=== PATIENT | female | born 1945 | race Caucasian/White ===

== ENCOUNTER 2022-11-19 11:58 | Inpatient (IN) | payer MEDICARE, SELFPAY ==
--- NOTE | 2022-11-19 | ECG_ITS ---
Test Reason : hx ischemia Blood Pressure : / mmHG Vent. Rate : 075 BPM Atrial Rate : 075 BPM P-R Int : 136 ms QRS Dur : 070 ms QT Int : 376 ms P-R-T Axes : -12 000 046 degrees QTc Int : 419 ms Normal sinus rhythm with sinus arrhythmia T wave abnormality, consider anterior ischemia Abnormal ECG No previous ECGs available Referred By: Grabiel Roy Electronically Signed By:Marvin Ponce
--- OUTSIDE RECORDS SUMMARY | 2022-11-19 12:07 | XMS_ITS | Continuity of Care Document ---
Author Name Unknown Organization [facility] Address [address] [place] [address]- Care Team Providers Care Denial Management Representative Name Role Phone Matt ARINEY, Mikie Vallecillo Primary Care Physician [phone] Encounter [facility] [place] Date(s): 10/21/21 - 11/20/21 [facility] [address] [place], [place] [address] Allergies, Adverse Reactions, Alerts No Known Allergies Immunizations Given and Recorded Vaccine Date Status Refusal Reason zoster vaccine, inactivated 05/15/21 Recorded zoster vaccine, inactivated 03/14/21 Recorded pneumococcal 13-valent vaccine 1 02/15/21 Given SARS-CoV-2 (COVID-19) mRNA BNT-162b2 vac 01/11/21 Recorded SARS-CoV-2 (COVID-19) mRNA BNT-162b2 vac 07/11/20 Recorded SARS-CoV-2 (COVID-19) mRNA BNT-162b2 vac 06/19/20 Recorded influenza virus vaccine, inactivated 12/20/20 Elie rded influenza virus vaccine, inactivated 2 02/03/20 Gi jeffrey influenza virus vaccine, inactivated 3 06/30/08 Gi jeffrey tetanus/diphtheria/pertussis, acel(Tdap) 12/04/14 Given tetanus-diphtheria toxoids (Td) 06/11/05 Given 1Result Comment: [id number] 2Result Comment: [id number] 3Admin Note: PT DECLINED/REFUSED Medications clobetasol 0.05% topical cream 1 applicator, Topically, Every Thursday, Thursday and Thursday, # 45 Gm, 1 Refills, Maintenance, 02/15/21 8:23:00 EDT, Cream, [facility], 1 applicator Topically Every Thursday, Thursday and Thursday, 158.3, cm, 02/15/21 8:03:00 EDT, Height Start Date: 02/15/21 Status: Ordered doxylamine 25 mg oral tablet 0.5 tablet = 12.5 mg, By Mouth, Daily at bedtime, 0 Refills, Maintenance, 01/09/17 9:12:48 EDT Start Date: 01/09/17 Status: Ordered omeprazole 20 mg oral enteric coated capsule 1 capsule = 20 mg, By Mouth, 2 times a day, # 60 capsule, 3 Refills, Maintenance, 07/02/21 13:51:00EDT, EC Capsule, [id number], Partial fill upon patient request if the prescription is for aschedule II opioid drug., 158.3, cm, 06/20/21 10:16... Start Date: 07/02/21 Stop Date: 10/30/21 Status: Ordered ProAir HFA 90 mcg/inh inhalation aerosol with adapter 2, puffs, Inhalation, Every 4 hours, PRN, # 8.5 Gm, Refills 1, Tot. Refills 1, Maintenance, 02/15/21 8:23:00 EDT, Aerosol, Route to Pharmacy Electronically, [id number], [facility], 158.3, cm, 02/15/21 8:03:... Start Date: 02/15/21 Status: Ordered simvastatin 20 mg oral tablet 20 mg, 1, tablet, By Mouth, Daily at bedtime, RX#[id number] 07, # 90 tablet, Refills 3, Tot. Refills 3, Maintenance, 03/25/21 9:07:00 EST, Route to Pharmacy Electronically, [facility], do not fill untl pt calls, 158.3, cm, 02/15... Start Date: 03/25/21 Status: Ordered Problem List Condition Effective Dates Status Health Status Inform ant Asthma(Confirmed) 04/16/17 Active FH: Ischemic heart dis. <60(Confirmed) Active Hypercholesterolemia(Confirmed) 11/26/12 Active Lichen sclerosus(Confirmed) 12/27/11 Active Arthritis of shoulder region , right, degenerative Right shoulder arthroplasty(Confirmed) 10/24/18 Active Osteopenia ------> osteoporo sis -2.5 hip ( 03/2020 )(Confirmed) Active Rotator cuff repair(Confirmed) 01/23/10 Active Vitamin D deficiency(Confirmed) 07/08/08 Active Social History Social History Type Response Smoking Status Never smoker entered on: 12/02/13 Sex
--- OUTSIDE RECORDS SUMMARY | 2022-11-19 12:07 | XMS_ITS | Continuity of Care Document ---
Author Name Unknown Organization [facility] Address [address] [place] [address]- Care Team Providers Care Maintenance Supervisor Name Role Phone Mikie Gutierrez MD Primary Care Physician [place] [facility] [place] Date(s): 07/02/21 - 08/01/21 [facility] [address] [place], [place] [address] Attending Physician: Shelley Vora Admitting Physician: AdmShelley tavares Referring Physician: Admtr, Shelley Allergies, Adverse Reactions, Alerts No Known Allergies [...] tetanus-diphtheria toxoids (Td) 06/11/05 Given 1Result Comment: [id number] 2Result Comment: [id number] 3Admin Note: PT DECLINED/REFUSED Medications clobetasol 0.05% [...] 3 Refills, Maintenance, 07/02/21 13:51:00EDT, EC Capsule, [facility]/pharmacy #[id number], Partial fill upon patient request if the prescription is for aschedule II opioid drug., 158.3, cm, 06/20/21 10:16... Start Date: 07/02/21 Stop Date: 10/30/21 Status: Ordered ProAir HFA 90 mcg/inh inhalation aerosol with adapter 2, puffs, Inhalation, Every 4 hours, PRN, # 8.5 Gm, Refills 1, Tot. Refills 1, Maintenance, 02/15/21 8:23:00 EDT, Aerosol, Route to Pharmacy Electronically, [id number], [facility], 158.3, cm, 02/15/21 8:03:... Start Date: 02/15/21 Status: Ordered simvastatin 20 mg oral tablet 20 mg, 1, tablet, By Mouth, Daily at bedtime, RX#[id number] 07, # 90 tablet, Refills 3, Tot. Refills 3, Maintenance, 03/25/21 9:07:00 EST, Route to Pharmacy Electronically, [facility], do not fill untl pt [...] 01/23/10 Active Vitamin D deficiency(Confirmed) 07/08/08 Active Procedures Procedure Date Related Diagnosis Body Site Status Colonoscopy normal 1 05/09/08 Comp leted 72224 Social History Social History Type Response Smoking Status Never smoker entered on: 12/02/13 Sex
--- OUTSIDE RECORDS SUMMARY | 2022-11-19 12:07 | XMS_ITS | Continuity of Care Document ---
Author Name Unknown Organization [facility] Address [address] [place] [address]- Care Team Providers Care Dough Maker Name Role Phone Trish RAINEY, [facility] Primary Care Physician [place] [facility] [place](s): 04/15/22 - 05/15/22 [facility] [address] [place] [address]- Attending Physician: Shelley Vora Admitting Physician: AdmShelley tavares Referring Physician: AdmtrShelley Allergies, Adverse Reactions, Alerts No Known Allergies [...] tetanus-diphtheria toxoids (Td) 06/11/05 Given 1Result Comment: [id number] 2Result Comment: [id number] 3Admin Note: PT DECLINED/REFUSED Medications Ventolin HFA 108 mcg/inh inhalation aerosol with adapter 1 puffs, Inhalation, Every 4 hours, PRN for wheezing, # 18 Gm, 5 Refills, Maintenance, 03/21/22 11:46:00 EST, [facility]erosol, [id number], Partial fill upon patient request if the prescription is fora schedule II opioid drug., 158.3, cm, 03/20/22 16:... Start Date: 03/21/22 Stop Date: 09/17/22 Status: Ordered Problem List Condition Confirmation Course Effective Dates Status Health Status Informant FH: Ischemic heart dis. <60 Confirmed Active Hypercholesterolemia Confirmed 11/26/12 Active Lichen sclerosus Confirmed 12/27/11 Active Mild intermittent asthma Confirmed Active Arthritis of shoulder region, right, degenerative Right shoulder arthroplasty Confirmed 10/24/18 Active Osteopenia ------> osteoporosis -2.5 hip ( 03/2020 ) Confirmed Active Rotator cuff repair Confirmed 01/23/10 Active Vitamin D deficiency Confirmed 07/08/08 Active Social History Social History Type Response Smoking Status Never smoker entered on: 12/02/13 Sex Patient Care team information Care Team Personnel Name: Inge Wall RN Position: [facility] PCO RN Member Role: Primary Care Nurse Name: Marvin Chambers MD Position: [facility] Primary Care Physician Member Role: PCP Address: Address: [address] [place] [address] [address] [place] [address]- Care Team Related Persons Name: ERROL MCKINLEY Address: home [address] [place] [address] Name: SHWETA KRUGER Address: home [address] [place] [address] Name: MELI MONAE Address: home [address] [place] [address] Name: RENE MONAE Name: RENE MONAE
--- OUTSIDE RECORDS SUMMARY | 2022-11-19 12:07 | XMS_ITS | Continuity of Care Document ---
Author Name Unknown Organization [facility] Address [address] [place] [address]- Care Team Providers Care Forklift Mechanic Name Role Phone Mikie Gutierrez MD Primary Care Physician En[place] [facility] [place] Date(s): 02/15/21 - 02/22/21 [facility] [address] [place], [place] [address] Attending Physician: Mikie Gutierrez MD Allergies, Adverse Reactions, Alerts Substance Reaction Severity Status NKA Active Immunizations Given and Recorded Vaccine Date Status Refusal Reason pneumococcal 13-valent vaccine 1 02/15/21 Given SARS-CoV-2 (COVID-19) mRNA BNT-162b2 vac 01/11/21 Recorded SARS-CoV-2 (COVID-19) mRNA BNT-162b2 vac 07/11/20 Recorded SARS-CoV-2 (COVID-19) mRNA BNT-162b2 vac 06/19/20 Recorded influenza virus vaccine, inactivated 12/20/20 Elie rded influenza virus vaccine, inactivated 2 02/03/20 Gi jeffrey influenza virus vaccine, inactivated 3 06/30/08 Gi jeffrey tetanus/diphtheria/pertussis, acel(Tdap) 12/04/14 Given tetanus-diphtheria toxoids (Td) 06/11/05 Given 1Result Comment: [id number] 2Result Comment: [id number] 3Admin Note: PT DECLINED/REFUSED Medications clobetasol 0.05% [...] 9:12:48 EDT Start Date: 01/09/17 Status: Ordered ProAir HFA 90 mcg/inh inhalation aerosol with adapter 2, puffs, Inhalation, Every 4 hours, PRN, # 8.5 Gm, Refills 1, Tot. Refills 1, Maintenance, 02/15/21 8:23:00 EDT, Aerosol, Route to Pharmacy Electronically, [id number], [facility], 158.3, cm, 02/15/21 8:03:... Start Date: 02/15/21 Status: Ordered simvastatin 20 mg oral tablet 20 mg, 1, tablet, By Mouth, Daily at bedtime, RX#[id number] 07, # 90 tablet, Refills 3, Tot. Refills 3, Maintenance, 02/15/21 8:23:00 EDT, Route to Pharmacy Electronically, [facility], do not fill untl pt calls, 158.3, cm, 02/15... Start Date: 02/15/21 Status: Ordered Problem List Condition Effective Dates Status Health Status Inform ant Asthma(Confirmed) 04/16/17 Active FH: Ischemic heart dis. <60(Confirmed) Active Hypercholesterolemia(Confirmed) 11/26/12 Active Lichen sclerosus(Confirmed) 12/27/11 Active Arthritis of shoulder region , right, degenerative Right shoulder arthroplasty(Confirmed) 10/24/18 Active Osteopenia ------> osteoporo sis -2.5 hip ( 03/2020 )(Confirmed) Active Rotator cuff repair(Confirmed) 01/23/10 Active Vitamin D deficiency(Confirmed) 07/08/08 Active Vital Signs Most recent to oldest [Reference Range]: 1 Height 158.3 cm (02/15/21 8:03 AM) Weight 59.6 kg (02/15/21 8:03 AM) Oxygen Saturation [94-100 %] 98 % (02/15/21 8:03 AM) Pulse Rate [55-90 bpm] 60 bpm (02/15/21 8:03 AM) Body Mass Index [18.5-24.99] 23.78 (02/15/21 8:03 AM) Blood Pressure [90-138/55-84 mm Hg] 136/ 80mm Hg (02/15/21 8:03 AM) Temperature [96.8-100.4 DegF] 98.7 DegF (02/15/21 8:03 AM) Blood pressure sites Arm, left (02/15/21 8:03 AM) Social History Social History Type Response Smoking Status Never smoker entered on: 12/02/13 Sex
--- OUTSIDE RECORDS SUMMARY | 2022-11-19 12:07 | XMS_ITS | Continuity of Care Document ---
Author Name Unknown Organization [facility] Address [address] [place] [address]- Care Team Providers Care Auto Inspection Specialist Name Role Phone Matt RAINEY, Mikie Vallecillo Primary Care Physician [place] [facility] [place] 03/21/20 - 04/20/20 [facility] [address] [place], [place] [address] Allergies, Adverse Reactions, Alerts Substance Reaction Severity Status NKA Active Immunizations Given and Recorded Vaccine Date Status Refusal Reason influenza virus vaccine, inactivated 1 02/03/20 Gi jeffrey influenza virus vaccine, inactivated 2 06/30/08 Gi jeffrey tetanus/diphtheria/pertussis, acel(Tdap) 12/04/14 Given tetanus-diphtheria toxoids (Td) 06/11/05 Given 1Result Comment: [id number] 2Admin Note: PT DECLINED/REFUSED Medications clobetasol 0.05% topical cream 1 applicator, Topically, Every Thursday, Thursday and Thursday, # 45 Gm, 1 Refills, Maintenance, 02/03/20 10:57:00 EDT, Cream, [id number], 1 applicator Topically Every Thursday, Thursday and Thursday, 158.3, cm, 02/03/20 10:25:00 EDT, Height, 53, kg... Start Date: 02/03/20 Status: Ordered doxylamine 25 mg oral tablet 0.5 tablet = 12.5 mg, By Mouth, Daily at bedtime, 0 Refills, Maintenance, 01/09/17 9:12:48 EDT Start Date: 01/09/17 Status: Ordered ProAir HFA 90 mcg/inh inhalation aerosol with adapter 2, puffs, Inhalation, Every 4 hours, PRN, # 8.5 Gm, Refills 1, Tot. Refills 1, Maintenance, 12/06/19 17:14:00 EDT, Aerosol, Route to Pharmacy Electronically, [id number], [facility]/pharmacy #1972, 158.3, cm, 01/27/19 9:01:00 EDT, He... Start Date: 12/06/19 Status: Ordered simvastatin 20 mg oral tablet 20 mg, 1, tablet, By Mouth, Daily at bedtime, RX#[id number] 07, # 90 tablet, Refills 3, Tot. Refills 3, Maintenance, 02/03/20 10:58:00 EDT, Route to Pharmacy Electronically, [facility], do not fill untl pt calls, 158.3, cm, 01/12... Start Date: 02/03/20 Status: Ordered Problem List Condition Effective Dates [...]
--- OUTSIDE RECORDS SUMMARY | 2022-11-19 12:07 | XMS_ITS | Continuity of Care Document ---
Author Name Unknown Organization [facility] Address [address] [place] [address]- Care Team Providers Care Database Programmer Analyst Name Role Phone Mikie Gutierrez MD Primary Care Physician [place] [facility] [place] 04/09/20 [facility] [address] [place], [place] [address] Attending Physician: Mikie Gutierrez MD Allergies, Adverse Reactions, Alerts Substance Reaction Severity Status NKA Active Immunizations Given and Recorded Vaccine Date Status Refusal Reason influenza virus vaccine, inactivated 1 02/03/20 Gi jeffrey influenza virus vaccine, inactivated 2 06/30/08 Gi jeffrey tetanus/diphtheria/pertussis, acel(Tdap) 12/04/14 Given tetanus-diphtheria toxoids (Td) 06/11/05 Given 1Result Comment: [id number] 2Admin Note: PT DECLINED/REFUSED Medications clobetasol 0.05% [...] 17:14:00 EDT, Aerosol, Route to Pharmacy Electronically, [id number], [id number], 158.3, cm, 01/27/19 9:01:00 EDT, He... Start Date: 12/06/19 Status: Ordered simvastatin 20 mg oral tablet 20 mg, 1, tablet, By Mouth, Daily at bedtime, RX#[id number] 07, # 90 tablet, Refills 3, Tot. [...]
--- OUTSIDE RECORDS SUMMARY | 2022-11-19 12:07 | XMS_ITS | Continuity of Care Document ---
Author Name Unknown Organization [facility] Address [address] [place] [address]- Care Team Providers Care Supervisor Lace Tearing Name Role Phone Trish RAINEY, Marvin Primary Care Physician [place] [facility] [place](s): 03/21/22 - 05/15/22 [facility] [address] [place] [address]- Attending Physician: Marvin Chambers MD Allergies, Adverse Reactions, Alerts No Known Allergies [...] tetanus-diphtheria toxoids (Td) 06/11/05 Given 1Result Comment: [id number] 2Result Comment: [id number] 3Admin Note: PT DECLINED/REFUSED Medications Ventolin HFA [...] Team Personnel Name: Inge Wall RN Position: [facility] PCO RN Member Role: Primary Care Nurse Name: Marvin Chambers MD Position: [facility] Primary Care Physician Member Role: PCP Address: Address: [address] [place] [address] [address] [place] [address]- Care Team Related Persons Name: ERROL MCKINLEY Address: home [address] [place] [address] Name: SHWETA KRUGER Address: home [address] [place] [address] Name: MELI MONAE Address: home [address] [place] [address] Name: RENE MONAE Name: RENE MONAE
--- OUTSIDE RECORDS SUMMARY | 2022-11-19 12:07 | XMS_ITS | Continuity of Care Document ---
Author Name Unknown Organization [facility] Address [address] [place] [address]- Care Team Providers Care Stripe Marker Name Role Phone Trish RAINEY, [facility] Primary Care Physician [place] [facility] [place]): [place] - 03/28/22 [facility] [address] [place] [address]- Encounter Diagnosis Mild intermittent asthma(Discharge Diagnosis) - 03/21/22 Attending Physician: Marvin Chambers MD Allergies, Adverse [...] tetanus-diphtheria toxoids (Td) 06/11/05 Given 1Result Comment: [id number] 2Result Comment: [id number] 3Admin Note: PT DECLINED/REFUSED Medications Ventolin HFA [...] Active Vitamin D deficiency Confirmed 07/08/08 Active Diagnosis Diagnosis Type Effective Dates Health Status Clinical Service Informant Mild intermittent asthma Discharge Diagnosis 03/21/22 Vital Signs Most recent to oldest [Reference Range]: 1 Height 158.3 cm (03/20/22 4:16 PM) Weight 63 kg (03/20/22 4:16 PM) Body Mass Index [18.5-24.99 kg/m2] 25.14 kg/m2 *H* (03/20/22 4:16 PM) Weight Obtained Via Patient/family state d (03/20/22 4:16 PM) Social History Social History Type Response Smoking Status Never smoker entered on: 12/02/13 Sex Patient Care team information Care Team Personnel Name: Inge Wall RN Position: [facility] PCO RN Member Role: Primary Care Nurse Name: Marvin Chambers MD Position: [facility] Primary Care Physician Member Role: PCP Address: Address: [address] [place] [address] [address] [place] [address]- Care Team Related Persons Name: ERROL MCKINLEY Address: home [address] [place] [address] Name: SHWETA KRUGER Address: home [address] [place] [address] Name: MELI MONAE Address: home [address] [place] [address] Name: RENE MONAE Name: RENE MONAE
--- OUTSIDE RECORDS SUMMARY | 2022-11-19 12:07 | XMS_ITS | Continuity of Care Document ---
Author Name Unknown Organization [facility] Address [address] [place] [address]- Care Team Providers Care Glaze Supervisor Name Role Phone Mikie Gutierrez MD Primary Care Physician [phone] En[place] [facility] [place] Date(s): 02/03/20 - 02/10/20 [facility] [address] [place] [address]- [facility] Attending Physician: Mikie Gutierrez MD Allergies, Adverse Reactions, Alerts Substance Reaction Severity Status NKA Active Immunizations Given and Recorded Vaccine Date Status Refusal Reason influenza virus vaccine, inactivated 1 02/03/20 Gi jeffrey influenza virus vaccine, inactivated 2 06/30/08 Gi jeffrey tetanus/diphtheria/pertussis, acel(Tdap) 12/04/14 Given tetanus-diphtheria toxoids (Td) 06/11/05 Given 1Result Comment: [id number] 2Admin Note: PT DECLINED/REFUSED Medications clobetasol 0.05% [...] 17:14:00 EDT, Aerosol, Route to Pharmacy Electronically, [id number], [facility]/pharmacy #1972, 158.3, cm, 01/27/19 9:01:00 EDT, He... Start Date: 12/06/19 Status: Ordered simvastatin 20 mg oral tablet 20 mg, 1, tablet, By Mouth, Daily at bedtime, RX#[id number] 07, # 90 tablet, Refills 3, Tot. [...] right, degenerative Right shoulder arthroplasty(Confirmed) 10/24/18 Active Osteopenia(Confirmed) Active Rotator cuff repair(Confirmed) 01/23/10 Active Vitamin D deficiency(Confirmed) 07/08/08 Active Vital Signs Most recent to oldest [Reference Range]: 1 Height 158.3 cm (02/03/20 10:25 AM) Weight 59.6 kg (02/03/20 10:25 AM) Oxygen Saturation [94-100 %] 97 % (02/03/20 10:25 AM) Pulse Rate [55-90 bpm] 77 bpm (02/03/20 10:25 AM) Body Mass Index [18.5-24.99] 23.78 (02/03/20 10:25 AM) Blood Pressure [90-138/55-84 mm Hg] 128/ 60mm Hg (02/03/20 10:25 AM) Temperature [96.8-100.4 DegF] 96.6 DegF *L* (02/03/20 10:25 AM) Blood pressure sites Arm, left (02/03/20 10:25 AM) Temperature Route Core (02/03/20 10:25 AM) Social History Social History Type Response Smoking Status Never smoker entered on: 12/02/13 Sex
--- OUTSIDE RECORDS SUMMARY | 2022-11-19 12:07 | XMS_ITS | Continuity of Care Document ---
Author Name Unknown Organization [facility] Address [address] [place] [address]- Care Team Providers Care Technical Implementation Lead Name Role Phone Matt RAINEY, Mikie Vallecillo Primary Care Physician Encounter [facility] [place] Date(s): 06/27/21 - 07/27/21 [facility] [address] [place], [place] [address] Allergies, Adverse Reactions, Alerts No Known Allergies [...] tetanus-diphtheria toxoids (Td) 06/11/05 Given 1Result Comment: [id number] 2Result Comment: [id number] 3Admin Note: PT DECLINED/REFUSED Medications clobetasol 0.05% [...] 8:23:00 EDT, Aerosol, Route to Pharmacy Electronically, [id number], [facility], 158.3, cm, 02/15/21 8:03:... Start Date: 02/15/21 Status: Ordered simvastatin 20 mg oral tablet 20 mg, 1, tablet, By Mouth, Daily at bedtime, RX#[id number] 07, # 90 tablet, Refills 3, Tot. Refills 3, Maintenance, 03/25/21 9:07:00 EST, Route to Pharmacy Electronically, [facility], do not fill untl pt [...]
--- OUTSIDE RECORDS SUMMARY | 2022-11-19 12:07 | XMS_ITS | Continuity of Care Document ---
Author Name Unknown Organization [facility] Address [address] [place] [address]- Care Team Providers Care General Merchandise Salesperson Name Role Phone Mikie Gutierrez MD Primary Care Physician Encounter [facility] [place] Date(s): 04/02/20 - 05/02/20 [facility] [address] [place], [place] [address] Attending Physician: Shelley Vora Admitting Physician: AdmtrShelley Referring Physician: Admtr, Shelley Allergies, Adverse Reactions, Alerts Substance Reaction Severity Status NKA Active Immunizations Given and Recorded Vaccine Date Status Refusal Reason influenza virus vaccine, inactivated 1 02/03/20 Gi jeffrey influenza virus vaccine, inactivated 2 06/30/08 Gi jeffrey tetanus/diphtheria/pertussis, acel(Tdap) 12/04/14 Given tetanus-diphtheria toxoids (Td) 06/11/05 Given 1Result Comment: [id number] 2Admin Note: PT DECLINED/REFUSED Medications clobetasol 0.05% [...] 17:14:00 EDT, Aerosol, Route to Pharmacy Electronically, [id number], [facility]/pharmacy #1972, 158.3, cm, 01/27/19 9:01:00 EDT, He... Start Date: 12/06/19 Status: Ordered simvastatin 20 mg oral tablet 20 mg, 1, tablet, By Mouth, Daily at bedtime, RX#[id number] 07, # 90 tablet, Refills 3, Tot. [...] Status Colonoscopy normal 1 05/09/08 Comp leted 35436 Social History Social History Type Response Smoking Status Never smoker entered on: 12/02/13 Sex
--- OUTSIDE RECORDS SUMMARY | 2022-11-19 12:07 | XMS_ITS | Continuity of Care Document ---
Author Name Unknown Organization [facility] Address [address] [place] [address]- Care Team Providers Care Corporate Specialist Name Role Phone Matt RAINEY, Mikie Vallecillo Primary Care Physician Encounter [facility] [place] Date(s): 03/25/21 - 04/24/21 [facility] [address] [place], [place] [address] Allergies, Adverse Reactions, Alerts Substance Reaction [...] tetanus-diphtheria toxoids (Td) 06/11/05 Given 1Result Comment: [id number] 2Result Comment: [id number] 3Admin Note: PT DECLINED/REFUSED Medications clobetasol 0.05% [...] 8:23:00 EDT, Aerosol, Route to Pharmacy Electronically, [id number], [facility], 158.3, cm, 02/15/21 8:03:... Start Date: 02/15/21 Status: Ordered simvastatin 20 mg oral tablet 20 mg, 1, tablet, By Mouth, Daily at bedtime, RX#[id number] 07, # 90 tablet, Refills 3, Tot. Refills 3, Maintenance, 03/25/21 9:07:00 EST, Route to Pharmacy Electronically, [facility] [...]
--- OUTSIDE RECORDS SUMMARY | 2022-11-19 12:07 | XMS_ITS | Continuity of Care Document ---
Author Name Unknown Organization [facility] Address [address] [place] [address]- Care Team Providers Care Occupational Therapist Name Role Phone Mikie Gutierrez MD Primary Care Physician [place] [facility] [place]14[place] 03/14/21 [facility] [address] [place], [place] [address] Attending Physician: Mikie Gutierrez MD Allergies, Adverse [...] tetanus-diphtheria toxoids (Td) 06/11/05 Given 1Result Comment: [id number] 2Result Comment: [id number] 3Admin Note: PT DECLINED/REFUSED Medications clobetasol 0.05% [...] 8:23:00 EDT, Aerosol, Route to Pharmacy Electronically, [id number], [facility], 158.3, cm, 02/15/21 8:03:... Start Date: 02/15/21 Status: Ordered simvastatin 20 mg oral tablet 20 mg, 1, tablet, By Mouth, Daily at bedtime, RX#[id number] 07, # 90 tablet, Refills 3, Tot. Refills 3, Maintenance, 02/15/21 8:23:00 EDT, Route to Pharmacy Electronically, [facility], do not fill untl pt [...]
--- OUTSIDE RECORDS SUMMARY | 2022-11-19 12:07 | XMS_ITS | Continuity of Care Document ---
Author Name Unknown Organization [facility] Address [address] [place] [address]- Care Team Providers Care Cashier Associate Name Role Phone Mikie Gutierrez MD Primary Care Physician [phone] [place] [facility] [place](s[place] 07/02/21 - 07/09/21 [facility] [address] [place], [place] [address] Attending Physician: Mikie Gutierrez MD Allergies, Adverse Reactions, Alerts No Known [...] tetanus-diphtheria toxoids (Td) 06/11/05 Given 1Result Comment: [id number] 2Result Comment: [id number] 3Admin Note: PT DECLINED/REFUSED Medications clobetasol 0.05% [...] 3 Refills, Maintenance, 07/02/21 13:51:00EDT, [facility] C[facility], [facility]/pharmacy #[id number], Partial fill upon patient request if the prescription is for aschedule II opioid drug., 158.3, cm, 06/20/21 10:16... Start Date: 07/02/21 Stop Date: 10/30/21 Status: Ordered ProAir HFA 90 mcg/inh inhalation aerosol with adapter 2, puffs, Inhalation, Every 4 hours, PRN, # 8.5 Gm, Refills 1, Tot. Refills 1, Maintenance, 02/15/21 8:23:00 EDT, Aerosol, Route to Pharmacy Electronically, [id number], [facility], 158.3, cm, 02/15/21 8:03:... Start Date: 02/15/21 Status: Ordered simvastatin 20 mg oral tablet 20 mg, 1, tablet, By Mouth, Daily at bedtime, RX#[id number] 07, # 90 tablet, Refills 3, Tot. Refills 3, Maintenance, 03/25/21 9:07:00 EST, Route to Pharmacy Electronically, [facility], do not fill untl pt [...]
--- OUTSIDE RECORDS SUMMARY | 2022-11-19 12:07 | XMS_ITS | Continuity of Care Document ---
Author Name Unknown Organization [facility] Address [address] [place] [address]- Care Team Providers Care Java J2Ee Software Engineer Name Role Phone Trish RAINEY, [facility] Primary Care Physician En[place] [facility] [place] Date(s): 02/20/22 - 03/22/22 [facility] [address] [place], [place] [address] Attending Physician: Shelley Vora Admitting Physician: Admtr, Ar8 Referring Physician: Admtr, Ar8 Allergies, Adverse Reactions, Alerts No Known Allergies [...] tetanus-diphtheria toxoids (Td) 06/11/05 Given 1Result Comment: [id number] 2Result Comment: [id number] 3Admin Note: PT DECLINED/REFUSED Medications Ventolin HFA [...] Active Vitamin D deficiency Confirmed 07/08/08 Active Procedures Procedure Date Related Diagnosis Body Site Status Colonoscopy normal 1 05/09/08 Comp leted 93491 Social History Social History Type Response Smoking Status Never smoker entered on: 12/02/13 Sex Note * Event Display: Laboratory Result Scanned Authored Date: * Event Display: Non Radiology Results Authored Date: * Ayesha Burdick: PERFORM Event Display: Laboratory Results Scanned Authored Date: [id number] * Dariela Campoverde: PERFORM Event Display: Laboratory Results Scanned Authored Date: CT Skeletal system Multisection for bone density * Event Display: Bone Density Authored Date: Patient Care team information Care Team Personnel Name: Inge Wall RN Position: [facility] PCO RN Member Role: Primary Care Nurse Name: Marvin Chambers MD Position: [facility] Primary Care Physician Member Role: PCP Address: Address: [address] [place] [address] Care Team Related Persons Name: ERROL MCKINLEY Address: home [address] [place] [address] Name: SHWETA KRUGER Address: home [address] [place] [address] Name: MELI MONAE Address: home [address] [place] [address] Name: RENE MONAE Name: RENE MONAE
--- OUTSIDE RECORDS SUMMARY | 2022-11-19 12:07 | XMS_ITS | Continuity of Care Document ---
Author Name Unknown Organization [facility] Address [address] [place] [address]- Care Team Providers Care Switch Maker Name Role Phone Matt RAINEY, Mikie Vallecillo Primary Care Physician Encounter [facility] [place] Date(s): 11/28/21 - 12/28/21 [facility] [address] [place], [place] [address] Allergies, Adverse Reactions, Alerts No Known [...] tetanus-diphtheria toxoids (Td) 06/11/05 Given 1Result Comment: [id number] 2Result Comment: [id number] 3Admin Note: PT DECLINED/REFUSED Medications clobetasol 0.05% [...] 8:23:00 EDT, Aerosol, Route to Pharmacy Electronically, [id number], [facility], 158.3, cm, 02/15/21 8:03:... Start Date: 02/15/21 Status: Ordered simvastatin 20 mg oral tablet 20 mg, 1, tablet, By Mouth, Daily at bedtime, RX#[id number] 07, # 90 tablet, Refills 3, Tot. Refills 3, Maintenance, 03/25/21 9:07:00 EST, Route to Pharmacy Electronically, [facility], do not fill untl pt [...] Status Never smoker entered on: 12/02/13 Sex Care Team Personnel Name: Mikie Gutierrez MD Address: [address] [place] [address] Adult [facility] Pediatric Medicine [address]
--- OUTSIDE RECORDS SUMMARY | 2022-11-19 12:07 | XMS_ITS | Continuity of Care Document ---
Author Name Unknown Organization [facility] Address [address] [place] [address]- Care Team Providers Care Administrative Support Associate Name Role Phone Matt RAINEY, Mikie Vallecillo Primary Care Physician [place] [facility] [place] 06/14/21 - 07/14/21 [facility] [address] [place], [place] [address] Allergies, Adverse Reactions, Alerts No Known Allergies [...] tetanus-diphtheria toxoids (Td) 06/11/05 Given 1Result Comment: [id number] 2Result Comment: [id number] 3Admin Note: PT DECLINED/REFUSED Medications clobetasol 0.05% [...] 8:23:00 EDT, Aerosol, Route to Pharmacy Electronically, [id number], [facility], 158.3, cm, 02/15/21 8:03:... Start Date: 02/15/21 Status: Ordered simvastatin 20 mg oral tablet 20 mg, 1, tablet, By Mouth, Daily at bedtime, RX#[id number] 07, # 90 tablet, Refills 3, Tot. Refills 3, Maintenance, 03/25/21 9:07:00 EST, Route to Pharmacy Electronically, [facility], do not fill untl pt [...]
--- OUTSIDE RECORDS SUMMARY | 2022-11-19 12:07 | XMS_ITS | Continuity of Care Document ---
Author Name Unknown Organization [facility] Address [address] [place] [address]- Care Team Providers Care Nail Machine Operator Name Role Phone Trish RAINEY, [facility] Primary Care Physician En[place] [facility] [place] Date(s): 11/22/21 - 03/22/22 [facility] [address] [place], [place] [address] Attending Physician: Mikie Gutierrez MD Allergies, Adverse [...] tetanus-diphtheria toxoids (Td) 06/11/05 Given 1Result Comment: [id number] 2Result Comment: [id number] 3Admin Note: PT DECLINED/REFUSED Medications Ventolin HFA [...] Team Personnel Name: Inge Wall RN Position: [facility] PCO RN Member Role: Primary Care Nurse Name: Marvin Chambers MD Position: [facility] Primary Care Physician Member Role: PCP Address: Address: [address] [place] [address] [place] [address]- Care Team Related Persons Name: ERROL MCKINLEY Address: home [address] [place] [address] Name: SHWETA KRUGER Address: home [address] [place] [address] Name: MELI MONAE Address: home [address] [place] [address] Name: RENE MONAE Name: RENE MONAE
--- OUTSIDE RECORDS SUMMARY | 2022-11-19 12:07 | XMS_ITS | Continuity of Care Document ---
Author Name Unknown Organization [facility] Address [address] [place] [address]- Care Team Providers Care Vegetable Buncher Name Role Phone Matt RAINEY, Mikie Vallecillo Primary Care Physician En[facility] [place] Date(s): 02/15/21 - 03/17/21 [facility] [address] [place], [place] [address] Allergies, Adverse Reactions, Alerts Substance Reaction Severity [...] tetanus-diphtheria toxoids (Td) 06/11/05 Given 1Result Comment: [id number] 2Result Comment: [id number] 3Admin Note: PT DECLINED/REFUSED Medications clobetasol 0.05% [...] 8:23:00 EDT, Aerosol, Route to Pharmacy Electronically, [id number], [facility], 158.3, cm, 02/15/21 8:03:... Start Date: 02/15/21 Status: Ordered simvastatin 20 mg oral tablet 20 mg, 1, tablet, By Mouth, Daily at bedtime, RX#[id number] 07, # 90 tablet, Refills 3, Tot. Refills 3, Maintenance, 02/15/21 8:23:00 EDT, Route to Pharmacy Electronically, [facility] [...]
--- OUTSIDE RECORDS SUMMARY | 2022-11-19 12:07 | XMS_ITS | Continuity of Care Document ---
Author Name Unknown Organization [facility] Address [address] [place] [address]- Care Team Providers Care Furnace Roaster Name Role Phone Matt RAINEY, Mikie Vallecillo Primary Care Physician En[place] [facility] [place] Date(s): 12/06/19 - 01/05/20 [facility] [address] [place] [address]- [facility] Allergies, Adverse Reactions, Alerts Substance Reaction Severity Status NKA Active Immunizations Given and Recorded Vaccine Date Status Refusal Reason tetanus/diphtheria/pertussis, acel(Tdap) 12/04/14 Given influenza virus vaccine, inactivated 1 06/30/08 Gi jeffrey tetanus-diphtheria toxoids (Td) 06/11/05 Given 1Admin Note: PT DECLINED/REFUSED Medications clobetasol 0.05% topical cream 1 applicator, Topically, Every Thursday, Thursday and Thursday, # 45 Gm, 1 Refills, Maintenance, 01/19/18 9:39:20 EDT, Cream, 1 applicator Topically Every Thursday, Thursday and Thursday Start Date: 01/19/18 Status: Ordered doxylamine 25 mg oral tablet 0.5 tablet = 12.5 mg, By Mouth, Daily at bedtime, 0 Refills, Maintenance, 01/09/17 9:12:48 EDT Start Date: 01/09/17 Status: Ordered ProAir HFA 90 mcg/inh inhalation aerosol with adapter 2, puffs, Inhalation, Every 4 hours, PRN, # 8.5 Gm, Refills 1, Tot. Refills 1, Maintenance, 12/06/19 17:14:00 EDT, Aerosol, Route to Pharmacy Electronically, [id number], [facility]/pharmacy #[id number], 158.3, cm, 01/27/19 9:01:00 EDT, He... Start Date: 12/06/19 Status: Ordered simvastatin 20 mg oral tablet 20 mg, 1, tablet, By Mouth, Daily at bedtime, RX#[id number] 07, # 90 tablet, Refills 3, Tot. Refills 3, Maintenance, 01/27/19 9:50:51 EDT, Route to Pharmacy Electronically, [id number], [facility], do not... Start Date: 01/27/19 Status: Ordered Problem List Condition Effective Dates [...]
--- OUTSIDE RECORDS SUMMARY | 2022-11-19 12:07 | XMS_ITS | Continuity of Care Document ---
Author Name Unknown Organization [facility] Address [address] [place] [address]- Care Team Providers Care Drier Tender Name Role Phone Matt RAINEY, Mikie Vallecillo Primary Care Physician Encounter [facility] [place] Date(s): 11/05/21 - 12/05/21 [facility] [address] [place], [place] [address] Allergies, Adverse Reactions, Alerts No Known [...] tetanus-diphtheria toxoids (Td) 06/11/05 Given 1Result Comment: [id number] 2Result Comment: [id number] 3Admin Note: PT DECLINED/REFUSED Medications clobetasol 0.05% [...] 8:23:00 EDT, Aerosol, Route to Pharmacy Electronically, [id number], [facility], 158.3, cm, 02/15/21 8:03:... Start Date: 02/15/21 Status: Ordered simvastatin 20 mg oral tablet 20 mg, 1, tablet, By Mouth, Daily at bedtime, RX#[id number] 07, # 90 tablet, Refills 3, Tot. Refills 3, Maintenance, 03/25/21 9:07:00 EST, Route to Pharmacy Electronically, [facility], do not fill untl pt [...] Team Personnel Name: Mikie Gutierrez MD Address: [address] [place] [address] Adult [facility] Pediatric Medicine [address]
--- OUTSIDE RECORDS SUMMARY | 2022-11-19 12:07 | XMS_ITS | Continuity of Care Document ---
Author Name Unknown Organization [facility] Address [address] [place] [address]- Care Team Providers Care Petroleum Engineer Name Role Phone Matt RAINEY, Mikie Vallecillo Primary Care Physician En[place] [facility] [place] Date(s): 07/03/21 - 08/02/21 [facility] [address] [place], [place] [address] Allergies, Adverse Reactions, Alerts No Known [...] tetanus-diphtheria toxoids (Td) 06/11/05 Given 1Result Comment: [id number] 2Result Comment: [id number] 3Admin Note: PT DECLINED/REFUSED Medications clobetasol 0.05% [...] 8:23:00 EDT, Aerosol, Route to Pharmacy Electronically, [id number], [facility], 158.3, cm, 02/15/21 8:03:... Start Date: 02/15/21 Status: Ordered simvastatin 20 mg oral tablet 20 mg, 1, tablet, By Mouth, Daily at bedtime, RX#[id number] 07, # 90 tablet, Refills 3, Tot. Refills 3, Maintenance, 03/25/21 9:07:00 EST, Route to Pharmacy Electronically, [facility], do not fill untl pt [...]
--- OUTSIDE RECORDS SUMMARY | 2022-11-19 12:07 | XMS_ITS | Continuity of Care Document ---
Author Name Unknown Organization [facility] Address [address] [place] [address]- Care Team Providers Care Computer Technical Specialist Name Role Phone Matt RAINEY, Mikie Vallecillo Primary Care Physician [phone] Encounter [facility] [place] Date(s): 11/27/21 - 12/27/21 [facility] [address] [place], [place] [address] Allergies, Adverse Reactions, Alerts No Known [...] tetanus-diphtheria toxoids (Td) 06/11/05 Given 1Result Comment: [id number] 2Result Comment: [id number] 3Admin Note: PT DECLINED/REFUSED Medications clobetasol 0.05% [...] 8:23:00 EDT, Aerosol, Route to Pharmacy Electronically, [id number], [facility], 158.3, cm, 02/15/21 8:03:... Start Date: 02/15/21 Status: Ordered simvastatin 20 mg oral tablet 20 mg, 1, tablet, By Mouth, Daily at bedtime, RX#[id number] 07, # 90 tablet, Refills 3, Tot. Refills 3, Maintenance, 03/25/21 9:07:00 EST, Route to Pharmacy Electronically, [facility], do not fill untl pt [...] Team Personnel Name: Mikie Gutierrez MD Address: [address] [place] [address] Adult & Pediatric Medicine [address]
--- OUTSIDE RECORDS SUMMARY | 2022-11-19 12:07 | XMS_ITS | Continuity of Care Document ---
Author Name Unknown Organization [facility] Address [address] [place] [address]- Care Team Providers Care Seismometer Operator Name Role Phone Matt RAINEY, Mikie Vallecillo Primary Care Physician [place] [facility] [place]s): 02/22/21 - 03/24/21 [facility] [address] [place], [place] [address] Allergies, Adverse Reactions, Alerts Substance Reaction [...] tetanus-diphtheria toxoids (Td) 06/11/05 Given 1Result Comment: [id number] 2Result Comment: [id number] 3Admin Note: PT DECLINED/REFUSED Medications clobetasol 0.05% [...] 8:23:00 EDT, Aerosol, Route to Pharmacy Electronically, [id number], [facility], 158.3, cm, 02/15/21 8:03:... Start Date: 02/15/21 Status: Ordered simvastatin 20 mg oral tablet 20 mg, 1, tablet, By Mouth, Daily at bedtime, RX#[id number] 07, # 90 tablet, Refills 3, Tot. [...]
--- OUTSIDE RECORDS SUMMARY | 2022-11-19 12:07 | XMS_ITS | Continuity of Care Document ---
Author Name Unknown Organization [facility] Address [address] [place] [address]- Care Team Providers Care Harvesting Contractor Name Role Phone Matt RAINEY, Mikie Vallecillo Primary Care Physician [facility] [place] Date(s): 02/18/21 - 03/20/21 [facility] [address] [place], [place] [address] Allergies, Adverse Reactions, Alerts Substance [...] tetanus-diphtheria toxoids (Td) 06/11/05 Given 1Result Comment: [id number] 2Result Comment: [id number] 3Admin Note: PT DECLINED/REFUSED Medications clobetasol 0.05% [...] 8:23:00 EDT, Aerosol, Route to Pharmacy Electronically, [id number], [facility], 158.3, cm, 02/15/21 8:03:... Start Date: 02/15/21 Status: Ordered simvastatin 20 mg oral tablet 20 mg, 1, tablet, By Mouth, Daily at bedtime, RX#[id number] 07, # 90 tablet, Refills 3, Tot. [...]
--- OUTSIDE RECORDS SUMMARY | 2022-11-19 12:07 | XMS_ITS | Continuity of Care Document ---
Author Name Unknown Organization [facility] Address [address] [place] [address]- Care Team Providers Care Tribal Council Member Name Role Phone Matt RAINEY, Mikie Vallecillo Primary Care Physician [phone] En[place] [facility] [place] Date(s): 11/20/21 - 12/20/21 [facility] [address] [place], [place] [address] Allergies, Adverse Reactions, Alerts No [...] tetanus-diphtheria toxoids (Td) 06/11/05 Given 1Result Comment: [id number] 2Result Comment: [id number] 3Admin Note: PT DECLINED/REFUSED Medications clobetasol 0.05% [...] 8:23:00 EDT, Aerosol, Route to Pharmacy Electronically, [id number], [facility], 158.3, cm, 02/15/21 8:03:... Start Date: 02/15/21 Status: Ordered simvastatin 20 mg oral tablet 20 mg, 1, tablet, By Mouth, Daily at bedtime, RX#[id number] 07, # 90 tablet, Refills 3, Tot. Refills 3, Maintenance, 03/25/21 9:07:00 EST, Route to Pharmacy Electronically, [facility], do not fill untl pt [...] Team Personnel Name: Mikie Gutierrez MD Address: [address] [place] [address] Adult & Pediatric Medicine [address]
--- OUTSIDE RECORDS SUMMARY | 2022-11-19 12:07 | XMS_ITS | Continuity of Care Document ---
Author Name Unknown Organization [facility] Address [address] [place] [address]- Care Team Providers Care Casing Mixer Name Role Phone Mikie Gutierrez MD Primary Care Physician En[place] [facility] [place] Date(s): 06/20/21 - 06/27/21 [facility] [address] [place], [place] [address] Attending Physician: [...] tetanus-diphtheria toxoids (Td) 06/11/05 Given 1Result Comment: [id number] 2Result Comment: [id number] 3Admin Note: PT DECLINED/REFUSED Medications clobetasol 0.05% [...] 8:23:00 EDT, Aerosol, Route to Pharmacy Electronically, [id number], [facility], 158.3, cm, 02/15/21 8:03:... Start Date: 02/15/21 Status: Ordered simvastatin 20 mg oral tablet 20 mg, 1, tablet, By Mouth, Daily at bedtime, RX#[id number] 07, # 90 tablet, Refills 3, Tot. [...] oldest [Reference Range]: 1 Height 158.3 cm (06/20/21 10:16 AM) Weight 60.8 kg (06/20/21 10:16 AM) Oxygen Saturation [94-100 %] 95 % (06/20/21 10:16 AM) Pulse Rate [55-90 bpm] 72 bpm (06/20/21 10:16 AM) Body Mass Index [18.5-24.99] 24.26 (06/20/21 10:16 AM) Blood Pressure [90-138/55-84 mm Hg] 126/ 80mm Hg (06/20/21 10:16 AM) Mode of Delivery (Oxygen) Room air (06/20/21 10:16 AM) Blood pressure sites Arm, left (06/20/21 10:16 AM) Social History Social History Type Response Smoking Status Never smoker entered on: 12/02/13 Sex
--- OUTSIDE RECORDS SUMMARY | 2022-11-19 12:07 | XMS_ITS | Continuity of Care Document ---
Author Name Unknown Organization [facility] Address [address] [place] [address]- Care Team Providers Care Block Feeder Name Role Phone Matt RAINEY, Mikie Vallecillo Primary Care Physician [place] [facility] [place] Date(s): 12/26/21 - 01/25/22 [facility] [address] [place] [address]- Allergies, Adverse Reactions, Alerts No Known Allergies [...] tetanus-diphtheria toxoids (Td) 06/11/05 Given 1Result Comment: [id number] 2Result Comment: [id number] 3Admin Note: PT DECLINED/REFUSED Medications clobetasol 0.05% [...] 8:23:00 EDT, Aerosol, Route to Pharmacy Electronically, [id number], [facility], 158.3, cm, 02/15/21 8:03:... Start Date: 02/15/21 Status: Ordered simvastatin 20 mg oral tablet 20 mg, 1, tablet, By Mouth, Daily at bedtime, RX#[id number] 07, # 90 tablet, Refills 3, Tot. Refills 3, Maintenance, 03/25/21 9:07:00 EST, Route to Pharmacy Electronically, [facility], do not fill untl pt calls, 158.3, cm, 02/15... Start Date: 03/25/21 Status: Ordered Problem List Condition Confirmation Course Effective Dates Status Health Status Informant Asthma Confirmed 04/16/17 Active FH: Ischemic heart dis. 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
--- OUTSIDE RECORDS SUMMARY | 2022-11-19 12:07 | XMS_ITS | Continuity of Care Document ---
Author Name Unknown Organization [facility] ter Address [address] [place] [id number]- Care Team Providers Care Lodging House Keeper Name Role Phone Mikie Gutierrez MD Primary Care Physician Encounter [facility](s): 01/25/19 - 04/15/[address] [id number]- [facility] Attending Physician: Mikie Gutierrez MD Admitting Physician: Mikie Gutierrez MD Referring Physician: Mikie Gutierrez MD Allergies, Adverse Reactions, [...] 9:12:48 EDT Start Date: 01/09/17 Status: Ordered simvastatin 20 mg oral tablet 20 mg, 1, tablet, By Mouth, Daily at bedtime, RX#[id number] 07, # 90 tablet, Refills 3, Tot. Refills 3, Maintenance, 01/27/19 9:50:51 EDT, Route to Pharmacy Electronically, [id number], [facility], do not... Start [...]
[2022-11-19 12:43] VITALS: BMI 25.1
--- NOTE | 2022-11-19 12:57 | P.HPPS_ITS ---
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 The patient was brought to the emergency room since her brother called 911 stating that the patient had being outside of her home, wandering, spending the night on the porch of the facility, very confused unable to take care of herself. She was rushed to the emergency room of [facility] and admitted medically since she had a UTI and she was treated with IV antibiotics. Apparently, according to the crisis assessment, the patient had had visual hallucinations stating that she sees minor child another woman, she was confused at times but very pleasant and cooperative. The doctor of [facility] reported that the patient had been extremely confused, very demented, she scored [place] 6/30 over there, they medically cleared into a CT scan without any major abnormalities. Also she receive IV antibiotics ceftriaxone for UTI. She was started on Zyprexa 5 mg p.o. q.h.s. to target psychotic symptoms. On interview, the patient was very pleasant and confused, she stated that she recently have 5 heart attacks and she stated that she was brought to the hospital for her heart problems. She admitted confusion at times and she stated that she is feeling fine and wants to go back to her home. At the moment of the interview, the patient was able to contract for safety but she was extremely confused asking were her bedroom was. She denies visual or auditory hallucinations at this moment. Past Psychiatric History: Denies Medical Evaluation Reviewed: Hospitalist David Pending [facility] Family History: Denies Social History: The patient has never been , she does not have children, her brother is her healthcare proxy. She is a retired worker of the [employer] and she lives in a facility. She has some ancillary services. Substance History: Denies Trauma History: Denies Diagnostics Vital Signs (24Hr): BMI result Body Mass Index 25.1 Meds/Allergies Allergies Allergies Allergy/AdvReac Type Severity Reaction Status Date / Time No Known Allergies Allergy Verified 11/19/22 12:09 Mental Status Exam Mental Status Exam Patient Appearance: Appropriate Patient Orientation: Person and Situation Level of Consciousness: Awake and Appropriate Patient Behavior: Cooperative and Passive Mood Description: Withdrawn Affect Description: Constricted Patient Cognition Impaired: Yes Ability to Follow Directions: Good Speech Pattern: Clear Hallucinations: Visual Delusions: Not Present Thought Process: Distracted, Evasive and Slowed Thinking Thought Content: positive for [place], positive for [place] and positive for Poverty of Content Judgement: Fair Assessment & Plan Assessment & Plan (1) Delirium: Status: Acute Code(s): R41.0 - Disorientation, unspecified (2) Dementia: Status: Acute Code(s): F03.90 - Unspecified dementia, unspecified severity, without behavioral disturbance, psychotic disturbance, mood disturbance, and anxiety Plan The patient is an elderly female with a past history of cognitive deterioration, referred to the emergency room of [facility] due to wandering behavior, confusion and psychotic symptoms. Over there she was diagnosed with a UTI and treated with IV antibiotics without any side effects. She remains extremely confused unable to take care of herself. She was seen in the community wandering and spending the night sitting a porch. Plan 1. Gather collateral information. 2. Continue 5 minutes checks due to advanced dementia. 3. Continue Zyprexa 5 mg p.o. q.h.s. as per [facility]. 4. Continue with p.r.n. trazodone for anxiety and Zyprexa 2.5 p.r.n. psychosis. 5. Regular blood work. 6. Assessment by medical team. 7. Reassessment with results. Patient educated on: diagnosis and therapeutic strategies Informed Consent: further education needed Reason for continued inpatient stay Substantial Risk for: inability to function, rapid decompensation and med/psych decompensation Statement Statement: I have reviewed the history and physical and performed a pertinent examination on my patient. No changes have occurred unless specified. If the History and Physical was not performed prior to admission, the Hospitalist's service will be consulted for completing the admission physical. Time Spent With Patient Time: Total time managing care of this patient today __45__ minutes.
[2022-11-19 13:03] VITALS: BP 126/73; PULSE 76; RESP 16; TEMP 36.3; O2SAT 97
--- NOTE | 2022-11-19 13:16 | P.CONHOSP_ITS ---
History of Present Illness Data of Consult Service Date: 11/19/22 Primary Care Provider: None Physician HPI Reason for consult: Admission H&P Pt is a 77-year-old female with apparently no significant PMH?who is admitted to [facility] [place] for confusion and agitation after being found wandering around her neighborhood. Medical consult for admission H&P. ?Patient is currently confused and reliable HPI thus difficult to obtain. Patient reports having 5 the heart attacks during the past week. However pt state she is currently doing well and feeling good. Denies chest pain/pressure, palpitations. Review of Systems Review of Systems: Unable to obtain d/t pt's mentation PMFSH Social History Advance Directives: No Advance Directives Information Provided: No Meds Allergies Allergy/AdvReac Type Severity Reaction Status Date / Time No Known Allergies Allergy Verified 11/19/22 12:09 Active Medications: Current Medications Acetaminophen (Acetaminophen 325 Mg Tablet) 650 mg PO Q6H PRN PRN Reason: Headache/Pain Mild Scale (1-3) Al Hydroxide/Mg Hydroxide (Magnesium Hydrox/Alum Hydrox 30 Ml Oral.Susp) 30 ml PO Q6H PRN PRN Reason: Heartburn/Nausea Hydroxyzine HCl (Hydroxyzine Hcl 25 Mg Tablet) 25 mg PO Q6H PRN PRN Reason: Anxiety Magnesium Hydroxide (Milk Of Magnesia 30 Ml Oral.Susp) 30 ml PO DAILY PRN PRN Reason: Constipation Trazodone HCl (Trazodone Hcl 50 Mg Tablet) 50 mg PO BEDTIME MRX1 PRN PRN Reason: Insomnia Physical Exam Vital Signs and Narrative: Vital Signs: Last Vital Signs Temp 97.3 F 11/19/22 13:03 Pulse 76 11/19/22 13:03 Resp 16 11/19/22 13:03 BP 126/73 11/19/22 13:03 Pulse Ox 97 11/19/22 13:03 O2 Del Method Room Air 11/19/22 13:03 BMI result Body Mass Index 25.1 Constitutional: Alert, pleasantly confused, in no acute distress. Mental Status: Oriented to person and time but not to place or situation. Eyes: Pupils are equal, round, and reactive to light. Ear, Nose, and Throat: Oropharynx clear, mucous membranes moist. Ears and nose without deformities. Trachea midline. Respiratory: Clear to auscultation bilaterally. No wheezing, rales, or rhonchi. Cardiovascular: S1, S2 regular. No murmurs, rubs, or gallops. Gastrointestinal: Abdomen soft, non-tender, non-distended. Normal bowel sounds. Neurologic: Cranial nerves II-XII are grossly intact bilaterally. No focal neurological deficits. Moves all extremities spontaneously. Skin: No rashes or lesions noted. Musculoskeletal: No cyanosis or clubbing. Extremities: No edema. Psychiatric: Pleasantly confused. Assessment and Plan (1) Routine history and physical examination of adult: Status: Acute Plan Pt is a 77-year-old female with apparently no significant PMH?who is admitted to [facility] [place] for confusion and agitation after being found wandering around her neighborhood. Medical consult for admission H&P. ?Patient is currently confused and reliable HPI thus difficult to obtain. Pt state she is currently doing well and feeling good. Mood disorder Plan as per psychiatry Hx of [place] Pt claims she has had 5 heart attacks during the past week Workup negative at [facility] Pt currently asymptomatic, denies chest pain/pressure, palpitations Will check EKG Thank you for allowing us to participate in the care of this patient. Will follow pending EKG. Please let us know if there are any acute complaints or questions. Time Spent With Patient Time: Total time managing care of this patient today ____ minutes.
--- NOTE | 2022-11-19 15:23 | PC.ADMIT ---
Patient arrived on unit at 1210 pm via stretcher from [facility] where she had been admitted on November 04 secondary to experiencing visual hallucinations and wandering outside the home during the night with a diagnosis of unspecified anxiety disorder and unspecified dementia on CV. Patient presents as stated age with good hygiene, dressed in hospital attire, skin intact warm and dry. Patient speaks clearly and makes good eye contact. She is observed to be profoundly confused stating, I'm here because I had 5 heart attacks last week. Patient has PMH of R shoulder arthrirtis, Ischemic Heart Disease, Mild Intermittent Asthma. Patient ambulates independently without assitive device. Intermittently incontinent. Patient oriented to unit. Legal releases signed. HCP/POA in chart. Unable to participate in admission process d/t mental status.
[2022-11-19 18:00] VITALS: BP 130/71; PULSE 78; RESP 18; TEMP 36.2; O2SAT 95
[2022-11-19] MEDS: OLANZapine 5 MG TABLET PO (20:55)
[2022-11-20 07:00] VITALS: BMI 25.3
[2022-11-20 08:50] VITALS: BP 107/58; PULSE 77; RESP 18; TEMP 36.1; O2SAT 97
[2022-11-20 08:57] LABS: Alanine Aminotransferase 28 U/L (0-31); Albumin Level 3.8 g/dL (3.5-5.0); Alkaline Phosphatase 59 U/L (39-117); Anion Gap 13 (12-20); Aspartate Amino Transferase 25 U/L (5-31); Bilirubin Total 0.3 mg/dL (0.0-1.0); Blood Urea Nitrogen 33 mg/dL (9-16); Calcium 9.7 mg/dL (8.4-10.2); Carbon Dioxide 28 mmol/L (22-29); Chloride 107 mmol/L (96-108); Cholesterol 228 mg/dL; Creatinine Clr Calc Pharmacy 31.3; Estimated Glomerular Filt Rate 38; Glucose Fasting 91 mg/dL (60-99); HDL Cholesterol 41 mg/dL; LDL Cholesterol Calculated 158 mg/dl; Potassium 3.8 mmol/L (3.3-5.1); Sodium 144 mmol/L (135-145); Total Protein 7.1 g/dL (6.5-8.0); Triglycerides 147 mg/dL
--- NOTE | 2022-11-20 13:00 | HO.PSYCHPN ---
Subjective Subjective Date of Service: 11/20/22 Reason For Visit: F41.9 anxiety disorder, F03.90 dementia Subjective Notes: Conditional Voluntary Interim History: The nursing staff reported the patient had been alert and oriented to self she had been common cooperative but very confused. The social media assistant reported that she has a healthcare proxy the with probably will have to invoke since the patient had been very confused. On interview the patient reported that she had 5 heart attacks last week and she is here for medical per problems. Still very confused but easily redirectable. Today we decided to started a low dose of Aricept to target her dementia. Also the occupational therapist eventually will assess her her cognition.. Mental Status Exam Mental Status Exam Patient Appearance: Well Grooomed and Appropriate Patient Orientation: Person and Situation Level of Consciousness: Awake and Appropriate Patient Behavior: Guarded and Passive Mood Description: Withdrawn Affect Description: Constricted Patient Cognition Impaired: Yes Ability to Follow Directions: Good Speech Pattern: Clear Hallucinations: None Delusions: Paranoid Ideation Thought Process: Illogical, Distracted and Slowed Thinking Thought Content: positive for [place], positive for Poverty of Content and positive for Thought Blocking Judgement: Fair Diagnostics Vital Signs (24Hr): Vital Signs - 24 hr 11/19/22 13:03 11/19/22 18:00 11/20/22 08:50 Temperature 97.3 F 97.1 F 97 F Pulse Rate 76 78 77 Respiratory Rate 16 18 18 Blood Pressure 126/73 130/71 107/58 L Pulse Oximetry 97 95 97 Oxygen Delivery Method Room Air Room Air Room Air BMI result Body Mass Index 25.3 Labs 11/20/22 08:22 Labs: Laboratory Results - last 48 hr 11/20/22 08:22 Sodium 144 Potassium 3.8 Chloride 107 Carbon Dioxide 28 Anion Gap 13 BUN 33 H Creatinine 1.35 Estim Creat Clear Calc 31.3 Estimated GFR 38 Fasting Glucose 91 Calcium 9.7 Total Bilirubin 0.3 AST 25 ALT 28 Alkaline Phosphatase 59 Total Protein 7.1 Albumin 3.8 Triglycerides 147 Cholesterol 228 LDL Cholesterol, Calc 158 HDL Cholesterol 41 Medications Medications Current Medications Acetaminophen (Acetaminophen 325 Mg Tablet) 650 mg PO Q6H PRN PRN Reason: Headache/Pain Mild Scale (1-3) Al Hydroxide/Mg Hydroxide (Magnesium Hydrox/Alum Hydrox 30 Ml Oral.Susp) 30 ml PO Q6H PRN PRN Reason: Heartburn/Nausea Donepezil HCl (Donepezil Hcl 5 Mg Tablet) 5 mg PO BEDTIME KOBI Magnesium Hydroxide (Milk Of Magnesia 30 Ml Oral.Susp) 30 ml PO DAILY PRN PRN Reason: Constipation Olanzapine (Olanzapine 5 Mg Tablet) 5 mg PO BEDTIME KOBI Last Admin: 11/19/22 20:55 Dose: 5 mg Olanzapine (Olanzapine 2.5 Mg Tablet) 2.5 mg PO Q4H PRN PRN Reason: Psychosis Trazodone HCl (Trazodone Hcl 50 Mg Tablet) 50 mg PO BEDTIME MRX1 PRN PRN Reason: Insomnia Trazodone HCl (Trazodone Hcl 25 Mg Halftab) 25 mg PO TID PRN PRN Reason: anxiety Allergies Allergies Allergy/AdvReac Type Severity Reaction Status Date / Time No Known Allergies Allergy Verified 11/19/22 12:09 Assessment & Plan Assessment & Plan (1) Delirium: Status: Acute Code(s): R41.0 - Disorientation, unspecified (2) Dementia: Status: Acute Code(s): F03.90 - Unspecified dementia, unspecified severity, without behavioral disturbance, psychotic disturbance, mood disturbance, and anxiety Plan Pt is a 77-year-old female with apparently no significant PMH?who is admitted to [facility] for confusion and agitation after being found wandering around her neighborhood. Medical consult for admission H&P. ?Patient is currently confused and reliable HPI thus difficult to obtain. Pt state she is currently doing well and feeling good. Mood disorder Plan as per psychiatry Hx of [place] Pt claims she has had 5 heart attacks during the past week Workup negative at [facility] Pt currently asymptomatic, denies chest pain/pressure, palpitations Will check EKG Plan 1. Gather collateral information. 2. Start Aricept 5 mg p.o. q.h.s. on most 10. 3. Continue Zyprexa as per [facility]. 4. Reassessment with results. Reason for continued inpatient stay Substantial Risk for: inability to function, rapid decompensation and med/psych decompensation Time Spent With Patient Time: Total time managing care of this patient today _20___ minutes.
[2022-11-20 20:00] VITALS: BP 141/72; PULSE 95; RESP 18; TEMP 36.2; O2SAT 99
[2022-11-20] MEDS: Donepezil HCl 5 MG TABLET PO (20:57)
[2022-11-20] MEDS: OLANZapine 5 MG TABLET PO (20:57)
[2022-11-21 06:00] VITALS: BP 147/74; PULSE 94; RESP 16; TEMP 36.1; O2SAT 98
--- NOTE | 2022-11-21 12:57 | HO.PSYCHPN ---
Subjective Subjective Date of Service: 11/21/22 Reason For Visit: F41.9 anxiety disorder, F03.90 dementia Subjective Notes: Conditional Voluntary Interim History: The nursing staff reported the patient had been medication and meal compliant, social, common cooperative. She slept well last night. She has poor insight into her condition she thinks that she is in the hospital because she has cataract surgery. The social science analyst reported that we are going to have a family meeting on Thursday at 13:00. Apparently his brother is his healthcare proxy. On interview the patient denies new symptoms we are going to increase her Aricept up to 10 mg p.o. q.h.s. Mental Status Exam Mental Status Exam Patient Appearance: Appropriate Patient Orientation: Person and Situation Level of Consciousness: Awake and Appropriate Patient Behavior: Guarded and Passive Mood Description: Withdrawn Affect Description: Constricted Patient Cognition Impaired: Yes Ability to Follow Directions: Good Speech Pattern: Clear Hallucinations: None Delusions: Not Present Thought Process: Distracted and Linear Thought Content: positive for [place] and positive for Circumstantial Judgement: Fair Diagnostics Vital Signs (24Hr): Vital Signs - 24 hr 11/20/22 20:00 11/21/22 06:00 Temperature 97.2 F 96.9 F Pulse Rate 95 94 Respiratory Rate 18 16 Blood Pressure 141/72 H 147/74 H Pulse Oximetry 99 98 Oxygen Delivery Method Room Air Room Air BMI result Body Mass Index 25.3 Labs 11/20/22 08:22 Labs: Laboratory Results - last 48 hr 11/20/22 08:22 Sodium 144 Potassium 3.8 Chloride 107 Carbon Dioxide 28 Anion Gap 13 BUN 33 H Creatinine 1.35 Estim Creat Clear Calc 31.3 Estimated GFR 38 Fasting Glucose 91 Calcium 9.7 Total Bilirubin 0.3 AST 25 ALT 28 Alkaline Phosphatase 59 Total Protein 7.1 Albumin 3.8 Triglycerides 147 Cholesterol 228 LDL Cholesterol, Calc 158 HDL Cholesterol 41 Medications Medications Current Medications Acetaminophen (Acetaminophen 325 Mg Tablet) 650 mg PO Q6H PRN PRN Reason: Headache/Pain Mild Scale (1-3) Al Hydroxide/Mg Hydroxide (Magnesium Hydrox/Alum Hydrox 30 Ml Oral.Susp) 30 ml PO Q6H PRN PRN Reason: Heartburn/Nausea Donepezil HCl (Donepezil Hcl 10 Mg Tablet) 10 mg PO BEDTIME KOBI Magnesium Hydroxide (Milk Of Magnesia 30 Ml Oral.Susp) 30 ml PO DAILY PRN PRN Reason: Constipation Olanzapine (Olanzapine 5 Mg Tablet) 5 mg PO BEDTIME KOBI Last Admin: 11/20/22 20:57 Dose: 5 mg Olanzapine (Olanzapine 2.5 Mg Tablet) 2.5 mg PO Q4H PRN PRN Reason: Psychosis Trazodone HCl (Trazodone Hcl 50 Mg Tablet) 50 mg PO BEDTIME MRX1 PRN PRN Reason: Insomnia Trazodone HCl (Trazodone Hcl 25 Mg Halftab) 25 mg PO TID PRN PRN Reason: anxiety Allergies Allergies Allergy/AdvReac Type Severity Reaction Status Date / Time No Known Allergies Allergy Verified 11/19/22 12:09 Assessment & Plan Assessment & Plan (1) Delirium: Status: Acute Code(s): R41.0 - Disorientation, unspecified (2) Dementia: Status: Acute Code(s): F03.90 - Unspecified dementia, unspecified severity, without behavioral disturbance, psychotic disturbance, mood disturbance, and anxiety Plan Pt is a 77-year-old female with apparently no significant PMH?who is admitted to [facility] for confusion and agitation after being found wandering around her neighborhood. Medical consult for admission H&P. ?Patient is currently confused and reliable HPI thus difficult to obtain. Pt state she is currently doing well and feeling good. Mood disorder Plan as per psychiatry Hx of [place] Pt claims she has had 5 heart attacks during the past week Workup negative at [facility] Pt currently asymptomatic, denies chest pain/pressure, palpitations Will check EKG Plan 1. Gather collateral information. 2. Start Aricept 5 mg p.o. q.h.s. on most . 3. Continue Zyprexa as per [facility]. 4. Reassessment with results. 5. Family meeting on Thursday Reason for continued inpatient stay Substantial Risk for: inability to function, rapid decompensation and med/psych decompensation Time Spent With Patient Time: Total time managing care of this patient today _20___ minutes.
[2022-11-21 19:55] VITALS: BP 116/55; PULSE 115; RESP 20; TEMP 36; O2SAT 97
[2022-11-21] MEDS: OLANZapine 5 MG TABLET PO (20:55)
[2022-11-21] MEDS: Donepezil HCl 10 MG TABLET PO (20:55)
--- NOTE | 2022-11-22 08:03 | HO.PSYCHPN ---
Subjective Subjective Date of Service: 11/22/22 Reason For Visit: F41.9 anxiety disorder, F03.90 dementia Subjective Notes: Conditional Voluntary Interim History: The nursing staff reported the patient had been compliant with medications and meals. She is alert only to self she does not know why she is in the hospital. She slept well last night. On interview the patient is pleasantly confused, no behavioral disturbances at this moment. Mental Status Exam Mental Status Exam Patient Appearance: Appropriate Patient Orientation: Person and Situation Level of Consciousness: Awake and Appropriate Patient Behavior: Guarded and Passive Mood Description: Calm Affect Description: Constricted Patient Cognition Impaired: Yes Ability to Follow Directions: Good Speech Pattern: Clear Hallucinations: None Delusions: Not Present Thought Process: Linear Thought Content: positive for [place], positive for Poverty of Content, positive for [place] and positive for Thought Blocking Judgement: Poor Diagnostics Vital Signs (24Hr): Vital Signs - 24 hr 11/21/22 19:55 Temperature 96.8 F Pulse Rate 115 H Respiratory Rate 20 Blood Pressure 116/55 L Pulse Oximetry 97 Oxygen Delivery Method Room Air BMI result Body Mass Index 25.3 Labs 11/20/22 08:22 Labs: Laboratory Results - last 48 hr 11/20/22 08:22 Sodium 144 Potassium 3.8 Chloride 107 Carbon Dioxide 28 Anion Gap 13 BUN 33 H Creatinine 1.35 Estim Creat Clear Calc 31.3 Estimated GFR 38 Fasting Glucose 91 Calcium 9.7 Total Bilirubin 0.3 AST 25 ALT 28 Alkaline Phosphatase 59 Total Protein 7.1 Albumin 3.8 Triglycerides 147 Cholesterol 228 LDL Cholesterol, Calc 158 HDL Cholesterol 41 Medications Medications Current Medications Acetaminophen (Acetaminophen 325 Mg Tablet) 650 mg PO Q6H PRN PRN Reason: Headache/Pain Mild Scale (1-3) Al Hydroxide/Mg Hydroxide (Magnesium Hydrox/Alum Hydrox 30 Ml Oral.Susp) 30 ml PO Q6H PRN PRN Reason: Heartburn/Nausea Donepezil HCl (Donepezil Hcl 10 Mg Tablet) 10 mg PO BEDTIME KOBI Last Admin: 11/21/22 20:55 Dose: 10 mg Magnesium Hydroxide (Milk Of Magnesia 30 Ml Oral.Susp) 30 ml PO DAILY PRN PRN Reason: Constipation Olanzapine (Olanzapine 5 Mg Tablet) 5 mg PO BEDTIME KOBI Last Admin: 11/21/22 20:55 Dose: 5 mg Olanzapine (Olanzapine 2.5 Mg Tablet) 2.5 mg PO Q4H PRN PRN Reason: Psychosis Trazodone HCl (Trazodone Hcl 50 Mg Tablet) 50 mg PO BEDTIME MRX1 PRN PRN Reason: Insomnia Trazodone HCl (Trazodone Hcl 25 Mg Halftab) 25 mg PO TID PRN PRN Reason: anxiety Allergies Allergies Allergy/AdvReac Type Severity Reaction Status Date / Time No Known Allergies Allergy Verified 11/19/22 12:09 Assessment & Plan Assessment & Plan (1) Delirium: Status: Acute Code(s): R41.0 - Disorientation, unspecified (2) Dementia: Status: Acute Code(s): F03.90 - Unspecified dementia, unspecified severity, without behavioral disturbance, psychotic disturbance, mood disturbance, and anxiety Plan Pt is a 77-year-old female with apparently no significant PMH?who is admitted to [facility] for confusion and agitation after being found wandering around her neighborhood. Medical consult for admission H&P. ?Patient is currently confused and reliable HPI thus difficult to obtain. Pt state she is currently doing well and feeling good. Mood disorder Plan as per psychiatry Hx of [place] Pt claims she has had 5 heart attacks during the past week Workup negative at [facility] Pt currently asymptomatic, denies chest pain/pressure, palpitations Will check EKG Plan 1. Gather collateral information. 2. Start Aricept 5 mg p.o. q.h.s. on November 20. Increased up to 10 mg p.o. q.h.s. on November 22 3. Continue Zyprexa as per [facility]. 4. Reassessment with results. 5. Family meeting on Thursday Reason for continued inpatient stay Substantial Risk for: inability to function, rapid decompensation and med/psych decompensation Time Spent With Patient Time: Total time managing care of this patient today __20__ minutes.
[2022-11-22 08:08] VITALS: BP 122/61; PULSE 83; RESP 18; TEMP 36.4; O2SAT 95
[2022-11-22] MEDS: Acetaminophen 325 MG TABLET 650 MG PO (08:25)
[2022-11-22 18:00] VITALS: BP 141/69; PULSE 83; RESP 18; TEMP 36.3; O2SAT 97
[2022-11-22] MEDS: Donepezil HCl 10 MG TABLET PO (20:21)
[2022-11-22] MEDS: OLANZapine 5 MG TABLET PO (20:21)
[2022-11-23 07:54] VITALS: BP 116/58; PULSE 91; RESP 16; TEMP 36.2; O2SAT 96
[2022-11-23] MEDS: Acetaminophen 325 MG TABLET 650 MG PO (08:11)
[2022-11-23] MEDS: Memantine HCl 5 MG TABLET PO ×2 (08:11→20:09)
--- NOTE | 2022-11-23 09:45 | P.PNPSI_ITS ---
Subjective Subjective Date of Service: 11/23/22 Reason For Visit: F41.9 anxiety disorder, F03.90 dementia Subjective Notes: Conditional Voluntary Interim History: The nursing staff reported the patient had been pleasant cooperative and social. She is can and she slept well last night. On interview the patient is very confused she does not know why she is in the hospital but she is willing to continue treatment. We discussed options and she agreed to start Namenda 5 mg p.o. b.i.d. to target dementia. Mental Status Exam Mental Status Exam Patient Appearance: Well Grooomed and Appropriate Patient Orientation: Person and Situation Level of Consciousness: Awake and Appropriate Patient Behavior: Guarded and Passive Mood Description: Withdrawn Affect Description: Constricted Patient Cognition Impaired: Yes Ability to Follow Directions: Good Speech Pattern: Clear Hallucinations: None Delusions: Not Present Thought Process: Distracted Thought Content: positive for [place] and positive for Poverty of Content Judgement: Fair Diagnostics Vital Signs (24Hr): Vital Signs - 24 hr 11/22/22 18:00 11/23/22 07:54 Temperature 97.3 F 97.2 F Pulse Rate 83 91 Respiratory Rate 18 16 Blood Pressure 141/69 H 116/58 L Pulse Oximetry 97 96 Oxygen Delivery Method Room Air Room Air BMI result Body Mass Index 25.3 Labs 11/20/22 08:22 Medications Medications Current Medications Acetaminophen (Acetaminophen 325 Mg Tablet) 650 mg PO Q6H PRN PRN Reason: Headache/Pain Mild Scale (1-3) Last Admin: 11/23/22 08:11 Dose: 650 mg Al Hydroxide/Mg Hydroxide (Magnesium Hydrox/Alum Hydrox 30 Ml Oral.Susp) 30 ml PO Q6H PRN PRN Reason: Heartburn/Nausea Donepezil HCl (Donepezil Hcl 10 Mg Tablet) 10 mg PO BEDTIME [facility] Last Admin: 11/22/22 20:21 Dose: 10 mg Magnesium Hydroxide (Milk Of Magnesia 30 Ml Oral.Susp) 30 ml PO DAILY PRN PRN Reason: Constipation Memantine (Memantine Hcl 5 Mg Tablet) 5 mg PO BID [facility] Last Admin: 11/23/22 08:11 Dose: 5 mg Olanzapine (Olanzapine 5 Mg Tablet) 5 mg PO BEDTIME [facility] Last Admin: 11/22/22 20:21 Dose: 5 mg Olanzapine (Olanzapine 2.5 Mg Tablet) 2.5 mg PO Q4H PRN PRN Reason: Psychosis Trazodone HCl (Trazodone Hcl 50 Mg Tablet) 50 mg PO BEDTIME MRX1 PRN PRN Reason: Insomnia Trazodone HCl (Trazodone Hcl 25 Mg Halftab) 25 mg PO TID PRN PRN Reason: anxiety Allergies Allergies Allergy/AdvReac Type Severity Reaction Status Date / Time No Known Allergies Allergy Verified 11/19/22 12:09 Assessment & Plan Assessment & Plan (1) Delirium: Status: Acute Code(s): R41.0 - Disorientation, unspecified (2) Dementia: Status: Acute Code(s): F03.90 - Unspecified dementia, unspecified severity, without behavioral disturbance, psychotic disturbance, mood disturbance, and anxiety Plan Pt is a 77-year-old female with apparently no significant PMH?who is admitted to [facility] for confusion and agitation after being found wandering around her neighborhood. Medical consult for admission H&P. ?Patient is currently confused and reliable HPI thus difficult to obtain. Pt state she is currently doing well and feeling good. Mood disorder Plan as per psychiatry Hx of [place] Pt claims she has had 5 heart attacks during the past week Workup negative at [facility] Pt currently asymptomatic, denies chest pain/pressure, palpitations Will check EKG Plan 1. Gather collateral information. 2. Start Aricept 5 mg p.o. q.h.s. on November 20. Increased up to 10 mg p.o. q.h.s. on November 22 3. Continue Zyprexa as per [facility]. 4. Reassessment with results. 5. Family meeting on Thursday Reason for continued inpatient stay Substantial Risk for: inability to function, rapid decompensation and med/psych decompensation Time Spent With Patient Time: Total time managing care of this patient today __20__ minutes.
[2022-11-23 19:00] VITALS: BP 125/56; PULSE 78; RESP 18; TEMP 36.2; O2SAT 97
[2022-11-23] MEDS: OLANZapine 5 MG TABLET PO (20:09)
[2022-11-23] MEDS: Donepezil HCl 10 MG TABLET PO (20:09)
[2022-11-24 08:20] VITALS: BP 134/81; PULSE 92; RESP 18; TEMP 35.8; O2SAT 97
[2022-11-24] MEDS: Memantine HCl 5 MG TABLET PO ×2 (09:03→20:07)
--- NOTE | 2022-11-24 12:57 | HO.PSYCHPN ---
Subjective Subjective Date of Service: 11/24/22 Reason For Visit: F41.9 anxiety disorder, F03.90 dementia Subjective Notes: Conditional Voluntary (by HCP) Interim History: The nursing staff reported the patient had been common cooperative, yesterday she wanted to call for her parents. Today we will have as family meeting with his brother at 13:00. The occupational therapist did cognitive testing last week and she has court on the [place] 02/09. On interview, the patient remains pleasantly confused easily redirectable. She stated that her mother just today. Mental Status Exam Mental Status Exam Patient Appearance: Well Grooomed and Appropriate Patient Orientation: Person and Situation Level of Consciousness: Awake and Appropriate Patient Behavior: Guarded and Passive Mood Description: Withdrawn Affect Description: Constricted Patient Cognition Impaired: Yes Ability to Follow Directions: Good Speech Pattern: Clear Hallucinations: None Delusions: Not Present Thought Process: Distracted and Slowed Thinking Thought Content: positive for Poverty of Content Judgement: Fair Diagnostics Vital Signs (24Hr): Vital Signs - 24 hr 11/23/22 19:00 11/24/22 08:20 Temperature 97.2 F 96.5 F L Pulse Rate 78 92 Respiratory Rate 18 18 Blood Pressure 125/56 L 134/81 Pulse Oximetry 97 97 Oxygen Delivery Method Room Air Room Air BMI result Body Mass Index 25.3 Labs 11/20/22 08:22 Medications Medications Current Medications Acetaminophen (Acetaminophen 325 Mg Tablet) 650 mg PO Q6H PRN PRN Reason: Headache/Pain Mild Scale (1-3) Last Admin: 11/23/22 08:11 Dose: 650 mg Al Hydroxide/Mg Hydroxide (Magnesium Hydrox/Alum Hydrox 30 Ml Oral.Susp) 30 ml PO Q6H PRN PRN Reason: Heartburn/Nausea Donepezil HCl (Donepezil Hcl 10 Mg Tablet) 10 mg PO BEDTIME [facility] Last Admin: 11/23/22 20:09 Dose: 10 mg Magnesium Hydroxide (Milk Of Magnesia 30 Ml Oral.Susp) 30 ml PO DAILY PRN PRN Reason: Constipation Memantine (Memantine Hcl 5 Mg Tablet) 5 mg PO BID [facility] Last Admin: 11/24/22 09:03 Dose: 5 mg Olanzapine (Olanzapine 5 Mg Tablet) 5 mg PO BEDTIME [facility] Last Admin: 11/23/22 20:09 Dose: 5 mg Olanzapine (Olanzapine 2.5 Mg Tablet) 2.5 mg PO Q4H PRN PRN Reason: Psychosis Trazodone HCl (Trazodone Hcl 50 Mg Tablet) 50 mg PO BEDTIME MRX1 PRN PRN Reason: Insomnia Trazodone HCl (Trazodone Hcl 25 Mg Halftab) 25 mg PO TID PRN PRN Reason: anxiety Allergies Allergies Allergy/AdvReac Type Severity Reaction Status Date / Time No Known Allergies Allergy Verified 11/19/22 12:09 Assessment & Plan Assessment & Plan (1) Delirium: Status: Acute Code(s): R41.0 - Disorientation, unspecified (2) Dementia: Status: Acute Code(s): F03.90 - Unspecified dementia, unspecified severity, without behavioral disturbance, psychotic disturbance, mood disturbance, and anxiety Plan Pt is a 77-year-old female with apparently no significant PMH?who is admitted to [facility] for confusion and agitation after being found wandering around her neighborhood. Medical consult for admission H&P. ?Patient is currently confused and reliable HPI thus difficult to obtain. Pt state she is currently doing well and feeling good. Mood disorder Plan as per psychiatry Hx of [place] Pt claims she has had 5 heart attacks during the past week Workup negative at [facility] Pt currently asymptomatic, denies chest pain/pressure, palpitations Will check EKG Plan 1. Gather collateral information. 2. Start Aricept 5 mg p.o. q.h.s. on November 20. Increased up to 10 mg p.o. q.h.s. on November 22 3. Continue Zyprexa as per [facility]. 4. Reassessment with results. 5. Family meeting on Thursday to discuss disposition. Reason for continued inpatient stay Substantial Risk for: inability to function, rapid decompensation and med/psych decompensation Time Spent With Patient Time: Total time managing care of this patient today __20__ minutes.
[2022-11-24 18:00] VITALS: BP 157/70; PULSE 91; RESP 18; TEMP 36.4; O2SAT 98
[2022-11-24] MEDS: OLANZapine 5 MG TABLET PO (20:07)
[2022-11-24] MEDS: traZODone HCL 25 MG HALFTAB PO (20:07)
[2022-11-24] MEDS: Donepezil HCl 10 MG TABLET PO (20:08)
[2022-11-25] MEDS: Memantine HCl 5 MG TABLET PO (08:39)
[2022-11-25 08:45] VITALS: BP 138/70; PULSE 87; RESP 18; TEMP 35.8; O2SAT 97
--- NOTE | 2022-11-25 12:24 | HO.PSYCHPN ---
Subjective Subjective Date of Service: 11/25/22 Reason For Visit: F41.9 anxiety disorder, F03.90 dementia Subjective Notes: Conditional Voluntary Interim History: The nursing staff reported the patient had good appetite she had been incontinent. She slept all night line. The family meeting yesterday showed that the patient had some with other legal documents and we woke her healthcare proxy so we can gather more information. On interview the patient is pleasantly confused she stated that her parents diet and she was asking for his mother. We increased her Namenda up to 10 mg p.o. b.i.d.. Mental Status Exam Mental Status Exam Patient Appearance: Well Grooomed and Appropriate Patient Orientation: Person and Situation Level of Consciousness: Awake and Appropriate Patient Behavior: Guarded and Passive Mood Description: Withdrawn Affect Description: Constricted Patient Cognition Impaired: Yes Ability to Follow Directions: Good Speech Pattern: Clear Hallucinations: None Delusions: Not Present Thought Process: Linear Thought Content: positive for [place]um[place] Judgement: Fair Diagnostics Vital Signs (24Hr): Vital Signs - 24 hr 11/24/22 18:00 11/25/22 08:45 Temperature 97.6 F 96.5 F L Pulse Rate 91 87 Respiratory Rate 18 18 Blood Pressure 157/70 H 138/70 Pulse Oximetry 98 97 Oxygen Delivery Method Room Air Room Air BMI result Body Mass Index 25.3 Labs 11/20/22 08:22 Medications Medications Current Medications Acetaminophen (Acetaminophen 325 Mg Tablet) 650 mg PO Q6H PRN PRN Reason: Headache/Pain Mild Scale (1-3) Last Admin: 11/23/22 08:11 Dose: 650 mg Al Hydroxide/Mg Hydroxide (Magnesium Hydrox/Alum Hydrox 30 Ml Oral.Susp) 30 ml PO Q6H PRN PRN Reason: Heartburn/Nausea Donepezil HCl (Donepezil Hcl 10 Mg Tablet) 10 mg PO BEDTIME [facility] Last Admin: 11/24/22 20:08 Dose: 10 mg Magnesium Hydroxide (Milk Of Magnesia 30 Ml Oral.Susp) 30 ml PO DAILY PRN PRN Reason: Constipation Memantine (Memantine Hcl 10 Mg Tablet) 10 mg PO BID [facility] Olanzapine (Olanzapine 5 Mg Tablet) 5 mg PO BEDTIME [facility] Last Admin: 11/24/22 20:07 Dose: 5 mg Olanzapine (Olanzapine 2.5 Mg Tablet) 2.5 mg PO Q4H PRN PRN Reason: Psychosis Trazodone HCl (Trazodone Hcl 50 Mg Tablet) 50 mg PO BEDTIME MRX1 PRN PRN Reason: Insomnia Trazodone HCl (Trazodone Hcl 25 Mg Halftab) 25 mg PO TID PRN PRN Reason: anxiety Last Admin: 11/24/22 20:07 Dose: 25 mg Allergies Allergies Allergy/AdvReac Type Severity Reaction Status Date / Time No Known Allergies Allergy Verified 11/19/22 12:09 Assessment & Plan Assessment & Plan (1) Delirium: Status: Acute Code(s): R41.0 - Disorientation, unspecified (2) Dementia: Status: Acute Code(s): F03.90 - Unspecified dementia, unspecified severity, without behavioral disturbance, psychotic disturbance, mood disturbance, and anxiety Plan Pt is a 77-year-old female with apparently no significant PMH?who is admitted to [facility] for confusion and agitation after being found wandering around her neighborhood. Medical consult for admission H&P. ?Patient is currently confused and reliable HPI thus difficult to obtain. Pt state she is currently doing well and feeling good. Mood disorder Plan as per psychiatry Hx of [place] Pt claims she has had 5 heart attacks during the past week Workup negative at [facility] Pt currently asymptomatic, denies chest pain/pressure, palpitations Will check EKG Plan 1. Gather collateral information. 2. Start Aricept 5 mg p.o. q.h.s. on November 20. Increased up to 10 mg p.o. q.h.s. on November 22 3. Continue Zyprexa as per [facility]. 4. Reassessment with results. 5. Family meeting on Thursday to discuss disposition. Reason for continued inpatient stay Substantial Risk for: inability to function, rapid decompensation and med/psych decompensation Time Spent With Patient Time: Total time managing care of this patient today __20__ minutes.
[2022-11-25 18:00] VITALS: BP 139/65; PULSE 82; RESP 17; TEMP 36.3; O2SAT 97
[2022-11-25] MEDS: Memantine HCl 10 MG TABLET PO (20:40)
[2022-11-25] MEDS: OLANZapine 5 MG TABLET PO (20:40)
[2022-11-25] MEDS: traZODone HCL 25 MG HALFTAB PO (20:40)
[2022-11-25] MEDS: Donepezil HCl 10 MG TABLET PO (20:40)
[2022-11-26] MEDS: Memantine HCl 10 MG TABLET PO ×2 (08:19→20:09)
[2022-11-26 08:20] VITALS: BP 122/58; PULSE 90; RESP 18; TEMP 35.9; O2SAT 96
--- NOTE | 2022-11-26 12:23 | HO.PSYCHPN ---
Subjective Subjective Date of Service: 11/26/22 Reason For Visit: F41.9 anxiety disorder, F03.90 dementia Subjective Notes: Conditional Voluntary Interim History: The nursing staff reported the patient shows flat affect, she took a shower yesterday. The staff has noticed that she had it exit seeking behavior stated that she needs to go to her mother's but she was very easily redirected. On interview the patient is very confused but pleasant, no new symptoms. Mental Status Exam Mental Status Exam Patient Appearance: Well Grooomed and Appropriate Patient Orientation: Person Level of Consciousness: Awake and Appropriate Patient Behavior: Guarded and Passive Mood Description: Withdrawn Affect Description: Blunted Patient Cognition Impaired: Yes Ability to Follow Directions: Good Speech Pattern: Clear and Impoverished Hallucinations: None Delusions: Paranoid Ideation Thought Process: Illogical, Distracted and Slowed Thinking Thought Content: positive for [place] and positive for Poverty of Content Judgement: Fair Diagnostics Vital Signs (24Hr): Vital Signs - 24 hr 11/25/22 18:00 11/26/22 08:20 Temperature 97.3 F 96.6 F L Pulse Rate 82 90 Respiratory Rate 17 18 Blood Pressure 139/65 122/58 L Pulse Oximetry 97 96 Oxygen Delivery Method Room Air Room Air BMI result Body Mass Index 25.3 Labs 11/20/22 08:22 Medications Medications Current Medications Acetaminophen (Acetaminophen 325 Mg Tablet) 650 mg PO Q6H PRN PRN Reason: Headache/Pain Mild Scale (1-3) Last Admin: 11/23/22 08:11 Dose: 650 mg Al Hydroxide/Mg Hydroxide (Magnesium Hydrox/Alum Hydrox 30 Ml Oral.Susp) 30 ml PO Q6H PRN PRN Reason: Heartburn/Nausea Donepezil HCl (Donepezil Hcl 10 Mg Tablet) 10 mg PO BEDTIME [facility] Last Admin: 11/25/22 20:40 Dose: 10 mg Magnesium Hydroxide (Milk Of Magnesia 30 Ml Oral.Susp) 30 ml PO DAILY PRN PRN Reason: Constipation Memantine (Memantine Hcl 10 Mg Tablet) 10 mg PO BID [facility] Last Admin: 11/26/22 08:19 Dose: 10 mg Olanzapine (Olanzapine 5 Mg Tablet) 5 mg PO BEDTIME [facility] Last Admin: 11/25/22 20:40 Dose: 5 mg Olanzapine (Olanzapine 2.5 Mg Tablet) 2.5 mg PO Q4H PRN PRN Reason: Psychosis Trazodone HCl (Trazodone Hcl 50 Mg Tablet) 50 mg PO BEDTIME MRX1 PRN PRN Reason: Insomnia Trazodone HCl (Trazodone Hcl 25 Mg Halftab) 25 mg PO TID PRN PRN Reason: anxiety Last Admin: 11/25/22 20:40 Dose: 25 mg Allergies Allergies Allergy/AdvReac Type Severity Reaction Status Date / Time No Known Allergies Allergy Verified 11/19/22 12:09 Assessment & Plan Assessment & Plan (1) Delirium: Status: Acute Code(s): R41.0 - Disorientation, unspecified (2) Dementia: Status: Acute Code(s): F03.90 - Unspecified dementia, unspecified severity, without behavioral disturbance, psychotic disturbance, mood disturbance, and anxiety Plan Pt is a 77-year-old female with apparently no significant PMH?who is admitted to [facility] for confusion and agitation after being found wandering around her neighborhood. Medical consult for admission H&P. ?Patient is currently confused and reliable HPI thus difficult to obtain. Pt state she is currently doing well and feeling good. Mood disorder Plan as per psychiatry Hx of [place] Pt claims she has had 5 heart attacks during the past week Workup negative at [facility] Pt currently asymptomatic, denies chest pain/pressure, palpitations Will check EKG Plan 1. Gather collateral information. 2. Start Aricept 5 mg p.o. q.h.s. on November 20. Increased up to 10 mg p.o. q.h.s. on November 22 3. Continue Zyprexa as per [facility]. 4. Reassessment with results. 5. Family meeting on Thursday to discuss disposition. The family is not aware about the assets of the patient, we woke the healthcare proxy and cauterizations were sign. 6. Namenda increased up to 10 mg p.o. b.i.d. Reason for continued inpatient stay Substantial Risk for: inability to function, rapid decompensation and med/psych decompensation Time Spent With Patient Time: Total time managing care of this patient today _20___ minutes.
[2022-11-26 18:00] VITALS: BP 130/70; PULSE 99; O2SAT 98
[2022-11-26] MEDS: OLANZapine 5 MG TABLET PO (20:08)
[2022-11-26] MEDS: Donepezil HCl 10 MG TABLET PO (20:09)
[2022-11-26] MEDS: traZODone HCL 25 MG HALFTAB PO (20:09)
[2022-11-27 07:00] VITALS: BMI 25.9
[2022-11-27 08:30] VITALS: BP 113/54; PULSE 97; RESP 22; TEMP 36; O2SAT 95
[2022-11-27] MEDS: Memantine HCl 10 MG TABLET PO ×2 (08:30→20:58)
--- NOTE | 2022-11-27 12:38 | HO.PSYCHPN ---
Subjective Subjective Date of Service: 11/27/22 Reason For Visit: F41.9 anxiety disorder, F03.90 dementia Subjective Notes: Conditional Voluntary Interim History: Pt slept through the night. Her VS are stable- 113/54, HR 97. Pt denies any physical concerns. She is thinks her mother used to live here in 1993. Pt not fully oriented to situation. No aggression or behavioral concerns. She denies SI/HI. No evidence of psychosis or delusions. Medication Compliance: Yes Side effects from medications: No Review of Systems Review of Systems Unable to obtain d/t pt's mentation Yes all other systems are reviewed and are negative Mental Status Exam Mental Status Exam Patient Appearance: Well Grooomed and Appropriate Patient Orientation: Person Level of Consciousness: Awake and Appropriate Patient Behavior: Guarded and Passive Mood Description: Withdrawn Affect Description: Blunted Patient Cognition Impaired: Yes Ability to Follow Directions: Good Speech Pattern: Clear and Impoverished Diagnostics Vital Signs (24Hr): Vital Signs - 24 hr 11/26/22 18:00 11/27/22 08:30 Temperature 96.8 F Pulse Rate 99 97 Respiratory Rate 22 H Blood Pressure 130/70 113/54 L Pulse Oximetry 98 95 Oxygen Delivery Method Room Air Room Air BMI result Body Mass Index 25.3 Labs 11/20/22 08:22 Medications Medications Current Medications Acetaminophen (Acetaminophen 325 Mg Tablet) 650 mg PO Q6H PRN PRN Reason: Headache/Pain Mild Scale (1-3) Last Admin: 11/23/22 08:11 Dose: 650 mg Al Hydroxide/Mg Hydroxide (Magnesium Hydrox/Alum Hydrox 30 Ml Oral.Susp) 30 ml PO Q6H PRN PRN Reason: Heartburn/Nausea Donepezil HCl (Donepezil Hcl 10 Mg Tablet) 10 mg PO BEDTIME [facility] Last Admin: 11/26/22 20:09 Dose: 10 mg Magnesium Hydroxide (Milk Of Magnesia 30 Ml Oral.Susp) 30 ml PO DAILY PRN PRN Reason: Constipation Memantine (Memantine Hcl 10 Mg Tablet) 10 mg PO BID [facility] Last Admin: 11/27/22 08:30 Dose: 10 mg Olanzapine (Olanzapine 5 Mg Tablet) 5 mg PO BEDTIME [facility] Last Admin: 11/26/22 20:08 Dose: 5 mg Olanzapine (Olanzapine 2.5 Mg Tablet) 2.5 mg PO Q4H PRN PRN Reason: Psychosis Trazodone HCl (Trazodone Hcl 50 Mg Tablet) 50 mg PO BEDTIME MRX1 PRN PRN Reason: Insomnia Trazodone HCl (Trazodone Hcl 25 Mg Halftab) 25 mg PO TID PRN PRN Reason: anxiety Last Admin: 11/26/22 20:09 Dose: 25 mg Allergies Allergies Allergy/AdvReac Type Severity Reaction Status Date / Time No Known Allergies Allergy Verified 11/19/22 12:09 Assessment & Plan Assessment & Plan (1) Dementia: Status: Acute Code(s): F03.90 - Unspecified dementia, unspecified severity, without behavioral disturbance, psychotic disturbance, mood disturbance, and anxiety Plan Pt is a 77-year-old female with apparently no significant PMH?who is admitted to [facility] for confusion and agitation after being found wandering around her neighborhood. Medical consult for admission H&P. ?Patient is currently confused and reliable HPI thus difficult to obtain. Pt state she is currently doing well and feeling good. Mood disorder Plan as per psychiatry Hx of [place] Pt claims she has had 5 heart attacks during the past week Workup negative at [facility] Pt currently asymptomatic, denies chest pain/pressure, palpitations Will check EKG Plan 1. Gather collateral information. 2. Start Aricept 5 mg p.o. q.h.s. on November 20. Increased up to 10 mg p.o. q.h.s. on November 22 3. Continue Zyprexa as per [facility]. 4. Reassessment with results. 5. Family meeting on Thursday to discuss disposition. The family is not aware about the assets of the patient, we woke the healthcare proxy and cauterizations were sign. 6. Namenda increased up to 10 mg p.o. b.i.d. 11/27 no evidence of delirium but pt does have underlying major neurocognitive disorder. No combative behaviors, sleeping and eating wll. Takes meds. awaiting placement. continue plan. Reason for continued inpatient stay Substantial Risk for: inability to function Time Spent With Patient Time: Total time managing care of this patient today ____ minutes.
[2022-11-27 18:00] VITALS: BP 138/65; PULSE 89; RESP 15; TEMP 35.8; O2SAT 97
[2022-11-27] MEDS: Donepezil HCl 10 MG TABLET PO (20:58)
[2022-11-27] MEDS: traZODone HCL 25 MG HALFTAB PO (20:58)
[2022-11-27] MEDS: OLANZapine 5 MG TABLET PO (20:58)
--- NOTE | 2022-11-28 08:00 | HO.PSYCHPN ---
Subjective Subjective Date of Service: 11/28/22 Reason For Visit: F41.9 anxiety disorder, F03.90 dementia Subjective Notes: Conditional Voluntary Interim History: The nursing staff reported the patient is alert oriented to self, profoundly and aware where she is. She had been fully compliant with treatment. On interview the patient is pleasantly confused stating that she is waiting for her parents. Mental Status Exam Mental Status Exam Patient Appearance: Well Grooomed Patient Orientation: Person and Situation Level of Consciousness: Awake and Appropriate Patient Behavior: Passive Mood Description: Calm Affect Description: Constricted Patient Cognition Impaired: Yes Ability to Follow Directions: Good Speech Pattern: Clear Hallucinations: None Delusions: Not Present Thought Process: Distracted, Evasive and Slowed Thinking Thought Content: positive for [place] and positive for Poverty of Content Judgement: Poor Diagnostics Vital Signs (24Hr): Vital Signs - 24 hr 11/27/22 08:30 11/27/22 18:00 Temperature 96.8 F 96.4 F L Pulse Rate 97 89 Respiratory Rate 22 H 15 Blood Pressure 113/54 L 138/65 Pulse Oximetry 95 97 Oxygen Delivery Method Room Air Room Air BMI result Body Mass Index 25.9 Labs 11/20/22 08:22 Medications Medications Current Medications Acetaminophen (Acetaminophen 325 Mg Tablet) 650 mg PO Q6H PRN PRN Reason: Headache/Pain Mild Scale (1-3) Last Admin: 11/23/22 08:11 Dose: 650 mg Al Hydroxide/Mg Hydroxide (Magnesium Hydrox/Alum Hydrox 30 Ml Oral.Susp) 30 ml PO Q6H PRN PRN Reason: Heartburn/Nausea Donepezil HCl (Donepezil Hcl 10 Mg Tablet) 10 mg PO BEDTIME [facility] Last Admin: 11/27/22 20:58 Dose: 10 mg Magnesium Hydroxide (Milk Of Magnesia 30 Ml Oral.Susp) 30 ml PO DAILY PRN PRN Reason: Constipation Memantine (Memantine Hcl 10 Mg Tablet) 10 mg PO BID [facility] Last Admin: 11/27/22 20:58 Dose: 10 mg Olanzapine (Olanzapine 5 Mg Tablet) 5 mg PO BEDTIME [facility] Last Admin: 11/27/22 20:58 Dose: 5 mg Olanzapine (Olanzapine 2.5 Mg Tablet) 2.5 mg PO Q4H PRN PRN Reason: Psychosis Trazodone HCl (Trazodone Hcl 50 Mg Tablet) 50 mg PO BEDTIME MRX1 PRN PRN Reason: Insomnia Trazodone HCl (Trazodone Hcl 25 Mg Halftab) 25 mg PO TID PRN PRN Reason: anxiety Last Admin: 11/27/22 20:58 Dose: 25 mg Allergies Allergies Allergy/AdvReac Type Severity Reaction Status Date / Time No Known Allergies Allergy Verified 11/19/22 12:09 Assessment & Plan Assessment & Plan (1) Dementia: Status: Acute Code(s): F03.90 - Unspecified dementia, unspecified severity, without behavioral disturbance, psychotic disturbance, mood disturbance, and anxiety Plan Pt is a 77-year-old female with apparently no significant PMH?who is admitted to [facility] for confusion and agitation after being found wandering around her neighborhood. Medical consult for admission H&P. ?Patient is currently confused and reliable HPI thus difficult to obtain. Pt state she is currently doing well and feeling good. Mood disorder Plan as per psychiatry Hx of [place] Pt claims she has had 5 heart attacks during the past week Workup negative at [facility] Pt currently asymptomatic, denies chest pain/pressure, palpitations Will check EKG Plan 1. Gather collateral information. 2. Start Aricept 5 mg p.o. q.h.s. on November 20. Increased up to 10 mg p.o. q.h.s. on November 22 3. Continue Zyprexa as per [facility]. 4. Reassessment with results. 5. Family meeting on Thursday to discuss disposition. The family is not aware about the assets of the patient, we woke the healthcare proxy and cauterizations were sign. 6. Namenda increased up to 10 mg p.o. b.i.d. 7. Power of can reconditioner and guardianship will probably need to be assessed. Reason for continued inpatient stay Substantial Risk for: inability to function, rapid decompensation and med/psych decompensation Time Spent With Patient Time: Total time managing care of this patient today __20__ minutes.
[2022-11-28 08:10] VITALS: BP 111/58; PULSE 96; RESP 20; TEMP 36.5; O2SAT 97
[2022-11-28] MEDS: Memantine HCl 10 MG TABLET PO ×2 (08:14→20:12)
[2022-11-28 18:00] VITALS: BP 183/80; PULSE 118; TEMP 36.4; O2SAT 97
[2022-11-28] MEDS: Donepezil HCl 10 MG TABLET PO (20:12)
[2022-11-28] MEDS: OLANZapine 5 MG TABLET PO (20:12)
[2022-11-29 06:00] VITALS: BP 118/67; PULSE 97; RESP 16; TEMP 36.9; O2SAT 96
[2022-11-29] MEDS: Memantine HCl 10 MG TABLET PO ×2 (08:39→19:54)
--- NOTE | 2022-11-29 15:42 | P.PNPSI_ITS ---
Subjective Subjective Date of Service: 11/29/22 Reason For Visit: F41.9 anxiety disorder, F03.90 dementia Interim History: pt feeling great, no requests or complaints. per staff, BP 183/80 yesterday, 153/80 today. slept through the night. calm, pleasant, cooperative. confused. Mental Status Exam Mental Status Exam Patient Appearance: Well Grooomed Patient Orientation: Person and Situation Level of Consciousness: Awake and Appropriate Patient Behavior: Passive Mood Description: Calm Affect Description: Constricted Patient Cognition Impaired: Yes Ability to Follow Directions: Good Speech Pattern: Clear Hallucinations: None Delusions: Not Present Thought Process: Distracted, Evasive and Slowed Thinking Thought Content: positive for [place] and positive for Poverty of Content Judgement: Poor Diagnostics Vital Signs (24Hr): Vital Signs - 24 hr 11/28/22 18:00 11/29/22 06:00 Temperature 97.6 F 98.5 F Pulse Rate 118 H 97 Respiratory Rate 16 Blood Pressure 183/80 H 118/67 Pulse Oximetry 97 96 Oxygen Delivery Method Room Air Room Air BMI result Body Mass Index 25.9 Labs 11/20/22 08:22 Medications Medications Current Medications Acetaminophen (Acetaminophen 325 Mg Tablet) 650 mg PO Q6H PRN PRN Reason: Headache/Pain Mild Scale (1-3) Last Admin: 11/23/22 08:11 Dose: 650 mg Al Hydroxide/Mg Hydroxide (Magnesium Hydrox/Alum Hydrox 30 Ml Oral.Susp) 30 ml PO Q6H PRN PRN Reason: Heartburn/Nausea Donepezil HCl (Donepezil Hcl 10 Mg Tablet) 10 mg PO BEDTIME [facility] Last Admin: 11/28/22 20:12 Dose: 10 mg Magnesium Hydroxide (Milk Of Magnesia 30 Ml Oral.Susp) 30 ml PO DAILY PRN PRN Reason: Constipation Memantine (Memantine Hcl 10 Mg Tablet) 10 mg PO BID [facility] Last Admin: 11/29/22 08:39 Dose: 10 mg Olanzapine (Olanzapine 5 Mg Tablet) 5 mg PO BEDTIME [facility] Last Admin: 11/28/22 20:12 Dose: 5 mg Olanzapine (Olanzapine 2.5 Mg Tablet) 2.5 mg PO Q4H PRN PRN Reason: Psychosis Trazodone HCl (Trazodone Hcl 50 Mg Tablet) 50 mg PO BEDTIME MRX1 PRN PRN Reason: Insomnia Trazodone HCl (Trazodone Hcl 25 Mg Halftab) 25 mg PO TID PRN PRN Reason: anxiety Last Admin: 11/27/22 20:58 Dose: 25 mg Allergies Allergies Allergy/AdvReac Type Severity Reaction Status Date / Time No Known Allergies Allergy Verified 11/19/22 12:09 Assessment & Plan Assessment & Plan (1) Dementia: Status: Acute Code(s): F03.90 - Unspecified dementia, unspecified severity, without behavioral disturbance, psychotic disturbance, mood disturbance, and anxiety Plan Pt is a 77-year-old female with apparently no significant PMH?who is admitted to [facility] for confusion and agitation after being found wandering around her neighborhood. Medical consult for admission H&P. ?Patient is currently confused and reliable HPI thus difficult to obtain. Pt state she is currently doing well and feeling good. Mood disorder Plan as per psychiatry Hx of [place] Pt claims she has had 5 heart attacks during the past week Workup negative at [facility] Pt currently asymptomatic, denies chest pain/pressure, palpitations Will check EKG Plan 1. Gather collateral information. 2. Start Aricept 5 mg p.o. q.h.s. on November 20. Increased up to 10 mg p.o. q.h.s. on November 22 3. Continue Zyprexa as per [facility]. 4. Reassessment with results. 5. Family meeting on Thursday to discuss disposition. The family is not aware about the assets of the patient, we woke the healthcare proxy and cauterizations were sign. 6. Namenda increased up to 10 mg p.o. b.i.d. 7. Power of high school director and guardianship will probably need to be assessed. 11/29: calm, pleasant, demented. continue current mgmt. Reason for continued inpatient stay Substantial Risk for: inability to function and rapid decompensation Time Spent With Patient Time: Total time managing care of this patient today ____ minutes.
[2022-11-29] MEDS: Donepezil HCl 10 MG TABLET PO (19:54)
[2022-11-29] MEDS: OLANZapine 5 MG TABLET PO (19:54)
[2022-11-29 20:00] VITALS: BP 120/64; PULSE 115; RESP 16; TEMP 36.6; O2SAT 94
[2022-11-30] MEDS: Memantine HCl 10 MG TABLET PO ×2 (09:01→20:37)
--- NOTE | 2022-11-30 10:44 | P.PNPSI_ITS ---
Subjective Subjective Date of Service: 11/30/22 Reason For Visit: F41.9 anxiety disorder, F03.90 dementia Interim History: pleasant, cooperative. no questions or complaints. per staff, no HTN overnight. slept well. Mental Status Exam Mental Status Exam Patient Appearance: Well Grooomed Patient Orientation: Person and Situation Level of Consciousness: Awake and Appropriate Patient Behavior: Passive Mood Description: Calm Affect Description: Constricted Patient Cognition Impaired: Yes Ability to Follow Directions: Good Speech Pattern: Clear Hallucinations: None Delusions: Not Present Thought Process: Distracted, Evasive and Slowed Thinking Thought Content: positive for [place] and positive for Poverty of Content Judgement: Poor Diagnostics Vital Signs (24Hr): Vital Signs - 24 hr 11/29/22 20:00 Temperature 97.8 F Pulse Rate 115 H Respiratory Rate 16 Blood Pressure 120/64 Pulse Oximetry 94 Oxygen Delivery Method Room Air BMI result Body Mass Index 25.9 Labs 11/20/22 08:22 Medications Medications Current Medications Acetaminophen (Acetaminophen 325 Mg Tablet) 650 mg PO Q6H PRN PRN Reason: Headache/Pain Mild Scale (1-3) Last Admin: 11/23/22 08:11 Dose: 650 mg Al Hydroxide/Mg Hydroxide (Magnesium Hydrox/Alum Hydrox 30 Ml Oral.Susp) 30 ml PO Q6H PRN PRN Reason: Heartburn/Nausea Donepezil HCl (Donepezil Hcl 10 Mg Tablet) 10 mg PO BEDTIME [facility] Last Admin: 11/29/22 19:54 Dose: 10 mg Magnesium Hydroxide (Milk Of Magnesia 30 Ml Oral.Susp) 30 ml PO DAILY PRN PRN Reason: Constipation Memantine (Memantine Hcl 10 Mg Tablet) 10 mg PO BID [facility] Last Admin: 11/30/22 09:01 Dose: 10 mg Olanzapine (Olanzapine 5 Mg Tablet) 5 mg PO BEDTIME [facility] Last Admin: 11/29/22 19:54 Dose: 5 mg Olanzapine (Olanzapine 2.5 Mg Tablet) 2.5 mg PO Q4H PRN PRN Reason: Psychosis Trazodone HCl (Trazodone Hcl 50 Mg Tablet) 50 mg PO BEDTIME MRX1 PRN PRN Reason: Insomnia Trazodone HCl (Trazodone Hcl 25 Mg Halftab) 25 mg PO TID PRN PRN Reason: anxiety Last Admin: 11/27/22 20:58 Dose: 25 mg Allergies Allergies Allergy/AdvReac Type Severity Reaction Status Date / Time No Known Allergies Allergy Verified 11/19/22 12:09 Assessment & Plan Assessment & Plan (1) Dementia: Status: Acute Code(s): F03.90 - Unspecified dementia, unspecified severity, without behavioral disturbance, psychotic disturbance, mood disturbance, and anxiety Plan Pt is a 77-year-old female with apparently no significant PMH?who is admitted to [facility] for confusion and agitation after being found wandering around her neighborhood. Medical consult for admission H&P. ?Patient is currently confused and reliable HPI thus difficult to obtain. Pt state she is currently doing well and feeling good. Mood disorder Plan as per psychiatry Hx of [place] Pt claims she has had 5 heart attacks during the past week Workup negative at [facility] Pt currently asymptomatic, denies chest pain/pressure, palpitations Will check EKG Plan 1. Gather collateral information. 2. Start Aricept 5 mg p.o. q.h.s. on November 20. Increased up to 10 mg p.o. q.h.s. on November 22 3. Continue Zyprexa as per [facility]. 4. Reassessment with results. 5. Family meeting on Thursday to discuss disposition. The family is not aware about the assets of the patient, we woke the healthcare proxy and cauterizations were sign. 6. Namenda increased up to 10 mg p.o. b.i.d. 7. Power of assistant prosecuting attorney and guardianship will probably need to be assessed. 11/29: calm, pleasant, demented. continue current mgmt. 11/30: calm, pleasant, demented. continue current mgmt. Reason for continued inpatient stay Substantial Risk for: inability to function Time Spent With Patient Time: Total time managing care of this patient today ____ minutes.
[2022-11-30 18:00] VITALS: BP 144/74; PULSE 87; RESP 18; TEMP 36.3; O2SAT 97
[2022-11-30] MEDS: OLANZapine 5 MG TABLET PO (20:37)
[2022-11-30] MEDS: Donepezil HCl 10 MG TABLET PO (20:37)
[2022-12-01 08:15] VITALS: BP 108/57; PULSE 113; RESP 18; TEMP 36.5; O2SAT 94
[2022-12-01] MEDS: Memantine HCl 10 MG TABLET PO ×2 (09:14→20:35)
--- NOTE | 2022-12-01 11:06 | P.PNPSI_ITS ---
Subjective Subjective Date of Service: 12/01/22 Reason For Visit: F41.9 anxiety disorder, F03.90 dementia Subjective Notes: Conditional Voluntary Interim History: The nursing staff reported the patient is only alert to herself, she had been fully compliant with treatment and she had taking her meals accordingly. She slept well last night. The occupational therapist reported that her [place] test was 10/30. The child welfare social worker reported that she called the attorneys last Thursday and she could not receive an answer back yet regarding her legal situation regarding guardianship and conservatorship. On interview the patient is pleasantly confused, waiting for placement after been legally clearance. Mental Status Exam Mental Status Exam Patient Appearance: Well Grooomed and Appropriate Patient Orientation: Person Level of Consciousness: Awake and Appropriate Patient Behavior: Cooperative and Passive Mood Description: Constricted Affect Description: Calm Patient Cognition Impaired: Yes Ability to Follow Directions: Good Speech Pattern: Clear Hallucinations: None Delusions: Not Present Thought Process: Distracted and Slowed Thinking Thought Content: positive for [place], positive for Poverty of Content and positive for Thought Blocking Judgement: Fair Diagnostics Vital Signs (24Hr): Vital Signs - 24 hr 11/30/22 18:00 12/01/22 08:15 Temperature 97.4 F 97.7 F Pulse Rate 87 113 H Respiratory Rate 18 18 Blood Pressure 144/74 H 108/57 L Pulse Oximetry 97 94 Oxygen Delivery Method Room Air Room Air BMI result Body Mass Index 25.9 Labs 11/20/22 08:22 Medications Medications Current Medications Acetaminophen (Acetaminophen 325 Mg Tablet) 650 mg PO Q6H PRN PRN Reason: Headache/Pain Mild Scale (1-3) Last Admin: 11/23/22 08:11 Dose: 650 mg Al Hydroxide/Mg Hydroxide (Magnesium Hydrox/Alum Hydrox 30 Ml Oral.Susp) 30 ml PO Q6H PRN PRN Reason: Heartburn/Nausea Donepezil HCl (Donepezil Hcl 10 Mg Tablet) 10 mg PO BEDTIME [facility] Last Admin: 11/30/22 20:37 Dose: 10 mg Magnesium Hydroxide (Milk Of Magnesia 30 Ml Oral.Susp) 30 ml PO DAILY PRN PRN Reason: Constipation Memantine (Memantine Hcl 10 Mg Tablet) 10 mg PO BID [facility] Last Admin: 12/01/22 09:14 Dose: 10 mg Olanzapine (Olanzapine 5 Mg Tablet) 5 mg PO BEDTIME [facility] Last Admin: 11/30/22 20:37 Dose: 5 mg Olanzapine (Olanzapine 2.5 Mg Tablet) 2.5 mg PO Q4H PRN PRN Reason: Psychosis Trazodone HCl (Trazodone Hcl 50 Mg Tablet) 50 mg PO BEDTIME MRX1 PRN PRN Reason: Insomnia Trazodone HCl (Trazodone Hcl 25 Mg Halftab) 25 mg PO TID PRN PRN Reason: anxiety Last Admin: 11/27/22 20:58 Dose: 25 mg Allergies Allergies Allergy/AdvReac Type Severity Reaction Status Date / Time No Known Allergies Allergy Verified 11/19/22 12:09 Assessment & Plan Assessment & Plan (1) Dementia: Status: Acute Code(s): F03.90 - Unspecified dementia, unspecified severity, without behavioral disturbance, psychotic disturbance, mood disturbance, and anxiety Plan Pt is a 77-year-old female with apparently no significant PMH?who is admitted to [facility] for confusion and agitation after being found wandering around her neighborhood. Medical consult for admission H&P. ?Patient is currently confused and reliable HPI thus difficult to obtain. Pt state she is currently doing well and feeling good. Mood disorder Plan as per psychiatry Hx of [place] Pt claims she has had 5 heart attacks during the past week Workup negative at [facility] Pt currently asymptomatic, denies chest pain/pressure, palpitations Will check EKG Plan 1. Gather collateral information. 2. Start Aricept 5 mg p.o. q.h.s. on November 20. Increased up to 10 mg p.o. q. h.s. on November 22 3. Continue Zyprexa as per [facility]. 4. Reassessment with results. 5. Family meeting on Thursday to discuss disposition. The family is not aware about the assets of the patient, we woke the healthcare proxy and cauterizations were sign. 6. Namenda increased up to 10 mg p.o. b.i.d. 7. Power of litigation attorney and guardianship will probably need to be assessed. 8. Waiting for legal paperwork for placement. Reason for continued inpatient stay Substantial Risk for: inability to function, rapid decompensation and med/psych decompensation Time Spent With Patient Time: Total time managing care of this patient today __20__ minutes.
[2022-12-01 18:00] VITALS: BP 133/77; PULSE 99; RESP 18; TEMP 36.4; O2SAT 99
[2022-12-01] MEDS: OLANZapine 5 MG TABLET PO (20:35)
[2022-12-01] MEDS: Donepezil HCl 10 MG TABLET PO (20:35)
[2022-12-02 08:15] VITALS: BP 117/61; PULSE 108; RESP 18; TEMP 37.1; O2SAT 94
[2022-12-02] MEDS: Memantine HCl 10 MG TABLET PO ×2 (08:33→21:21)
--- NOTE | 2022-12-02 13:22 | P.PNPSI_ITS ---
Subjective Subjective Date of Service: 12/02/22 Reason For Visit: F41.9 anxiety disorder, F03.90 dementia Subjective Notes: Conditional Voluntary (By healthcare proxy) Interim History: The nursing staff reported the patient had been confused, pleasant cooperative s he slept well last night. The clinical social worker has contact the smoking pipes cleaner and apparently she has a financial power of commercial attorney, it is a elementary esl teacher but currently he is on vacation. On interview the patient is pleasantly confused, easily redirectable. Mental Status Exam Mental Status Exam Patient Appearance: Well Grooomed and Appropriate Patient Orientation: Person Level of Consciousness: Awake Patient Behavior: Guarded and Passive Mood Description: Calm Affect Description: Blunted Patient Cognition Impaired: Yes Ability to Follow Directions: Good Speech Pattern: Clear Hallucinations: None Delusions: Not Present Thought Process: Distracted and Evasive Thought Content: positive for [place] and positive for Poverty of Content Judgement: Poor Diagnostics Vital Signs (24Hr): Vital Signs - 24 hr 12/01/22 18:00 12/02/22 08:15 Temperature 97.6 F 98.8 F Pulse Rate 99 108 H Respiratory Rate 18 18 Blood Pressure 133/77 117/61 Pulse Oximetry 99 94 Oxygen Delivery Method Room Air Room Air BMI result Body Mass Index 25.9 Labs 11/20/22 08:22 Medications Medications Current Medications Acetaminophen (Acetaminophen 325 Mg Tablet) 650 mg PO Q6H PRN PRN Reason: Headache/Pain Mild Scale (1-3) Last Admin: 11/23/22 08:11 Dose: 650 mg Al Hydroxide/Mg Hydroxide (Magnesium Hydrox/Alum Hydrox 30 Ml Oral.Susp) 30 ml PO Q6H PRN PRN Reason: Heartburn/Nausea Donepezil HCl (Donepezil Hcl 10 Mg Tablet) 10 mg PO BEDTIME [facility] Last Admin: 12/01/22 20:35 Dose: 10 mg Magnesium Hydroxide (Milk Of Magnesia 30 Ml Oral.Susp) 30 ml PO DAILY PRN PRN Reason: Constipation Memantine (Memantine Hcl 10 Mg Tablet) 10 mg PO BID [facility] Last Admin: 12/02/22 08:33 Dose: 10 mg Olanzapine (Olanzapine 5 Mg Tablet) 5 mg PO BEDTIME [facility] Last Admin: 12/01/22 20:35 Dose: 5 mg Olanzapine (Olanzapine 2.5 Mg Tablet) 2.5 mg PO Q4H PRN PRN Reason: Psychosis Trazodone HCl (Trazodone Hcl 50 Mg Tablet) 50 mg PO BEDTIME MRX1 PRN PRN Reason: Insomnia Trazodone HCl (Trazodone Hcl 25 Mg Halftab) 25 mg PO TID PRN PRN Reason: anxiety Last Admin: 11/27/22 20:58 Dose: 25 mg Allergies Allergies Allergy/AdvReac Type Severity Reaction Status Date / Time No Known Allergies Allergy Verified 11/19/22 12:09 Assessment & Plan Assessment & Plan (1) Dementia: Status: Acute Code(s): F03.90 - Unspecified dementia, unspecified severity, without behavioral disturbance, psychotic disturbance, mood disturbance, and anxiety Plan Pt is a 77-year-old female with apparently no significant PMH?who is admitted to [facility] for confusion and agitation after being found wandering around her neighborhood. Medical consult for admission H&P. ?Patient is currently confused and reliable HPI thus difficult to obtain. Pt state she is currently doing well and feeling good. Mood disorder Plan as per psychiatry Hx of [place] Pt claims she has had 5 heart attacks during the past week Workup negative at [facility] Pt currently asymptomatic, denies chest pain/pressure, palpitations Will check EKG Plan 1. Gather collateral information. 2. Start Aricept 5 mg p.o. q.h.s. on November 20. Increased up to 10 mg p.o. q.h.s. on November 22 3. Continue Zyprexa as per [facility]. 4. Reassessment with results. 5. Family meeting on Thursday to discuss disposition. The family is not aware about the assets of the patient, we woke the healthcare proxy and cauterizations were sign. 6. Namenda increased up to 10 mg p.o. b.i.d. 7. Power of commercial attorney and guardianship will probably need to be assessed. 8. Waiting for legal paperwork for placement. Reason for continued inpatient stay Substantial Risk for: inability to function, rapid decompensation and med/psych decompensation Time Spent With Patient Time: Total time managing care of this patient today __20__ minutes.
[2022-12-02 18:00] VITALS: BP 119/75; PULSE 92; TEMP 36.1; O2SAT 97
[2022-12-02] MEDS: Donepezil HCl 10 MG TABLET PO (21:21)
[2022-12-02] MEDS: OLANZapine 5 MG TABLET PO (21:21)
[2022-12-03 08:50] VITALS: BP 102/59; PULSE 85; RESP 16; TEMP 36.7; O2SAT 98
[2022-12-03] MEDS: Memantine HCl 10 MG TABLET PO ×2 (08:51→21:17)
--- NOTE | 2022-12-03 13:59 | P.PNPSI_ITS ---
Subjective Subjective Date of Service: 12/03/22 Reason For Visit: F41.9 anxiety disorder, F03.90 dementia Subjective Notes: Conditional Voluntary Interim History: The nursing staff reported the patient had been cheerful, med and medication compliant. The social work manager will talk with the power of senior attorney this week. On interview the patient is pleasantly confused no changes in her mental status. Mental Status Exam Mental Status Exam Patient Appearance: Well Grooomed and Appropriate Patient Orientation: Person Level of Consciousness: Awake and Appropriate Patient Behavior: Guarded and Passive Mood Description: Calm Affect Description: Constricted Patient Cognition Impaired: Yes Ability to Follow Directions: Good Speech Pattern: Clear Hallucinations: None Delusions: Not Present Thought Process: Illogical and Distracted Thought Content: positive for [place] and positive for Circumstantial Judgement: Poor Diagnostics Vital Signs (24Hr): Vital Signs - 24 hr 12/02/22 18:00 12/03/22 08:50 Temperature 96.9 F 98.1 F Pulse Rate 92 85 Respiratory Rate 16 Blood Pressure 119/75 102/59 L Pulse Oximetry 97 98 Oxygen Delivery Method Room Air Room Air BMI result Body Mass Index 25.9 Labs 11/20/22 08:22 Medications Medications Current Medications Acetaminophen (Acetaminophen 325 Mg Tablet) 650 mg PO Q6H PRN PRN Reason: Headache/Pain Mild Scale (1-3) Last Admin: 11/23/22 08:11 Dose: 650 mg Al Hydroxide/Mg Hydroxide (Magnesium Hydrox/Alum Hydrox 30 Ml Oral.Susp) 30 ml PO Q6H PRN PRN Reason: Heartburn/Nausea Donepezil HCl (Donepezil Hcl 10 Mg Tablet) 10 mg PO BEDTIME [facility] Last Admin: 12/02/22 21:21 Dose: 10 mg Magnesium Hydroxide (Milk Of Magnesia 30 Ml Oral.Susp) 30 ml PO DAILY PRN PRN Reason: Constipation Memantine (Memantine Hcl 10 Mg Tablet) 10 mg PO BID [facility] Last Admin: 12/03/22 08:51 Dose: 10 mg Olanzapine (Olanzapine 5 Mg Tablet) 5 mg PO BEDTIME [facility] Last Admin: 12/02/22 21:21 Dose: 5 mg Olanzapine (Olanzapine 2.5 Mg Tablet) 2.5 mg PO Q4H PRN PRN Reason: Psychosis Trazodone HCl (Trazodone Hcl 50 Mg Tablet) 50 mg PO BEDTIME MRX1 PRN PRN Reason: Insomnia Trazodone HCl (Trazodone Hcl 25 Mg Halftab) 25 mg PO TID PRN PRN Reason: anxiety Last Admin: 11/27/22 20:58 Dose: 25 mg Allergies Allergies Allergy/AdvReac Type Severity Reaction Status Date / Time No Known Allergies Allergy Verified 11/19/22 12:09 Assessment & Plan Assessment & Plan (1) Dementia: Status: Acute Code(s): F03.90 - Unspecified dementia, unspecified severity, without behavioral disturbance, psychotic disturbance, mood disturbance, and anxiety Plan Pt is a 77-year-old female with apparently no significant PMH?who is admitted to [facility] for confusion and agitation after being found wandering around her neighborhood. Medical consult for admission H&P. ?Patient is currently confused and reliable HPI thus difficult to obtain. Pt state she is currently doing well and feeling good. Mood disorder Plan as per psychiatry Hx of [place] Pt claims she has had 5 heart attacks during the past week Workup negative at [facility] Pt currently asymptomatic, denies chest pain/pressure, palpitations Will check EKG Plan 1. Gather collateral information. 2. Start Aricept 5 mg p.o. q.h.s. on November 20. Increased up to 10 mg p.o. q.h.s. on November 22 3. Continue Zyprexa as per [facility]. 4. Reassessment with results. 5. Family meeting on Thursday to discuss disposition. The family is not aware about the assets of the patient, we woke the healthcare proxy and cauterizations were sign. 6. Namenda increased up to 10 mg p.o. b.i.d. 7. Power of senior attorney and guardianship will probably need to be assessed. 8. Waiting for legal paperwork for placement. Reason for continued inpatient stay Substantial Risk for: inability to function, rapid decompensation and med/psych decompensation Time Spent With Patient Time: Total time managing care of this patient today __20__ minutes.
[2022-12-03 18:00] VITALS: BP 120/60; PULSE 90; RESP 16; TEMP 36.1; O2SAT 94
[2022-12-03] MEDS: Donepezil HCl 10 MG TABLET PO (21:17)
[2022-12-03] MEDS: OLANZapine 5 MG TABLET PO (21:17)
[2022-12-04 06:00] VITALS: BP 114/70; PULSE 88; RESP 16; TEMP 36.6; O2SAT 96
[2022-12-04 07:00] VITALS: BMI 26.2
[2022-12-04] MEDS: Memantine HCl 10 MG TABLET PO ×2 (10:40→21:22)
--- NOTE | 2022-12-04 11:28 | P.PNPSI_ITS ---
Subjective Subjective Date of Service: 12/04/22 Reason For Visit: F41.9 anxiety disorder, F03.90 dementia Subjective Notes: Conditional Voluntary Interim History: The nursing staff reported the patient had been calmed pleasant, visible in the unit with a brighter affect in the afternoon. She denies new symptoms or pain. On interview the patient is pleasantly confused, easily redirectable. Mental Status Exam Mental Status Exam Patient Appearance: Appropriate Patient Orientation: Person and Situation Level of Consciousness: Awake and Appropriate Patient Behavior: Passive Mood Description: Calm Affect Description: Blunted Patient Cognition Impaired: Yes Ability to Follow Directions: Good Speech Pattern: Clear Hallucinations: None Delusions: Not Present Thought Process: Distracted and Slowed Thinking Thought Content: positive for [place], positive for Poverty of Content and pos itive for Thought Blocking Judgement: Fair Diagnostics Vital Signs (24Hr): Vital Signs - 24 hr 12/03/22 18:00 12/04/22 06:00 Temperature 97 F 97.8 F Pulse Rate 90 88 Respiratory Rate 16 16 Blood Pressure 120/60 114/70 Pulse Oximetry 94 96 Oxygen Delivery Method Room Air Room Air BMI result Body Mass Index 25.9 Labs 11/20/22 08:22 Medications Medications Current Medications Acetaminophen (Acetaminophen 325 Mg Tablet) 650 mg PO Q6H PRN PRN Reason: Headache/Pain Mild Scale (1-3) Last Admin: 11/23/22 08:11 Dose: 650 mg Al Hydroxide/Mg Hydroxide (Magnesium Hydrox/Alum Hydrox 30 Ml Oral.Susp) 30 ml PO Q6H PRN PRN Reason: Heartburn/Nausea Donepezil HCl (Donepezil Hcl 10 Mg Tablet) 10 mg PO BEDTIME [facility] Last Admin: 12/03/22 21:17 Dose: 10 mg Magnesium Hydroxide (Milk Of Magnesia 30 Ml Oral.Susp) 30 ml PO DAILY PRN PRN Reason: Constipation Memantine (Memantine Hcl 10 Mg Tablet) 10 mg PO BID [facility] Last Admin: 12/04/22 10:40 Dose: 10 mg Olanzapine (Olanzapine 5 Mg Tablet) 5 mg PO BEDTIME [facility] Last Admin: 12/03/22 21:17 Dose: 5 mg Olanzapine (Olanzapine 2.5 Mg Tablet) 2.5 mg PO Q4H PRN PRN Reason: Psychosis Trazodone HCl (Trazodone Hcl 50 Mg Tablet) 50 mg PO BEDTIME MRX1 PRN PRN Reason: Insomnia Trazodone HCl (Trazodone Hcl 25 Mg Halftab) 25 mg PO TID PRN PRN Reason: anxiety Last Admin: 11/27/22 20:58 Dose: 25 mg Allergies Allergies Allergy/AdvReac Type Severity Reaction Status Date / Time No Known Allergies Allergy Verified 11/19/22 12:09 Assessment & Plan Assessment & Plan (1) Dementia: Status: Acute Code(s): F03.90 - Unspecified dementia, unspecified severity, without behavioral disturbance, psychotic disturbance, mood disturbance, and anxiety Plan Pt is a 77-year-old female with apparently no significant PMH?who is admitted to [facility] for confusion and agitation after being found wandering around her neighborhood. Medical consult for admission H&P. ?Patient is currently confused and reliable HPI thus difficult to obtain. Pt state she is currently doing well and feeling good. Mood disorder Plan as per psychiatry Hx of [place] Pt claims she has had 5 heart attacks during the past week Workup negative at [facility] Pt currently asymptomatic, denies chest pain/pressure, palpitations Will check EKG Plan 1. Gather collateral information. 2. Start Aricept 5 mg p.o. q.h.s. on November 20. Increased up to 10 mg p.o. q.h.s. on November 22 3. Continue Zyprexa as per [facility]. 4. Reassessment with results. 5. Family meeting on Thursday to discuss disposition. The family is not aware about the assets of the patient, we woke the healthcare proxy and cauterizations were sign. 6. Namenda increased up to 10 mg p.o. b.i.d. 7. Power of frankfurter inspector and guardianship will probably need to be assessed. 8. Waiting for legal paperwork for placement. Reason for continued inpatient stay Substantial Risk for: inability to function, rapid decompensation and med/psych decompensation Time Spent With Patient Time: Total time managing care of this patient today __20__ minutes.
[2022-12-04 20:00] VITALS: BP 120/58; PULSE 82; RESP 20; TEMP 36.2; O2SAT 98
[2022-12-04] MEDS: Donepezil HCl 10 MG TABLET PO (21:22)
[2022-12-04] MEDS: OLANZapine 5 MG TABLET PO (21:22)
[2022-12-05 08:31] VITALS: BP 117/77; PULSE 120; RESP 18; TEMP 36.3; O2SAT 96
[2022-12-05] MEDS: Memantine HCl 10 MG TABLET PO ×2 (08:42→20:26)
--- NOTE | 2022-12-05 12:13 | P.PNPSI_ITS ---
Subjective Subjective Date of Service: 12/05/22 Reason For Visit: F41.9 anxiety disorder, F03.90 dementia Subjective Notes: Conditional Voluntary Interim History: The nursing staff reported the patient slept 8 hours, she has been pleasant, confused easily redirectable. The social services designee reported that the patient has a healthcare proxy and a poor criminal attorney but that attorneys on occasion and we will try to find him next Thursday. On interview the patient is pleasantly confused no new symptoms. Mental Status Exam Mental Status Exam Patient Appearance: Well Grooomed and Appropriate Patient Orientation: Person and Situation Level of Consciousness: Awake and Appropriate Patient Behavior: Guarded and Passive Mood Description: Withdrawn Affect Description: Constricted Patient Cognition Impaired: Yes Ability to Follow Directions: Good Speech Pattern: Clear Hallucinations: None Delusions: Not Present Thought Process: Distracted and Evasive Thought Content: positive for [place] and positive for Poverty of Content Judgement: Fair Diagnostics Vital Signs (24Hr): Vital Signs - 24 hr 12/04/22 20:00 12/05/22 08:31 Temperature 97.2 F 97.4 F Pulse Rate 82 120 H Respiratory Rate 20 18 Blood Pressure 120/58 L 117/77 Pulse Oximetry 98 96 Oxygen Delivery Method Room Air Room Air BMI result Body Mass Index 26.2 Labs 11/20/22 08:22 Medications Medications Current Medications Acetaminophen (Acetaminophen 325 Mg Tablet) 650 mg PO Q6H PRN PRN Reason: Headache/Pain Mild Scale (1-3) Last Admin: 11/23/22 08:11 Dose: 650 mg Al Hydroxide/Mg Hydroxide (Magnesium Hydrox/Alum Hydrox 30 Ml Oral.Susp) 30 ml PO Q6H PRN PRN Reason: Heartburn/Nausea Donepezil HCl (Donepezil Hcl 10 Mg Tablet) 10 mg PO BEDTIME [facility] Last Admin: 12/04/22 21:22 Dose: 10 mg Magnesium Hydroxide (Milk Of Magnesia 30 Ml Oral.Susp) 30 ml PO DAILY PRN PRN Reason: Constipation Memantine (Memantine Hcl 10 Mg Tablet) 10 mg PO BID [facility] Last Admin: 12/05/22 08:42 Dose: 10 mg Olanzapine (Olanzapine 5 Mg Tablet) 5 mg PO BEDTIME [facility] Last Admin: 12/04/22 21:22 Dose: 5 mg Olanzapine (Olanzapine 2.5 Mg Tablet) 2.5 mg PO Q4H PRN PRN Reason: Psychosis Trazodone HCl (Trazodone Hcl 50 Mg Tablet) 50 mg PO BEDTIME MRX1 PRN PRN Reason: Insomnia Trazodone HCl (Trazodone Hcl 25 Mg Halftab) 25 mg PO TID PRN PRN Reason: anxiety Last Admin: 11/27/22 20:58 Dose: 25 mg Allergies Allergies Allergy/AdvReac Type Severity Reaction Status Date / Time No Known Allergies Allergy Verified 11/19/22 12:09 Assessment & Plan Assessment & Plan (1) Dementia: Status: Acute Code(s): F03.90 - Unspecified dementia, unspecified severity, without behavioral disturbance, psychotic disturbance, mood disturbance, and anxiety Plan Pt is a 77-year-old female with apparently no significant PMH?who is admitted to [facility] for confusion and agitation after being found wandering around her neighborhood. Medical consult for admission H&P. ?Patient is currently confused and reliable HPI thus difficult to obtain. Pt state she is currently doing well and feeling good. Mood disorder Plan as per psychiatry Hx of [place] Pt claims she has had 5 heart attacks during the past week Workup negative at [facility] Pt currently asymptomatic, denies chest pain/pressure, palpitations Will check EKG Plan 1. Gather collateral information. 2. Start Aricept 5 mg p.o. q.h.s. on November 20. Increased up to 10 mg p.o. q.h.s. on November 22 3. Continue Zyprexa as per [facility]. 4. Reassessment with results. 5. Family meeting on Thursday to discuss disposition. The family is not aware about the assets of the patient, we woke the healthcare proxy and cauterizations were sign. 6. Namenda increased up to 10 mg p.o. b.i.d. 7. Power of criminal attorney and guardianship will probably need to be assessed. 8. Waiting for legal paperwork for placement. Reason for continued inpatient stay Substantial Risk for: inability to function, rapid decompensation and med/psych decompensation Time Spent With Patient Time: Total time managing care of this patient today __20__ minutes.
[2022-12-05 18:00] VITALS: BP 128/67; PULSE 95; RESP 18; TEMP 36.4; O2SAT 98
[2022-12-05] MEDS: OLANZapine 5 MG TABLET PO (20:26)
[2022-12-05] MEDS: Donepezil HCl 10 MG TABLET PO (20:26)
[2022-12-06 08:01] VITALS: BP 127/58; PULSE 94; RESP 20; TEMP 35.8; O2SAT 95
[2022-12-06] MEDS: Memantine HCl 10 MG TABLET PO ×2 (08:38→20:08)
--- NOTE | 2022-12-06 10:50 | HO.PSYCHPN ---
Subjective Subjective Date of Service: 12/06/22 Reason For Visit: F41.9 anxiety disorder, F03.90 dementia Interim History: Patient occasionally exit seeking but redirectable. Sleep is good. She is participating in group activities. She has been pleasant, confused easily redirectable. OShe was playing a game of [employer] and seemed engaged in it. On interview the patient is pleasantly confused no new symptoms. Review of Systems Review of Systems Unable to obtain d/t pt's mentation Yes all other systems are reviewed and are negative Mental Status Exam Mental Status Exam Patient Appearance: Well Grooomed and Appropriate Patient Orientation: Person and Situation Level of Consciousness: Awake and Appropriate Patient Behavior: Guarded and Passive Mood Description: Withdrawn Affect Description: Constricted Patient Cognition Impaired: Yes Ability to Follow Directions: Good Speech Pattern: Clear Diagnostics Vital Signs (24Hr): Vital Signs - 24 hr 12/05/22 18:00 12/06/22 08:01 Temperature 97.6 F 96.4 F L Pulse Rate 95 94 Respiratory Rate 18 20 Blood Pressure 128/67 127/58 L Pulse Oximetry 98 95 Oxygen Delivery Method Room Air Room Air BMI result Body Mass Index 26.2 Labs 11/20/22 08:22 Medications Medications Current Medications Acetaminophen (Acetaminophen 325 Mg Tablet) 650 mg PO Q6H PRN PRN Reason: Headache/Pain Mild Scale (1-3) Last Admin: 11/23/22 08:11 Dose: 650 mg Al Hydroxide/Mg Hydroxide (Magnesium Hydrox/Alum Hydrox 30 Ml Oral.Susp) 30 ml PO Q6H PRN PRN Reason: Heartburn/Nausea Donepezil HCl (Donepezil Hcl 10 Mg Tablet) 10 mg PO BEDTIME [facility] Last Admin: 12/05/22 20:26 Dose: 10 mg Magnesium Hydroxide (Milk Of Magnesia 30 Ml Oral.Susp) 30 ml PO DAILY PRN PRN Reason: Constipation Memantine (Memantine Hcl 10 Mg Tablet) 10 mg PO BID [facility] Last Admin: 12/06/22 08:38 Dose: 10 mg Olanzapine (Olanzapine 5 Mg Tablet) 5 mg PO BEDTIME [facility] Last Admin: 12/05/22 20:26 Dose: 5 mg Olanzapine (Olanzapine 2.5 Mg Tablet) 2.5 mg PO Q4H PRN PRN Reason: Psychosis Trazodone HCl (Trazodone Hcl 50 Mg Tablet) 50 mg PO BEDTIME MRX1 PRN PRN Reason: Insomnia Trazodone HCl (Trazodone Hcl 25 Mg Halftab) 25 mg PO TID PRN PRN Reason: anxiety Last Admin: 11/27/22 20:58 Dose: 25 mg Allergies Allergies Allergy/AdvReac Type Severity Reaction Status Date / Time No Known Allergies Allergy Verified 11/19/22 12:09 Assessment & Plan Assessment & Plan (1) Dementia: Status: Acute Code(s): F03.90 - Unspecified dementia, unspecified severity, without behavioral disturbance, psychotic disturbance, mood disturbance, and anxiety Plan Pt is a 77-year-old female with apparently no significant PMH?who is admitted to [facility] for confusion and agitation after being found wandering around her neighborhood. Medical consult for admission H&P. ?Patient is currently confused and reliable HPI thus difficult to obtain. Pt state she is currently doing well and feeling good. Mood disorder Plan as per psychiatry Hx of [place] Pt claims she has had 5 heart attacks during the past week Workup negative at [facility] Pt currently asymptomatic, denies chest pain/pressure, palpitations Will check EKG Plan 1. Gather collateral information. 2. Start Aricept 5 mg p.o. q.h.s. on November 20. Increased up to 10 mg p.o. q.h.s. on November 22 3. Continue Zyprexa as per [facility]. 4. Reassessment with results. 5. Family meeting on Thursday to discuss disposition. The family is not aware about the assets of the patient, we woke the healthcare proxy and cauterizations were sign. 6. Namenda increased up to 10 mg p.o. b.i.d. 7. Power of collections attorney and guardianship will probably need to be assessed. 8. Waiting for legal paperwork for placement. 12/06: Continue current plan of care. Reason for continued inpatient stay Substantial Risk for: inability to function and rapid decompensation Time Spent With Patient Time: Total time managing care of this patient today ____ minutes.
[2022-12-06 18:00] VITALS: BP 116/67; PULSE 93; RESP 18; TEMP 36.2; O2SAT 98
[2022-12-06] MEDS: Donepezil HCl 10 MG TABLET PO (20:08)
[2022-12-06] MEDS: OLANZapine 5 MG TABLET PO (20:08)
[2022-12-07 07:57] VITALS: BP 108/58; PULSE 92; RESP 16; TEMP 36.3; O2SAT 94
[2022-12-07] MEDS: Memantine HCl 10 MG TABLET PO ×2 (08:42→20:29)
--- NOTE | 2022-12-07 14:01 | P.PNPSI_ITS ---
Subjective Subjective Date of Service: 12/07/22 Reason For Visit: F41.9 anxiety disorder, F03.90 dementia Interim History: Patient pleasant and cooperative. Sleep is good. She is participating in group activities. She has been pleasant, confused easily redirectable. Adherent to medications. On interview the patient is pleasantly confused no new symptoms. Review of Systems Review of Systems Unable to obtain d/t pt's mentation Yes all other systems are reviewed and are negative Mental Status Exam Mental Status Exam Patient Appearance: Well Grooomed and Appropriate Patient Orientation: Person and Situation Level of Consciousness: Awake and Appropriate Patient Behavior: Guarded and Passive Mood Description: Withdrawn Affect Description: Constricted Patient Cognition Impaired: Yes Ability to Follow Directions: Good Speech Pattern: Clear Diagnostics Vital Signs (24Hr): Vital Signs - 24 hr 12/06/22 18:00 12/07/22 07:57 Temperature 97.2 F 97.3 F Pulse Rate 93 92 Respiratory Rate 18 16 Blood Pressure 116/67 108/58 L Pulse Oximetry 98 94 Oxygen Delivery Method Room Air Room Air BMI result Body Mass Index 26.2 Labs 11/20/22 08:22 Medications Medications Current Medications Acetaminophen (Acetaminophen 325 Mg Tablet) 650 mg PO Q6H PRN PRN Reason: Headache/Pain Mild Scale (1-3) Last Admin: 11/23/22 08:11 Dose: 650 mg Al Hydroxide/Mg Hydroxide (Magnesium Hydrox/Alum Hydrox 30 Ml Oral.Susp) 30 ml PO Q6H PRN PRN Reason: Heartburn/Nausea Donepezil HCl (Donepezil Hcl 10 Mg Tablet) 10 mg PO BEDTIME [facility] Last Admin: 12/06/22 20:08 Dose: 10 mg Magnesium Hydroxide (Milk Of Magnesia 30 Ml Oral.Susp) 30 ml PO DAILY PRN PRN Reason: Constipation Memantine (Memantine Hcl 10 Mg Tablet) 10 mg PO BID [facility] Last Admin: 12/07/22 08:42 Dose: 10 mg Olanzapine (Olanzapine 5 Mg Tablet) 5 mg PO BEDTIME [facility] Last Admin: 12/06/22 20:08 Dose: 5 mg Olanzapine (Olanzapine 2.5 Mg Tablet) 2.5 mg PO Q4H PRN PRN Reason: Psychosis Trazodone HCl (Trazodone Hcl 50 Mg Tablet) 50 mg PO BEDTIME MRX1 PRN PRN Reason: Insomnia Trazodone HCl (Trazodone Hcl 25 Mg Halftab) 25 mg PO TID PRN PRN Reason: anxiety Last Admin: 11/27/22 20:58 Dose: 25 mg Allergies Allergies Allergy/AdvReac Type Severity Reaction Status Date / Time No Known Allergies Allergy Verified 11/19/22 12:09 Assessment & Plan Assessment & Plan (1) Dementia: Status: Acute Code(s): F03.90 - Unspecified dementia, unspecified severity, without behavioral disturbance, psychotic disturbance, mood disturbance, and anxiety Plan Pt is a 77-year-old female with apparently no significant PMH?who is admitted to [facility] for confusion and agitation after being found wandering around her neighborhood. Medical consult for admission H&P. ?Patient is currently confused and reliable HPI thus difficult to obtain. Pt state she is currently doing well and feeling good. Mood disorder Plan as per psychiatry Hx of [place] Pt claims she has had 5 heart attacks during the past week Workup negative at [facility] Pt currently asymptomatic, denies chest pain/pressure, palpitations Will check EKG Plan 1. Gather collateral information. 2. Start Aricept 5 mg p.o. q.h.s. on November 20. Increased up to 10 mg p.o. q.h.s. on November 22 3. Continue Zyprexa as per [facility]. 4. Reassessment with results. 5. Family meeting on Thursday to discuss disposition. The family is not aware about the assets of the patient, we woke the healthcare proxy and cauterizations were sign. 6. Namenda increased up to 10 mg p.o. b.i.d. 7. Power of environmental attorney and guardianship will probably need to be assessed. 8. Waiting for legal paperwork for placement. 12/06: Continue current plan of care. 12/07: Continue current treatment. Reason for continued inpatient stay Substantial Risk for: inability to function and rapid decompensation Time Spent With Patient Time: Total time managing care of this patient today ____ minutes.
[2022-12-07 18:00] VITALS: BP 116/57; PULSE 111; RESP 20; TEMP 35.9; O2SAT 97
[2022-12-07] MEDS: OLANZapine 5 MG TABLET PO (20:28)
[2022-12-07] MEDS: Donepezil HCl 10 MG TABLET PO (20:29)
[2022-12-08 08:05] VITALS: BP 118/65; PULSE 100; RESP 20; TEMP 36.1; O2SAT 95
[2022-12-08] MEDS: Memantine HCl 10 MG TABLET PO ×2 (08:07→20:25)
--- NOTE | 2022-12-08 16:53 | P.PNPSI_ITS ---
Subjective Subjective Date of Service: 12/08/22 Reason For Visit: F41.9 anxiety disorder, F03.90 dementia Interim History: Met with patient; discussed with team; reviewed progress notes no change in presentation; no events; pt pleasant and polite on approach. No complaints and no requests other than some extra spending money for [place], thinking this holiday is near. Mental Status Exam Mental Status Exam Patient Appearance: Well Grooomed and Appropriate Patient Orientation: Person Level of Consciousness: Awake and Appropriate Patient Behavior: Cooperative, Passive, Distractible and Good Eye Contact Mood Description: Calm and Withdrawn Affect Description: Calm Patient Cognition Impaired: Yes Ability to Follow Directions: Good Speech Pattern: Clear Hallucinations: None Delusions: Not Present Thought Process: Goal Oriented Thought Content: positive for [place] and positive for Poverty of Content (no SI/HI) Judgement and Insight: impaired Diagnostics Vital Signs (24Hr): Vital Signs - 24 hr 12/07/22 18:00 12/08/22 08:05 Temperature 96.7 F L 97.0 F Pulse Rate 111 H 100 Respiratory Rate 20 20 Blood Pressure 116/57 L 118/65 Pulse Oximetry 97 95 Oxygen Delivery Method Room Air Room Air BMI result Body Mass Index 26.2 Labs 11/20/22 08:22 Medications Medications Current Medications Acetaminophen (Acetaminophen 325 Mg Tablet) 650 mg PO Q6H PRN PRN Reason: Headache/Pain Mild Scale (1-3) Last Admin: 11/23/22 08:11 Dose: 650 mg Al Hydroxide/Mg Hydroxide (Magnesium Hydrox/Alum Hydrox 30 Ml Oral.Susp) 30 ml PO Q6H PRN PRN Reason: Heartburn/Nausea Donepezil HCl (Donepezil Hcl 10 Mg Tablet) 10 mg PO BEDTIME [facility] Last Admin: 12/07/22 20:29 Dose: 10 mg Magnesium Hydroxide (Milk Of Magnesia 30 Ml Oral.Susp) 30 ml PO DAILY PRN PRN Reason: Constipation Memantine (Memantine Hcl 10 Mg Tablet) 10 mg PO BID [facility] Last Admin: 12/08/22 08:07 Dose: 10 mg Olanzapine (Olanzapine 5 Mg Tablet) 5 mg PO BEDTIME [facility] Last Admin: 12/07/22 20:28 Dose: 5 mg Olanzapine (Olanzapine 2.5 Mg Tablet) 2.5 mg PO Q4H PRN PRN Reason: Psychosis Trazodone HCl (Trazodone Hcl 50 Mg Tablet) 50 mg PO BEDTIME MRX1 PRN PRN Reason: Insomnia Trazodone HCl (Trazodone Hcl 25 Mg Halftab) 25 mg PO TID PRN PRN Reason: anxiety Last Admin: 11/27/22 20:58 Dose: 25 mg Allergies Allergies Allergy/AdvReac Type Severity Reaction Status Date / Time No Known Allergies Allergy Verified 11/19/22 12:09 Assessment & Plan Assessment & Plan (1) Dementia: Status: Acute Code(s): F03.90 - Unspecified dementia, unspecified severity, without behavioral disturbance, psychotic disturbance, mood disturbance, and anxiety Plan Pt is a 77-year-old female with apparently no significant PMH?who is admitted to [facility] for confusion and agitation after being found wandering around her neighborhood. Medical consult for admission H&P. ?Patient is currently confused and reliable HPI thus difficult to obtain. Pt state she is currently doing well and feeling good. Mood disorder Plan as per psychiatry Hx of [place] Pt claims she has had 5 heart attacks during the past week Workup negative at [facility] Pt currently asymptomatic, denies chest pain/pressure, palpitations Plan 1. Gather collateral information. 2. Start Aricept 5 mg p.o. q.h.s. on November 20. Increased up to 10 mg p.o. q.h.s. on November 22 3. Continue Zyprexa as per [facility]. 4. Reassessment with results. 5. Family meeting on Thursday to discuss disposition. The family is not aware about the assets of the patient, we woke the healthcare proxy and cauterizations were sign. 6. Namenda increased up to 10 mg p.o. b.i.d. 7. Power of distribution field technician and guardianship will probably need to be assessed. 8. Waiting for legal paperwork for placement. 12/06: Continue current plan of care. 12/07: Continue current treatment. 12/08 no change in presentation; continue tx plan Reason for continued inpatient stay Substantial Risk for: inability to function Time Spent With Patient Time: Total time managing care of this patient today ____ minutes.
[2022-12-08 18:00] VITALS: BP 97/53; PULSE 92; RESP 16; TEMP 37; O2SAT 95
[2022-12-08] MEDS: Donepezil HCl 10 MG TABLET PO (20:25)
[2022-12-08] MEDS: OLANZapine 5 MG TABLET PO (20:26)
[2022-12-09 08:20] VITALS: BP 105/54; PULSE 84; RESP 16; TEMP 35.7; O2SAT 92
[2022-12-09] MEDS: Memantine HCl 10 MG TABLET PO ×2 (08:20→20:10)
--- NOTE | 2022-12-09 10:46 | HO.PSYCHPN ---
Subjective Subjective Date of Service: 12/09/22 Reason For Visit: F41.9 anxiety disorder, F03.90 dementia Interim History: Briefly Met with patient; discussed with team Patient pleasant on approach. She says that things are perfect. He has no complaints and no requests. Earlier patient told staff she was getting ready to leave today and was confused about however accepted that she is not discharging. Otherwise no behavioral events. Patient remains adherent with treatment Mental Status Exam Mental Status Exam Patient Appearance: Well Grooomed and Appropriate Patient Orientation: Person Level of Consciousness: Awake and Appropriate Patient Behavior: Cooperative, Passive, Distractible and Good Eye Contact Mood Description: Calm and Withdrawn Affect Description: Calm Patient Cognition Impaired: Yes Ability to Follow Directions: Good Speech Pattern: Clear Hallucinations: None Delusions: Not Present Thought Process: Goal Oriented Thought Content: positive for [place] and positive for Poverty of Content (no SI/HI) Judgement and Insight: impaired Diagnostics Vital Signs (24Hr): Vital Signs - 24 hr 12/08/22 18:00 12/09/22 08:20 Temperature 98.6 F 96.3 F L Pulse Rate 92 84 Respiratory Rate 16 16 Blood Pressure 97/53 L 105/54 L Pulse Oximetry 95 92 Oxygen Delivery Method Room Air Room Air BMI result Body Mass Index 26.2 Labs 11/20/22 08:22 Medications Medications Current Medications Acetaminophen (Acetaminophen 325 Mg Tablet) 650 mg PO Q6H PRN PRN Reason: Headache/Pain Mild Scale (1-3) Last Admin: 11/23/22 08:11 Dose: 650 mg Al Hydroxide/Mg Hydroxide (Magnesium Hydrox/Alum Hydrox 30 Ml Oral.Susp) 30 ml PO Q6H PRN PRN Reason: Heartburn/Nausea Donepezil HCl (Donepezil Hcl 10 Mg Tablet) 10 mg PO BEDTIME [facility] Last Admin: 12/08/22 20:25 Dose: 10 mg Magnesium Hydroxide (Milk Of Magnesia 30 Ml Oral.Susp) 30 ml PO DAILY PRN PRN Reason: Constipation Memantine (Memantine Hcl 10 Mg Tablet) 10 mg PO BID [facility] Last Admin: 12/09/22 08:20 Dose: 10 mg Olanzapine (Olanzapine 5 Mg Tablet) 5 mg PO BEDTIME [facility] Last Admin: 12/08/22 20:26 Dose: 5 mg Olanzapine (Olanzapine 2.5 Mg Tablet) 2.5 mg PO Q4H PRN PRN Reason: Psychosis Trazodone HCl (Trazodone Hcl 50 Mg Tablet) 50 mg PO BEDTIME MRX1 PRN PRN Reason: Insomnia Trazodone HCl (Trazodone Hcl 25 Mg Halftab) 25 mg PO TID PRN PRN Reason: anxiety Last Admin: 11/27/22 20:58 Dose: 25 mg Allergies Allergies Allergy/AdvReac Type Severity Reaction Status Date / Time No Known Allergies Allergy Verified 11/19/22 12:09 Assessment & Plan Assessment & Plan (1) Dementia: Status: Acute Code(s): F03.90 - Unspecified dementia, unspecified severity, without behavioral disturbance, psychotic disturbance, mood disturbance, and anxiety Plan Pt is a 77-year-old female with apparently no significant PMH?who is admitted to [facility] for confusion and agitation after being found wandering around her neighborhood. Medical consult for admission H&P. ?Patient is currently confused and reliable HPI thus difficult to obtain. Pt state she is currently doing well and feeling good. Mood disorder Plan as per psychiatry Hx of [place] Pt claims she has had 5 heart attacks during the past week Workup negative at [facility] Pt currently asymptomatic, denies chest pain/pressure, palpitations Plan 1. Gather collateral information. 2. Start Aricept 5 mg p.o. q.h.s. on November 20. Increased up to 10 mg p.o. q.h.s. on November 22 3. Continue Zyprexa as per [facility]. 4. Reassessment with results. 5. Family meeting on Thursday to discuss disposition. The family is not aware about the assets of the patient, we woke the healthcare proxy and cauterizations were sign. 6. Namenda increased up to 10 mg p.o. b.i.d. 7. Power of company marker and guardianship will probably need to be assessed. 8. Waiting for legal paperwork for placement. 12/06: Continue current plan of care. 12/07: Continue current treatment. 12/08 no change in presentation; continue tx plan 12/09 continue current treatment plan Reason for continued inpatient stay Substantial Risk for: inability to function Time Spent With Patient Time: Total time managing care of this patient today ____ minutes.
[2022-12-09 18:00] VITALS: BP 129/68; PULSE 85; RESP 16; TEMP 36.8; O2SAT 96
[2022-12-09] MEDS: OLANZapine 5 MG TABLET PO (20:10)
[2022-12-09] MEDS: Donepezil HCl 10 MG TABLET PO (20:10)
[2022-12-10 08:00] VITALS: BP 121/59; PULSE 95; RESP 18; TEMP 37.1; O2SAT 94
[2022-12-10] MEDS: Memantine HCl 10 MG TABLET PO ×2 (08:44→20:09)
--- NOTE | 2022-12-10 17:09 | P.PNPSI_ITS ---
Subjective Subjective Date of Service: 12/10/22 Reason For Visit: F41.9 anxiety disorder, F03.90 dementia Interim History: Met with patient; discussed with team No change in presentation; patient pleasant and friendly on approach. She said that she is great. She then said that her brother is in the [place] and stationed at the building right next door to her. She talked about her family is not tall and her brother is only 5 ft tall. Mental Status Exam Mental Status Exam Patient Appearance: Well Grooomed and Appropriate Patient Orientation: Person Level of Consciousness: Awake and Appropriate Patient Behavior: Cooperative, Passive, Distractible and Good Eye Contact Mood Description: Calm and Withdrawn Affect Description: Calm Patient Cognition Impaired: Yes Ability to Follow Directions: Good Speech Pattern: Clear Hallucinations: None Delusions: Not Present Thought Process: Goal Oriented Thought Content: positive for [place], positive for Poverty of Content (no SI/HI) and positive for Tangential Judgement and Insight: impaired Diagnostics Vital Signs (24Hr): Vital Signs - 24 hr 12/09/22 18:00 12/10/22 08:00 Temperature 98.3 F 98.7 F Pulse Rate 85 95 Respiratory Rate 16 18 Blood Pressure 129/68 121/59 L Pulse Oximetry 96 94 Oxygen Delivery Method Room Air Room Air BMI result Body Mass Index 26.2 Labs 11/20/22 08:22 Medications Medications Current Medications Acetaminophen (Acetaminophen 325 Mg Tablet) 650 mg PO Q6H PRN PRN Reason: Headache/Pain Mild Scale (1-3) Last Admin: 11/23/22 08:11 Dose: 650 mg Al Hydroxide/Mg Hydroxide (Magnesium Hydrox/Alum Hydrox 30 Ml Oral.Susp) 30 ml PO Q6H PRN PRN Reason: Heartburn/Nausea Donepezil HCl (Donepezil Hcl 10 Mg Tablet) 10 mg PO BEDTIME [facility] Last Admin: 12/09/22 20:10 Dose: 10 mg Magnesium Hydroxide (Milk Of Magnesia 30 Ml Oral.Susp) 30 ml PO DAILY PRN PRN Reason: Constipation Memantine (Memantine Hcl 10 Mg Tablet) 10 mg PO BID [facility] Last Admin: 12/10/22 08:44 Dose: 10 mg Olanzapine (Olanzapine 5 Mg Tablet) 5 mg PO BEDTIME [facility] Last Admin: 12/09/22 20:10 Dose: 5 mg Olanzapine (Olanzapine 2.5 Mg Tablet) 2.5 mg PO Q4H PRN PRN Reason: Psychosis Trazodone HCl (Trazodone Hcl 50 Mg Tablet) 50 mg PO BEDTIME MRX1 PRN PRN Reason: Insomnia Trazodone HCl (Trazodone Hcl 25 Mg Halftab) 25 mg PO TID PRN PRN Reason: anxiety Last Admin: 11/27/22 20:58 Dose: 25 mg Allergies Allergies Allergy/AdvReac Type Severity Reaction Status Date / Time No Known Allergies Allergy Verified 11/19/22 12:09 Assessment & Plan Assessment & Plan (1) Dementia: Status: Acute Code(s): F03.90 - Unspecified dementia, unspecified severity, without behavioral disturbance, psychotic disturbance, mood disturbance, and anxiety Plan Pt is a 77-year-old female with apparently no significant PMH?who is admitted to [facility] for confusion and agitation after being found wandering around her neighborhood. Medical consult for admission H&P. ?Patient is currently confused and reliable HPI thus difficult to obtain. Pt state she is currently doing well and feeling good. Mood disorder Plan as per psychiatry Hx of [place] Pt claims she has had 5 heart attacks during the past week Workup negative at [facility] Pt currently asymptomatic, denies chest pain/pressure, palpitations Plan 1. Gather collateral information. 2. Start Aricept 5 mg p.o. q.h.s. on November 20. Increased up to 10 mg p.o. q.h.s. on November 22 3. Continue Zyprexa as per [facility]. 4. Reassessment with results. 5. Family meeting on Thursday to discuss disposition. The family is not aware about the assets of the patient, we woke the healthcare proxy and cauterizations were sign. 6. Namenda increased up to 10 mg p.o. b.i.d. 7. Power of bottling machine operator and guardianship will probably need to be assessed. 8. Waiting for legal paperwork for placement. 12/06: Continue current plan of care. 12/07: Continue current treatment. 12/08 no change in presentation; continue tx plan 12/09 continue current treatment plan 12/10 continue current treatment plan 12/11 continue current treatment plan Reason for continued inpatient stay Substantial Risk for: inability to function Time Spent With Patient Time: Total time managing care of this patient today ____ minutes.
[2022-12-10 19:54] VITALS: BP 145/70; PULSE 81; RESP 18; TEMP 36.6; O2SAT 95
[2022-12-10] MEDS: OLANZapine 5 MG TABLET PO (20:08)
[2022-12-10] MEDS: Donepezil HCl 10 MG TABLET PO (20:09)
[2022-12-11 08:22] VITALS: BP 106/62; PULSE 85; RESP 18; TEMP 36.2; O2SAT 96
[2022-12-11] MEDS: Memantine HCl 10 MG TABLET PO ×2 (08:25→20:42)
--- NOTE | 2022-12-11 08:49 | HO.PSYCHPN ---
Subjective Subjective Date of Service: 12/11/22 Reason For Visit: F41.9 anxiety disorder, F03.90 dementia Interim History: Met with patient; discussed with team Patient sitting calmly in day room; pleasant and cooperative on approach. She says she has good; no complaints and no requests. Staff report no incidents, sleeping well, adherent Mental Status Exam Mental Status Exam Patient Appearance: Well Grooomed and Appropriate Patient Orientation: Person Level of Consciousness: Awake and Appropriate Patient Behavior: Cooperative, Passive, Distractible and Good Eye Contact Mood Description: Calm and Withdrawn Affect Description: Calm Patient Cognition Impaired: Yes Ability to Follow Directions: Good Speech Pattern: Clear Hallucinations: None Delusions: Not Present Thought Process: Goal Oriented Thought Content: positive for [place], positive for Poverty of Content (no SI/HI) and positive for Tangential Judgement and Insight: impaired Diagnostics Vital Signs (24Hr): Vital Signs - 24 hr 12/10/22 19:54 12/11/22 08:22 Temperature 97.8 F 97.1 F Pulse Rate 81 85 Respiratory Rate 18 18 Blood Pressure 145/70 H 106/62 Pulse Oximetry 95 96 Oxygen Delivery Method Room Air Room Air BMI result Body Mass Index 26.2 Labs 11/20/22 08:22 Medications Medications Current Medications Acetaminophen (Acetaminophen 325 Mg Tablet) 650 mg PO Q6H PRN PRN Reason: Headache/Pain Mild Scale (1-3) Last Admin: 11/23/22 08:11 Dose: 650 mg Al Hydroxide/Mg Hydroxide (Magnesium Hydrox/Alum Hydrox 30 Ml Oral.Susp) 30 ml PO Q6H PRN PRN Reason: Heartburn/Nausea Donepezil HCl (Donepezil Hcl 10 Mg Tablet) 10 mg PO BEDTIME [facility] Last Admin: 12/10/22 20:09 Dose: 10 mg Magnesium Hydroxide (Milk Of Magnesia 30 Ml Oral.Susp) 30 ml PO DAILY PRN PRN Reason: Constipation Memantine (Memantine Hcl 10 Mg Tablet) 10 mg PO BID [facility] Last Admin: 12/11/22 08:25 Dose: 10 mg Olanzapine (Olanzapine 5 Mg Tablet) 5 mg PO BEDTIME [facility] Last Admin: 12/10/22 20:08 Dose: 5 mg Olanzapine (Olanzapine 2.5 Mg Tablet) 2.5 mg PO Q4H PRN PRN Reason: Psychosis Trazodone HCl (Trazodone Hcl 50 Mg Tablet) 50 mg PO BEDTIME MRX1 PRN PRN Reason: Insomnia Trazodone HCl (Trazodone Hcl 25 Mg Halftab) 25 mg PO TID PRN PRN Reason: anxiety Last Admin: 11/27/22 20:58 Dose: 25 mg Allergies Allergies Allergy/AdvReac Type Severity Reaction Status Date / Time No Known Allergies Allergy Verified 11/19/22 12:09 Assessment & Plan Assessment & Plan (1) Dementia: Status: Acute Code(s): F03.90 - Unspecified dementia, unspecified severity, without behavioral disturbance, psychotic disturbance, mood disturbance, and anxiety Plan Pt is a 77-year-old female with apparently no significant PMH?who is admitted to [facility] for confusion and agitation after being found wandering around her neighborhood. Medical consult for admission H&P. ?Patient is currently confused and reliable HPI thus difficult to obtain. Pt state she is currently doing well and feeling good. Mood disorder Plan as per psychiatry Hx of [place] Pt claims she has had 5 heart attacks during the past week Workup negative at [facility] Pt currently asymptomatic, denies chest pain/pressure, palpitations Plan 1. Gather collateral information. 2. Start Aricept 5 mg p.o. q.h.s. on November 20. Increased up to 10 mg p.o. q.h.s. on November 22 3. Continue Zyprexa as per [facility]. 4. Reassessment with results. 5. Family meeting on Thursday to discuss disposition. The family is not aware about the assets of the patient, we woke the healthcare proxy and cauterizations were sign. 6. Namenda increased up to 10 mg p.o. b.i.d. 7. Power of research attorney and guardianship will probably need to be assessed. 8. Waiting for legal paperwork for placement. 12/06: Continue current plan of care. 12/07: Continue current treatment. 12/08 no change in presentation; continue tx plan 12/09 continue current treatment plan 12/10 continue current treatment plan 12/11 continue current treatment plan Reason for continued inpatient stay Substantial Risk for: inability to function Time Spent With Patient Time: Total time managing care of this patient today ____ minutes.
[2022-12-11 09:58] VITALS: BMI 26.0
[2022-12-11 18:00] VITALS: BP 126/85; PULSE 98; RESP 18; TEMP 36; O2SAT 95
[2022-12-11] MEDS: OLANZapine 5 MG TABLET PO (20:42)
[2022-12-11] MEDS: Donepezil HCl 10 MG TABLET PO (20:42)
[2022-12-12] MEDS: Memantine HCl 10 MG TABLET PO ×2 (08:33→20:39)
[2022-12-12 08:44] VITALS: BP 135/62; PULSE 80; RESP 18; TEMP 36.1; O2SAT 95
--- NOTE | 2022-12-12 11:39 | P.PNPSI_ITS ---
Subjective Subjective Date of Service: 12/12/22 Reason For Visit: F41.9 anxiety disorder, F03.90 dementia Interim History: Briefly Met with patient; discussed with team Patient sitting quietly the table. She says she is good. 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 Staff reports today she is doing much better, pleasant and calm, adherent. , back to baseline Mental Status Exam Mental Status Exam Patient Appearance: Well Grooomed and Appropriate Patient Orientation: Person Level of Consciousness: Awake and Appropriate Patient Behavior: Cooperative, Passive, Distractible and Good Eye Contact Mood Description: Calm and Withdrawn Affect Description: Calm Patient Cognition Impaired: Yes Ability to Follow Directions: Good Speech Pattern: Clear Hallucinations: None Delusions: Not Present Thought Process: Goal Oriented Thought Content: positive for [place], positive for Poverty of Content (no SI/HI) and positive for Tangential Judgement and Insight: impaired Diagnostics Vital Signs (24Hr): Vital Signs - 24 hr 12/11/22 18:00 12/12/22 08:44 Temperature 96.8 F 97.0 F Pulse Rate 98 80 Respiratory Rate 18 18 Blood Pressure 126/85 135/62 Pulse Oximetry 95 95 Oxygen Delivery Method Room Air Room Air BMI result Body Mass Index 26.0 Labs 11/20/22 08:22 Medications Medications Current Medications Acetaminophen (Acetaminophen 325 Mg Tablet) 650 mg PO Q6H PRN PRN Reason: Headache/Pain Mild Scale (1-3) Last Admin: 11/23/22 08:11 Dose: 650 mg Al Hydroxide/Mg Hydroxide (Magnesium Hydrox/Alum Hydrox 30 Ml Oral.Susp) 30 ml PO Q6H PRN PRN Reason: Heartburn/Nausea Donepezil HCl (Donepezil Hcl 10 Mg Tablet) 10 mg PO BEDTIME [facility] Last Admin: 12/11/22 20:42 Dose: 10 mg Magnesium Hydroxide (Milk Of Magnesia 30 Ml Oral.Susp) 30 ml PO DAILY PRN PRN Reason: Constipation Memantine (Memantine Hcl 10 Mg Tablet) 10 mg PO BID [facility] Last Admin: 12/12/22 08:33 Dose: 10 mg Olanzapine (Olanzapine 5 Mg Tablet) 5 mg PO BEDTIME [facility] Last Admin: 12/11/22 20:42 Dose: 5 mg Olanzapine (Olanzapine 2.5 Mg Tablet) 2.5 mg PO Q4H PRN PRN Reason: Psychosis Trazodone HCl (Trazodone Hcl 50 Mg Tablet) 50 mg PO BEDTIME MRX1 PRN PRN Reason: Insomnia Trazodone HCl (Trazodone Hcl 25 Mg Halftab) 25 mg PO TID PRN PRN Reason: anxiety Last Admin: 11/27/22 20:58 Dose: 25 mg Allergies Allergies Allergy/AdvReac Type Severity Reaction Status Date / Time No Known Allergies Allergy Verified 11/19/22 12:09 Assessment & Plan Assessment & Plan (1) Dementia: Status: Acute Code(s): F03.90 - Unspecified dementia, unspecified severity, without behavioral disturbance, psychotic disturbance, mood disturbance, and anxiety Plan Pt is a 77-year-old female with apparently no significant PMH?who is admitted to [facility] for confusion and agitation after being found wandering around her neighborhood. Medical consult for admission H&P. ?Patient is currently confused and reliable HPI thus difficult to obtain. Pt state she is currently doing well and feeling good. Mood disorder Plan as per psychiatry Hx of [place] Pt claims she has had 5 heart attacks during the past week Workup negative at [facility] Pt currently asymptomatic, denies chest pain/pressure, palpitations Plan 1. Gather collateral information. 2. Start Aricept 5 mg p.o. q.h.s. on November 20. Increased up to 10 mg p.o. q.h.s. on November 22 3. Continue Zyprexa as per [facility]. 4. Reassessment with results. 5. Family meeting on Thursday to discuss disposition. The family is not aware about the assets of the patient, we woke the healthcare proxy and cauterizations were sign. 6. Namenda increased up to 10 mg p.o. b.i.d. 7. Power of manager digital and guardianship will probably need to be assessed. 8. Waiting for legal paperwork for placement. 12/06: Continue current plan of care. 12/07: Continue current treatment. 12/08 no change in presentation; continue tx plan 12/09 continue current treatment plan 12/10 continue current treatment plan Reason for continued inpatient stay Substantial Risk for: inability to function Time Spent With Patient Time: Total time managing care of this patient today ____ minutes.
[2022-12-12 18:00] VITALS: BP 125/57; PULSE 75; RESP 17; TEMP 36.1; O2SAT 93
[2022-12-12] MEDS: OLANZapine 5 MG TABLET PO (20:39)
[2022-12-12] MEDS: Donepezil HCl 10 MG TABLET PO (20:39)
[2022-12-13 08:24] VITALS: BP 116/61; PULSE 90; RESP 16; TEMP 36.7; O2SAT 93
[2022-12-13] MEDS: Memantine HCl 10 MG TABLET PO ×2 (08:24→20:47)
--- NOTE | 2022-12-13 16:43 | HO.PSYCHPN ---
Subjective Subjective Date of Service: 12/13/22 Reason For Visit: F41.9 anxiety disorder, F03.90 dementia Interim History: Met with patient; discussed with team Patient says she is fine on approach; staff reports she seems a little more withdrawn today but otherwise no behavioral issues. Mental Status Exam Mental Status Exam Patient Appearance: Well Grooomed and Appropriate Patient Orientation: Person Level of Consciousness: Awake and Appropriate Patient Behavior: Cooperative, Passive, Distractible and Good Eye Contact Mood Description: Calm and Withdrawn Affect Description: Calm Patient Cognition Impaired: Yes Ability to Follow Directions: Good Speech Pattern: Clear Hallucinations: None Delusions: Not Present Thought Process: Goal Oriented Thought Content: positive for [place], positive for Poverty of Content (no SI/HI) and positive for Tangential Judgement and Insight: impaired Diagnostics Vital Signs (24Hr): Vital Signs - 24 hr 12/12/22 18:00 12/13/22 08:24 Temperature 96.9 F 98.1 F Pulse Rate 75 90 Respiratory Rate 17 16 Blood Pressure 125/57 L 116/61 Pulse Oximetry 93 93 Oxygen Delivery Method Room Air Room Air BMI result Body Mass Index 26.0 Labs 11/20/22 08:22 Medications Medications Current Medications Acetaminophen (Acetaminophen 325 Mg Tablet) 650 mg PO Q6H PRN PRN Reason: Headache/Pain Mild Scale (1-3) Last Admin: 11/23/22 08:11 Dose: 650 mg Al Hydroxide/Mg Hydroxide (Magnesium Hydrox/Alum Hydrox 30 Ml Oral.Susp) 30 ml PO Q6H PRN PRN Reason: Heartburn/Nausea Donepezil HCl (Donepezil Hcl 10 Mg Tablet) 10 mg PO BEDTIME [facility] Last Admin: 12/12/22 20:39 Dose: 10 mg Magnesium Hydroxide (Milk Of Magnesia 30 Ml Oral.Susp) 30 ml PO DAILY PRN PRN Reason: Constipation Memantine (Memantine Hcl 10 Mg Tablet) 10 mg PO BID [facility] Last Admin: 12/13/22 08:24 Dose: 10 mg Olanzapine (Olanzapine 5 Mg Tablet) 5 mg PO BEDTIME [facility] Last Admin: 12/12/22 20:39 Dose: 5 mg Olanzapine (Olanzapine 2.5 Mg Tablet) 2.5 mg PO Q4H PRN PRN Reason: Psychosis Trazodone HCl (Trazodone Hcl 50 Mg Tablet) 50 mg PO BEDTIME MRX1 PRN PRN Reason: Insomnia Trazodone HCl (Trazodone Hcl 25 Mg Halftab) 25 mg PO TID PRN PRN Reason: anxiety Last Admin: 11/27/22 20:58 Dose: 25 mg Allergies Allergies Allergy/AdvReac Type Severity Reaction Status Date / Time No Known Allergies Allergy Verified 11/19/22 12:09 Assessment & Plan Assessment & Plan (1) Dementia: Status: Acute Code(s): F03.90 - Unspecified dementia, unspecified severity, without behavioral disturbance, psychotic disturbance, mood disturbance, and anxiety Plan Pt is a 77-year-old female with apparently no significant PMH?who is admitted to [facility] for confusion and agitation after being found wandering around her neighborhood. Medical consult for admission H&P. ?Patient is currently confused and reliable HPI thus difficult to obtain. Pt state she is currently doing well and feeling good. Mood disorder Plan as per psychiatry Hx of [place] Pt claims she has had 5 heart attacks during the past week Workup negative at [facility] Pt currently asymptomatic, denies chest pain/pressure, palpitations Plan 1. Gather collateral information. 2. Start Aricept 5 mg p.o. q.h.s. on November 20. Increased up to 10 mg p.o. q.h.s. on November 22 3. Continue Zyprexa as per [facility]. 4. Reassessment with results. 5. Family meeting on Thursday to discuss disposition. The family is not aware about the assets of the patient, we woke the healthcare proxy and cauterizations were sign. 6. Namenda increased up to 10 mg p.o. b.i.d. 7. Power of immigration attorney and guardianship will probably need to be assessed. 8. Waiting for legal paperwork for placement. 12/06: Continue current plan of care. 12/07: Continue current treatment. 12/08 no change in presentation; continue tx plan 12/09 continue current treatment plan 12/10 continue current treatment plan 12/13 continue current treatment plan Reason for continued inpatient stay Substantial Risk for: inability to function Time Spent With Patient Time: Total time managing care of this patient today ____ minutes.
[2022-12-13 18:00] VITALS: BP 136/64; PULSE 78; RESP 16; TEMP 36.4; O2SAT 92
[2022-12-13] MEDS: Donepezil HCl 10 MG TABLET PO (20:47)
[2022-12-13] MEDS: OLANZapine 5 MG TABLET PO (20:47)
[2022-12-14 08:38] VITALS: BP 118/60; PULSE 73; RESP 16; TEMP 36.5; O2SAT 93
[2022-12-14] MEDS: Memantine HCl 10 MG TABLET PO ×2 (08:40→20:29)
--- NOTE | 2022-12-14 10:52 | P.PNPSI_ITS ---
Subjective Subjective Date of Service: 12/14/22 Reason For Visit: F41.9 anxiety disorder, F03.90 dementia Interim History: Met with patient; discussed with team Patient pleasant on approach ; says she is good and has no complaints or requests. Staff reports that she his more engaged in back to baseline self. Mental Status Exam Mental Status Exam Patient Appearance: Well Grooomed and Appropriate Patient Orientation: Person Level of Consciousness: Awake and Appropriate Patient Behavior: Cooperative, Passive, Distractible and Good Eye Contact Mood Description: Calm and Withdrawn Affect Description: Calm Patient Cognition Impaired: Yes Ability to Follow Directions: Good Speech Pattern: Clear Hallucinations: None Delusions: Not Present Thought Process: Goal Oriented Thought Content: positive for [place], positive for Poverty of Content (no SI/HI) and positive for Tangential Judgement and Insight: impaired Diagnostics Vital Signs (24Hr): Vital Signs - 24 hr 12/13/22 18:00 12/14/22 08:38 Temperature 97.6 F 97.7 F Pulse Rate 78 73 Respiratory Rate 16 16 Blood Pressure 136/64 118/60 Pulse Oximetry 92 93 Oxygen Delivery Method Room Air Room Air BMI result Body Mass Index 26.0 Labs 11/20/22 08:22 Medications Medications Current Medications Acetaminophen (Acetaminophen 325 Mg Tablet) 650 mg PO Q6H PRN PRN Reason: Headache/Pain Mild Scale (1-3) Last Admin: 11/23/22 08:11 Dose: 650 mg Al Hydroxide/Mg Hydroxide (Magnesium Hydrox/Alum Hydrox 30 Ml Oral.Susp) 30 ml PO Q6H PRN PRN Reason: Heartburn/Nausea Donepezil HCl (Donepezil Hcl 10 Mg Tablet) 10 mg PO BEDTIME [facility] Last Admin: 12/13/22 20:47 Dose: 10 mg Magnesium Hydroxide (Milk Of Magnesia 30 Ml Oral.Susp) 30 ml PO DAILY PRN PRN Reason: Constipation Memantine (Memantine Hcl 10 Mg Tablet) 10 mg PO BID [facility] Last Admin: 12/14/22 08:40 Dose: 10 mg Olanzapine (Olanzapine 5 Mg Tablet) 5 mg PO BEDTIME [facility] Last Admin: 12/13/22 20:47 Dose: 5 mg Olanzapine (Olanzapine 2.5 Mg Tablet) 2.5 mg PO Q4H PRN PRN Reason: Psychosis Trazodone HCl (Trazodone Hcl 50 Mg Tablet) 50 mg PO BEDTIME MRX1 PRN PRN Reason: Insomnia Trazodone HCl (Trazodone Hcl 25 Mg Halftab) 25 mg PO TID PRN PRN Reason: anxiety Last Admin: 11/27/22 20:58 Dose: 25 mg Allergies Allergies Allergy/AdvReac Type Severity Reaction Status Date / Time No Known Allergies Allergy Verified 11/19/22 12:09 Assessment & Plan Assessment & Plan (1) Dementia: Status: Acute Code(s): F03.90 - Unspecified dementia, unspecified severity, without behavioral disturbance, psychotic disturbance, mood disturbance, and anxiety Plan Pt is a 77-year-old female with apparently no significant PMH?who is admitted to [facility] for confusion and agitation after being found wandering around her neighborhood. Medical consult for admission H&P. ?Patient is currently confused and reliable HPI thus difficult to obtain. Pt state she is currently doing well and feeling good. Mood disorder Plan as per psychiatry Hx of [place] Pt claims she has had 5 heart attacks during the past week Workup negative at [facility] Pt currently asymptomatic, denies chest pain/pressure, palpitations Plan 1. Gather collateral information. 2. Start Aricept 5 mg p.o. q.h.s. on November 20. Increased up to 10 mg p.o. q.h.s. on November 22 3. Continue Zyprexa as per [facility]. 4. Reassessment with results. 5. Family meeting on Thursday to discuss disposition. The family is not aware about the assets of the patient, we woke the healthcare proxy and cauterizations were sign. 6. Namenda increased up to 10 mg p.o. b.i.d. 7. Power of assistant paralegal and guardianship will probably need to be assessed. 8. Waiting for legal paperwork for placement. 12/06: Continue current plan of care. 12/07: Continue current treatment. 12/08 no change in presentation; continue tx plan 12/09 continue current treatment plan 12/10 continue current treatment plan 12/13 continue current treatment plan 12/14 continue current treatment plan Reason for continued inpatient stay Substantial Risk for: inability to function Time Spent With Patient Time: Total time managing care of this patient today ____ minutes.
[2022-12-14 18:00] VITALS: BP 118/55; PULSE 84; RESP 18; TEMP 35.9; O2SAT 98
[2022-12-14] MEDS: OLANZapine 5 MG TABLET PO (20:29)
[2022-12-14] MEDS: Donepezil HCl 10 MG TABLET PO (20:29)
[2022-12-15] MEDS: Memantine HCl 10 MG TABLET PO ×2 (08:14→20:01)
[2022-12-15 10:02] VITALS: BP 115/59; PULSE 129; RESP 15; TEMP 36.4; O2SAT 97
--- NOTE | 2022-12-15 10:08 | PC.NURSE ---
PT.'S PULSE 129 UPON VS CHECK. REPORTED TO DR. MOBLEY [email or web address] [email or web address].
--- NOTE | 2022-12-15 10:36 | HO.PSYCHPN ---
Subjective Subjective Date of Service: 12/15/22 Reason For Visit: F41.9 anxiety disorder, F03.90 dementia Interim History: Met with Patient; discussed with team pt says she is great . Staff reports pt is acting more withdrawn, resisting help with ADL's; pt also incontinent of stool, caked in her underwear. Attempting to get UA. Pt was also tachycardic though all other vitals wNL magazine writer discussed clean catch, urinate in cup; pt said she would however, nursing could not get pt to cooperate Mental Status Exam Mental Status Exam Patient Appearance: Well Grooomed and Appropriate Patient Orientation: Person Level of Consciousness: Awake and Appropriate Patient Behavior: Cooperative, Passive, Distractible and Good Eye Contact Mood Description: Calm and Withdrawn Affect Description: Calm Patient Cognition Impaired: Yes Ability to Follow Directions: Good Speech Pattern: Clear Hallucinations: None Delusions: Not Present Thought Process: Goal Oriented Thought Content: positive for [place], positive for Poverty of Content (no SI/HI) and positive for Tangential Judgement and Insight: impaired Diagnostics Vital Signs (24Hr): Vital Signs - 24 hr 12/14/22 18:00 12/15/22 10:02 Temperature 96.6 F L 97.5 F Pulse Rate 84 129 H Respiratory Rate 18 15 Blood Pressure 118/55 L 115/59 L Pulse Oximetry 98 97 Oxygen Delivery Method Room Air BMI result Body Mass Index 26.0 Labs 11/20/22 08:22 Medications Medications Current Medications Acetaminophen (Acetaminophen 325 Mg Tablet) 650 mg PO Q6H PRN PRN Reason: Headache/Pain Mild Scale (1-3) Last Admin: 11/23/22 08:11 Dose: 650 mg Al Hydroxide/Mg Hydroxide (Magnesium Hydrox/Alum Hydrox 30 Ml Oral.Susp) 30 ml PO Q6H PRN PRN Reason: Heartburn/Nausea Donepezil HCl (Donepezil Hcl 10 Mg Tablet) 10 mg PO BEDTIME [facility] Last Admin: 12/14/22 20:29 Dose: 10 mg Magnesium Hydroxide (Milk Of Magnesia 30 Ml Oral.Susp) 30 ml PO DAILY PRN PRN Reason: Constipation Memantine (Memantine Hcl 10 Mg Tablet) 10 mg PO BID [facility] Last Admin: 12/15/22 08:14 Dose: 10 mg Olanzapine (Olanzapine 5 Mg Tablet) 5 mg PO BEDTIME [facility] Last Admin: 09/03/23 20:29 Dose: 5 mg Olanzapine (Olanzapine 2.5 Mg Tablet) 2.5 mg PO Q4H PRN PRN Reason: Psychosis Trazodone HCl (Trazodone Hcl 50 Mg Tablet) 50 mg PO BEDTIME MRX1 PRN PRN Reason: Insomnia Trazodone HCl (Trazodone Hcl 25 Mg Halftab) 25 mg PO TID PRN PRN Reason: anxiety Last Admin: 11/27/22 20:58 Dose: 25 mg Allergies Allergies Allergy/AdvReac Type Severity Reaction Status Date / Time No Known Allergies Allergy Verified 11/19/22 12:09 Assessment & Plan Assessment & Plan (1) Dementia: Status: Acute Code(s): F03.90 - Unspecified dementia, unspecified severity, without behavioral disturbance, psychotic disturbance, mood disturbance, and anxiety Plan Pt is a 77-year-old female with apparently no significant PMH?who is admitted to [facility] for confusion and agitation after being found wandering around her neighborhood. Medical consult for admission H&P. ?Patient is currently confused and reliable HPI thus difficult to obtain. Pt state she is currently doing well and feeling good. Mood disorder Plan as per psychiatry Hx of [place] Pt claims she has had 5 heart attacks during the past week Workup negative at [facility] Pt currently asymptomatic, denies chest pain/pressure, palpitations Plan 1. Gather collateral information. 2. Start Aricept 5 mg p.o. q.h.s. on November 20. Increased up to 10 mg p.o. q.h.s. on November 22 3. Continue Zyprexa as per [facility]. 4. Reassessment with results. 5. Family meeting on Thursday to discuss disposition. The family is not aware about the assets of the patient, we woke the healthcare proxy and cauterizations were sign. 6. Namenda increased up to 10 mg p.o. b.i.d. 7. Power of banking attorney and guardianship will probably need to be assessed. 8. Waiting for legal paperwork for placement. 12/06: Continue current plan of care. 12/07: Continue current treatment. 12/08 no change in presentation; continue tx plan 12/09 continue current treatment plan 12/10 continue current treatment plan 12/13 continue current treatment plan 12/14 continue current treatment plan 12/15 pt a little more withdrawn today; some concern for UTI; pt was also tachycardic for bit today, however all other vitals WNL and no SIRS; difficult to get pt to comply with clean catch. It's also possible that pt is just having an off day and she'll return to baseline tomorrow. If she remains withdrawn, will consider straight Cath. -UA pending collection -will consider labs/cbc though vitals WNL Patient educated on: diagnosis and medical condition Informed Consent: understands, does not understand and further education needed Reason for continued inpatient stay Substantial Risk for: inability to function Time Spent With Patient Time: Total time managing care of this patient today ____ minutes.
[2022-12-15 18:00] VITALS: BP 130/63; PULSE 79; TEMP 37; O2SAT 95
[2022-12-15] MEDS: OLANZapine 5 MG TABLET PO (20:01)
[2022-12-15] MEDS: Donepezil HCl 10 MG TABLET PO (20:01)
[2022-12-16 08:07] VITALS: BP 109/64; PULSE 74; RESP 16; TEMP 36.4; O2SAT 96
[2022-12-16] MEDS: Memantine HCl 10 MG TABLET PO ×2 (08:10→20:07)
--- NOTE | 2022-12-16 15:34 | HO.PSYCHPN ---
Subjective Subjective Date of Service: 12/16/22 Reason For Visit: F41.9 anxiety disorder, F03.90 dementia Subjective Notes: Conditional Voluntary Interim History: The nursing staff reported the patient was irritable in the morning yesterday but he slept well last night. The staff noticed that she was incontinent. The social worker psychiatric reported that she is going to be referred to an assisted living facility. The power of estate attorney is trying to liquify her assets. On interview the patient is pleasantly confused, waiting for placement. Mental Status Exam Mental Status Exam Patient Appearance: Well Grooomed Patient Orientation: Person Level of Consciousness: Awake and Appropriate Patient Behavior: Guarded and Passive Mood Description: Withdrawn Affect Description: Constricted Patient Cognition Impaired: Yes Ability to Follow Directions: Good Speech Pattern: Clear Hallucinations: None Delusions: Not Present Thought Process: Distracted and Evasive Thought Content: positive for [place] and positive for Poverty of Content Judgement: Fair Diagnostics Vital Signs (24Hr): Vital Signs - 24 hr 12/15/22 18:00 12/16/22 08:07 Temperature 98.6 F 97.6 F Pulse Rate 79 74 Respiratory Rate 16 Blood Pressure 130/63 109/64 Pulse Oximetry 95 96 Oxygen Delivery Method Room Air Room Air BMI result Body Mass Index 26.0 Labs 11/20/22 08:22 Medications Medications Current Medications Acetaminophen (Acetaminophen 325 Mg Tablet) 650 mg PO Q6H PRN PRN Reason: Headache/Pain Mild Scale (1-3) Last Admin: 11/23/22 08:11 Dose: 650 mg Al Hydroxide/Mg Hydroxide (Magnesium Hydrox/Alum Hydrox 30 Ml Oral.Susp) 30 ml PO Q6H PRN PRN Reason: Heartburn/Nausea Donepezil HCl (Donepezil Hcl 10 Mg Tablet) 10 mg PO BEDTIME [facility] Last Admin: 12/15/22 20:01 Dose: 10 mg Magnesium Hydroxide (Milk Of Magnesia 30 Ml Oral.Susp) 30 ml PO DAILY PRN PRN Reason: Constipation Memantine (Memantine Hcl 10 Mg Tablet) 10 mg PO BID [facility] Last Admin: 12/16/22 08:10 Dose: 10 mg Olanzapine (Olanzapine 5 Mg Tablet) 5 mg PO BEDTIME [facility] Last Admin: 12/15/22 20:01 Dose: 5 mg Olanzapine (Olanzapine 2.5 Mg Tablet) 2.5 mg PO Q4H PRN PRN Reason: Psychosis Trazodone HCl (Trazodone Hcl 50 Mg Tablet) 50 mg PO BEDTIME MRX1 PRN PRN Reason: Insomnia Trazodone HCl (Trazodone Hcl 25 Mg Halftab) 25 mg PO TID PRN PRN Reason: anxiety Last Admin: 11/27/22 20:58 Dose: 25 mg Allergies Allergies Allergy/AdvReac Type Severity Reaction Status Date / Time No Known Allergies Allergy Verified 11/19/22 12:09 Assessment & Plan Assessment & Plan (1) Dementia: Status: Acute Code(s): F03.90 - Unspecified dementia, unspecified severity, without behavioral disturbance, psychotic disturbance, mood disturbance, and anxiety Plan Pt is a 77-year-old female with apparently no significant PMH?who is admitted to [facility] for confusion and agitation after being found wandering around her neighborhood. Medical consult for admission H&P. ?Patient is currently confused and reliable HPI thus difficult to obtain. Pt state she is currently doing well and feeling good. Mood disorder Plan as per psychiatry Hx of [place] Pt claims she has had 5 heart attacks during the past week Workup negative at [facility] Pt currently asymptomatic, denies chest pain/pressure, palpitations Plan 1. Gather collateral information. 2. Start Aricept 5 mg p.o. q.h.s. on November 20. Increased up to 10 mg p.o. q.h.s. on November 22 3. Continue Zyprexa as per [facility]. 4. Reassessment with results. 5. Family meeting on Thursday to discuss disposition. The family is not aware about the assets of the patient, we woke the healthcare proxy and cauterizations were sign. 6. Namenda increased up to 10 mg p.o. b.i.d. 7. Power of estate attorney and guardianship will probably need to be assessed. 8. Waiting for placement. The patient has a power of estate attorney who was trying to liquify her assets. Reason for continued inpatient stay Substantial Risk for: inability to function, rapid decompensation and med/psych decompensation Time Spent With Patient Time: Total time managing care of this patient today __20__ minutes.
[2022-12-16 18:00] VITALS: BP 112/61; PULSE 74; RESP 18; TEMP 36.3; O2SAT 98
[2022-12-16] MEDS: OLANZapine 5 MG TABLET PO (20:07)
[2022-12-16] MEDS: Donepezil HCl 10 MG TABLET PO (20:07)
[2022-12-17] MEDS: OLANZapine 2.5 MG TABLET PO (01:30)
[2022-12-17] MEDS: traZODone HCL 50 MG TABLET PO (01:31)
[2022-12-17 08:05] VITALS: BP 91/56; PULSE 107; RESP 16; TEMP 36.2; O2SAT 94
[2022-12-17] MEDS: Memantine HCl 10 MG TABLET PO ×2 (08:29→20:16)
[2022-12-17 09:35] VITALS: BP 147/63; PULSE 90
--- NOTE | 2022-12-17 10:22 | PC.NURSE ---
Morning bp 91/56, Genie asymptomatic. Recheck of bp 90 minutes later 147/63. Dr. Henry notified.
--- NOTE | 2022-12-17 11:20 | P.PNPSI_ITS ---
Subjective Subjective Date of Service: 12/17/22 Reason For Visit: F41.9 anxiety disorder, F03.90 dementia Subjective Notes: Conditional Voluntary Interim History: The nursing staff reported the patient has been pleasant on approach safe in the unit. She took trazodone Zyprexa at night and she slept well. The social science analyst reported that she met with her brother and family and the associate attorney who is the power of associate attorney upon are trying to liquify her assets. Th e patient was informed about the need to go to long-term care and she agree on that. On interview the patient is pleasantly confused, waiting for placement. Mental Status Exam Mental Status Exam Patient Appearance: Well Grooomed and Appropriate Patient Orientation: Person and Situation Level of Consciousness: Awake and Appropriate Patient Behavior: Guarded and Passive Mood Description: Withdrawn Affect Description: Constricted Patient Cognition Impaired: Yes Ability to Follow Directions: Good Speech Pattern: Clear Hallucinations: None Delusions: Not Present Thought Process: Distracted Thought Content: positive for [place] and positive for Circumstantial Judgement: Fair Diagnostics Vital Signs (24Hr): Vital Signs - 24 hr 12/16/22 18:00 12/17/22 08:05 12/17/22 09:35 Temperature 97.4 F 97.2 F Pulse Rate 74 107 H 90 Respiratory Rate 18 16 Blood Pressure 112/61 91/56 L 147/63 H Pulse Oximetry 98 94 Oxygen Delivery Method Room Air Room Air BMI result Body Mass Index 26.0 Labs 11/20/22 08:22 Medications Medications Current Medications Acetaminophen (Acetaminophen 325 Mg Tablet) 650 mg PO Q6H PRN PRN Reason: Headache/Pain Mild Scale (1-3) Last Admin: 11/23/22 08:11 Dose: 650 mg Al Hydroxide/Mg Hydroxide (Magnesium Hydrox/Alum Hydrox 30 Ml Oral.Susp) 30 ml PO Q6H PRN PRN Reason: Heartburn/Nausea Donepezil HCl (Donepezil Hcl 10 Mg Tablet) 10 mg PO BEDTIME [facility] Last Admin: 12/16/22 20:07 Dose: 10 mg Magnesium Hydroxide (Milk Of Magnesia 30 Ml Oral.Susp) 30 ml PO DAILY PRN PRN Reason: Constipation Memantine (Memantine Hcl 10 Mg Tablet) 10 mg PO BID [facility] Last Admin: 12/17/22 08:29 Dose: 10 mg Olanzapine (Olanzapine 5 Mg Tablet) 5 mg PO BEDTIME [facility] Last Admin: 12/16/22 20:07 Dose: 5 mg Olanzapine (Olanzapine 2.5 Mg Tablet) 2.5 mg PO Q4H PRN PRN Reason: Psychosis Last Admin: 12/17/22 01:30 Dose: 2.5 mg Trazodone HCl (Trazodone Hcl 50 Mg Tablet) 50 mg PO BEDTIME MRX1 PRN PRN Reason: Insomnia Last Admin: 12/17/22 01:31 Dose: 50 mg Trazodone HCl (Trazodone Hcl 25 Mg Halftab) 25 mg PO TID PRN PRN Reason: anxiety Last Admin: 11/27/22 20:58 Dose: 25 mg Allergies Allergies Allergy/AdvReac Type Severity Reaction Status Date / Time No Known Allergies Allergy Verified 11/19/22 12:09 Assessment & Plan Assessment & Plan (1) Dementia: Status: Acute Code(s): F03.90 - Unspecified dementia, unspecified severity, without behavioral disturbance, psychotic disturbance, mood disturbance, and anxiety Plan Pt is a 77-year-old female with apparently no significant PMH?who is admitted to [facility] for confusion and agitation after being found wandering around her neighborhood. Medical consult for admission H&P. ?Patient is currently confused and reliable HPI thus difficult to obtain. Pt state she is currently doing well and feeling good. Mood disorder Plan as per psychiatry Hx of [place] Pt claims she has had 5 heart attacks during the past week Workup negative at [facility] Pt currently asymptomatic, denies chest pain/pressure, palpitations Plan 1. Gather collateral information. 2. Start Aricept 5 mg p.o. q.h.s. on November 20. Increased up to 10 mg p.o. q.h.s. on November 22 3. Continue Zyprexa as per [facility]. 4. Reassessment with results. 5. Family meeting on Thursday to discuss disposition. The family is not aware about the assets of the patient, we woke the healthcare proxy and cauterizations were sign. 6. Namenda increased up to 10 mg p.o. b.i.d. 7. Power of associate attorney and guardianship will probably need to be assessed. 8. Waiting for placement. The patient has a power of associate attorney who was trying to liquify her assets. Reason for continued inpatient stay Substantial Risk for: inability to function, rapid decompensation and med/psych decompensation Time Spent With Patient Time: Total time managing care of this patient today _20___ minutes.
[2022-12-17 18:00] LABS: Appearance Urine Clear; Color Urine Yellow; Glucose Urine UA Negative (Negative); Leukocyte Esterase Urine Trace (Negative); Nitrite Urine Negative (Negative); PH 5.5 (5.0-9.0); UMIC TRIGGER UACC YES; Urine Blood Negative (Negative); Urine Ketones Negative (Negative); Urine Protein Negative (Neg-Trace)
[2022-12-17 18:08] LABS: Bacteria Urine None Seen (None Seen); Hyaline Casts Urine 0-2 /LPF (0-2); RBC Urine 0-2 /HPF (0-2); Squamous Epithelial Cell Urine 0-2 /HPF (0-2); WBC Urine 0-5 /HPF (0-5)
[2022-12-17 20:12] VITALS: BP 138/70; PULSE 70; RESP 16; TEMP 35.9; O2SAT 97
[2022-12-17] MEDS: Donepezil HCl 10 MG TABLET PO (20:16)
[2022-12-17] MEDS: OLANZapine 5 MG TABLET PO (20:16)
[2022-12-18 07:00] VITALS: BMI 25.1
[2022-12-18 07:50] VITALS: BP 105/60; PULSE 89; RESP 16; TEMP 36.3; O2SAT 95
[2022-12-18] MEDS: Memantine HCl 10 MG TABLET PO ×2 (08:07→20:07)
--- NOTE | 2022-12-18 14:11 | HO.PSYCHPN ---
Subjective Subjective Date of Service: 12/18/22 Reason For Visit: F41.9 anxiety disorder, F03.90 dementia Subjective Notes: Conditional Voluntary Interim History: The nursing staf reported that she had her straight cath U/A with normal limits. She has been pleasant, attend a few groups, fully compliant with medications and meals. On interview, she looks pleasantly confused. Diagnostics Vital Signs (24Hr): Vital Signs - 24 hr 12/17/22 20:12 12/18/22 07:50 Temperature 96.7 F L 97.4 F Pulse Rate 70 89 Respiratory Rate 16 16 Blood Pressure 138/70 105/60 Pulse Oximetry 97 95 Oxygen Delivery Method Room Air Room Air BMI result Body Mass Index 25.1 Labs 11/20/22 08:22 Labs: Laboratory Results - last 48 hr 12/17/22 17:35 Urine Color Yellow Urine Appearance Clear Urine pH 5.5 Ur Specific [place] 1.020 Urine Protein Negative Urine Glucose (UA) Negative Urine Ketones Negative Urine Blood Negative Urine Nitrite Negative Ur Leukocyte Esterase Trace H Urine RBC 0-2 Urine WBC 0-5 Ur Squamous Epith Cells 0-2 Urine Bacteria None Seen Hyaline Casts 0-2 Medications Medications Current Medications Acetaminophen (Acetaminophen 325 Mg Tablet) 650 mg PO Q6H PRN PRN Reason: Headache/Pain Mild Scale (1-3) Last Admin: 11/23/22 08:11 Dose: 650 mg Al Hydroxide/Mg Hydroxide (Magnesium Hydrox/Alum Hydrox 30 Ml Oral.Susp) 30 ml PO Q6H PRN PRN Reason: Heartburn/Nausea Donepezil HCl (Donepezil Hcl 10 Mg Tablet) 10 mg PO BEDTIME [facility] Last Admin: 12/17/22 20:16 Dose: 10 mg Magnesium Hydroxide (Milk Of Magnesia 30 Ml Oral.Susp) 30 ml PO DAILY PRN PRN Reason: Constipation Memantine (Memantine Hcl 10 Mg Tablet) 10 mg PO BID [facility] Last Admin: 12/18/22 08:07 Dose: 10 mg Olanzapine (Olanzapine 5 Mg Tablet) 5 mg PO BEDTIME [facility] Last Admin: 12/17/22 20:16 Dose: 5 mg Olanzapine (Olanzapine 2.5 Mg Tablet) 2.5 mg PO Q4H PRN PRN Reason: Psychosis Last Admin: 12/17/22 01:30 Dose: 2.5 mg Trazodone HCl (Trazodone Hcl 50 Mg Tablet) 50 mg PO BEDTIME MRX1 PRN PRN Reason: Insomnia Last Admin: 12/17/22 01:31 Dose: 50 mg Trazodone HCl (Trazodone Hcl 25 Mg Halftab) 25 mg PO TID PRN PRN Reason: anxiety Last Admin: 11/27/22 20:58 Dose: 25 mg Allergies Allergies Allergy/AdvReac Type Severity Reaction Status Date / Time No Known Allergies Allergy Verified 11/19/22 12:09 Assessment & Plan Assessment & Plan (1) Dementia: Status: Acute Code(s): F03.90 - Unspecified dementia, unspecified severity, without behavioral disturbance, psychotic disturbance, mood disturbance, and anxiety Plan Pt is a 77-year-old female with apparently no significant PMH?who is admitted to [facility] for confusion and agitation after being found wandering around her neighborhood. Medical consult for admission H&P. ?Patient is currently confused and reliable HPI thus difficult to obtain. Pt state she is currently doing well and feeling good. Mood disorder Plan as per psychiatry Hx of [place] Pt claims she has had 5 heart attacks during the past week Workup negative at [facility] Pt currently asymptomatic, denies chest pain/pressure, palpitations Plan 1. Gather collateral information. 2. Start Aricept 5 mg p.o. q.h.s. on November 20. Increased up to 10 mg p.o. q.h.s. on November 22 3. Continue Zyprexa as per [facility]. 4. Reassessment with results. 5. Family meeting on Thursday to discuss disposition. The family is not aware about the assets of the patient, we woke the healthcare proxy and cauterizations were sign. 6. Namenda increased up to 10 mg p.o. b.i.d. 7. Power of criminal attorney and guardianship will probably need to be assessed. 8. Waiting for placement. The patient has a power of criminal attorney who was trying to liquify her assets. Reason for continued inpatient stay Substantial Risk for: inability to function, rapid decompensation and med/psych decompensation Time Spent With Patient Time: Total time managing care of this patient today ____ minutes.
[2022-12-18 18:00] VITALS: BP 137/90; PULSE 109; RESP 18; TEMP 36.3; O2SAT 96
[2022-12-18] MEDS: OLANZapine 5 MG TABLET PO (20:07)
[2022-12-18] MEDS: Donepezil HCl 10 MG TABLET PO (20:07)
[2022-12-19 08:00] VITALS: BP 112/56; PULSE 94; RESP 16; TEMP 36.3; O2SAT 95
[2022-12-19] MEDS: Memantine HCl 10 MG TABLET PO ×2 (08:02→21:08)
--- NOTE | 2022-12-19 11:18 | HO.PSYCHPN ---
Subjective Subjective Date of Service: 12/19/22 Reason For Visit: F41.9 anxiety disorder, F03.90 dementia Subjective Notes: Conditional Voluntary Interim History: The nursing staff reported the patient had been confused, pleasant cooperative compliant with meals and treatment. She slept well last night. The social and political studies professor [facility] and [facility] are ready to take her in early next week. On interview the patient is pleasantly confused easily redirectable. Waiting for placement. Mental Status Exam Mental Status Exam Patient Appearance: Well Grooomed and Appropriate Patient Orientation: Person and Situation Level of Consciousness: Awake and Appropriate Patient Behavior: Cooperative and Passive Mood Description: Calm Affect Description: Constricted Patient Cognition Impaired: Yes Ability to Follow Directions: Good Speech Pattern: Clear Hallucinations: None Delusions: Not Present Thought Process: Illogical, Distracted and Slowed Thinking Thought Content: positive for [place] and positive for Poverty of Content Judgement: Fair Diagnostics Vital Signs (24Hr): Vital Signs - 24 hr 12/18/22 18:00 12/19/22 08:00 Temperature 97.3 F 97.4 F Pulse Rate 109 H 94 Respiratory Rate 18 16 Blood Pressure 137/90 H 112/56 L Pulse Oximetry 96 95 Oxygen Delivery Method Room Air Room Air BMI result Body Mass Index 25.1 Labs 11/20/22 08:22 Labs: Laboratory Results - last 48 hr 12/17/22 17:35 Urine Color Yellow Urine Appearance Clear Urine pH 5.5 Ur Specific [place] 1.020 Urine Protein Negative Urine Glucose (UA) Negative Urine Ketones Negative Urine Blood Negative Urine Nitrite Negative Ur Leukocyte Esterase Trace H Urine RBC 0-2 Urine WBC 0-5 Ur Squamous Epith Cells 0-2 Urine Bacteria None Seen Hyaline Casts 0-2 Medications Medications Current Medications Acetaminophen (Acetaminophen 325 Mg Tablet) 650 mg PO Q6H PRN PRN Reason: Headache/Pain Mild Scale (1-3) Last Admin: 11/23/22 08:11 Dose: 650 mg Al Hydroxide/Mg Hydroxide (Magnesium Hydrox/Alum Hydrox 30 Ml Oral.Susp) 30 ml PO Q6H PRN PRN Reason: Heartburn/Nausea Donepezil HCl (Donepezil Hcl 10 Mg Tablet) 10 mg PO BEDTIME KOBI Last Admin: 12/18/22 20:07 Dose: 10 mg Magnesium Hydroxide (Milk Of Magnesia 30 Ml Oral.Susp) 30 ml PO DAILY PRN PRN Reason: Constipation Memantine (Memantine Hcl 10 Mg Tablet) 10 mg PO BID KOBI Last Admin: 12/19/22 08:02 Dose: 10 mg Olanzapine (Olanzapine 5 Mg Tablet) 5 mg PO BEDTIME KOBI Last Admin: 12/18/22 20:07 Dose: 5 mg Olanzapine (Olanzapine 2.5 Mg Tablet) 2.5 mg PO Q4H PRN PRN Reason: Psychosis Last Admin: 12/17/22 01:30 Dose: 2.5 mg Trazodone HCl (Trazodone Hcl 50 Mg Tablet) 50 mg PO BEDTIME MRX1 PRN PRN Reason: Insomnia Last Admin: 12/17/22 01:31 Dose: 50 mg Trazodone HCl (Trazodone Hcl 25 Mg Halftab) 25 mg PO TID PRN PRN Reason: anxiety Last Admin: 11/27/22 20:58 Dose: 25 mg Allergies Allergies Allergy/AdvReac Type Severity Reaction Status Date / Time No Known Allergies Allergy Verified 11/19/22 12:09 Assessment & Plan Assessment & Plan (1) Dementia: Status: Acute Code(s): F03.90 - Unspecified dementia, unspecified severity, without behavioral disturbance, psychotic disturbance, mood disturbance, and anxiety Plan Pt is a 77-year-old female with apparently no significant PMH?who is admitted to [facility] for confusion and agitation after being found wandering around her neighborhood. Medical consult for admission H&P. ?Patient is currently confused and reliable HPI thus difficult to obtain. Pt state she is currently doing well and feeling good. Mood disorder Plan as per psychiatry Hx of [place] Pt claims she has had 5 heart attacks during the past week Workup negative at [facility] Pt currently asymptomatic, denies chest pain/pressure, palpitations Plan 1. Gather collateral information. 2. Start Aricept 5 mg p.o. q.h.s. on November 20. Increased up to 10 mg p.o. q.h.s. on November 22 3. Continue Zyprexa as per [facility]. 4. Reassessment with results. 5. Family meeting on Thursday to discuss disposition. The family is not aware about the assets of the patient, we woke the healthcare proxy and cauterizations were sign. 6. Namenda increased up to 10 mg p.o. b.i.d. 7. Power of ip attorney and guardianship will probably need to be assessed. 8. Waiting for placement. The patient has a power of ip attorney who was trying to liquify her assets. Reason for continued inpatient stay Substantial Risk for: inability to function, rapid decompensation and med/psych decompensation Time Spent With Patient Time: Total time managing care of this patient today _20___ minutes.
[2022-12-19 19:35] VITALS: BP 139/65; PULSE 81; RESP 16; TEMP 36.4; O2SAT 94
[2022-12-19] MEDS: Donepezil HCl 10 MG TABLET PO (21:08)
[2022-12-19] MEDS: OLANZapine 5 MG TABLET PO (21:08)
[2022-12-19] MEDS: traZODone HCL 50 MG TABLET PO (22:12)
[2022-12-19] MEDS: OLANZapine 2.5 MG TABLET PO (22:12)
[2022-12-20 08:14] VITALS: BP 120/58; PULSE 78; RESP 16; TEMP 36.3; O2SAT 94
[2022-12-20] MEDS: Memantine HCl 10 MG TABLET PO ×2 (09:02→20:34)
--- NOTE | 2022-12-20 15:18 | P.PNPSI_ITS ---
Subjective Subjective Date of Service: 12/20/22 Reason For Visit: F41.9 anxiety disorder, F03.90 dementia Subjective Notes: Conditional Voluntary Healthcare Proxy: Yes Interim History: met with patient. Discussed with Nursing. Has been paranoid and suspicious at times. Sleeping well. With technical document writer she was pleasant. Did believe she was at a camp that she attended as a child. Believed that was May 2022. Did well with reorientation to place and date. reported feeling safe. Review of Systems Review of Systems Yes Unobtainable due to mental status Mental Status Exam Mental Status Exam Narrative: Pleasant. Engaged. Fairly presented. Clear cognitive impairment consistent with establish dementia. No evidence of depression, SI or HI. Has had some paranoia as per staff. No evidence of hallucinations. Diagnostics Vital Signs (24Hr): Vital Signs - 24 hr 12/19/22 19:35 12/20/22 08:14 Temperature 97.5 F 97.3 F Pulse Rate 81 78 Respiratory Rate 16 16 Blood Pressure 139/65 120/58 L Pulse Oximetry 94 94 Oxygen Delivery Method Room Air Room Air BMI result Body Mass Index 25.1 Labs 11/20/22 08:22 Medications Medications Current Medications Acetaminophen (Acetaminophen 325 Mg Tablet) 650 mg PO Q6H PRN PRN Reason: Headache/Pain Mild Scale (1-3) Last Admin: 11/23/22 08:11 Dose: 650 mg Al Hydroxide/Mg Hydroxide (Magnesium Hydrox/Alum Hydrox 30 Ml Oral.Susp) 30 ml PO Q6H PRN PRN Reason: Heartburn/Nausea Donepezil HCl (Donepezil Hcl 10 Mg Tablet) 10 mg PO BEDTIME [facility] Last Admin: 12/19/22 21:08 Dose: 10 mg Magnesium Hydroxide (Milk Of Magnesia 30 Ml Oral.Susp) 30 ml PO DAILY PRN PRN Reason: Constipation Memantine (Memantine Hcl 10 Mg Tablet) 10 mg PO BID KOBI Last Admin: 12/20/22 09:02 Dose: 10 mg Olanzapine (Olanzapine 5 Mg Tablet) 5 mg PO BEDTIME KOBI Last Admin: 12/19/22 21:08 Dose: 5 mg Olanzapine (Olanzapine 2.5 Mg Tablet) 2.5 mg PO Q4H PRN PRN Reason: Psychosis Last Admin: 12/19/22 22:12 Dose: 2.5 mg Trazodone HCl (Trazodone Hcl 50 Mg Tablet) 50 mg PO BEDTIME MRX1 PRN PRN Reason: Insomnia Last Admin: 12/19/22 22:12 Dose: 50 mg Trazodone HCl (Trazodone Hcl 25 Mg Halftab) 25 mg PO TID PRN PRN Reason: anxiety Last Admin: 11/27/22 20:58 Dose: 25 mg Allergies Allergies Allergy/AdvReac Type Severity Reaction Status Date / Time No Known Allergies Allergy Verified 11/19/22 12:09 Assessment & Plan Assessment & Plan (1) Dementia: Status: Acute Code(s): F03.90 - Unspecified dementia, unspecified severity, without behavioral disturbance, psychotic disturbance, mood disturbance, and anxiety Plan Pt is a 77-year-old female with apparently no significant PMH?who is admitted to [facility] for confusion and agitation after being found wandering around her neighborhood. Medical consult for admission H&P. ?Patient is currently confused and reliable HPI thus difficult to obtain. Pt state she is currently doing well and feeling good. Mood disorder Plan as per psychiatry Hx of [place] Pt claims she has had 5 heart attacks during the past week Workup negative at [facility] Pt currently asymptomatic, denies chest pain/pressure, palpitations Plan 1. Gather collateral information. 2. Start Aricept 5 mg p.o. q.h.s. on November 20. Increased up to 10 mg p.o. q.h.s. on November 22 3. Continue Zyprexa as per [facility]. 4. Reassessment with results. 5. Family meeting on Thursday to discuss disposition. The family is not aware about the assets of the patient, we woke the healthcare proxy and cauterizations were sign. 6. Namenda increased up to 10 mg p.o. b.i.d. 7. Power of traffic law attorney and guardianship will probably need to be assessed. 8. Waiting for placement. The patient has a power of traffic law attorney who was trying to liquify her assets. 12/20/2022: No changes to current plan Reason for continued inpatient stay Substantial Risk for: inability to function Time Spent With Patient Time: Total time managing care of this patient today ____ minutes.
[2022-12-20 18:00] VITALS: BP 138/70; PULSE 83; RESP 18; TEMP 36.7; O2SAT 96
[2022-12-20] MEDS: Donepezil HCl 10 MG TABLET PO (20:33)
[2022-12-20] MEDS: OLANZapine 5 MG TABLET PO (20:34)
[2022-12-21 07:57] VITALS: BP 115/59; PULSE 77; RESP 18; TEMP 36.1; O2SAT 94
[2022-12-21] MEDS: Memantine HCl 10 MG TABLET PO ×2 (08:46→20:40)
--- NOTE | 2022-12-21 15:42 | HO.PSYCHPN ---
Subjective Subjective Date of Service: 12/21/22 Reason For Visit: F41.9 anxiety disorder, F03.90 dementia Interim History: Remains paranoid and suspicious at times. Sleeping well. pleasant with blog writer. Difficulty with orientation. Denied feeling scared or unsafe. Medication Compliance: Yes Side effects from medications: No Attending Groups: Yes Review of Systems Acute medical concerns: No Review of Systems Review of Systems Yes Unobtainable due to mental status Mental Status Exam Mental Status Exam Narrative: Pleasant. Engaged. Fairly presented. Clear cognitive impairment consistent with establish dementia. No evidence of depression, SI or HI. Has had some paranoia as per staff. No evidence of hallucinations. Diagnostics Vital Signs (24Hr): Vital Signs - 24 hr 12/20/22 18:00 12/21/22 07:57 Temperature 98.1 F 96.9 F Pulse Rate 83 77 Respiratory Rate 18 18 Blood Pressure 138/70 115/59 L Pulse Oximetry 96 94 Oxygen Delivery Method Room Air Room Air BMI result Body Mass Index 25.1 Labs 11/20/22 08:22 Medications Medications Current Medications Acetaminophen (Acetaminophen 325 Mg Tablet) 650 mg PO Q6H PRN PRN Reason: Headache/Pain Mild Scale (1-3) Last Admin: 11/23/22 08:11 Dose: 650 mg Al Hydroxide/Mg Hydroxide (Magnesium Hydrox/Alum Hydrox 30 Ml Oral.Susp) 30 ml PO Q6H PRN PRN Reason: Heartburn/Nausea Donepezil HCl (Donepezil Hcl 10 Mg Tablet) 10 mg PO BEDTIME KOBI Last Admin: 12/20/22 20:33 Dose: 10 mg Magnesium Hydroxide (Milk Of Magnesia 30 Ml Oral.Susp) 30 ml PO DAILY PRN PRN Reason: Constipation Memantine (Memantine Hcl 10 Mg Tablet) 10 mg PO BID [facility] Last Admin: 12/21/22 08:46 Dose: 10 mg Olanzapine (Olanzapine 5 Mg Tablet) 5 mg PO BEDTIME KOBI Last Admin: 12/20/22 20:34 Dose: 5 mg Olanzapine (Olanzapine 2.5 Mg Tablet) 2.5 mg PO Q4H PRN PRN Reason: Psychosis Last Admin: 12/19/22 22:12 Dose: 2.5 mg Trazodone HCl (Trazodone Hcl 50 Mg Tablet) 50 mg PO BEDTIME MRX1 PRN PRN Reason: Insomnia Last Admin: 12/19/22 22:12 Dose: 50 mg Trazodone HCl (Trazodone Hcl 25 Mg Halftab) 25 mg PO TID PRN PRN Reason: anxiety Last Admin: 11/27/22 20:58 Dose: 25 mg Allergies Allergies Allergy/AdvReac Type Severity Reaction Status Date / Time No Known Allergies Allergy Verified 11/19/22 12:09 Assessment & Plan Assessment & Plan (1) Dementia: Status: Acute Code(s): F03.90 - Unspecified dementia, unspecified severity, without behavioral disturbance, psychotic disturbance, mood disturbance, and anxiety Plan Pt is a 77-year-old female with apparently no significant PMH?who is admitted to [facility] for confusion and agitation after being found wandering around her neighborhood. Medical consult for admission H&P. ?Patient is currently confused and reliable HPI thus difficult to obtain. Pt state she is currently doing well and feeling good. Mood disorder Plan as per psychiatry Hx of [place] Pt claims she has had 5 heart attacks during the past week Workup negative at [facility] Pt currently asymptomatic, denies chest pain/pressure, palpitations Plan 1. Gather collateral information. 2. Start Aricept 5 mg p.o. q.h.s. on November 20. Increased up to 10 mg p.o. q.h.s. on November 22 3. Continue Zyprexa as per [facility]. 4. Reassessment with results. 5. Family meeting on Thursday to discuss disposition. The family is not aware about the assets of the patient, we woke the healthcare proxy and cauterizations were sign. 6. Namenda increased up to 10 mg p.o. b.i.d. 7. Power of deputy commonwealth's attorney and guardianship will probably need to be assessed. 8. Waiting for placement. The patient has a power of deputy commonwealth's attorney who was trying to liquify her assets. 12/21/2022: No changes to current plan Reason for continued inpatient stay Substantial Risk for: inability to function Time Spent With Patient Time: Total time managing care of this patient today ____ minutes.
[2022-12-21 18:00] VITALS: BP 149/76; PULSE 80; RESP 18; TEMP 36; O2SAT 97
[2022-12-21] MEDS: Donepezil HCl 10 MG TABLET PO (20:40)
[2022-12-21] MEDS: OLANZapine 5 MG TABLET PO (20:40)
[2022-12-22 08:10] VITALS: BP 118/60; PULSE 83; RESP 20; TEMP 36.6; O2SAT 93
[2022-12-22] MEDS: Memantine HCl 10 MG TABLET PO ×2 (08:11→20:04)
--- NOTE | 2022-12-22 15:16 | HO.PSYCHPN ---
Subjective Subjective Date of Service: 12/22/22 Reason For Visit: F41.9 anxiety disorder, F03.90 dementia Subjective Notes: Conditional Voluntary Interim History: The nursing staff reported the patient has been alert oriented to self, she had been refusing showering. The director social welfare reported that our ports will accept her next . On interview the patient is pleasantly confused no new symptoms. Mental Status Exam Mental Status Exam Patient Appearance: Appropriate Patient Orientation: Person and Situation Level of Consciousness: Awake and Appropriate Patient Behavior: Guarded and Passive Mood Description: Withdrawn Affect Description: Constricted Patient Cognition Impaired: Yes Ability to Follow Directions: Good Speech Pattern: Clear Hallucinations: None Delusions: Not Present Thought Process: Distracted and Slowed Thinking Thought Content: positive for [place] and positive for Circumstantial Judgement: Fair Diagnostics Vital Signs (24Hr): Vital Signs - 24 hr 12/21/22 18:00 12/22/22 08:10 Temperature 96.8 F 97.8 F Pulse Rate 80 83 Respiratory Rate 18 20 Blood Pressure 149/76 H 118/60 Pulse Oximetry 97 93 Oxygen Delivery Method Room Air Room Air BMI result Body Mass Index 25.1 Labs 11/20/22 08:22 Medications Medications Current Medications Acetaminophen (Acetaminophen 325 Mg Tablet) 650 mg PO Q6H PRN PRN Reason: Headache/Pain Mild Scale (1-3) Last Admin: 11/23/22 08:11 Dose: 650 mg Al Hydroxide/Mg Hydroxide (Magnesium Hydrox/Alum Hydrox 30 Ml Oral.Susp) 30 ml PO Q6H PRN PRN Reason: Heartburn/Nausea Donepezil HCl (Donepezil Hcl 10 Mg Tablet) 10 mg PO BEDTIME [facility] Last Admin: 12/21/22 20:40 Dose: 10 mg Magnesium Hydroxide (Milk Of Magnesia 30 Ml Oral.Susp) 30 ml PO DAILY PRN PRN Reason: Constipation Memantine (Memantine Hcl 10 Mg Tablet) 10 mg PO BID [facility] Last Admin: 12/22/22 08:11 Dose: 10 mg Olanzapine (Olanzapine 5 Mg Tablet) 5 mg PO BEDTIME [facility] Last Admin: 12/21/22 20:40 Dose: 5 mg Olanzapine (Olanzapine 2.5 Mg Tablet) 2.5 mg PO Q4H PRN PRN Reason: Psychosis Last Admin: 12/19/22 22:12 Dose: 2.5 mg Trazodone HCl (Trazodone Hcl 50 Mg Tablet) 50 mg PO BEDTIME MRX1 PRN PRN Reason: Insomnia Last Admin: 12/19/22 22:12 Dose: 50 mg Trazodone HCl (Trazodone Hcl 25 Mg Halftab) 25 mg PO TID PRN PRN Reason: anxiety Last Admin: 11/27/22 20:58 Dose: 25 mg Allergies Allergies Allergy/AdvReac Type Severity Reaction Status Date / Time No Known Allergies Allergy Verified 11/19/22 12:09 Assessment & Plan Assessment & Plan (1) Dementia: Status: Acute Code(s): F03.90 - Unspecified dementia, unspecified severity, without behavioral disturbance, psychotic disturbance, mood disturbance, and anxiety Plan Pt is a 77-year-old female with apparently no significant PMH?who is admitted to [facility] for confusion and agitation after being found wandering around her neighborhood. Medical consult for admission H&P. ?Patient is currently confused and reliable HPI thus difficult to obtain. Pt state she is currently doing well and feeling good. Mood disorder Plan as per psychiatry Hx of [place] Pt claims she has had 5 heart attacks during the past week Workup negative at [facility] Pt currently asymptomatic, denies chest pain/pressure, palpitations Plan 1. Gather collateral information. 2. Start Aricept 5 mg p.o. q.h.s. on November 20. Increased up to 10 mg p.o. q.h.s. on November 22 3. Continue Zyprexa as per [facility]. 4. Reassessment with results. 5. Family meeting on Thursday to discuss disposition. The family is not aware about the assets of the patient, we woke the healthcare proxy and cauterizations were sign. 6. Namenda increased up to 10 mg p.o. b.i.d. 7. Power of workers compensation attorney and guardianship will probably need to be assessed. 8. Waiting for placement. The patient has a power of workers compensation attorney who was trying to liquify her assets. She is going to be discharged to [facility] nursing home facility next . Reason for continued inpatient stay Substantial Risk for: inability to function, rapid decompensation and med/psych decompensation Time Spent With Patient Time: Total time managing care of this patient today __20__ minutes.
[2022-12-22 18:00] VITALS: BP 143/67; PULSE 84; RESP 16; TEMP 36.3; O2SAT 97
[2022-12-22] MEDS: OLANZapine 5 MG TABLET PO (20:04)
[2022-12-22] MEDS: Donepezil HCl 10 MG TABLET PO (20:04)
[2022-12-23 08:00] VITALS: BP 104/65; PULSE 82; RESP 16; TEMP 36.2; O2SAT 100
[2022-12-23] MEDS: Memantine HCl 10 MG TABLET PO ×2 (08:42→21:43)
--- NOTE | 2022-12-23 11:49 | HO.PSYCHPN ---
Subjective Subjective Date of Service: 12/23/22 Reason For Visit: F41.9 anxiety disorder, F03.90 dementia Subjective Notes: Conditional Voluntary Interim History: The nursing staff reported that she was seen in the common areas watching TV, compliant with her medications confused but easily redirectable. The social work case manager reported that she most likely will be discharged next to [facility]. On interview the patient denies new symptoms pleasant and cooperative, very confused but redirectable. Mental Status Exam Mental Status Exam Patient Appearance: Appropriate Patient Orientation: Person Level of Consciousness: Awake Patient Behavior: Passive Mood Description: Calm Affect Description: Constricted Patient Cognition Impaired: Yes Ability to Follow Directions: Good Speech Pattern: Clear Hallucinations: None Delusions: Not Present Thought Process: Linear Thought Content: positive for Circumstantial Judgement: Poor Diagnostics Vital Signs (24Hr): Vital Signs - 24 hr 12/22/22 18:00 12/23/22 08:00 Temperature 97.4 F 97.2 F Pulse Rate 84 82 Respiratory Rate 16 16 Blood Pressure 143/67 H 104/65 Pulse Oximetry 97 100 Oxygen Delivery Method Room Air Room Air BMI result Body Mass Index 25.1 Labs 11/20/22 08:22 Medications Medications Current Medications Acetaminophen (Acetaminophen 325 Mg Tablet) 650 mg PO Q6H PRN PRN Reason: Headache/Pain Mild Scale (1-3) Last Admin: 11/23/22 08:11 Dose: 650 mg Al Hydroxide/Mg Hydroxide (Magnesium Hydrox/Alum Hydrox 30 Ml Oral.Susp) 30 ml PO Q6H PRN PRN Reason: Heartburn/Nausea Donepezil HCl (Donepezil Hcl 10 Mg Tablet) 10 mg PO BEDTIME [facility] Last Admin: 12/22/22 20:04 Dose: 10 mg Magnesium Hydroxide (Milk Of Magnesia 30 Ml Oral.Susp) 30 ml PO DAILY PRN PRN Reason: Constipation Memantine (Memantine Hcl 10 Mg Tablet) 10 mg PO BID [facility] Last Admin: 12/23/22 08:42 Dose: 10 mg Olanzapine (Olanzapine 5 Mg Tablet) 5 mg PO BEDTIME [facility] Last Admin: 12/22/22 20:04 Dose: 5 mg Olanzapine (Olanzapine 2.5 Mg Tablet) 2.5 mg PO Q4H PRN PRN Reason: Psychosis Last Admin: 12/19/22 22:12 Dose: 2.5 mg Trazodone HCl (Trazodone Hcl 50 Mg Tablet) 50 mg PO BEDTIME MRX1 PRN PRN Reason: Insomnia Last Admin: 12/19/22 22:12 Dose: 50 mg Trazodone HCl (Trazodone Hcl 25 Mg Halftab) 25 mg PO TID PRN PRN Reason: anxiety Last Admin: 11/27/22 20:58 Dose: 25 mg Allergies Allergies Allergy/AdvReac Type Severity Reaction Status Date / Time No Known Allergies Allergy Verified 11/19/22 12:09 Assessment & Plan Assessment & Plan (1) Dementia: Status: Acute Code(s): F03.90 - Unspecified dementia, unspecified severity, without behavioral disturbance, psychotic disturbance, mood disturbance, and anxiety Plan Pt is a 77-year-old female with apparently no significant PMH?who is admitted to [facility] for confusion and agitation after being found wandering around her neighborhood. Medical consult for admission H&P. ?Patient is currently confused and reliable HPI thus difficult to obtain. Pt state she is currently doing well and feeling good. Mood disorder Plan as per psychiatry Hx of [place] Pt claims she has had 5 heart attacks during the past week Workup negative at [facility] Pt currently asymptomatic, denies chest pain/pressure, palpitations Plan 1. Gather collateral information. 2. Start Aricept 5 mg p.o. q.h.s. on November 20. Increased up to 10 mg p.o. q.h.s. on November 22 3. Continue Zyprexa as per [facility]. 4. Reassessment with results. 5. Family meeting on Thursday to discuss disposition. The family is not aware about the assets of the patient, we woke the healthcare proxy and cauterizations were sign. 6. Namenda increased up to 10 mg p.o. b.i.d. 7. Power of appointment specialist and guardianship will probably need to be assessed. 8. Waiting for placement. The patient has a power of appointment specialist who was trying to liquify her assets. She is going to be discharged to [facility] detention facility next . Reason for continued inpatient stay Substantial Risk for: inability to function, rapid decompensation and med/psych decompensation Time Spent With Patient Time: Total time managing care of this patient today __20__ minutes.
[2022-12-23 18:00] VITALS: BP 107/57; PULSE 92; RESP 17; TEMP 36.3; O2SAT 97
[2022-12-23] MEDS: OLANZapine 5 MG TABLET PO (21:42)
[2022-12-23] MEDS: Donepezil HCl 10 MG TABLET PO (21:43)
[2022-12-23] MEDS: traZODone HCL 50 MG TABLET PO (21:43)
[2022-12-24 08:50] VITALS: BP 90/54; PULSE 104; RESP 16; TEMP 36.1; O2SAT 94
[2022-12-24] MEDS: Memantine HCl 10 MG TABLET PO ×2 (09:16→20:17)
--- NOTE | 2022-12-24 14:52 | HO.PSYCHPN ---
Subjective Subjective Date of Service: 12/24/22 Reason For Visit: F41.9 anxiety disorder, F03.90 dementia Subjective Notes: Conditional Voluntary Interim History: The nursing staff reported that she had been irritable at times but easily redirectable, confused, fully compliant with treatment. The elementary school social worker reported that she will be accepted to the group home facility next week. On interview the patient denies new symptoms pleasantly confused, easily redirectable. Mental Status Exam Mental Status Exam Patient Appearance: Well Grooomed and Appropriate Patient Orientation: Person Level of Consciousness: Awake Patient Behavior: Guarded and Passive Mood Description: Withdrawn Affect Description: Constricted Patient Cognition Impaired: Yes Ability to Follow Directions: Good Speech Pattern: Clear Hallucinations: None Delusions: Not Present Thought Process: Distracted and Evasive Thought Content: positive for [place] and positive for Poverty of Content Judgement: Fair Diagnostics Vital Signs (24Hr): Vital Signs - 24 hr 12/23/22 18:00 12/24/22 08:50 Temperature 97.3 F 97.0 F Pulse Rate 92 104 H Respiratory Rate 17 16 Blood Pressure 107/57 L 90/54 L Pulse Oximetry 97 94 Oxygen Delivery Method Room Air Room Air BMI result Body Mass Index 25.1 Labs 11/20/22 08:22 Medications Medications Current Medications Acetaminophen (Acetaminophen 325 Mg Tablet) 650 mg PO Q6H PRN PRN Reason: Headache/Pain Mild Scale (1-3) Last Admin: 11/23/22 08:11 Dose: 650 mg Al Hydroxide/Mg Hydroxide (Magnesium Hydrox/Alum Hydrox 30 Ml Oral.Susp) 30 ml PO Q6H PRN PRN Reason: Heartburn/Nausea Donepezil HCl (Donepezil Hcl 10 Mg Tablet) [address] [facility] Last Admin: 12/23/22 21:43 Dose: 10 mg Magnesium Hydroxide (Milk Of Magnesia 30 Ml Oral.Susp) 30 ml PO DAILY PRN PRN Reason: Constipation Memantine (Memantine Hcl 10 Mg Tablet) [address] [facility] Last Admin: 12/24/22 09:16 Dose: 10 mg Olanzapine (Olanzapine 5 Mg Tablet) [address] [facility] Last Admin: 12/23/22 21:42 Dose: 5 mg Olanzapine (Olanzapine 2.5 Mg Tablet) 2.5 mg PO Q4H PRN PRN Reason: Psychosis Last Admin: 12/19/22 22:12 Dose: 2.5 mg Trazodone HCl (Trazodone Hcl 50 Mg Tablet) 50 mg PO BEDTIME MRX1 PRN PRN Reason: Insomnia Last Admin: 12/23/22 21:43 Dose: 50 mg Trazodone HCl (Trazodone Hcl 25 Mg Halftab) 25 mg PO TID PRN PRN Reason: anxiety Last Admin: 11/27/22 20:58 Dose: 25 mg Allergies Allergies Allergy/AdvReac Type Severity Reaction Status Date / Time No Known Allergies Allergy Verified 11/19/22 12:09 Assessment & Plan Assessment & Plan (1) Dementia: Status: Acute Code(s): F03.90 - Unspecified dementia, unspecified severity, without behavioral disturbance, psychotic disturbance, mood disturbance, and anxiety Plan Pt is a 77-year-old female with apparently no significant PMH?who is admitted to [facility] for confusion and agitation after being found wandering around her neighborhood. Medical consult for admission H&P. ?Patient is currently confused and reliable HPI thus difficult to obtain. Pt state she is currently doing well and feeling good. Mood disorder Plan as per psychiatry Hx of [place] Pt claims she has had 5 heart attacks during the past week Workup negative at [facility] Pt currently asymptomatic, denies chest pain/pressure, palpitations Plan 1. Gather collateral information. 2. Start Aricept 5 mg p.o. q.h.s. on November 20. Increased up to 10 mg p.o. q.h.s. on November 22 3. Continue Zyprexa as per [facility]. 4. Reassessment with results. 5. Family meeting on Thursday to discuss disposition. The family is not aware about the assets of the patient, we woke the healthcare proxy and cauterizations were sign. 6. Namenda increased up to 10 mg p.o. b.i.d. 7. Power of deputy commonwealth's attorney and guardianship will probably need to be assessed. 8. Waiting for placement. The patient has a power of deputy commonwealth's attorney who was trying to liquify her assets. She is going to be discharged to [facility] group home facility early next week. Reason for continued inpatient stay Substantial Risk for: inability to function, rapid decompensation and med/psych decompensation Time Spent With Patient Time: Total time managing care of this patient today __20__ minutes.
[2022-12-24 19:35] VITALS: BP 131/58; PULSE 78; RESP 18; TEMP 36; O2SAT 98
[2022-12-24] MEDS: OLANZapine 5 MG TABLET PO (20:17)
[2022-12-24] MEDS: Donepezil HCl 10 MG TABLET PO (20:17)
[2022-12-25 07:00] VITALS: BMI 24.9
[2022-12-25 07:52] VITALS: BP 118/56; PULSE 79; RESP 18; TEMP 36.3; O2SAT 95
[2022-12-25] MEDS: Memantine HCl 10 MG TABLET PO ×2 (08:33→20:35)
--- NOTE | 2022-12-25 11:36 | HO.PSYCHPN ---
Subjective Subjective Date of Service: 12/25/22 Reason For Visit: F41.9 anxiety disorder, F03.90 dementia Subjective Notes: Conditional Voluntary Interim History: The nursing staff reported the patient had been cooperative and pleasant, her blood pressure was slightly low yesterday but after p.o. fluids went back normal. She has been pleasant and confused but fully compliant with treatment. The social science manager reported that [facility] accepted that she will be discharged next Thursday. On interview the patient denies new symptoms pleasantly confused. Mental Status Exam Mental Status Exam Patient Appearance: Well Grooomed and Appropriate Patient Orientation: Person and Situation Level of Consciousness: Awake and Appropriate Patient Behavior: Guarded and Passive Mood Description: Withdrawn Affect Description: Constricted Patient Cognition Impaired: Yes Ability to Follow Directions: Good Speech Pattern: Clear Hallucinations: None Delusions: Not Present Thought Process: Distracted and Slowed Thinking Thought Content: positive for [place], positive for [place] and positive for Poverty of Content Judgement: Fair Diagnostics Vital Signs (24Hr): Vital Signs - 24 hr 12/24/22 19:35 12/25/22 07:52 Temperature 96.8 F 97.3 F Pulse Rate 78 79 Respiratory Rate 18 18 Blood Pressure 131/58 L 118/56 L Pulse Oximetry 98 95 Oxygen Delivery Method Room Air Room Air BMI result Body Mass Index 25.1 Labs 11/20/22 08:22 Medications Medications Current Medications Acetaminophen (Acetaminophen 325 Mg Tablet) 650 mg PO Q6H PRN PRN Reason: Headache/Pain Mild Scale (1-3) Last Admin: 11/23/22 08:11 Dose: 650 mg Al Hydroxide/Mg Hydroxide (Magnesium Hydrox/Alum Hydrox 30 Ml Oral.Susp) 30 ml PO Q6H PRN PRN Reason: Heartburn/Nausea Donepezil HCl (Donepezil Hcl 10 Mg Tablet) 10 mg PO [facility]EDTIME [facility] Last Admin: 12/24/22 20:17 Dose: 10 mg Magnesium Hydroxide (Milk Of Magnesia 30 Ml Oral.Susp) 30 ml PO DAILY PRN PRN Reason: Constipation Memantine (Memantine Hcl 10 Mg Tablet) 10 mg PO BID [facility] Last Admin: 12/25/22 08:33 Dose: 10 mg Olanzapine (Olanzapine 5 Mg Tablet) 5 mg PO BEDTIME [facility] Last Admin: 12/24/22 20:17 Dose: 5 mg Olanzapine (Olanzapine 2.5 Mg Tablet) 2.5 mg PO Q4H PRN PRN Reason: Psychosis Last Admin: 12/19/22 22:12 Dose: 2.5 mg Trazodone HCl (Trazodone Hcl 50 Mg Tablet) 50 mg PO BEDTIME MRX1 PRN PRN Reason: Insomnia Last Admin: 12/23/22 21:43 Dose: 50 mg Trazodone HCl (Trazodone Hcl 25 Mg Halftab) 25 mg PO TID PRN PRN Reason: anxiety Last Admin: 11/27/22 20:58 Dose: 25 mg Allergies Allergies Allergy/AdvReac Type Severity Reaction Status Date / Time No Known Allergies Allergy Verified 11/19/22 12:09 Assessment & Plan Assessment & Plan (1) Dementia: Status: Acute Code(s): F03.90 - Unspecified dementia, unspecified severity, without behavioral disturbance, psychotic disturbance, mood disturbance, and anxiety Plan Pt is a 77-year-old female with apparently no significant PMH?who is admitted to [facility] for confusion and agitation after being found wandering around her neighborhood. Medical consult for admission H&P. ?Patient is currently confused and reliable HPI thus difficult to obtain. Pt state she is currently doing well and feeling good. Mood disorder Plan as per psychiatry Hx of [place] Pt claims she has had 5 heart attacks during the past week Workup negative at [facility] Pt currently asymptomatic, denies chest pain/pressure, palpitations Plan 1. Gather collateral information. 2. Start Aricept 5 mg p.o. q.h.s. on November 20. Increased up to 10 mg p.o. q.h.s. on November 22 3. Continue Zyprexa as per [facility]. 4. Reassessment with results. 5. Family meeting on Thursday to discuss disposition. The family is not aware about the assets of the patient, we woke the healthcare proxy and cauterizations were sign. 6. Namenda increased up to 10 mg p.o. b.i.d. 7. Power of attorney general and guardianship will probably need to be assessed. 8. Waiting for placement. The patient has a power of attorney general who was trying to liquify her assets. She is going to be discharged to [facility] correction facility early next week. Reason for continued inpatient stay Substantial Risk for: inability to function, rapid decompensation and med/psych decompensation Time Spent With Patient Time: Total time managing care of this patient today _20___ minutes.
[2022-12-25 19:40] VITALS: BP 115/66; PULSE 82; RESP 18; TEMP 36.2; O2SAT 97
[2022-12-25] MEDS: Donepezil HCl 10 MG TABLET PO (20:35)
[2022-12-25] MEDS: OLANZapine 5 MG TABLET PO (20:35)
[2022-12-26 08:13] VITALS: BP 140/58; PULSE 82; RESP 18; TEMP 36; O2SAT 98
[2022-12-26] MEDS: Memantine HCl 10 MG TABLET PO ×2 (08:33→22:28)
--- NOTE | 2022-12-26 15:26 | HO.PSYCHPN ---
Subjective Subjective Date of Service: 12/26/22 Reason For Visit: F41.9 anxiety disorder, F03.90 dementia Subjective Notes: Conditional Voluntary Interim History: The nursing staff reported the patient had been pleasantly confused, easily redirectable. On interview the patient denies new symptoms pleasantly confused. The psychiatric social worker supervisor reported that she is going to be discharged next Thursday. Mental Status Exam Mental Status Exam Patient Appearance: Appropriate Patient Orientation: Person and Situation Level of Consciousness: Awake and Appropriate Patient Behavior: Guarded and Passive Mood Description: Calm Affect Description: Constricted Patient Cognition Impaired: Yes Ability to Follow Directions: Good Speech Pattern: Clear Hallucinations: None Delusions: Not Present Thought Process: Distracted and Slowed Thinking Thought Content: positive for [place] and positive for Poverty of Content Judgement: Fair Diagnostics Vital Signs (24Hr): Vital Signs - 24 hr 12/25/22 19:40 12/26/22 08:13 Temperature 97.1 F 96.8 F Pulse Rate 82 82 Respiratory Rate 18 18 Blood Pressure 115/66 140/58 H Pulse Oximetry 97 98 Oxygen Delivery Method Room Air Room Air BMI result Body Mass Index 24.9 Labs 11/20/22 08:22 Medications Medications Current Medications Acetaminophen (Acetaminophen 325 Mg Tablet) 650 mg PO Q6H PRN PRN Reason: Headache/Pain Mild Scale (1-3) Last Admin: 11/23/22 08:11 Dose: 650 mg Al Hydroxide/Mg Hydroxide (Magnesium Hydrox/Alum Hydrox 30 Ml Oral.Susp) 30 ml PO Q6H PRN PRN Reason: Heartburn/Nausea Donepezil HCl (Donepezil Hcl 10 Mg Tablet) 10 mg PO BEDTIME [facility] Last Admin: 12/25/22 20:35 Dose: 10 mg Magnesium Hydroxide (Milk Of Magnesia 30 Ml Oral.Susp) 30 ml PO DAILY PRN PRN Reason: Constipation Memantine (Memantine Hcl 10 Mg Tablet) 10 mg PO BID [facility] Last Admin: 12/26/22 08:33 Dose: 10 mg Olanzapine (Olanzapine 5 Mg Tablet) 5 mg PO BEDTIME [facility] Last Admin: 12/25/22 20:35 Dose: 5 mg Olanzapine (Olanzapine 2.5 Mg Tablet) 2.5 mg PO Q4H PRN PRN Reason: Psychosis Last Admin: 12/19/22 22:12 Dose: 2.5 mg Trazodone HCl (Trazodone Hcl 50 Mg Tablet) 50 mg PO BEDTIME MRX1 PRN PRN Reason: Insomnia Last Admin: 12/23/22 21:43 Dose: 50 mg Trazodone HCl (Trazodone Hcl 25 Mg Halftab) 25 mg PO TID PRN PRN Reason: anxiety Last Admin: 11/27/22 20:58 Dose: 25 mg Allergies Allergies Allergy/AdvReac Type Severity Reaction Status Date / Time No Known Allergies Allergy Verified 11/19/22 12:09 Assessment & Plan Assessment & Plan (1) Dementia: Status: Acute Code(s): F03.90 - Unspecified dementia, unspecified severity, without behavioral disturbance, psychotic disturbance, mood disturbance, and anxiety Plan Pt is a 77-year-old female with apparently no significant PMH?who is admitted to [facility] for confusion and agitation after being found wandering around her neighborhood. Medical consult for admission H&P. ?Patient is currently confused and reliable HPI thus difficult to obtain. Pt state she is currently doing well and feeling good. Mood disorder Plan as per psychiatry Hx of [place] Pt claims she has had 5 heart attacks during the past week Workup negative at [facility] Pt currently asymptomatic, denies chest pain/pressure, palpitations Plan 1. Gather collateral information. 2. Start Aricept 5 mg p.o. q.h.s. on November 20. Increased up to 10 mg p.o. q.h.s. on November 22 3. Continue Zyprexa as per [facility]. 4. Reassessment with results. 5. Family meeting on Thursday to discuss disposition. The family is not aware about the assets of the patient, we woke the healthcare proxy and cauterizations were sign. 6. Namenda increased up to 10 mg p.o. b.i.d. 7. Power of business attorney and guardianship will probably need to be assessed. 8. Waiting for placement. The patient has a power of business attorney who was trying to liquify her assets. She is going to be discharged to [facility] snf facility early next week. Reason for continued inpatient stay Substantial Risk for: inability to function, rapid decompensation and med/psych decompensation Time Spent With Patient Time: Total time managing care of this patient today __20__ minutes.
[2022-12-26 20:05] VITALS: BP 130/66; PULSE 81; RESP 16; TEMP 36.5; O2SAT 96
[2022-12-26] MEDS: traZODone HCL 50 MG TABLET PO (22:28)
[2022-12-26] MEDS: Donepezil HCl 10 MG TABLET PO (22:28)
[2022-12-26] MEDS: OLANZapine 5 MG TABLET PO (22:29)
[2022-12-27] MEDS: Memantine HCl 10 MG TABLET PO ×2 (10:52→20:22)
[2022-12-27 12:00] VITALS: BP 114/54; PULSE 89; RESP 17; TEMP 36.4; O2SAT 96
[2022-12-27 18:00] VITALS: BP 115/57; PULSE 77; RESP 18; TEMP 36.2; O2SAT 97
--- NOTE | 2022-12-27 20:01 | P.PNPSI_ITS ---
Subjective Subjective Date of Service: 12/27/22 Reason For Visit: F41.9 anxiety disorder, F03.90 dementia Subjective Notes: Conditional Voluntary Healthcare Proxy: Yes Interim History: Pt pleasant on approach. She asks this service writer advisor if I need help finding something as she is very familiar with this place, I've been here for many years. Pt denies any physical concerns. She is social with select peers. Some irritability when redirected when she goes to other pts rooms as she thinks that her room. Review of Systems Review of Systems Unable to obtain d/t pt's mentation Yes all other systems are reviewed and are negative and Unobtainable due to mental status Mental Status Exam Mental Status Exam Patient Appearance: Appropriate Patient Orientation: Person and Situation Level of Consciousness: Awake and Appropriate Patient Behavior: Guarded and Passive Mood Description: Calm Affect Description: Constricted Patient Cognition Impaired: Yes Ability to Follow Directions: Good Speech Pattern: Clear Diagnostics Vital Signs (24Hr): Vital Signs - 24 hr 12/26/22 20:05 12/27/22 12:00 Temperature 97.7 F 97.5 F Pulse Rate 81 89 Respiratory Rate 16 17 Blood Pressure 130/66 114/54 L Pulse Oximetry 96 96 Oxygen Delivery Method Room Air Room Air BMI result Body Mass Index 24.9 Labs 11/20/22 08:22 Medications Medications Current Medications Acetaminophen (Acetaminophen 325 Mg Tablet) 650 mg PO Q6H PRN PRN Reason: Headache/Pain Mild Scale (1-3) Last Admin: 11/23/22 08:11 Dose: 650 mg Al Hydroxide/Mg Hydroxide (Magnesium Hydrox/Alum Hydrox 30 Ml Oral.Susp) 30 ml PO Q6H PRN PRN Reason: Heartburn/Nausea Donepezil HCl (Donepezil Hcl 10 Mg Tablet) 10 mg PO BEDTIME [facility] Last Admin: 12/26/22 22:28 Dose: 10 mg Magnesium Hydroxide (Milk Of Magnesia 30 Ml Oral.Susp) 30 ml PO DAILY PRN PRN Reason: Constipation Memantine (Memantine Hcl 10 Mg Tablet) 10 mg PO BID [facility] Last Admin: 12/27/22 10:52 Dose: 10 mg Olanzapine (Olanzapine 5 Mg Tablet) 5 mg PO BEDTIME [facility] Last Admin: 12/26/22 22:29 Dose: 5 mg Olanzapine (Olanzapine 2.5 Mg Tablet) 2.5 mg PO Q4H PRN PRN Reason: Psychosis Last Admin: 12/19/22 22:12 Dose: 2.5 mg Trazodone HCl (Trazodone Hcl 50 Mg Tablet) 50 mg PO BEDTIME MRX1 PRN PRN Reason: Insomnia Last Admin: 12/26/22 22:28 Dose: 50 mg Trazodone HCl (Trazodone Hcl 25 Mg Halftab) 25 mg PO TID PRN PRN Reason: anxiety Last Admin: 11/27/22 20:58 Dose: 25 mg Allergies Allergies Allergy/AdvReac Type Severity Reaction Status Date / Time No Known Allergies Allergy Verified 11/19/22 12:09 Assessment & Plan Assessment & Plan (1) Dementia: Status: Acute Code(s): F03.90 - Unspecified dementia, unspecified severity, without behavioral disturbance, psychotic disturbance, mood disturbance, and anxiety Plan Pt is a 77-year-old female with apparently no significant PMH?who is admitted to [facility] for confusion and agitation after being found wandering around her neighborhood. Medical consult for admission H&P. ?Patient is currently confused and reliable HPI thus difficult to obtain. Pt state she is currently doing well and feeling good. Mood disorder Plan as per psychiatry Hx of [place] Pt claims she has had 5 heart attacks during the past week Workup negative at [facility] Pt currently asymptomatic, denies chest pain/pressure, palpitations Plan 12/27 continue tx. Reason for continued inpatient stay Substantial Risk for: inability to function Time Spent With Patient Time: Total time managing care of this patient today ____ minutes.
[2022-12-27] MEDS: Donepezil HCl 10 MG TABLET PO (20:22)
[2022-12-27] MEDS: traZODone HCL 50 MG TABLET PO (20:22)
[2022-12-27] MEDS: OLANZapine 5 MG TABLET PO (20:22)
--- NOTE | 2022-12-27 23:17 | PC.NURSE ---
Assumed care of patient 19:00 12/27. See assessments for full details. Handoff report given 23:00.
[2022-12-28 08:30] VITALS: BP 103/52; PULSE 83; RESP 20; TEMP 36.3; O2SAT 95
[2022-12-28] MEDS: Memantine HCl 10 MG TABLET PO ×2 (08:36→21:13)
[2022-12-28 18:00] VITALS: BP 120/56; PULSE 83; RESP 18; TEMP 36.2; O2SAT 95
--- NOTE | 2022-12-28 20:13 | HO.PSYCHPN ---
Subjective Subjective Date of Service: 12/28/22 Reason For Visit: F41.9 anxiety disorder, F03.90 dementia Subjective Notes: Conditional Voluntary Interim History: Pt pleasant on approach. Pt reports she is waiting for tea democrat. She asks this administrative underwriter if I am bring the tea. She is sitting with peers. She has been social and visible. She denies SI/HI. No behavioral concerns. VS stable. Review of Systems Review of Systems Unable to obtain d/t pt's mentation Yes all other systems are reviewed and are negative and Unobtainable due to mental status Mental Status Exam Mental Status Exam Patient Appearance: Appropriate Patient Orientation: Person and Situation Level of Consciousness: Awake and Appropriate Patient Behavior: Guarded and Passive Mood Description: Calm Affect Description: Constricted Patient Cognition Impaired: Yes Ability to Follow Directions: Good Speech Pattern: Clear Diagnostics Vital Signs (24Hr): Vital Signs - 24 hr 12/28/22 08:30 Temperature 97.3 F Pulse Rate 83 Respiratory Rate 20 Blood Pressure 103/52 L Pulse Oximetry 95 Oxygen Delivery Method Room Air BMI result Body Mass Index 24.9 Labs 11/20/22 08:22 Medications Medications Current Medications Acetaminophen (Acetaminophen 325 Mg Tablet) 650 mg PO Q6H PRN PRN Reason: Headache/Pain Mild Scale (1-3) Last Admin: 11/23/22 08:11 Dose: 650 mg Al Hydroxide/Mg Hydroxide (Magnesium Hydrox/Alum Hydrox 30 Ml Oral.Susp) 30 ml PO Q6H PRN PRN Reason: Heartburn/Nausea Donepezil HCl (Donepezil Hcl 10 Mg Tablet) 10 mg PO BEDTIME [facility] Last Admin: 12/27/22 20:22 Dose: 10 mg Magnesium Hydroxide (Milk Of Magnesia 30 Ml Oral.Susp) 30 ml PO DAILY PRN PRN Reason: Constipation Memantine (Memantine Hcl 10 Mg Tablet) 10 mg PO BID [facility] Last Admin: 12/28/22 08:36 Dose: 10 mg Olanzapine (Olanzapine 5 Mg Tablet) 5 mg PO BEDTIME [facility] Last Admin: 12/27/22 20:22 Dose: 5 mg Olanzapine (Olanzapine 2.5 Mg Tablet) 2.5 mg PO Q4H PRN PRN Reason: Psychosis Last Admin: 12/19/22 22:12 Dose: 2.5 mg Trazodone HCl (Trazodone Hcl 50 Mg Tablet) 50 mg PO BEDTIME MRX1 PRN PRN Reason: Insomnia Last Admin: 12/27/22 20:22 Dose: 50 mg Trazodone HCl (Trazodone Hcl 25 Mg Halftab) 25 mg PO TID PRN PRN Reason: anxiety Last Admin: 11/27/22 20:58 Dose: 25 mg Allergies Allergies Allergy/AdvReac Type Severity Reaction Status Date / Time No Known Allergies Allergy Verified 11/19/22 12:09 Assessment & Plan Assessment & Plan (1) Dementia: Status: Acute Code(s): F03.90 - Unspecified dementia, unspecified severity, without behavioral disturbance, psychotic disturbance, mood disturbance, and anxiety Plan Pt is a 77-year-old female with apparently no significant PMH?who is admitted to [facility] for confusion and agitation after being found wandering around her neighborhood. Medical consult for admission H&P. ?Patient is currently confused and reliable HPI thus difficult to obtain. Pt state she is currently doing well and feeling good. Mood disorder Plan as per psychiatry Hx of [place] Pt claims she has had 5 heart attacks during the past week Workup negative at [facility] Pt currently asymptomatic, denies chest pain/pressure, palpitations Plan 12/28 continue tx. Reason for continued inpatient stay Substantial Risk for: inability to function Time Spent With Patient Time: Total time managing care of this patient today ____ minutes.
[2022-12-28] MEDS: OLANZapine 5 MG TABLET PO (21:13)
[2022-12-28] MEDS: Donepezil HCl 10 MG TABLET PO (21:13)
[2022-12-29] MEDS: Memantine HCl 10 MG TABLET PO ×2 (08:52→20:19)
[2022-12-29 09:07] VITALS: BP 115/57; PULSE 86; RESP 14; TEMP 36.5; O2SAT 96
--- NOTE | 2022-12-29 13:08 | HO.PSYCHPN ---
Subjective Subjective Date of Service: 12/29/22 Reason For Visit: F41.9 anxiety disorder, F03.90 dementia Subjective Notes: Conditional Voluntary Interim History: The nursing staff reported the patient had been pleasantly confused, easily redirectable. The social media marketing manager reported that she [facility] to [facility] so she will be discharged tomorrow. On interview the patient denies new symptoms pleasantly confused, easily redirectable. Mental Status Exam Mental Status Exam Patient Appearance: Appropriate Patient Orientation: Person and Situation Level of Consciousness: Awake and Appropriate Patient Behavior: Guarded and Passive Mood Description: Withdrawn Affect Description: Constricted Patient Cognition Impaired: Yes Ability to Follow Directions: Good Speech Pattern: Clear Hallucinations: None Delusions: Not Present Thought Process: Distracted and Evasive Thought Content: positive for [place] and positive for Poverty of Content Judgement: Poor Diagnostics Vital Signs (24Hr): Vital Signs - 24 hr 12/28/22 18:00 12/29/22 09:07 Temperature 97.1 F 97.7 F Pulse Rate 83 86 Respiratory Rate 18 14 Blood Pressure 120/56 L 115/57 L Pulse Oximetry 95 96 Oxygen Delivery Method Room Air Room Air BMI result Body Mass Index 24.9 Labs 11/20/22 08:22 Medications Medications Current Medications Acetaminophen (Acetaminophen 325 Mg Tablet) 650 mg PO Q6H PRN PRN Reason: Headache/Pain Mild Scale (1-3) Last Admin: 11/23/22 08:11 Dose: 650 mg Al Hydroxide/Mg Hydroxide (Magnesium Hydrox/Alum Hydrox 30 Ml Oral.Susp) 30 ml PO Q6H PRN PRN Reason: Heartburn/Nausea Donepezil HCl (Donepezil Hcl 10 Mg Tablet) 10 mg PO BEDTIME [facility] Last Admin: 12/28/22 21:13 Dose: 10 mg Magnesium Hydroxide (Milk Of Magnesia 30 Ml Oral.Susp) 30 ml PO DAILY PRN PRN Reason: Constipation Memantine (Memantine Hcl 10 Mg Tablet) 10 mg PO BID [facility] Last Admin: 12/29/22 08:52 Dose: 10 mg Olanzapine (Olanzapine 5 Mg Tablet) 5 mg PO BEDTIME [facility] Last Admin: 12/28/22 21:13 Dose: 5 mg Olanzapine (Olanzapine 2.5 Mg Tablet) 2.5 mg PO Q4H PRN PRN Reason: Psychosis Last Admin: 12/19/22 22:12 Dose: 2.5 mg Trazodone HCl (Trazodone Hcl 50 Mg Tablet) 50 mg PO BEDTIME MRX1 PRN PRN Reason: Insomnia Last Admin: 12/27/22 20:22 Dose: 50 mg Trazodone HCl (Trazodone Hcl 25 Mg Halftab) 25 mg PO TID PRN PRN Reason: anxiety Last Admin: 11/27/22 20:58 Dose: 25 mg Allergies Allergies Allergy/AdvReac Type Severity Reaction Status Date / Time No Known Allergies Allergy Verified 11/19/22 12:09 Assessment & Plan Assessment & Plan (1) Dementia: Status: Acute Code(s): F03.90 - Unspecified dementia, unspecified severity, without behavioral disturbance, psychotic disturbance, mood disturbance, and anxiety Plan Pt is a 77-year-old female with apparently no significant PMH?who is admitted to [facility] for confusion and agitation after being found wandering around her neighborhood. Medical consult for admission H&P. ?Patient is currently confused and reliable HPI thus difficult to obtain. Pt state she is currently doing well and feeling good. Mood disorder Plan as per psychiatry Hx of [place] Pt claims she has had 5 heart attacks during the past week Workup negative at [facility] Pt currently asymptomatic, denies chest pain/pressure, palpitations Plan 12/28 continue tx. 12/29 discharge tomorrow, scripts were sent today Reason for continued inpatient stay Substantial Risk for: inability to function, rapid decompensation and med/psych decompensation Time Spent With Patient Time: Total time managing care of this patient today __20__ minutes.
[2022-12-29 18:00] VITALS: BP 139/68; PULSE 79; RESP 17; TEMP 36; O2SAT 95
[2022-12-29] MEDS: OLANZapine 5 MG TABLET PO (20:19)
[2022-12-29] MEDS: Donepezil HCl 10 MG TABLET PO (20:19)
[2022-12-30 07:45] VITALS: BP 117/60; PULSE 93; RESP 18; TEMP 36.7; O2SAT 97
--- NOTE | 2022-12-30 07:57 | PM.PSYDC ---
DS: Providers Provider Date of Service: 12/30/22 Date of admission: 11/19/22 11:58 Date of discharge: 12/30/22 Primary care physician: None Physician Consults: 11/19/22 12:09 Consult to Hospitalist Routine Comment: Consulting Provider: Hospitalist Reason For Exam: Direct admission DS: Diagnosis Discharge Diagnosis (1) Dementia: Status: Acute DS: Medications Discharge Medications Home Medications: Previous Rx's Medication Instructions Recorded donepezil 10 mg tablet 10 mg PO BEDTIME 30 days #30 tabs 12/29/22 memantine 10 mg tablet (Namenda) 10 mg PO BID 30 days #60 tabs 12/29/22 olanzapine 5 mg tablet 5 mg PO BEDTIME 30 days #30 tabs 12/29/22 Mental Status Exam Mental Status Exam Patient Appearance: Well Grooomed and Appropriate Patient Orientation: Person Level of Consciousness: Awake and Appropriate Mood Description: Calm Affect Description: Withdrawn and Constricted Patient Cognition Impaired: Yes Ability to Follow Directions: Good Speech Pattern: Clear Hallucinations: None Delusions: Not Present Thought Process: Distracted, Evasive and Slowed Thinking Thought Content: positive for [place] and positive for Poverty of Content Judgement: Poor DS: Summary Hospital Course Hospital Course: The patient is a 77-year-old female, single with no children, retired, with good social support referred from the emergency room of another hospital since she was seen wandering out of her residence, confused, unable to take care of herself. She was rushed to the emergency room, medically cleared and transferring to this facility for continuation of care. Please see the HPI of the admission note for further details. On admission, the patient was severely confused, she was unable to remember how come she in the in the hospital. We gather collateral information according to her family the patient had being retired, highly functional in the community but in the last years her cognition has worsen it. She was seen spending all night long on her porch waiting for someone. Also she was seen wandering in the community. On admission, her UTI was treated and her delirium resolved but still she remains confused. The occupational therapist reported that she scored very low on the [place] test done and the Brock test, she was unable to take care of herself. We gather collateral in information and we had a family meeting and apparently the patient had being highly independent before this admission, she had a power of litigation attorney, healthcare proxy and living will that she made several years ago. We invoke the healthcare proxy, we called her retail selling specialist and we decided to transfer her to custodial facility since she is very impaired. The patient tolerated her medications very well, we start treating her dementia with Aricept titrated up to 10 mg p.o. q.h.s. and later added Namenda up to 10 mg p.o. b.i.d. to target depression. The patient tolerated the medications very well with no side effects. Since there were no safety concerns discharge planning was discussed. Time spent discussing smoking cessation with patient: 3 to 10 minutes Status at Discharge Functional status at discharge: independent ambulation Overall status at discharge: patient is back to baseline Time Spent with Patient Time attestation: Total time managing care of this patient today __30__ minutes. Time spent: Less than 30 minutes Discharge Plan Discharge Anticipated Discharge Date/Time: 12/30/22 10:00 Patient Disposition: Xfer SNF Discharge Diagnosis: Dementia Alzheimer's type Delirium resolved Referrals: [facility] [Other] - 12/30/22 1:30 pm (Transfer to [facility] on 12/30/22 at 1:30PM. You will be followed by Dr Janna Griffith and psychodramatist from her team at the [facility]. ) Dr Cynthia Chambers MD [Other] - 1 Week Discharge Medications: New donepezil 10 mg Tablet 10 mg PO BEDTIME 30 Days Qty: 30 0RF olanzapine 5 mg Tablet 5 mg PO BEDTIME 30 Days Qty: 30 0RF memantine [Namenda] 10 mg Tablet 10 mg PO BID 30 Days Qty: 60 0RF trazodone 50 mg tablet 50 mg PO BEDTIME Qty: 30 0RF Discharge Orders: Discharge Order (Routine); Ordered 12/30/22 Ordered By: Moose Henry Diet: Advance to usual diet Activity on Discharge: As tolerated Stand Alone Forms: Patient Portal Discharge page Care Plan Goals: Care plan goals achieved in this admission Health Concerns: Continue treatment by primary care physician Plan of Treatment: Continue treatment with outpatient psychiatric providers Assessment: The patient is an elderly female with no prior psychiatric history who was admitted into the facility since she was disorganized, confused, unable to take care of herself. The patient had delirium the resolved treated with antibiotics. During this admission she had been diagnosed with advanced dementia. She was transferred to custodial facility for continuation of care.
[2022-12-30] MEDS: Memantine HCl 10 MG TABLET PO (08:04)
--- NOTE | 2022-12-30 14:58 | PC.NURSE ---
Pt alert and oriented to person and place. Pt aware of discharge and reported readiness for discharge. Denies pain, denies SI/HI. Pt educated about medications. Pt ambulates independently with steady gait. Compliant with meds. Pt is discharged with her belongings to [facility] in [place]. [place] [facility] [place] ambulance at 14:10.
== END 2022-12-30 14:10 | disposition skilled nursing facility (03) | DRG 57 ==
PROVIDERS: Admitting Provider Psychiatry & Neurology Psychiatry; Visit Provider Psychiatry & Neurology Psychiatry
DX: G30.9 Alzheimer's disease, unspecified (principal); F05 Delirium due to known physiological condition; N39.0 Urinary tract infection, site not specified; F41.9 Anxiety disorder, unspecified; F02.80 Dementia in other diseases classified elsewhere, unspecified severity, without behavioral disturbance, psychotic disturbance, mood disturbance, and anxiety; Z79.899 Other long term (current) drug therapy
CPT/HCPCS: 36415; 80053; 80061; 81001; 93005

== ENCOUNTER 2022-11-19 11:58 | Outpatient (BNV) | payer BC, SELFPAY | END 2022-11-19 13:46 | PROVIDERS: Admitting Provider Psychiatry & Neurology Psychiatry; Visit Provider Internal Medicine Cardiovascular Disease | DX: I49.9 Cardiac arrhythmia, unspecified (principal) | CPT/HCPCS: 93010 ==

== ENCOUNTER → 2022-11-19 11:58 | Outpatient (BNV) | payer BC, SELFPAY | PROVIDERS: Admitting Provider Psychiatry & Neurology Psychiatry; Visit Provider Psychiatry & Neurology Psychiatry | DX: F03.90 Unspecified dementia, unspecified severity, without behavioral disturbance, psychotic disturbance, mood disturbance, and anxiety (principal) | CPT/HCPCS: 99222; 99231; 99232; 99238 ==

== ENCOUNTER → 2022-11-19 11:58 | Outpatient (BNV) | payer BC, SELFPAY | PROVIDERS: Admitting Provider Psychiatry & Neurology Psychiatry; Visit Provider Student in an Organized Health Care Education/Training Program | DX: R94.31 Abnormal electrocardiogram [ECG] [EKG] (principal) | CPT/HCPCS: 99231 ==

== ENCOUNTER 2023-09-12 15:15 | Inpatient (IN) | payer MEDICARE, OTHER, SELFPAY ==
[2023-09-12 15:33] VITALS: BP 128/68; BP 141/69; PULSE 88; PULSE 95; RESP 16; TEMP 36.3; O2SAT 95; O2SAT 98; BMI 30.3
[2023-09-12 15:37] VITALS: RESP 16
--- NOTE | 2023-09-12 15:39 | PC.NURSE ---
Mary comes in from [facility] in [place] on a Section 12 due to increased agitation and aggression towards others. Per EMS, patient has been making homicidal statements towards the other people at her living facility and has been increasingly agitated since becoming med non-compliant with her Risperidone. Per EMS, the facility has been putting her Risperidone in her coffee but she found out and has since been refusing it. When asked about her med compliance, patient reports that I take all the meds I need to and then pointed to her legs. This RN observed that patient has numerous scratches and scabs on bilateral lower extremities. Patient reports that the doctor told me to scratch these whenever they come up . Unclear if patient is having tactile hallucinations or not. Wounds inspected, they do not appear to be infected at this time, there are numerous open scratches and scabs, bleeding controlled at this time. Patient is alert and oriented x3, able to name where she is, her birthday and the date but is unfamiliar with why she is here. She is otherwise in no apparent distress, respirations even and unlabored, skin is pwd (excluding the numerous scratches on the lower extremities), she ambulates with steady gait without assistive devices. Pt aware of plan of care for blood work and then CARE team cindyal
[2023-09-12 16:08] LABS: MANUAL DIFF FLAG NO
[2023-09-12 16:20] LABS: Amphetamine Screen Urine Not Detected (Not Detect); Barbiturates, Urine Not Detected (Not Detect); Benzodiazepines Screen Urine Not Detected (Not Detect); Buprenorphine Scr Not Detected (Not Detect); Cannabinoid Screen Urine Not Detected (Not Detect); Cocaine Screen Urine Not Detected (Not Detect); Fentanyl, urine Not Detected (Not Detect); Methadone Screen, Urine Not Detected (Not Detect); Opiate Screen Urine Not Detected (Not Detect); Oxycodone Screen Urine Not Detected (Not Detect); Phencyclidine Screen Urine Not Detected (Not Detect)
[2023-09-12 16:27] LABS: Basophils Absolute Auto 0.1 X10*3/uL (0.0-0.2); Basophils Percent Auto 0.7 % (0-2); Eosinophils Absolute Auto 1.5 X10*3/uL (0.0-0.4); Eosinophils Percent Auto 18.5 % (0-4); Hematocrit 36.7 % (37.0-47.0); Hemoglobin 11.8 g/dl (12.0-16.0); Imm Gran Abs Auto 0.02 X10*3/uL (0.00-0.03); Imm Gran Pct Auto 0.2 % (0.0-0.4); Lymphocytes Absolute Auto 1.2 X10*3/uL (1.2-4.9); Lymphocytes Percent Auto 15.1 % (20-40); Mean Corpuscular HGB Conc 32.2 g/dl (31.0-35.0); Mean Corpuscular Hemoglobin 30.6 pg (27.0-33.0); Mean Corpuscular Volume 95.3 fL (80.0-98.0); Mean Platelet Volume 10.1 fL (9.4-12.3); Monocytes Absolute Auto 0.7 X10*3/uL (0.1-1.2); Monocytes Percent Auto 8.9 % (2-11); Neutrophils Absolute Auto 4.6 x10*3/uL (2.0-8.3); Neutrophils Percent Auto 56.6 % (45-73); Platelet Count 359 X10*3/uL (160-400); Red Blood Count 3.85 X10*6/uL (4.20-5.50); Red Cell Distribution Width 14.3 % (11.0-16.0); White Blood Count 8.1 X10*3/uL (4.8-10.8)
--- NOTE | 2023-09-12 16:27 | ED_ITS ---
HPI - Psych General Chief Complaint: Psychiatric Symptoms Stated Complaint: Section 12, HI/SI, refusing meds Time Seen by Provider: 09/12/23 16:11 Source: patient, EMS, RN notes reviewed and old records reviewed Mode of arrival: EMS Limitations: no limitations History of Present Illness ED Provider: Inna Shields PA-C HPI Narrative: 77-year-old female with a history of dementia, history of UTI with associated delirium who presents to the ER from the [facility] in [place] for evaluation of aggressive behavior and homicidal statements. Patient reportedly has been noncompliant with her risperidone at the assisted living facility. She has been making homicidal comments to staff members. Of note patient was admitted to the [facility] in November of 2022. Patient states she does not know why she is here. She states she woke up feeling kind of sick and the firemen brought her here. She states she was brought to [facility] in the past but did not know that that was where she was right now. She is oriented to herself but not situation. She states she has not been taking any medications because she is healthy and does not need them. She is a [employer] and they tend to be very healthy people. She denies hearing any voices or seeing anything that may not be there. She reports eating and drinking well, she is sleeping well. She denies being depressed. She denies any nausea, vomiting, abdominal pain, chest pain, shortness of breath, urinary symptoms. She denies any suicidal thoughts. She does not want to harm anyone currently. MD complaint: homicidal ideation Onset (ago): unknown Relieving factors: none Exacerbating factors: none Associated psychiatric symptoms: none Associated symptoms: denies other symptoms Treatments prior to arrival: none Related Data Home Medications ?Medication ?Instructions ?Recorded ?Confirmed apixaban 5 mg tablet (Eliquis) 5 mg PO BID 09/12/23 09/12/23 divalproex 125 mg tablet,delayed 125 mg PO QAM 09/12/23 09/12/23 release sertraline 50 mg tablet 50 mg PO DAILY 09/12/23 09/12/23 Previous Rx's ?Medication ?Instructions ?Recorded trazodone 50 mg tablet 50 mg PO BEDTIME #30 tabs 12/29/22 Allergies Allergy/AdvReac Type Severity Reaction Status Date / Time No Known Allergies Allergy Verified 09/12/23 15:36 Review of Systems 2 Review of Systems: Yes all other systems are reviewed and are negative [facility] Social History Social History Household Members: None Housing: Other Housing Other:: Elderly housing Do you presently have visiting nurse or other home services: No Unable to assess alcohol history related to: Unknown Patient Tobacco Use Status: Tobacco use Unknown Smoked in Last 30 Days: No Use of substances other than those prescribed or required for medical reasons: No Advance Directives: Yes Advance Directives on File: Yes Advance Directives Date on File: 12/31/22 service: No Physical Exam 2 Vital Signs: Vital Signs: Last Vital Signs Temp 97.4 F 09/12/23 15:33 Pulse 95 09/12/23 15:33 Resp 16 09/12/23 15:37 BP 141/69 H 09/12/23 15:33 Pulse Ox 95 09/12/23 15:33 O2 Del Method Room Air 09/12/23 15:33 BMI result Body Mass Index 30.3 Appearance: Alert. Oriented X1. No acute distress. Head: normocephalic, atraumatic. Eyes: Pupils equal, round and reactive to light. ENT: Pharynx normal. No tonsillar swelling or exudate. Neck: Normal inspection. Neck supple. CVS: Normal heart rate and rhythm. Pulses normal. Respiratory: No respiratory distress. Breath sounds normal. Abdomen: Soft and nontender. +BS x4 Skin: Skin warm and dry. Normal skin color. Normal skin turgor. No rashes. Extremities: No lower extremity edema. No joint swelling. Neuro/psych: Oriented X 1. No motor deficit. No sensory deficit. CN II-XII intact. Normal speech and cognition. Very confused, repetitive questioning, requires frequent redirection Course Reevaluation(s) Reevaluation #1: Physician observation started at 18:45. Patient placed in physician observation because patient is awaiting CARE team evaluation for the possible need of inpatient psych admission. At the time observation was started patient's vital signs were stable. Patient is alert, confused and disoriented. Neuro exam is non-focal. CV: RRR and lungs are clear. Will continue to monitor. Time: 18:45 Reevaluation #2: Case discussed with care production team advisor. Recommending psych consult for possible medication recommendations, however patient has been refusing medications. Will have psych weigh in. Will continue to monitor in the ER. Medical Decision Making Medical Decision Making [facility] Narrative: 77-year-old female with history of dementia presenting to the ER after she was verbally aggressive towards staff with agitation and homicidal thoughts. Patient has been non med compliant. Per nursing patient was recently taken off of risperidone and placed on Depakote which she has not been taking. On arrival to the ER patient is calm, cooperative. No behavioral issues. She is very forgetful and requires frequent reorientation and redirection. Differential Diagnosis Differential Diagnoses: The differential diagnosis associated with the presentation includes dementia, delirium, medication noncompliance, UTI, mood disorder Admission/Observation Consideration of admission/observation: Escalation of care including admission/observation considered Consult Healthcare Provider Management of the patient was discussed with: Behavioral Health Provider Lab Data [facility] Lab Attestation statement: I reviewed the patient's lab results. 09/12/23 15:51 09/12/23 15:51 Labs: Lab Results 09/12/23 09/12/23 Range/Units 15:50 15:51 WBC 8.1 (4.8-10.8) X10*3/uL RBC 3.85 L (4.20-5.50) X10*6/uL Hgb 11.8 L (12.0-16.0) g/dl Hct 36.7 L (37.0-47.0) % MCV 95.3 (80.0-98.0) fL MCH 30.6 (27.0-33.0) pg MCHC 32.2 (31.0-35.0) g/dl RDW 14.3 (11.0-16.0) % Plt Count 359 (160-400) X10*3/uL MPV 10.1 (9.4-12.3) fL Immature Gran % (Auto) 0.2 (0.0-0.4) % Neut % (Auto) 56.6 (45-73) % Lymph % (Auto) 15.1 L (20-40) % [place] % (Auto) 8.9 (2-11) % Eos % (Auto) 18.5 H (0-4) % Baso % (Auto) 0.7 (0-2) % Lymph # (Auto) 1.2 (1.2-4.9) X10*3/uL [place] # (Auto) 0.7 (0.1-1.2) X10*3/uL Eos # (Auto) 1.5 H (0.0-0.4) X10*3/uL Baso # (Auto) 0.1 (0.0-0.2) X10*3/uL Abs Immat Gran (auto) 0.02 (0.00-0.03) X10*3/uL Absolute Neuts (auto) 4.6 (2.0-8.3) x10*3/uL Absolute Nucleated RBC 0.000 (0.0-0.012) X10*3/uL Nucleated RBC % (auto) 0.0 (0.0-0.2) /100WBC Sodium 140 (135-145) mmol/L Potassium 4.0 (3.3-5.1) mmol/L Chloride 105 (96-108) mmol/L Carbon Dioxide 23 (22-29) mmol/L Anion Gap 16 (12-20) BUN 20 H (9-16) mg/dL Creatinine 1.17 (0.5-1.4) mg/dL Estim Creat Clear Calc 34.8 Estimated GFR 45 Random Glucose 108 (60-115) mg/dL Calcium 9.5 (8.4-10.2) mg/dL Total Bilirubin 0.2 (0.0-1.0) mg/dL AST 25 (5-31) U/L ALT 16 (0-31) U/L Alkaline Phosphatase 75 (39-117) U/L Total Protein 7.8 (6.5-8.0) g/dL Albumin 3.9 (3.5-5.0) g/dL Urine Color Yellow Urine Appearance Clear Urine pH 6.0 (5.0-9.0) Ur Specific [place] 1.010 (1.005-1.025) Urine Protein Trace (Neg-Trace) mg/dL Urine Glucose (UA) Negative (Negative) mg/dL Urine Ketones Negative (Negative) mg/dL Urine Blood Negative (Negative) Urine Nitrite Negative (Negative) Ur Leukocyte Esterase Small (1+) H (Negative) Urine RBC 0-2 (0-2) /HPF Urine WBC 0-5 (0-5) /HPF Ur Squamous Epith Cells 0-2 (0-2) /HPF Urine Bacteria None Seen (None Seen) Hyaline Casts 0-2 (0-2) /LPF Urine Opiates Screen Not Detected (Not Detect) Ur Buprenorphine Scrn Not Detected (Not Detect) ng/mL Ur Oxycodone Screen Not Detected (Not Detect) ng/mL Urine Methadone Screen Not Detected (Not Detect) ng/mL Urine Fentanyl Screen Not Detected (Not Detect) Ur Barbiturates Screen Not Detected (Not Detect) Ur Phencyclidine Scrn Not Detected (Not Detect) Ur Amphetamines Screen Not Detected (Not Detect) U Benzodiazepines Scrn Not Detected (Not Detect) Urine Cocaine Screen Not Detected (Not Detect) U Marijuana (THC) Screen Not Detected (Not Detect) Ethyl Alcohol < 10 mg/dL Independent Historian Clinical information obtained from an independent historian. History obtained from or confirmed by: EMS External Record Review External record reviewed: Inpatient record, Outpatient record and Prior outpatient labs Tests considered The following testing was considered but not selected: CT head considered however this is her baseline behavior, slowly worsening over time due to worsening dementia Prescription Management I considered prescription management with: Other (antipsychotics) Chronic Conditions Patient?s care impacted by: Other (dementia) Social Determinants Patient?s care significantly limited by Social Determinants of Health including: Other Social Determinant of Health Critical Care Time Critical Care Time Critical Care Time: No Discharge Plan Discharge Clinical Impression: Dementia Qualifiers: Dementia type: unspecified type Dementia severity: unspecified severity D ementia behavioral or psychological symptom: unspecified whether behavioral, psychotic, or mood disturbance or anxiety Qualified Code(s): F03.90 - Unspecified dementia, unspecified severity, without behavioral disturbance, psychotic disturbance, mood disturbance, and anxiety Patient Disposition: Still a Patient Prescriptions: No Action divalproex 125 mg tablet,delayed release (DR/EC) 125 mg PO QAM sertraline 50 mg tablet 50 mg PO DAILY Eliquis 5 mg tablet 5 mg PO BID trazodone 50 mg tablet 50 mg PO BEDTIME Qty: 30 0RF Rx Instructions: take one half tab two times daily at 8am and 2pm Interventions: [place]at-Suicide Risk Severity Scale Last Done: 09/12/23 15:37 Print Language: Estonian
[2023-09-12 16:28] LABS: Alanine Aminotransferase 16 U/L (0-31); Albumin Level 3.9 g/dL (3.5-5.0); Alkaline Phosphatase 75 U/L (39-117); Anion Gap 16 (12-20); Aspartate Amino Transferase 25 U/L (5-31); Bilirubin Total 0.2 mg/dL (0.0-1.0); Blood Urea Nitrogen 20 mg/dL (9-16); Calcium 9.5 mg/dL (8.4-10.2); Carbon Dioxide 23 mmol/L (22-29); Chloride 105 mmol/L (96-108); Creatinine Clr Calc Pharmacy 34.8; Estimated Glomerular Filt Rate 45; Ethanol < 10 mg/dL; Glucose Random 108 mg/dL (60-115); Sodium 140 mmol/L (135-145); Total Protein 7.8 g/dL (6.5-8.0)
--- NOTE | 2023-09-12 16:35 | PC.NURSE ---
RE; med rec This RN completed med rec with nursing facility med list as well as verbal confirmation with LTC RN
[2023-09-12 16:36] LABS: Appearance Urine Clear; Color Urine Yellow; Glucose Urine UA Negative (Negative); Leukocyte Esterase Urine Small (1+) (Negative); Nitrite Urine Negative (Negative); UMIC TRIGGER UACC YES; Urine Blood Negative (Negative); Urine Ketones Negative (Negative); Urine Protein Trace mg/dL (Neg-Trace)
[2023-09-12 16:54] LABS: Bacteria Urine None Seen (None Seen); Hyaline Casts Urine 0-2 /LPF (0-2); RBC Urine 0-2 /HPF (0-2); Squamous Epithelial Cell Urine 0-2 /HPF (0-2); UACC Culture Trigger YES; WBC Urine 0-5 /HPF (0-5)
--- NOTE | 2023-09-12 19:06 | MHC.CARE ---
CARE team spoke with supervisor propellant charge loading, Stacey at the [facility]. Stacey reports pt has been with them since 12/30/22. For the past several weeks pt has been refusing medications. Pt will take meds 1 day, and refuse the next few days. Over the past several days pt has grown increasingly more aggressive towards staff and other residents. Pt has threatened to throw hot coffee on another resident and will often ?get in people?s faces? and yell at them. Stacey reports pt believes she is a staff member at [facility]. 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 Today, when police arrived at the facility pt was heard saying ?you can?t trust your coworkers, they?ll call the programming specialist on you.? Stacey reports pt will also tell staff she is going home with her parents, who are . Per Stacey, psychiatrist at the facility has discussed pt?s care with her cousin who is POA/HCP- [facility] [phone]. They are advocating for pt to be admitted to [facility] and transferred to the [facility]. They believe pt needs higher level of care than can be provided at their facility.?
[2023-09-13 05:54] VITALS: BP 126/59; PULSE 81; RESP 15; TEMP 36.4; O2SAT 96
--- NOTE | 2023-09-13 06:37 | PC.NURSE ---
Patient slept through the night, no distress observed/reported, no behavior issues, med rec completed/pending provider's approval, patient was seen by care team disposition pending psych consult, will continue to monitor
--- NOTE | 2023-09-13 07:54 | PC.NURSE ---
Assumed care of patient at 0645, patient appears to be in no apparent distress. Patient ambulating around BH pod with steady gait, does appear to be confused, unable to remember where bathroom is despite being there seconds before. Patient alert and oriented x2, to self and day. Patient aware of plan of care for psych consult
--- NOTE | 2023-09-13 10:13 | PM.PSYCN ---
History of Present Illness Date of Service: 09/13/23 Chief Complaint: Section 12, HI/SI, refusing meds Reason for Consult: Sundowning agitation Requesting physician: Winifred Shields Discussed with referring provider: Yes (talked with nursing team) Sources of Information: patient interviewed, chart reviewed and crisis/core team assessment reviewed HPI Narrative: 77 yo female, resident of [facility], to ER with sundowing sx of aggressive agitation. Pt with a history of dementia, UTI with delirium, HI and aggressive outbursts. Pt tells team she began to refuse all meds as residential team hid Risperdal in her coffee. Now she will not take meds she reports. Pt when seen is alert, oriented to person, place, not to situation. She talked of living in [place], working at the [employer] for many years and of eating expensive chocolate with her father who is an expert on chocolate. She is non agitated, pleasant and cooperative. Diagnostics reviewed with mild anemia, elevated BUN, otherwise as expected. Past Psychiatric History: Psychiatric admission November 2022 Medical Evaluation Reviewed: Yes Review of Systems Review of Systems Yes all other systems are reviewed and are negative (denies) [facility]LY [facility], [facility] Family History: Denies Social History: The patient has never been , she does not have children, her brother is her healthcare proxy. 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 She has some ancillary services. Substance History: Denies Trauma History: Denies Diagnostics Vital Signs (24Hr): Vital Signs - 24 hr 09/12/23 15:33 09/12/23 15:37 09/13/23 05:54 Temperature 97.4 F 97.6 F Pulse Rate 95 81 Respiratory Rate 16 16 15 Blood Pressure 141/69 H 126/59 L Pulse Oximetry 95 96 Oxygen Delivery Method Room Air Room Air BMI result Body Mass Index 30.3 Labs 09/12/23 15:51 09/12/23 15:51 Labs: Laboratory Results - last 48 hr 09/12/23 09/12/23 15:50 15:51 WBC 8.1 RBC 3.85 L Hgb 11.8 L Hct 36.7 L MCV 95.3 MCH 30.6 MCHC 32.2 RDW 14.3 Plt Count 359 MPV 10.1 Immature Gran % (Auto) 0.2 Neut % (Auto) 56.6 Lymph % (Auto) 15.1 L Lyman % (Auto) 8.9 Eos % (Auto) 18.5 H Baso % (Auto) 0.7 Lymph # (Auto) 1.2 Lyman # (Auto) 0.7 Eos # (Auto) 1.5 H Baso # (Auto) 0.1 Abs Immat Gran (auto) 0.02 Absolute Neuts (auto) 4.6 Absolute Nucleated RBC 0.000 Nucleated RBC % (auto) 0.0 Sodium 140 Potassium 4.0 Chloride 105 Carbon Dioxide 23 Anion Gap 16 BUN 20 H Creatinine 1.17 Estim Creat Clear Calc 34.8 Estimated GFR 45 Random Glucose 108 Calcium 9.5 Total Bilirubin 0.2 AST 25 ALT 16 Alkaline Phosphatase 75 Total Protein 7.8 Albumin 3.9 Urine Color Yellow Urine Appearance Clear Urine pH 6.0 Ur Specific [place] 1.010 Urine Protein Trace Urine Glucose (UA) Negative Urine Ketones Negative Urine Blood Negative Urine Nitrite Negative Ur Leukocyte Esterase Small (1+) H Urine RBC 0-2 Urine WBC 0-5 Ur Squamous Epith Cells 0-2 Urine Bacteria None Seen Hyaline Casts 0-2 Urine Opiates Screen Not Detected Ur Buprenorphine Scrn Not Detected Ur Oxycodone Screen Not Detected Urine Methadone Screen Not Detected Urine Fentanyl Screen Not Detected Ur Barbiturates Screen Not Detected Ur Phencyclidine Scrn Not Detected Ur Amphetamines Screen Not Detected U Benzodiazepines Scrn Not Detected Urine Cocaine Screen Not Detected U Marijuana (THC) Screen Not Detected Ethyl Alcohol < 10 Mental Status Exam Mental Status Exam Patient Appearance: Appropriate Patient Orientation: Person and Place Level of Consciousness: Alert Patient Behavior: Appropriate, Talkative, Cooperative and Good Eye Contact Mood Description: Appropriate Affect Description: Appropriate Patient Cognition Impaired: Yes Ability to Follow Directions: Good Speech Pattern: Spontaneous Speech Memory Description: Remote Impaired Hallucinations: None Delusions: Not Present Thought Process: Distracted Thought Content: positive for Perseveration and positive for Suicidal Ideation (denies) Judgement: Poor Medications Allergies Allergies Allergy/AdvReac Type Severity Reaction Status Date / Time No Known Allergies Allergy Verified 09/12/23 15:36 Assessment & Plan Assessment & Plan (1) Dementia with behavioral disturbance: Status: Acute Code(s): F03.918 - Unspecified dementia, unspecified severity, with other behavioral disturbance Plan Consider a change to zydis 5 mg or risperdal m tabs (both dissolvable). Pt may need community medley due to compliance issues to be able to return to her [facility]. Zyprexa 5 mg 1400 (Zydis if available) Total time managing care of this patient today ____ minutes. Informed Consent: does not understand
--- NOTE | 2023-09-13 12:14 | MHC.CARE ---
Following psychiatry consultation, patient's disposition is inpatient psychiatric placement. ED provider, Dr Valdez updated
[2023-09-13 15:06] VITALS: BP 128/62; PULSE 78; RESP 20; TEMP 36.2; O2SAT 99
--- NOTE | 2023-09-13 15:19 | PC.NURSE ---
Attempted to give patient 1400 Zyprexa as ordered by Psych provider. Patient originally questioned this RN as to what the medication was for and why she needed. This RN attempted to educate patient however, patient became angry and exclaimed I do not need that, I have a doctor that manages my medications . This Rn attempted to explain that while in the hospital, a different doctor will manage her medications here while continuing her home medications. Patient proceeded to throw medication on floor telling this RN I will not take any medicine, my doctor and his handle it on their own . When this RN asked why she feels she does not need the medication, patient told this RN I don't need to tell you, that is my private life, you aren't allowed to know, my doctor manages my things, you do not . Pt becoming visibly agitated, this RN returned to nurses station and wasted medication
--- NOTE | 2023-09-13 16:14 | PC.NURSE ---
Patient sitting in the common area with another patient conversing. patient began getting agitated, exactly why is unknown. The pt then started yelling at the other patient stating I don't know who you are, I don't know why you are talking to me, you don't talk clearly, I couldn't care less about what you have to say . This Rn attempted to intervene however patient was able to self-redirect and have a calm conversation. Pt did become agitated intermittently about wanting to leave, staff redirected patient with some success. MD Camargo and KYLE Dove aware
--- NOTE | 2023-09-13 19:39 | PC.NURSE ---
this rn assumed care of pt, pt sitting in common area at this time, no acute distress noted.
--- NOTE | 2023-09-14 | ECG_ITS ---
Test Reason : QT CHECK Blood Pressure : / mmHG Vent. Rate : 064 BPM Atrial Rate : 064 BPM P-R Int : 156 ms QRS Dur : 074 ms QT Int : 438 ms P-R-T Axes : -01 004 036 degrees QTc Int : 451 ms Normal sinus rhythm Low voltage QRS Nonspecific T wave abnormality Abnormal ECG When compared with ECG of 19-NOV-2022 13:46, No significant change was found Referred By: Generic ED Physician Electronically Signed By:CHRISTIANO REBOLLEDO MD
[2023-09-14 06:12] VITALS: BP 124/71; PULSE 82; RESP 18; TEMP 36.8; O2SAT 96
--- NOTE | 2023-09-14 06:12 | PC.NURSE ---
pt sitting in common area watching tv, pt calm and cooperative at this time.
--- NOTE | 2023-09-14 07:00 | PC.NURSE ---
Assumed care of patient at 0645. Patient is observed resting quietly in a chair. No signs of distress observed. Breathing is even and unlabored. Will continue plan of care.
[2023-09-14 14:12] VITALS: BMI 29.6
[2023-09-14 14:37] VITALS: BP 132/68; PULSE 82; RESP 16; O2SAT 97
--- NOTE | 2023-09-14 17:17 | PC.ADMIT ---
Genie Mata was admitted to at 1410 from [facility] on a 12b. The reasoning for admission includes the patient becoming agitated and making HI threats towards staff and residents at her [facility] ([facility]), patient was also reported to have stopped taking her medications for the last 2-3 weeks. Genie has been diagnosed with dementia and is A&O to self only. Patient was pleasantly confused but cooperative during the admission process, she denies SI/HI/AVH and stated I don't even know how I got here, isn't that crazy? 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 Patient is aware she is in the hospital but her short term memory otherwise is very poor. Patient reports her sleep and appetite are good and her vitals upon admission are stable. Skin check completed with another nurse, patient is noted to have multiple scabs/scratches covering her body. Patient reports she picks at the scabs Because she has to do it . Patient denies SI/HI/AVH and has been placed on 5 minute checks.
[2023-09-14 20:00] VITALS: BP 119/64; PULSE 82; RESP 16; TEMP 36; O2SAT 95
[2023-09-14] MEDS: Apixaban 5 MG TABLET PO (20:47)
[2023-09-15 08:00] VITALS: BP 110/62; PULSE 74; RESP 16; TEMP 36.1; O2SAT 96
--- NOTE | 2023-09-15 08:23 | HO.PSYADMNOT ---
HPI Date of Service: 09/15/23 Chief Complaint: Section 12, HI/SI, refusing meds Sources of Information: patient interviewed, chart reviewed and crisis/core team assessment reviewed HPI Subjective Notes: Section 12B Healthcare Proxy: Yes (invoked) Narrative: Mrs. Mata is a 77 year-old woman with hx of dementia who resides at [facility] due to increase combative behaviors towards peers and staff threatening to harm them. 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 In the ED, work up included: cbc without leukocytosis, normocytic anemia although MCV on high end of normal; CMP no electrolyte abnormalities, BUN 20, Cr 1.17 with decreased creatinine clearance 34.8, GFR 45. LFT wnl. UA with small leukocytes but culture is negative. Utox is negative. EKG normal sinus rhythm, non specific T wave, Qtc 451. On the unit, pt presents as guarded and irritable. She reports she paid her dues to be here, they are stealing from me. She does not know where she is. She is not able to identified that this is a hospital. She reports people here are talking about her. She reports everyone here despises me! they talk about me all day long. She points at another patient and states: I have known her for years, she is the only friend I have here. However, she has not seen this patient before. She has refuses medications. When asked: everyone is forcing medications, tht's personal information I am not giving you! Past Psychiatric History: Psychiatric admission November 2022 Medical Evaluation Reviewed: Yes [facility] Family History: Denies Social History: The patient has never been , she does not have children, her brother is her healthcare proxy. 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 She has some ancillary services. Substance History: none Trauma History: Denies Diagnostics Vital Signs (24Hr): Vital Signs - 24 hr 09/14/23 14:37 09/14/23 20:00 09/15/23 08:00 Temperature 96.8 F 97 F Pulse Rate 82 82 74 Respiratory Rate 16 16 16 Blood Pressure 132/68 119/64 110/62 Pulse Oximetry 97 95 96 Oxygen Delivery Method Room Air Room Air Room Air BMI result Body Mass Index 29.6 Labs 09/12/23 15:51 09/12/23 15:51 Meds/Allergies Meds Home Medications ?Medication ?Instructions ?Recorded ?Confirmed ?Type apixaban 5 mg tablet (Eliquis) 5 mg PO BID 09/12/23 09/12/23 History divalproex 125 mg tablet,delayed 125 mg PO QAM 09/12/23 09/12/23 History release sertraline 50 mg tablet 50 mg PO DAILY 09/12/23 09/12/23 History Allergies Allergies Allergy/AdvReac Type Severity Reaction Status Date / Time No Known Allergies Allergy Verified 09/12/23 15:36 Mental Status Exam Mental Status Exam Narrative: Appearance: wearing casual clothing, good hygiene, in NAD Behavior: guarded and irritable, later, bit calmer and more trusting Psychomotor: no agitation or retardation noted Speech: mostly clear, regular rate/rhythm/volume, spontaneous TP: disorganized at times TC: wanting to go home Mood: okay Affect: irritable, paranoid and suspicious SI: denies HI: none VH/AH: appears internally preoccupied Delusions: paranoid/persecutory delusions Insight/judgment: impaired x 2. Memory/cog: alert, not oriented to place, situation, month, date. Assessment & Plan Assessment & Plan (1) Major neurocognitive disorder: Status: Acute Code(s): F03.90 - Unspecified dementia, unspecified severity, without behavioral disturbance, psychotic disturbance, mood disturbance, and anxiety Plan Ms. Mata is a 77 year-old woman with hx of dementia who resides at [facility]. She was sent to [facility] ED due to increase combative behaviors towards staff and declining to take medications. On the unit, pt presents with paranoid delusions, thinking someone is stealing from her and people are talking about her. She is not oriented to place, month, year and situation. She continues to decline medications. Her HCP is invoked. May need HCP to be affirmed. PLAN 1. Admit to S1, sect 12b, 5 minutes checks 2. offer current medications including eliquis, will try risperidone instead of olanzapine to treatment psychosis. 3. coordination of care. Patient educated on: diagnosis Reason for continued inpatient stay Substantial Risk for: harm to others and inability to function Statement Statement: I have reviewed the history and physical and performed a pertinent examination on my patient. No changes have occurred unless specified. If the History and Physical was not performed prior to admission, the Hospitalist's service will be consulted for completing the admission physical. Time Spent With Patient Time: Total time managing care of this patient today ____ minutes.
[2023-09-15] MEDS: OLANZapine 5 MG TABLET PO (16:59)
[2023-09-15 20:00] VITALS: BP 116/59; PULSE 79; TEMP 36.1; O2SAT 98
--- NOTE | 2023-09-16 09:37 | HO.PSYCHPN ---
Subjective Subjective Date of Service: 09/16/23 Reason For Visit: Section 12, HI/SI, refusing meds Subjective Notes: Conditional Voluntary Healthcare Proxy: Yes Interim History: Pt slept most of the night. She thinks she is at [facility]. She is slightly less irritable and less paranoid. Has taken some doses of her medications. She is eating well. She thinks her parents are still alive and she is working. fam meeting with cousing who is HCP to discuss placement and treatment. Review of Systems Review of Systems Yes all other systems are reviewed and are negative (denies) Mental Status Exam Mental Status Exam Narrative: Appearance: wearing casual clothing, good hygiene, in NAD Behavior: guarded and irritable, later, bit calmer and more trusting Psychomotor: no agitation or retardation noted Speech: mostly clear, regular rate/rhythm/volume, spontaneous TP: disorganized at times TC: wanting to go home Mood: okay Affect: irritable, paranoid and suspicious SI: denies HI: none VH/AH: appears internally preoccupied Delusions: paranoid/persecutory delusions Insight/judgment: impaired x 2. Memory/cog: alert, not oriented to place, situation, month, date. Diagnostics Vital Signs (24Hr): Vital Signs - 24 hr 09/15/23 20:00 Temperature 96.9 F Pulse Rate 79 Blood Pressure 116/59 L Pulse Oximetry 98 Oxygen Delivery Method Room Air BMI result Body Mass Index 29.6 Labs 09/12/23 15:51 09/12/23 15:51 Medications Medications Current Medications Acetaminophen (Acetaminophen 325 Mg Tablet) 650 mg PO Q6H PRN PRN Reason: Headache/Pain Mild Scale (1-3) Al Hydroxide/Mg Hydroxide (Magnesium Hydrox/Alum Hydrox 30 Ml Oral.Susp) 30 ml PO Q6H PRN PRN Reason: Heartburn/Nausea Apixaban (Apixaban 5 Mg Tablet) 5 mg PO BID [facility] Last Admin: 09/16/23 08:47 Dose: Not Given Magnesium Hydroxide (Milk Of Magnesia 30 Ml Oral.Susp) 30 ml PO DAILY PRN PRN Reason: Constipation Risperidone (Risperidone Oral Trixie 1 Mg/Ml Solution) 1 mg PO BID [facility] Last Admin: 09/16/23 08:47 Dose: Not Given Trazodone HCl (Trazodone Hcl 50 Mg Tablet) 50 mg PO BEDTIME MRX1 PRN PRN Reason: Insomnia Allergies Allergies Allergy/AdvReac Type Severity Reaction Status Date / Time No Known Allergies Allergy Verified 09/12/23 15:36 Assessment & Plan Assessment & Plan (1) Major neurocognitive disorder: Status: Acute Code(s): F03.90 - Unspecified dementia, unspecified severity, without behavioral disturbance, psychotic disturbance, mood disturbance, and anxiety Plan Ms. Mata is a 77 year-old woman with hx of dementia who resides at [facility]. She was sent to [facility] ED due to increase combative behaviors towards staff and declining to take medications. On the unit, pt presents with paranoid delusions, thinking someone is stealing from her and people are talking about her. She is not oriented to place, month, year and situation. She continues to decline medications. Her HCP is invoked. May need HCP to be affirmed. PLAN 6/ continue tx. may try to restart aricept or exelon Reason for continued inpatient stay Substantial Risk for: inability to function Time Spent With Patient Time: Total time managing care of this patient today ____ minutes.
--- NOTE | 2023-09-17 02:37 | PC.NURSE ---
Patient out in milieu late evening, social with male peer. Patient reported to staff her boss was intrusive and inappropriate with her. Patient was redirected to her room, will continue to monitor for safety.
[2023-09-17 08:00] VITALS: BP 128/62; PULSE 77; RESP 16; TEMP 36.1; O2SAT 97
[2023-09-17] MEDS: Apixaban 5 MG TABLET PO ×2 (08:47→20:38)
[2023-09-17] MEDS: risperiDONE Oral Sol 1 MG/ML SOLUTION PO ×2 (08:47→20:38)
[2023-09-17 13:04] VITALS: BMI 30.7
[2023-09-17 19:56] VITALS: BP 152/73; PULSE 100; RESP 18; TEMP 36.1; O2SAT 100
[2023-09-17 20:00] VITALS: BP 152/73; PULSE 100; RESP 18; TEMP 36.1; O2SAT 100
--- NOTE | 2023-09-17 20:27 | P.PNPSI_ITS ---
Subjective Subjective Date of Service: 09/17/23 Reason For Visit: Section 12, HI/SI, refusing meds Subjective Notes: Conditional Voluntary Interim History: Pt slept most of the night. She appears calmer. She thinks she is at [employer], that she is still working and lives with them. She is slightly less irritable and less paranoid. Has taken some doses of her medications. She is eating well. Medication Compliance: Yes Side effects from medications: No Review of Systems Review of Systems Yes all other systems are reviewed and are negative (denies) Mental Status Exam Mental Status Exam Narrative: Appearance: wearing casual clothing, good hygiene, in NAD Behavior: guarded and irritable, later, bit calmer and more trusting Psychomotor: no agitation or retardation noted Speech: mostly clear, regular rate/rhythm/volume, spontaneous TP: disorganized at times TC: wanting to go home Mood: okay Affect: less irritable SI: denies HI: none VH/AH: appears internally preoccupied Delusions: paranoid/persecutory delusions Insight/judgment: impaired x 2. Memory/cog: alert, not oriented to place, situation, month, date. Diagnostics Vital Signs (24Hr): Vital Signs - 24 hr 09/17/23 08:00 09/17/23 19:56 Temperature 96.9 F 96.9 F Pulse Rate 77 100 Respiratory Rate 16 18 Blood Pressure 128/62 152/73 H Pulse Oximetry 97 100 Oxygen Delivery Method Room Air Room Air BMI result Body Mass Index 30.7 Labs 09/12/23 15:51 09/12/23 15:51 Medications Medications Current Medications Acetaminophen (Acetaminophen 325 Mg Tablet) 650 mg PO Q6H PRN PRN Reason: Headache/Pain Mild Scale (1-3) Al Hydroxide/Mg Hydroxide (Magnesium Hydrox/Alum Hydrox 30 Ml Oral.Susp) 30 ml PO Q6H PRN PRN Reason: Heartburn/Nausea Apixaban (Apixaban 5 Mg Tablet) 5 mg PO BID [facility] Last Admin: 09/17/23 08:47 Dose: 5 mg Magnesium Hydroxide (Milk Of Magnesia 30 Ml Oral.Susp) 30 ml PO DAILY PRN PRN Reason: Constipation Risperidone (Risperidone Oral Trixie 1 Mg/Ml Solution) 1 mg PO BID [facility] Last Admin: 09/17/23 08:47 Dose: 1 mg Trazodone HCl (Trazodone Hcl 50 Mg Tablet) 50 mg PO BEDTIME MRX1 PRN PRN Reason: Insomnia Allergies Allergies Allergy/AdvReac Type Severity Reaction Status Date / Time No Known Allergies Allergy Verified 09/12/23 15:36 Assessment & Plan Assessment & Plan (1) Major neurocognitive disorder: Status: Acute Code(s): F03.90 - Unspecified dementia, unspecified severity, without behavioral disturbance, psychotic disturbance, mood disturbance, and anxiety Plan Ms. Mata is a 77 year-old woman with hx of dementia who resides at [facility]. She was sent to [facility] due to increase combative behaviors towards staff and declining to take medications. On the unit, pt presents with paranoid delusions, thinking someone is stealing from her and people are talking about her. She is not oriented to place, month, year and situation. She continues to decline medications. Her HCP is invoked. May need HCP to be affirmed. PLAN 09/16 continue risperidone 1mg po BID Reason for continued inpatient stay Substantial Risk for: inability to function Time Spent With Patient Time: Total time managing care of this patient today ____ minutes.
[2023-09-17] MEDS: traZODone HCL 50 MG TABLET PO (20:38)
[2023-09-18 11:00] VITALS: BP 135/60; PULSE 94; RESP 18; TEMP 36.4; O2SAT 96
[2023-09-18] MEDS: risperiDONE Oral Sol 1 MG/ML SOLUTION PO ×2 (11:10→20:40)
[2023-09-18] MEDS: Apixaban 5 MG TABLET PO ×2 (11:10→20:40)
--- NOTE | 2023-09-18 12:52 | P.PNPSI_ITS ---
Subjective Subjective Date of Service: 09/18/23 Reason For Visit: Section 12, HI/SI, refusing meds Subjective Notes: Conditional Voluntary Healthcare Proxy: Yes Interim History: Pt slept most of the night. She appears calmer. She thinks she is at [employer], that she is still working and lives with them. She is slightly less irritable and less paranoid. Has taken some doses of her medications. She is eating well. Review of Systems Review of Systems Yes all other systems are reviewed and are negative (denies) Mental Status Exam Mental Status Exam Narrative: Appearance: wearing casual clothing, good hygiene, in NAD Behavior: guarded and irritable, later, bit calmer and more trusting Psychomotor: no agitation or retardation noted Speech: mostly clear, regular rate/rhythm/volume, spontaneous TP: disorganized at times TC: wanting to go home Mood: okay Affect: less irritable SI: denies HI: none VH/AH: appears internally preoccupied Delusions: paranoid/persecutory delusions Insight/judgment: impaired x 2. Memory/cog: alert, not oriented to place, situation, month, date. Diagnostics Vital Signs (24Hr): Vital Signs - 24 hr 09/17/23 19:56 09/17/23 20:00 09/18/23 11:00 Temperature 96.9 F 96.9 F 97.5 F Pulse Rate 100 100 94 Respiratory Rate 18 18 18 Blood Pressure 152/73 H 152/73 H 135/60 Pulse Oximetry 100 100 96 Oxygen Delivery Method Room Air Room Air Room Air BMI result Body Mass Index 30.7 Labs 09/12/23 15:51 09/12/23 15:51 Medications Medications Current Medications Acetaminophen (Acetaminophen 325 Mg Tablet) 650 mg PO Q6H PRN PRN Reason: Headache/Pain Mild Scale (1-3) Al Hydroxide/Mg Hydroxide (Magnesium Hydrox/Alum Hydrox 30 Ml Oral.Susp) 30 ml PO Q6H PRN PRN Reason: Heartburn/Nausea Apixaban (Apixaban 5 Mg Tablet) 5 mg PO BID [facility] Last Admin: 09/18/23 11:10 Dose: 5 mg Magnesium Hydroxide (Milk Of Magnesia 30 Ml Oral.Susp) 30 ml PO DAILY PRN PRN Reason: Constipation Risperidone (Risperidone Oral Trixie 1 Mg/Ml Solution) 1 mg PO BID [facility] Last Admin: 09/18/23 11:10 Dose: 1 mg Trazodone HCl (Trazodone Hcl 50 Mg Tablet) 50 mg PO BEDTIME MRX1 PRN PRN Reason: Insomnia Last Admin: 09/17/23 20:38 Dose: 50 mg Allergies Allergies Allergy/AdvReac Type Severity Reaction Status Date / Time No Known Allergies Allergy Verified 09/12/23 15:36 Assessment & Plan Assessment & Plan (1) Major neurocognitive disorder: Status: Acute Code(s): F03.90 - Unspecified dementia, unspecified severity, without behavioral disturbance, psychotic disturbance, mood disturbance, and anxiety Plan Ms. Mata is a 77 year-old woman with hx of dementia who resides at [facility]. She was sent to [facility] due to increase combative behaviors towards staff and declining to take medications. On the unit, pt presents with paranoid delusions, thinking someone is stealing from her and people are talking about her. She is not oriented to place, month, year and situation. She continues to decline medications. Her HCP is invoked. May need HCP to be affirmed. PLAN 09/16 continue risperidone 1mg po BID 09/17 continue tx. Reason for continued inpatient stay Substantial Risk for: inability to function Time Spent With Patient Time: Total time managing care of this patient today ____ minutes.
[2023-09-18 15:00] VITALS: BP 127/61; PULSE 84; RESP 18; TEMP 36.4; O2SAT 100
--- NOTE | 2023-09-18 15:49 | PC.NURSE ---
Right leg appears swollen. Pt denies pain, no redness noted. Multiple scabs and scratches, present on admission, Pt says, she picks at the scabs. VSS. No SOB or respiratory distress noted. Dr Chapman and Victoriano stevens. Will continue to monitor.
[2023-09-18 20:00] VITALS: BP 140/83; PULSE 84; RESP 16; TEMP 36.2; O2SAT 96
[2023-09-19 08:00] VITALS: BP 172/82; PULSE 92; RESP 18; TEMP 36.4; O2SAT 98
[2023-09-19] MEDS: risperiDONE Oral Sol 1 MG/ML SOLUTION PO ×2 (10:01→19:37)
[2023-09-19] MEDS: Apixaban 5 MG TABLET PO ×2 (10:01→19:38)
--- NOTE | 2023-09-19 13:26 | HO.PSYCHPN ---
Subjective Subjective Date of Service: 09/19/23 Reason For Visit: Section 12, HI/SI, refusing meds Interim History: Pt slept most of the night. She appears calmer. She thinks she is at [employer], that she is still working and lives with them. She is slightly less irritable and less paranoid. Has taken some doses of her medications. She is eating well. Review of Systems Review of Systems Yes all other systems are reviewed and are negative (denies) Mental Status Exam Mental Status Exam Narrative: Appearance: wearing casual clothing, good hygiene, in NAD Behavior: guarded and irritable, later, bit calmer and more trusting Psychomotor: no agitation or retardation noted Speech: mostly clear, regular rate/rhythm/volume, spontaneous TP: disorganized at times TC: wanting to go home Mood: okay Affect: less irritable SI: denies HI: none VH/AH: appears internally preoccupied Delusions: paranoid/persecutory delusions Insight/judgment: impaired x 2. Memory/cog: alert, not oriented to place, situation, month, date. Diagnostics Vital Signs (24Hr): Vital Signs - 24 hr 09/18/23 15:00 09/18/23 20:00 09/19/23 08:00 Temperature 97.6 F 97.1 F 97.6 F Pulse Rate 84 84 92 Respiratory Rate 18 16 18 Blood Pressure 127/61 140/83 H 172/82 H Pulse Oximetry 100 96 98 Oxygen Delivery Method Room Air Room Air Room Air BMI result Body Mass Index 30.7 Labs 09/12/23 15:51 09/12/23 15:51 Medications Medications Current Medications Acetaminophen (Acetaminophen 325 Mg Tablet) 650 mg PO Q6H PRN PRN Reason: Headache/Pain Mild Scale (1-3) Al Hydroxide/Mg Hydroxide (Magnesium Hydrox/Alum Hydrox 30 Ml Oral.Susp) 30 ml PO Q6H PRN PRN Reason: Heartburn/Nausea Apixaban (Apixaban 5 Mg Tablet) 5 mg PO BID [facility] Last Admin: 09/19/23 10:01 Dose: 5 mg Magnesium Hydroxide (Milk Of Magnesia 30 Ml Oral.Susp) 30 ml PO DAILY PRN PRN Reason: Constipation Risperidone (Risperidone Oral Trixie 1 Mg/Ml Solution) 1 mg PO BID [facility] Last Admin: 09/19/23 10:01 Dose: 1 mg Trazodone HCl (Trazodone Hcl 50 Mg Tablet) 50 mg PO BEDTIME MRX1 PRN PRN Reason: Insomnia Last Admin: 09/17/23 20:38 Dose: 50 mg Allergies Allergies Allergy/AdvReac Type Severity Reaction Status Date / Time No Known Allergies Allergy Verified 09/12/23 15:36 Assessment & Plan Assessment & Plan (1) Major neurocognitive disorder: Status: Acute Code(s): F03.90 - Unspecified dementia, unspecified severity, without behavioral disturbance, psychotic disturbance, mood disturbance, and anxiety Plan Ms. Mata is a 77 year-old woman with hx of dementia who resides at [facility]. She was sent to [facility] due to increase combative behaviors towards staff and declining to take medications. On the unit, pt presents with paranoid delusions, thinking someone is stealing from her and people are talking about her. She is not oriented to place, month, year and situation. She continues to decline medications. Her HCP is invoked. May need HCP to be affirmed. PLAN 09/16 continue risperidone 1mg po BID Reason for continued inpatient stay Substantial Risk for: inability to function Time Spent With Patient Time: Total time managing care of this patient today ____ minutes.
[2023-09-19 14:10] VITALS: BP 128/60; PULSE 80
[2023-09-19 14:13] VITALS: BP 128/60
[2023-09-19] MEDS: amLODIPine Besylate 2.5 MG TABLET PO (14:13)
[2023-09-19] MEDS: Donepezil HCl 5 MG TABLET PO (19:38)
[2023-09-19 20:00] VITALS: BP 130/78; PULSE 102; RESP 16; TEMP 35.8; O2SAT 97
[2023-09-20 08:00] VITALS: BP 111/54; PULSE 76; RESP 16; TEMP 36.1; O2SAT 98
[2023-09-20 08:50] VITALS: BP 111/54
[2023-09-20] MEDS: amLODIPine Besylate 2.5 MG TABLET PO (08:50)
[2023-09-20] MEDS: Apixaban 5 MG TABLET PO ×2 (08:50→20:05)
[2023-09-20] MEDS: risperiDONE Oral Sol 1 MG/ML SOLUTION PO ×2 (08:51→20:04)
--- NOTE | 2023-09-20 19:32 | HO.PSYCHPN ---
Subjective Subjective Date of Service: 09/20/23 Reason For Visit: Section 12, HI/SI, refusing meds Interim History: Pt slept most of the night. She appears calmer. She thinks she is at [employer], that she is still working and lives with them. She is slightly less irritable and less paranoid. Has taken some doses of her medications. She is eating well. Review of Systems Review of Systems Yes all other systems are reviewed and are negative (denies) Mental Status Exam Mental Status Exam Narrative: Appearance: wearing casual clothing, good hygiene, in NAD Behavior: guarded and irritable, later, bit calmer and more trusting Psychomotor: no agitation or retardation noted Speech: mostly clear, regular rate/rhythm/volume, spontaneous TP: disorganized at times TC: wanting to go home Mood: okay Affect: less irritable SI: denies HI: none VH/AH: appears internally preoccupied Delusions: paranoid/persecutory delusions Insight/judgment: impaired x 2. Memory/cog: alert, not oriented to place, situation, month, date. Diagnostics Vital Signs (24Hr): Vital Signs - 24 hr 09/19/23 20:00 09/20/23 08:00 09/20/23 08:50 Temperature 96.5 F L 96.9 F Pulse Rate 102 H 76 Respiratory Rate 16 16 Blood Pressure 130/78 111/54 L 111/54 L Pulse Oximetry 97 98 Oxygen Delivery Method Room Air Room Air BMI result Body Mass Index 30.7 Labs 09/12/23 15:51 09/12/23 15:51 Medications Medications Current Medications Acetaminophen (Acetaminophen 325 Mg Tablet) 650 mg PO Q6H PRN PRN Reason: Headache/Pain Mild Scale (1-3) Al Hydroxide/Mg Hydroxide (Magnesium Hydrox/Alum Hydrox 30 Ml Oral.Susp) 30 ml PO Q6H PRN PRN Reason: Heartburn/Nausea Amlodipine Besylate (Amlodipine Besylate 2.5 Mg Tablet) 2.5 mg PO DAILY [facility]; Protocol Last Admin: 09/20/23 08:50 Dose: 2.5 mg Apixaban (Apixaban 5 Mg Tablet) 5 mg PO BID [facility] Last Admin: 09/20/23 08:50 Dose: 5 mg Donepezil HCl (Donepezil Hcl 5 Mg Tablet) 5 mg PO BEDTIME [facility] Last Admin: 09/19/23 19:38 Dose: 5 mg Magnesium Hydroxide (Milk Of Magnesia 30 Ml Oral.Susp) 30 ml PO DAILY PRN PRN Reason: Constipation Risperidone (Risperidone Oral Trixie 1 Mg/Ml Solution) 1 mg PO BID [facility] Last Admin: 09/20/23 08:51 Dose: 1 mg Trazodone HCl (Trazodone Hcl 50 Mg Tablet) 50 mg PO BEDTIME MRX1 PRN PRN Reason: Insomnia Last Admin: 09/17/23 20:38 Dose: 50 mg Allergies Allergies Allergy/AdvReac Type Severity Reaction Status Date / Time No Known Allergies Allergy Verified 09/12/23 15:36 Assessment & Plan Assessment & Plan (1) Major neurocognitive disorder: Status: Acute Code(s): F03.90 - Unspecified dementia, unspecified severity, without behavioral disturbance, psychotic disturbance, mood disturbance, and anxiety Plan Ms. Mata is a 77 year-old woman with hx of dementia who resides at [facility]. She was sent to [facility] due to increase combative behaviors towards staff and declining to take medications. On the unit, pt presents with paranoid delusions, thinking someone is stealing from her and people are talking about her. She is not oriented to place, month, year and situation. She continues to decline medications. Her HCP is invoked. May need HCP to be affirmed. PLAN 09/16 continue risperidone 1mg po BID 09/17 continue tx. Reason for continued inpatient stay Substantial Risk for: inability to function Time Spent With Patient Time: Total time managing care of this patient today ____ minutes.
[2023-09-20 20:00] VITALS: RESP 16
[2023-09-20] MEDS: Donepezil HCl 5 MG TABLET PO (20:07)
[2023-09-21 08:00] VITALS: BP 121/65; PULSE 92; RESP 18; TEMP 36.7; O2SAT 97
[2023-09-21 08:27] VITALS: BP 121/65
[2023-09-21] MEDS: risperiDONE Oral Sol 1 MG/ML SOLUTION PO ×2 (08:27→20:11)
[2023-09-21] MEDS: amLODIPine Besylate 2.5 MG TABLET PO (08:27)
[2023-09-21] MEDS: Apixaban 5 MG TABLET PO ×2 (08:27→20:11)
--- NOTE | 2023-09-21 10:19 | P.PNPSI_ITS ---
Subjective Subjective Date of Service: 09/21/23 Reason For Visit: Section 12, HI/SI, refusing meds Subjective Notes: Conditional Voluntary Healthcare Proxy: Yes Interim History: Pt continues to present with paranoia, along with fact that orientation is impaired at baseline. She reports people stealing from her. She reports food is good and thinks she comes every morning to work here. She slept most of the night. No SI/HI. No aggression. She is accepting medications. Medication Compliance: Yes Diagnostics Vital Signs (24Hr): Vital Signs - 24 hr 09/20/23 20:00 09/21/23 08:00 09/21/23 08:27 Temperature 98.0 F Pulse Rate 92 Respiratory Rate 16 18 Blood Pressure 121/65 121/65 Pulse Oximetry 97 Oxygen Delivery Method Room Air BMI result Body Mass Index 30.7 Labs 09/12/23 15:51 09/12/23 15:51 Medications Medications Current Medications Acetaminophen (Acetaminophen 325 Mg Tablet) 650 mg PO Q6H PRN PRN Reason: Headache/Pain Mild Scale (1-3) Al Hydroxide/Mg Hydroxide (Magnesium Hydrox/Alum Hydrox 30 Ml Oral.Susp) 30 ml PO Q6H PRN PRN Reason: Heartburn/Nausea Amlodipine Besylate (Amlodipine Besylate 2.5 Mg Tablet) 2.5 mg PO DAILY [facility]; Protocol Last Admin: 09/21/23 08:27 Dose: 2.5 mg Apixaban (Apixaban 5 Mg Tablet) 5 mg PO BID [facility] Last Admin: 09/21/23 08:27 Dose: 5 mg Donepezil HCl (Donepezil Hcl 5 Mg Tablet) 5 mg PO BEDTIME [facility] Last Admin: 09/20/23 20:07 Dose: 5 mg Magnesium Hydroxide (Milk Of Magnesia 30 Ml Oral.Susp) 30 ml PO DAILY PRN PRN Reason: Constipation Risperidone (Risperidone Oral Trixie 1 Mg/Ml Solution) 1 mg PO BID [facility] Last Admin: 09/21/23 08:27 Dose: 1 mg Trazodone HCl (Trazodone Hcl 50 Mg Tablet) 50 mg PO BEDTIME MRX1 PRN PRN Reason: Insomnia Last Admin: 09/17/23 20:38 Dose: 50 mg Allergies Allergies Allergy/AdvReac Type Severity Reaction Status Date / Time No Known Allergies Allergy Verified 09/12/23 15:36 Assessment & Plan Assessment & Plan (1) Major neurocognitive disorder: Status: Acute Code(s): F03.90 - Unspecified dementia, unspecified severity, without behavioral disturbance, psychotic disturbance, mood disturbance, and anxiety Plan Ms. Mata is a 77 year-old woman with hx of dementia who resides at [facility]. She was sent to [facility] due to increase combative behaviors towards staff and declining to take medications. On the unit, pt presents with paranoid delusions, thinking someone is stealing from her and people are talking about her. She is not oriented to place, month, year and situation. She continues to decline medications. Her HCP is invoked. May need HCP to be affirmed. PLAN 09/16 continue risperidone 1mg po BID 09/17 continue tx. 09/18 restarted aricept 09/19 continue tx. 09/20 continue tx. Reason for continued inpatient stay Substantial Risk for: inability to function Time Spent With Patient Time: Total time managing care of this patient today ____ minutes.
[2023-09-21 20:00] VITALS: BP 135/67; PULSE 113; TEMP 36.6; O2SAT 96
[2023-09-21] MEDS: Donepezil HCl 5 MG TABLET PO (20:11)
[2023-09-22 08:00] VITALS: BP 126/57; PULSE 101; RESP 18; TEMP 36.6; O2SAT 99
[2023-09-22 08:31] VITALS: BP 126/57
[2023-09-22] MEDS: Apixaban 5 MG TABLET PO ×2 (08:31→21:15)
[2023-09-22] MEDS: amLODIPine Besylate 2.5 MG TABLET PO (08:31)
[2023-09-22] MEDS: risperiDONE Oral Sol 1 MG/ML SOLUTION PO ×2 (08:31→21:16)
--- NOTE | 2023-09-22 08:57 | P.PNPSI_ITS ---
Subjective Subjective Date of Service: 09/22/23 Reason For Visit: Section 12, HI/SI, refusing meds Subjective Notes: Conditional Voluntary Interim History: Pt is sleeping well. She is guarded at times due to confusion- thinks that she is at work and when nurses asks to check blood pressure or skin checks, she becomes guarded but no combative nor aggressive behaviors. She has been taking medications as prescribed. Review of Systems Review of Systems Yes all other systems are reviewed and are negative (denies) Mental Status Exam Mental Status Exam Narrative: Appearance: wearing casual clothing, good hygiene, in NAD Behavior: guarded and irritable, later, bit calmer and more trusting Psychomotor: no agitation or retardation noted Speech: mostly clear, regular rate/rhythm/volume, spontaneous TP: disorganized at times TC: wanting to go home Mood: okay Affect: less irritable SI: denies HI: none VH/AH: appears internally preoccupied Delusions: paranoid/persecutory delusions Insight/judgment: impaired x 2. Memory/cog: alert, not oriented to place, situation, month, date. Diagnostics Vital Signs (24Hr): Vital Signs - 24 hr 09/21/23 20:00 09/22/23 08:00 09/22/23 08:31 Temperature 97.8 F 97.8 F Pulse Rate 113 H 101 H Respiratory Rate 18 Blood Pressure 135/67 126/57 L 126/57 L Pulse Oximetry 96 99 Oxygen Delivery Method Room Air Room Air BMI result Body Mass Index 30.7 Labs 09/12/23 15:51 09/12/23 15:51 Medications Medications Current Medications Acetaminophen (Acetaminophen 325 Mg Tablet) 650 mg PO Q6H PRN PRN Reason: Headache/Pain Mild Scale (1-3) Al Hydroxide/Mg Hydroxide (Magnesium Hydrox/Alum Hydrox 30 Ml Oral.Susp) 30 ml PO Q6H PRN PRN Reason: Heartburn/Nausea Amlodipine Besylate (Amlodipine Besylate 2.5 Mg Tablet) 2.5 mg PO DAILY [facility]; Protocol Last Admin: 09/22/23 08:31 Dose: 2.5 mg Apixaban (Apixaban 5 Mg Tablet) 5 mg PO BID [facility] Last Admin: 09/22/23 08:31 Dose: 5 mg Donepezil HCl (Donepezil Hcl 5 Mg Tablet) 5 mg PO BEDTIME [facility] Last Admin: 09/21/23 20:11 Dose: 5 mg Magnesium Hydroxide (Milk Of Magnesia 30 Ml Oral.Susp) 30 ml PO DAILY PRN PRN Reason: Constipation Risperidone (Risperidone Oral Trixie 1 Mg/Ml Solution) 1 mg PO BID [facility] Last Admin: 09/22/23 08:31 Dose: 1 mg Trazodone HCl (Trazodone Hcl 50 Mg Tablet) 50 mg PO BEDTIME MRX1 PRN PRN Reason: Insomnia Last Admin: 09/17/23 20:38 Dose: 50 mg Allergies Allergies Allergy/AdvReac Type Severity Reaction Status Date / Time No Known Allergies Allergy Verified 09/12/23 15:36 Assessment & Plan Assessment & Plan (1) Major neurocognitive disorder: Status: Acute Code(s): F03.90 - Unspecified dementia, unspecified severity, without behavioral disturbance, psychotic disturbance, mood disturbance, and anxiety Plan Ms. Mata is a 77 year-old woman with hx of dementia who resides at [facility]. She was sent to [facility] due to increase combative behaviors towards staff and declining to take medications. On the unit, pt presents with paranoid delusions, thinking someone is stealing from her and people are talking about her. She is not oriented to place, month, year and situation. She continues to decline medications. Her HCP is invoked. May need HCP to be affirmed. PLAN 09/16 continue risperidone 1mg po BID 09/17 continue tx. 09/18 restarted aricept 09/19 continue tx. 09/20 continue tx. 09/21 continue tx. Reason for continued inpatient stay Substantial Risk for: inability to function Time Spent With Patient Time: Total time managing care of this patient today ____ minutes.
[2023-09-22 20:00] VITALS: BP 105/69; PULSE 85; RESP 18; TEMP 35.9; O2SAT 97
[2023-09-22] MEDS: Donepezil HCl 5 MG TABLET PO (21:15)
[2023-09-23 07:47] VITALS: BP 155/75; PULSE 85; RESP 18; TEMP 36.5; O2SAT 97
[2023-09-23 08:15] VITALS: BP 155/75
[2023-09-23] MEDS: Apixaban 5 MG TABLET PO ×2 (08:15→21:01)
[2023-09-23] MEDS: amLODIPine Besylate 2.5 MG TABLET PO (08:15)
[2023-09-23] MEDS: risperiDONE Oral Sol 1 MG/ML SOLUTION PO ×2 (08:15→21:01)
--- NOTE | 2023-09-23 19:59 | HO.PSYCHPN ---
Subjective Subjective Date of Service: 09/23/23 Reason For Visit: Section 12, HI/SI, refusing meds Subjective Notes: Conditional Voluntary Healthcare Proxy: Yes Interim History: Pt is sleeping well. She appears slightly calmer, less paranoid towards staff. However, she is not oriented to place, situation, month or year. She is eating well. She is visible, believes she is at work and came this morning. She has rash bilat arms and legs. She reports is itchy- may add hydrocortisone. Diagnostics Vital Signs (24Hr): Vital Signs - 24 hr 09/22/23 20:00 09/23/23 07:47 09/23/23 08:15 Temperature 96.7 F L 97.7 F Pulse Rate 85 85 Respiratory Rate 18 18 Blood Pressure 105/69 155/75 H 155/75 H Pulse Oximetry 97 97 Oxygen Delivery Method Room Air Room Air BMI result Body Mass Index 30.7 Labs 09/12/23 15:51 09/12/23 15:51 Medications Medications Current Medications Acetaminophen (Acetaminophen 325 Mg Tablet) 650 mg PO Q6H PRN PRN Reason: Headache/Pain Mild Scale (1-3) Al Hydroxide/Mg Hydroxide (Magnesium Hydrox/Alum Hydrox 30 Ml Oral.Susp) 30 ml PO Q6H PRN PRN Reason: Heartburn/Nausea Amlodipine Besylate (Amlodipine Besylate 2.5 Mg Tablet) 2.5 mg PO DAILY [facility]; Protocol Last Admin: 09/23/23 08:15 Dose: 2.5 mg Apixaban (Apixaban 5 Mg Tablet) 5 mg PO BID [facility] Last Admin: 09/23/23 08:15 Dose: 5 mg Donepezil HCl (Donepezil Hcl 5 Mg Tablet) 5 mg PO BEDTIME [facility] Last Admin: 09/22/23 21:15 Dose: 5 mg Magnesium Hydroxide (Milk Of Magnesia 30 Ml Oral.Susp) 30 ml PO DAILY PRN PRN Reason: Constipation Risperidone (Risperidone Oral Trixie 1 Mg/Ml Solution) 1 mg PO BID [facility] Last Admin: 09/23/23 08:15 Dose: 1 mg Trazodone HCl (Trazodone Hcl 50 Mg Tablet) 50 mg PO BEDTIME MRX1 PRN PRN Reason: Insomnia Last Admin: 09/17/23 20:38 Dose: 50 mg Allergies Allergies Allergy/AdvReac Type Severity Reaction Status Date / Time No Known Allergies Allergy Verified 09/12/23 15:36 Assessment & Plan Assessment & Plan (1) Major neurocognitive disorder: Status: Acute Code(s): F03.90 - Unspecified dementia, unspecified severity, without behavioral disturbance, psychotic disturbance, mood disturbance, and anxiety Plan Ms. Mata is a 77 year-old woman with hx of dementia who resides at [facility]. She was sent to [facility] due to increase combative behaviors towards staff and declining to take medications. On the unit, pt presents with paranoid delusions, thinking someone is stealing from her and people are talking about her. She is not oriented to place, month, year and situation. She continues to decline medications. Her HCP is invoked. May need HCP to be affirmed. PLAN 09/16 continue risperidone 1mg po BID 09/17 continue tx. 09/18 restarted aricept 09/19 continue tx. 09/20 continue tx. 09/21 continue tx. 09/22 continue tx. add hydrocortisone arms and legs. Reason for continued inpatient stay Substantial Risk for: inability to function Time Spent With Patient Time: Total time managing care of this patient today ____ minutes.
[2023-09-23 20:00] VITALS: BP 117/57; PULSE 89; RESP 16; TEMP 36.2; O2SAT 98
[2023-09-23] MEDS: Donepezil HCl 5 MG TABLET PO (21:01)
[2023-09-24 07:00] VITALS: BMI 30.3
[2023-09-24 08:00] VITALS: BP 127/61; PULSE 76; RESP 16; TEMP 36.6; O2SAT 96
[2023-09-24] MEDS: amLODIPine Besylate 2.5 MG TABLET PO (08:36)
[2023-09-24] MEDS: Apixaban 5 MG TABLET PO ×2 (08:36→20:19)
[2023-09-24] MEDS: risperiDONE Oral Sol 1 MG/ML SOLUTION PO ×2 (08:36→20:19)
--- NOTE | 2023-09-24 15:51 | P.PNPSI_ITS ---
Subjective Subjective Date of Service: 09/24/23 Reason For Visit: Section 12, HI/SI, refusing meds Subjective Notes: Conditional Voluntary Interim History: Pt is sleeping well. She appears slightly calmer, less paranoid towards staff. However, she is not oriented to place, situation, month or year. She is eating well. She is visible, believes she is at work and came this morning. Medication Compliance: Yes Review of Systems Review of Systems Yes all other systems are reviewed and are negative (denies) Mental Status Exam Mental Status Exam Narrative: Appearance: wearing casual clothing, good hygiene, in NAD Behavior: guarded and irritable, later, bit calmer and more trusting Psychomotor: no agitation or retardation noted Speech: mostly clear, regular rate/rhythm/volume, spontaneous TP: disorganized at times TC: wanting to go home Mood: okay Affect: less irritable SI: denies HI: none VH/AH: appears internally preoccupied Delusions: paranoid/persecutory delusions Insight/judgment: impaired x 2. Memory/cog: alert, not oriented to place, situation, month, date. Diagnostics Vital Signs (24Hr): Vital Signs - 24 hr 09/23/23 20:00 09/24/23 08:00 Temperature 97.2 F 98 F Pulse Rate 89 76 Respiratory Rate 16 16 Blood Pressure 117/57 L 127/61 Pulse Oximetry 98 96 Oxygen Delivery Method Room Air Room Air BMI result Body Mass Index 30.3 Labs 09/12/23 15:51 09/12/23 15:51 Medications Medications Current Medications Acetaminophen (Acetaminophen 325 Mg Tablet) 650 mg PO Q6H PRN PRN Reason: Headache/Pain Mild Scale (1-3) Al Hydroxide/Mg Hydroxide (Magnesium Hydrox/Alum Hydrox 30 Ml Oral.Susp) 30 ml PO Q6H PRN PRN Reason: Heartburn/Nausea Amlodipine Besylate (Amlodipine Besylate 2.5 Mg Tablet) 2.5 mg PO DAILY [facility]; Protocol Last Admin: 09/24/23 08:36 Dose: 2.5 mg Apixaban (Apixaban 5 Mg Tablet) 5 mg PO BID [facility] Last Admin: 09/24/23 08:36 Dose: 5 mg Donepezil HCl (Donepezil Hcl 5 Mg Tablet) 5 mg PO BEDTIME [facility] Last Admin: 09/23/23 21:01 Dose: 5 mg Hydrocortisone (Hydrocortisone 1 % Ointment 28.35 Gm Tube) 1 appl TOPICAL DAILY [facility]; Protocol Last Admin: 09/24/23 13:31 Dose: Not Given Magnesium Hydroxide (Milk Of Magnesia 30 Ml Oral.Susp) 30 ml PO DAILY PRN PRN Reason: Constipation Risperidone (Risperidone Oral Trixie 1 Mg/Ml Solution) 1 mg PO TID [facility] Last Admin: 09/24/23 15:10 Dose: Not Given Trazodone HCl (Trazodone Hcl 50 Mg Tablet) 50 mg PO BEDTIME MRX1 PRN PRN Reason: Insomnia Last Admin: 09/17/23 20:38 Dose: 50 mg Allergies Allergies Allergy/AdvReac Type Severity Reaction Status Date / Time No Known Allergies Allergy Verified 09/12/23 15:36 Assessment & Plan Assessment & Plan (1) Major neurocognitive disorder: Status: Acute Code(s): F03.90 - Unspecified dementia, unspecified severity, without behavioral disturbance, psychotic disturbance, mood disturbance, and anxiety Plan Ms. Mata is a 77 year-old woman with hx of dementia who resides at [facility]. She was [place] [facility] due to increase combative behaviors towards staff and declining to take medications. On the unit, pt presents with paranoid delusions, thinking someone is stealing from her and people are talking about her. She is not oriented to place, month, year and situation. She continues to decline medications. Her HCP is invoked. May need HCP to be affirmed. PLAN 09/16 continue risperidone 1mg po BID 09/17 continue tx. 09/18 restarted aricept 09/19 continue tx. 09/20 continue tx. 09/21 continue tx. 09/22 continue tx. add hydrocortisone arms and legs. 09/23 increase risperidone 1mg po TID Reason for continued inpatient stay Substantial Risk for: inability to function Time Spent With Patient Time: Total time managing care of this patient today ____ minutes.
[2023-09-24] MEDS: Hydrocortisone 1 % Ointment 28.35 GM TUBE 1 APPL TOPICAL (18:10)
[2023-09-24 20:00] VITALS: BP 117/55; PULSE 88; RESP 18; TEMP 36.3; O2SAT 97
[2023-09-24] MEDS: Donepezil HCl 5 MG TABLET PO (20:19)
[2023-09-25 08:00] VITALS: BP 125/61; PULSE 76; RESP 18; TEMP 37.5; O2SAT 97
[2023-09-25] MEDS: risperiDONE Oral Sol 1 MG/ML SOLUTION PO ×2 (08:47→20:20)
[2023-09-25 08:48] VITALS: BP 125/61
[2023-09-25] MEDS: amLODIPine Besylate 2.5 MG TABLET PO (08:48)
[2023-09-25] MEDS: Apixaban 5 MG TABLET PO ×2 (08:48→20:20)
--- NOTE | 2023-09-25 13:50 | HO.PSYCHPN ---
Subjective Subjective Date of Service: 09/25/23 Reason For Visit: Section 12, HI/SI, refusing meds Subjective Notes: Conditional Voluntary Interim History: The nursing staff reported the patient slept 8 hours she had been compliant with medication. On interview the patient denies new symptoms, waiting for placement. The oncology social work reported that she will be discharged next Thursday. Mental Status Exam Mental Status Exam Patient Appearance: Appropriate Patient Orientation: Person and Situation Level of Consciousness: Awake and Appropriate Patient Behavior: Guarded and Passive Mood Description: Withdrawn Affect Description: Constricted Patient Cognition Impaired: Yes Ability to Follow Directions: Good Speech Pattern: Clear Hallucinations: None Delusions: Ideas of Reference Thought Process: Distracted and Slowed Thinking Thought Content: positive for [place] and positive for Poverty of Content Judgement: Fair Diagnostics Vital Signs (24Hr): Vital Signs - 24 hr 09/24/23 20:00 09/25/23 08:00 09/25/23 08:48 Temperature 97.3 F 99.5 F Pulse Rate 88 76 Respiratory Rate 18 18 Blood Pressure 117/55 L 125/61 125/61 Pulse Oximetry 97 97 Oxygen Delivery Method Room Air Room Air BMI result Body Mass Index 30.3 Labs 09/12/23 15:51 09/12/23 15:51 Medications Medications Current Medications Acetaminophen (Acetaminophen 325 Mg Tablet) 650 mg PO Q6H PRN PRN Reason: Headache/Pain Mild Scale (1-3) Al Hydroxide/Mg Hydroxide (Magnesium Hydrox/Alum Hydrox 30 Ml Oral.Susp) 30 ml PO Q6H PRN PRN Reason: Heartburn/Nausea Amlodipine Besylate (Amlodipine Besylate 2.5 Mg Tablet) 2.5 mg PO DAILY [facility]; Protocol Last Admin: 09/25/23 08:48 Dose: 2.5 mg Apixaban (Apixaban 5 Mg Tablet) 5 mg PO BID [facility] Last Admin: 09/25/23 08:48 Dose: 5 mg Donepezil HCl (Donepezil Hcl 5 Mg Tablet) 5 mg PO BEDTIME [facility] Last Admin: 09/24/23 20:19 Dose: 5 mg Hydrocortisone (Hydrocortisone 1 % Ointment 28.35 Gm Tube) 1 appl TOPICAL DAILY [facility]; Protocol Last Admin: 09/25/23 08:48 Dose: 1 appl Magnesium Hydroxide (Milk Of Magnesia 30 Ml Oral.Susp) 30 ml PO DAILY PRN PRN Reason: Constipation Risperidone (Risperidone Oral Trixie 1 Mg/Ml Solution) 1 mg PO TID [facility] Last Admin: 09/25/23 08:47 Dose: 1 mg Trazodone HCl (Trazodone Hcl 50 Mg Tablet) 50 mg PO BEDTIME MRX1 PRN PRN Reason: Insomnia Last Admin: 09/17/23 20:38 Dose: 50 mg Allergies Allergies Allergy/AdvReac Type Severity Reaction Status Date / Time No Known Allergies Allergy Verified 09/12/23 15:36 Assessment & Plan Assessment & Plan (1) Major neurocognitive disorder: Status: Acute Code(s): F03.90 - Unspecified dementia, unspecified severity, without behavioral disturbance, psychotic disturbance, mood disturbance, and anxiety Plan Ms. Mata is a 77 year-old woman with hx of dementia who resides at [facility]. She was [place] [facility] due to increase combative behaviors towards staff and declining to take medications. On the unit, pt presents with paranoid delusions, thinking someone is stealing from her and people are talking about her. She is not oriented to place, month, year and situation. She continues to decline medications. Her HCP is invoked. May need HCP to be affirmed. PLAN 09/16 continue risperidone 1mg po BID 09/17 continue tx. 09/18 restarted aricept 09/19 continue tx. 09/20 continue tx. 09/21 continue tx. 09/22 continue tx. add hydrocortisone arms and legs. 09/23 increase risperidone 1mg po TID 09/24 continue same treatment Reason for continued inpatient stay Substantial Risk for: inability to function, rapid decompensation and med/psych decompensation Time Spent With Patient Time: Total time managing care of this patient today ___20_ minutes.
[2023-09-25 19:01] VITALS: BP 125/59; PULSE 80; RESP 18; TEMP 35.6; O2SAT 98
[2023-09-25] MEDS: traZODone HCL 50 MG TABLET PO (20:20)
[2023-09-25] MEDS: Donepezil HCl 5 MG TABLET PO (20:20)
[2023-09-26 08:00] VITALS: BP 106/53; PULSE 82; RESP 18; TEMP 36.2; O2SAT 95
[2023-09-26] MEDS: risperiDONE Oral Sol 1 MG/ML SOLUTION PO ×3 (08:30→20:18)
[2023-09-26 08:34] VITALS: BP 106/53
[2023-09-26] MEDS: Apixaban 5 MG TABLET PO ×2 (08:34→20:18)
--- NOTE | 2023-09-26 17:57 | P.PNPSI_ITS ---
Subjective Subjective Date of Service: 09/26/23 Reason For Visit: Section 12, HI/SI, refusing meds Interim History: Met with patient; discussed with team Patient pleasant on approach and says she is good. She starts talking how she worked various jobs and her skills and seemed to imply she continues to work. She said she worked for the [employer] and that her father still does; designer writer asked if her father was still working for the company in his 90s and she replied that he does. Staff reports that she is overall calmer; continue to take medications. Mental Status Exam Mental Status Exam Patient Appearance: Appropriate Patient Orientation: Person and Place Level of Consciousness: Awake and Appropriate Patient Behavior: Cooperative, Passive and Good Eye Contact Mood Description: Calm Affect Description: Constricted Patient Cognition Impaired: Yes Ability to Follow Directions: Fair Speech Pattern: Clear Hallucinations: None Delusions: Present Thought Process: Distracted and Slowed Thinking Thought Content: positive for [place] and positive for Perseveration Judgement and Insight: Impaired Diagnostics Vital Signs (24Hr): Vital Signs - 24 hr 09/25/23 19:01 09/26/23 08:00 09/26/23 08:34 Temperature 96.0 F L 97.2 F Pulse Rate 80 82 Respiratory Rate 18 18 Blood Pressure 125/59 L 106/53 L 106/53 L Pulse Oximetry 98 95 Oxygen Delivery Method Room Air Room Air BMI result Body Mass Index 30.3 Labs 09/12/23 15:51 09/12/23 15:51 Medications Medications Current Medications Acetaminophen (Acetaminophen 325 Mg Tablet) 650 mg PO Q6H PRN PRN Reason: Headache/Pain Mild Scale (1-3) Al Hydroxide/Mg Hydroxide (Magnesium Hydrox/Alum Hydrox 30 Ml Oral.Susp) 30 ml PO Q6H PRN PRN Reason: Heartburn/Nausea Amlodipine Besylate (Amlodipine Besylate 2.5 Mg Tablet) 2.5 mg PO DAILY KOBI; Protocol Last Admin: 09/26/23 08:34 Dose: Not Given Apixaban (Apixaban 5 Mg Tablet) 5 mg PO BID KOBI Last Admin: 09/26/23 08:34 Dose: 5 mg Donepezil HCl (Donepezil Hcl 5 Mg Tablet) 5 mg PO BEDTIME KOBI Last Admin: 09/25/23 20:20 Dose: 5 mg Hydrocortisone (Hydrocortisone 1 % Ointment 28.35 Gm Tube) 1 appl TOPICAL DAILY KOBI; Protocol Last Admin: 09/26/23 08:36 Dose: Not Given Magnesium Hydroxide (Milk Of Magnesia 30 Ml Oral.Susp) 30 ml PO DAILY PRN PRN Reason: Constipation Risperidone (Risperidone Oral Trixie 1 Mg/Ml Solution) 1 mg PO TID KOBI Last Admin: 09/26/23 15:00 Dose: 1 mg Trazodone HCl (Trazodone Hcl 50 Mg Tablet) 50 mg PO BEDTIME MRX1 PRN PRN Reason: Insomnia Last Admin: 09/25/23 20:20 Dose: 50 mg Allergies Allergies Allergy/AdvReac Type Severity Reaction Status Date / Time No Known Allergies Allergy Verified 09/12/23 15:36 Assessment & Plan Assessment & Plan (1) Major neurocognitive disorder: Status: Acute Code(s): F03.90 - Unspecified dementia, unspecified severity, without behavioral disturbance, psychotic disturbance, mood disturbance, and anxiety Plan Ms. Mata is a 77 year-old woman with hx of dementia who resides at [facility]. She was sent to [facility] ED due to increase combative behaviors towards staff and declining to take medications. On the unit, pt presents with paranoid delusions, thinking someone is stealing from her and people are talking about her. She is not oriented to place, month, year and situation. She continues to decline medications. Her HCP is invoked. May need HCP to be affirmed. PLAN 09/16 continue risperidone 1mg po BID 09/17 continue tx. 09/18 restarted aricept 09/19 continue tx. 09/20 continue tx. 09/21 continue tx. 09/22 continue tx. add hydrocortisone arms and legs. 09/23 increase risperidone 1mg po TID 09/24 continue same treatment 09/25 continue treatment plan Patient educated on: diagnosis Informed Consent: does not understand Reason for continued inpatient stay Substantial Risk for: inability to function Time Spent With Patient Time: Total time managing care of this patient today ____ minutes.
[2023-09-26 20:00] VITALS: BP 121/61; PULSE 82; TEMP 36; O2SAT 94
[2023-09-26] MEDS: Donepezil HCl 5 MG TABLET PO (20:18)
[2023-09-27 08:20] VITALS: BP 111/63; PULSE 83; RESP 16; TEMP 36.3; O2SAT 96
[2023-09-27 08:32] VITALS: BP 111/63
[2023-09-27] MEDS: amLODIPine Besylate 2.5 MG TABLET PO (08:32)
[2023-09-27] MEDS: Apixaban 5 MG TABLET PO ×2 (08:32→19:38)
[2023-09-27] MEDS: risperiDONE Oral Sol 1 MG/ML SOLUTION PO ×3 (08:34→19:39)
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
[2023-09-27 19:36] VITALS: BP 137/70; PULSE 76; RESP 16; TEMP 36; O2SAT 95
[2023-09-27] MEDS: Donepezil HCl 5 MG TABLET PO (19:38)
[2023-09-27] MEDS: traZODone HCL 50 MG TABLET PO (23:12)
[2023-09-28 08:15] VITALS: BP 114/72; PULSE 80; RESP 18; TEMP 36.2; O2SAT 96
--- NOTE | 2023-09-28 08:31 | P.DS_ITS ---
DS: Providers Provider Date of Service: 09/28/23 Date of admission: 09/14/23 13:29 Primary care physician: Mikie Gutierrez MD DS: Diagnosis Discharge Diagnosis (1) Major neurocognitive disorder: Status: Acute DS: Medications Discharge Medications Home Medications: Previous Rx's ?Medication ?Instructions ?Recorded amlodipine 2.5 mg tablet 2.5 mg PO DAILY 30 days #30 tabs 09/25/23 apixaban 5 mg tablet (Eliquis) 5 mg PO BID 30 days #60 tabs 09/25/23 donepezil 5 mg tablet 5 mg PO BEDTIME 30 days #30 tabs 09/25/23 hydrocortisone 1 % topical ointment 1 appl topical DAILY 30 days #5 09/25/23 grams risperidone 1 mg/mL oral solution 1 mg PO TID 30 days #90 mL 09/25/23 (Risperdal) trazodone 50 mg tablet 50 mg PO BEDTIME MRX1 PRN Insomnia 09/25/23 30 days #60 tabs Mental Status Exam Mental Status Exam Narrative: Appearance: wearing casual clothing, good hygiene, in NAD Behavior: guarded and irritable, later, bit calmer and more trusting Psychomotor: no agitation or retardation noted Speech: mostly clear, regular rate/rhythm/volume, spontaneous TP: disorganized at times TC: wanting to go home Mood: okay Affect: less irritable SI: denies HI: none VH/AH:none Delusions: much less paranoid/persecutory delusions Insight/judgment: impaired x 2. Memory/cog: alert, not oriented to place, situation, month, date. Data Data Completed and Pending Completed studies during hospitalization [Text1]: 09/12/23 15:50 Urine clean catch Urine Culture - Final DS: Summary Hospital Course Hospital Course: Mrs. Mata is a 77 year-old woman with hx of dementia who resides at [facility] due to increase combative behaviors towards peers and staff threatening to harm them. 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 In the ED, work up included: cbc without leukocytosis, normocytic anemia although MCV on high end of normal; CMP no electrolyte abnormalities, BUN 20, Cr 1.17 with decreased creatinine clearance 34.8, GFR 45. LFT wnl. UA with small leukocytes but culture is negative. Utox is negative. EKG normal sinus rhythm, non specific T wave, Qtc 451. On the unit, pt presents as guarded and irritable. She reports she paid her dues to be here, they are stealing from me. She does not know where she is. She is not able to identified that this is a hospital. She reports people here are talking about her. She reports everyone here despises me! they talk about me all day long. She points at another patient and states: I have known her for years, she is the only friend I have here. However, she has not seen this patient before. She has refuses medications. When asked: everyone is forcing medications, tht's personal information I am not giving you! HOSPITAL COURSE On the unit, pt was admitted on CV signed by invoked HCP. Pt at baseline not oriented to month, year, date or situation. She presented with irritable edge, with paranoid ideas of people stealing from her. She thought she was at work almost every day and she would not retain any information from day prior. She initially declined medications, but later agreed to take them. She was started on risperidone for paranoia, which she tolerated well and was titrated to 1mg po TID. She was restarted on aricept. Her affect gradually presented as much calmer and pleasant although orientation impaired. She did not have episodes of disruptive or combative behaviors. She was eating and sleeping well. Family meeting with cousin who is HCP to discuss progress and placement. VS stable. Status at Discharge Cognitive/behavioral status at discharge: Pt with brighter, not oriented to place, month, year or situation at baseline. Pt sleeping and eating well. Less paranoid ideas of people stealing from her. No aggression towards self or others. Functional status at discharge: independent ambulation Overall status at discharge: patient is progressing back to baseline Time Spent with Patient Time attestation: Total time managing care of this patient today ___35_ minutes. Time spent: Greater than 30 minutes Discharge Plan Discharge Anticipated Discharge Date/Time: 09/28/23 08:28 Patient Disposition: Home, Self-Care Discharge Diagnosis: Major Neurocognitive Disorder Referrals: [facility] [Other] - 09/28/23 11:30 am (Transfer to [facility] on Thursday at [address]. Dr Janna Castellanos's team at [facility] to provide primary care and will see you during the week. ) Brenna Davis NP [Other] - 09/29/23 (Brenna to meet with you at [facility] on Thursday. ) Discharge Medications: New donepezil 5 mg Tablet 5 mg PO BEDTIME 30 Days Qty: 30 0RF Eliquis 5 mg Tablet 5 mg PO BID 30 Days Qty: 60 0RF trazodone 50 mg Tablet 50 mg PO BEDTIME MRX1 PRN (Reason: Insomnia) 30 Days Qty: 60 0RF hydrocortisone 1 % Ointment 1 appl topical DAILY 30 Days Qty: 5 0RF Protocol: Apply to: Apply to: arms and legs amlodipine 2.5 mg Tablet 2.5 mg PO DAILY 30 Days Qty: 30 0RF Protocol: Hold for SBP< HOLD for SBP < : 90 risperidone [Risperdal] 1 mg/mL Solution 1 mg PO TID 30 Days Qty: 90 0RF Discontinued divalproex 125 mg tablet,delayed release (DR/EC) 125 mg PO QAM sertraline 50 mg tablet 50 mg PO DAILY Eliquis 5 mg tablet 5 mg PO BID trazodone 50 mg tablet 50 mg PO BEDTIME Qty: 30 0RF Rx Instructions: take one half tab two times daily at 8am and 2pm Discharge Orders: Discharge Order (Routine); Ordered 09/28/23 Ordered By: Autumn Sanchez Diet: Regular diet Activity on Discharge: As tolerated Stand Alone Forms: Patient Portal Discharge page Print Language: Croatian Care Plan Goals: 1. Maintain mood 2. No aggression towards self or others Health Concerns: Follow up with PCP for routine care Plan of Treatment: 1. Take medications as prescribed. 2. Go to nearest ED or call 911 in event of emergency Assessment: Pt with brighter, non labile affect. No SI/HI. residual paranoid delusions. Not oriented to place, month, year, or situation at baseline. No aggression towards self or others.
[2023-09-28] MEDS: amLODIPine Besylate 2.5 MG TABLET PO (08:37)
[2023-09-28] MEDS: Apixaban 5 MG TABLET PO (08:37)
[2023-09-28] MEDS: risperiDONE Oral Sol 1 MG/ML SOLUTION PO (08:37)
== END 2023-09-28 11:27 | disposition home or self-care (01) | DRG 884 ==
LOC: HO.ED 19:35 → HO.PGERI 09-14 13:30
PROVIDERS: Admitting Provider Social Worker; Emergency Provider Emergency Medicine; PCP Internal Medicine; Visit Provider Social Worker
DX: F03.90 Unspecified dementia, unspecified severity, without behavioral disturbance, psychotic disturbance, mood disturbance, and anxiety (principal); Z91.148 Patient's other noncompliance with medication regimen for other reason; Z79.01 Long term (current) use of anticoagulants; Z79.899 Other long term (current) drug therapy
CPT/HCPCS: 36415; 80053; 80307; 81001; 85025; 87086; 93005; 99285; S9485

== ENCOUNTER 2023-09-14 13:29 | Outpatient (BNV) | payer MEDICARE, OTHER, SELFPAY | END 2023-09-14 15:14 | PROVIDERS: Admitting Provider Social Worker; Emergency Provider Emergency Medicine; PCP Internal Medicine; Visit Provider Internal Medicine Cardiovascular Disease | DX: R94.31 Abnormal electrocardiogram [ECG] [EKG] (principal) | CPT/HCPCS: 93010 ==

== ENCOUNTER 2023-12-18 11:07 | Emergency (ER) | payer OTHER, SELFPAY ==
[2023-12-18 11:11] VITALS: BP 137/96; BP 140/71; PULSE 70; PULSE 83; RESP 16; TEMP 36.6; O2SAT 97; BMI 29.6
--- NOTE | 2023-12-18 11:24 | ED_ITS ---
HPI - General Adult General Chief complaint: Behavioral Concerns Stated complaint: aggressive behavior from assisted living (dementia Time Seen by Provider: 12/18/23 11:24 Source: patient and EMS Mode of arrival: EMS Limitations: physical limitation (patient has a history of dementia) History of Present Illness ED Provider: Carie Valentin PA-C HPI narrative: Patient is a 78 year old assigned female at with a history of DVT and dementia presenting to the emergency department today with reports of increased verbal and physical agression as well as not taking her medication. Patient states that it hurts her stomach when she takes her medications so she hasn't been. Patient denies any dizziness, lightheadedness, abdominal pain, nausea, vomiting, fever, chills, blurry vision, double vision, loss of vision, chest pain, difficulty breathing, shortness of breath, back pain, night sweats, pain with urination, increased urinary frequency, increased urinary urgency, blood in her urine or stool, syncope or a near syncopal episode, recent trauma or falls, bowel incontinence, bladder incontinence, or any other complaints at this time. Relieving factors: none Exacerbating factors: none Associated symptoms: confusion (consistent with patient's baseline) Treatments prior to arrival: none Related Data Previous Rx's ?Medication ?Instructions ?Recorded amlodipine 2.5 mg tablet 2.5 mg PO DAILY 30 days #30 tabs 09/25/23 apixaban 5 mg tablet (Eliquis) 5 mg PO BID 30 days #60 tabs 09/25/23 donepezil 5 mg tablet 5 mg PO BEDTIME 30 days #30 tabs 09/25/23 hydrocortisone 1 % topical ointment 1 appl topical DAILY 30 days #5 09/25/23 grams risperidone 1 mg/mL oral solution 1 mg PO TID 30 days #90 mL 09/25/23 (Risperdal) trazodone 50 mg tablet 50 mg PO BEDTIME MRX1 PRN Insomnia 09/25/23 30 days #60 tabs Allergies Allergy/AdvReac Type Severity Reaction Status Date / Time No Known Allergies Allergy Verified 12/18/23 11:15 Review of Systems 2 Constitutional: Constitutional: Reports no additional constitutional complaints, Denies chills, Denies fever(s) and Denies night sweats Eyes: Eyes: Reports no additional eye complaints, Denies blurry vision, Denies change in vision, Denies diplopia, Denies eye discharge, Denies loss of vision and Denies eye pain ENT: Denies dizziness Cardiovascular: Cardiovascular: Reports no additional cardiovascular complaints, Denies chest pain, Denies lightheadedness, Denies Loss of Consciousness and Denies dyspnea Respiratory: Respiratory: Reports no additional respiratory complaints and Denies dyspnea Gastrointestinal: Gastrointestinal: Reports no additional gastrointestinal complaints, Denies abdominal pain, Denies melena, Denies hematochezia, Denies change in bowel habits and Denies change in stool character Genitourinary: Genitourinary: Denies hematuria, Denies urinary frequency, Denies dysuria, Denies urinary incontinence, Denies urinary hesitancy and Denies urinary urgency Musculoskeletal: Musculoskeletal: Reports no additional musculoskeletal complaints, Denies numbness and Denies tingling Neurologic: Reports confusion (chronic for the patient), Denies dizziness, Denies loss of vision, Denies numbness and Denies tingling Psychiatric: Psychiatric: Reports no additional psychiatric complaints and Reports confusion (chronic for the patient) Endocrine: Endocrine: Reports no additional endocrine complaints Hematologic/Lymphatic: Hematologic/Lymphatic: Reports no additional hematologic/lymphatic complaints Allergic/Immunologic: Allergic/Immunologic: Reports no additional allergic/immunologic complaints PMFSH Past Medical History Attestation statement: The following information was validated with the patient. Source: old records reviewed and nursing notes reviewed Social History Social History Household Members: Other Housing: Assisted Living Facility Housing Other:: Elderly housing Do you presently have visiting nurse or other home services: No Unable to assess alcohol history related to: Unknown Patient Tobacco Use Status: Never used Tobacco Smoked in Last 30 Days: No e-Cigarette/Vaping Use: Never Used Second Hand Smoke Exposure: No Use of substances other than those prescribed or required for medical reasons: No Advance Directives: Yes Advance Directives on File: Yes Advance Directives Date on File: 12/31/22 service: No Sexual orientation: Straight/Heterosexual Physical Exam ED Vital Signs: Vital Signs - 24 hr 12/18/23 11:11 12/18/23 14:22 12/18/23 16:00 Temperature 97.9 F 98.7 F 98.3 F Pulse Rate 70 78 76 Respiratory Rate 16 20 14 Blood Pressure 140/71 H 114/58 L 113/65 Pulse Oximetry 97 99 98 Oxygen Delivery Method Room Air Room Air Room Air 12/18/23 16:59 Temperature 98.3 F Pulse Rate 76 Respiratory Rate 14 Blood Pressure 113/65 Pulse Oximetry 98 Oxygen Delivery Method Room Air BMI result Body Mass Index 29.6 Const General: confusion (chronic for the patient) Nutritional Appearance: well nourished Orientation/consciousness: confusion (chronic for the patient) Limitations: no limitations HENMT Head: Yes normal to inspection and Yes atraumatic Ears: hearing grossly normal bilaterally and external ears normal General nose exam: Normal external nose present, no nasal discharge noted and no epistaxis Face and sinus: Yes normal facial exam, No abrasion and No laceration Mouth: Normal oral and palatal mucosa present, no drooling and no muffled voice Eyes General: appearance normal, both eyes and all related structures Periorbital: periorbital findings normal Eyelids: Yes eyelids normal Conjunctivae: conjunctivae normal Pupils: Equal, round and reactive pupils present EOM: EOMs intact bilaterally Neck Neck: Yes normal visual inspection, Yes full ROM and Yes no lymphadenopathy Chest Chest palpation & inspection: normal inspection of the chest Resp Effort & Inspection: normal respiratory effort and able to speak in complete sentences GI Inspection: Yes normal to inspection Neuro General: confusion (chronic for the patient) Cranial nerves: Yes Equal, round and reactive pupils present Extrem General: Yes normal to inspection, Yes full ROM and Yes capillary refill normal Psych Appearance: grossly normal Mental Status: mental status grossly normal Affect: normal affect Attitude: cooperative Thought process: Normal thought process present Thought content: Normal thought content present Insight: Good insight present (Psych) Medical Decision Making Medical Decision Making MDM Narrative: Patient is a 78 year old assigned female at with a history of dementia and DVT presenting to the emergency department today with aggression and refusing to take her medications. Patient's physical exam was as noted in the physical exam portion of this note. Patient was appropriate the entire time she was here, no outbursts, no aggression. Patient's blood work was unremarkable. Patient's urine showed no acute process. I explained my physical exam findings as well as all test results to the patient. I answered all questions asked by the patient. I spoke extensively with the patient's health care proxy, Hazel. I explained to the patient and Hazel that right now, the patient is not appropriate for a psychiatric consult / evaluation as she has no acute psychiatric symptoms or complaints. I stressed the importance of the patient taking her medication as directed (either prescribed or as the over the counter packaging recommends). I stressed the importance of the patient following up with her primary care provider. I stressed the importance of the patient returning to the emergency department immediately if she were to develop any dizziness, shortness of breath, difficulty breathing, chest pain, blurry vision, loss of vision, nausea, vomiting, abdominal pain, fever, chills, back pain, or any other complaints. Patient verbalized agreement and understanding with this treatment plan and discharge back to her facility. Differential Diagnosis Differential Diagnoses: The differential diagnosis associated with the presentation includes Aggression Admission/Observation Consideration of admission/observation: Escalation of care including admission/observation considered Patient would have been admitted to the hospital had her work up had any findings where hospital admission was appropriate and her clinical presentation warranted hospital admission. Lab Data [facility] Lab Attestation statement: I reviewed the patient's lab results. My interpretation of these results are in the [facility] Rationale portion of this note. 12/18/23 11:41 12/18/23 11:41 Labs: Lab Results 12/18/23 12/18/23 Range/Units 11:41 12:39 WBC 6.9 (4.8-10.8) X10*3/uL RBC 3.88 L (4.20-5.50) X10*6/uL Hgb 11.8 L (12.0-16.0) g/dl Hct 36.0 L (37.0-47.0) % MCV 92.8 (80.0-98.0) fL MCH 30.4 (27.0-33.0) pg MCHC 32.8 (31.0-35.0) g/dl RDW 14.2 (11.0-16.0) % Plt Count 312 (160-400) X10*3/uL MPV 10.3 (9.4-12.3) fL Immature Gran % (Auto) 0.3 (0.0-0.4) % Neut % (Auto) 63.7 (45-73) % Lymph % (Auto) 18.4 L (20-40) % Grimes % (Auto) 10.2 (2-11) % Eos % (Auto) 6.8 H (0-4) % Baso % (Auto) 0.6 (0-2) % Lymph # (Auto) 1.3 (1.2-4.9) X10*3/uL Grimes # (Auto) 0.7 (0.1-1.2) X10*3/uL Eos # (Auto) 0.5 H (0.0-0.4) X10*3/uL Baso # (Auto) 0.0 (0.0-0.2) X10*3/uL Abs Immat Gran (auto) 0.02 (0.00-0.03) X10*3/uL Absolute Neuts (auto) 4.4 (2.0-8.3) x10*3/uL Absolute Nucleated RBC 0.000 (0.0-0.012) X10*3/uL Nucleated RBC % (auto) 0.0 (0.0-0.2) /100WBC Sodium 139 (135-145) mmol/L Potassium 4.0 (3.3-5.1) mmol/L Chloride 105 (96-108) mmol/L Carbon Dioxide 27 (22-29) mmol/L Anion Gap 11 L (12-20) BUN 18 H (9-16) mg/dL Creatinine 1.08 (0.5-1.4) mg/dL Estim Creat Clear Calc 41.5 Estimated GFR 49 Random Glucose 97 (60-115) mg/dL Calcium 9.3 (8.4-10.2) mg/dL Magnesium 2.2 (1.6-2.6) mg/dL Total Bilirubin 0.3 (0.0-1.0) mg/dL AST 16 (5-31) U/L ALT 10 (0-31) U/L Alkaline Phosphatase 74 (39-117) U/L Total Protein 7.1 (6.5-8.0) g/dL Albumin 3.7 (3.5-5.0) g/dL Urine Color Yellow Urine Appearance Clear Urine pH 6.0 (5.0-9.0) Ur Specific [place] 1.010 (1.005-1.025) Urine Protein Negative (Neg-Trace) mg/dL Urine Glucose (UA) Negative (Negative) mg/dL Urine Ketones Negative (Negative) mg/dL Urine Blood Negative (Negative) Urine Nitrite Negative (Negative) Ur Leukocyte Esterase Negative (Negative) Influenza Type A (PCR) NEGATIVE (Negative) Influenza Type B (PCR) NEGATIVE (Negative) RSV RNA Qual (PCR) NEGATIVE (Negative) SARS-CoV-2 RNA (RT-PCR) NEGATIVE (Negative) Independent Historian Clinical information obtained from an independent historian. History obtained from or confirmed by: EMS (EMS provided additional history and confirmed the history provided by the patient) and Other (Hazel provided additional history) Discharge Plan Discharge Clinical Impression: Patient refuses to take medication Patient Disposition: Xfer Other Transfer Details: [facility] Additional Instructions: You should trial famotidine or another type of anti-acid 30 minutes before taking your medication to help with the GI upset. Follow up with your primary care provider. Return to the emergency department immediately if you develop any dizziness, shortness of breath, difficulty breathing, chest pain, blurry vision, loss of vision, nausea, vomiting, abdominal pain, fever, chills, back pain, or any other complaints. Prescriptions: No Action donepezil 5 mg Tablet 5 mg PO BEDTIME 30 Days Qty: 30 0RF Eliquis 5 mg Tablet 5 mg PO BID 30 Days Qty: 60 0RF trazodone 50 mg Tablet 50 mg PO BEDTIME MRX1 PRN (Reason: Insomnia) 30 Days Qty: 60 0RF hydrocortisone 1 % Ointment 1 appl topical DAILY 30 Days Qty: 5 0RF Protocol: Apply to: Apply to: arms and legs amlodipine 2.5 mg Tablet 2.5 mg PO DAILY 30 Days Qty: 30 0RF Protocol: Hold for SBP< HOLD for SBP < : 90 risperidone [Risperdal] 1 mg/mL Solution 1 mg PO TID 30 Days Qty: 90 0RF Referrals: [facility] [place] Family Medicine [Provider Group] (Call to establish and follow up with a primary care provider. If you already have a primary care provider, please follow up with them.) [facility] Primary [facility] [Provider Group] (Call to establish and follow up with a primary care provider. If you already have a primary care provider, please follow up with them.) [facility] Primary [facility] [Provider Group] (Call to establish and follow up with a primary care provider. If you already have a primary care provider, please follow up with them.) Interventions: ED Discharge Assessment Last Done: 12/18/23 16:59 Discharge Date/Time: 12/18/23 17:07 Print Language: Vietnamese
[2023-12-18 11:53] LABS: MANUAL DIFF FLAG NO
[2023-12-18 11:55] LABS: Basophils Percent Auto 0.6 % (0-2); Eosinophils Absolute Auto 0.5 X10*3/uL (0.0-0.4); Eosinophils Percent Auto 6.8 % (0-4); Hemoglobin 11.8 g/dl (12.0-16.0); Imm Gran Abs Auto 0.02 X10*3/uL (0.00-0.03); Imm Gran Pct Auto 0.3 % (0.0-0.4); Lymphocytes Absolute Auto 1.3 X10*3/uL (1.2-4.9); Lymphocytes Percent Auto 18.4 % (20-40); Mean Corpuscular HGB Conc 32.8 g/dl (31.0-35.0); Mean Corpuscular Hemoglobin 30.4 pg (27.0-33.0); Mean Corpuscular Volume 92.8 fL (80.0-98.0); Mean Platelet Volume 10.3 fL (9.4-12.3); Monocytes Absolute Auto 0.7 X10*3/uL (0.1-1.2); Monocytes Percent Auto 10.2 % (2-11); Neutrophils Absolute Auto 4.4 x10*3/uL (2.0-8.3); Neutrophils Percent Auto 63.7 % (45-73); Platelet Count 312 X10*3/uL (160-400); Red Blood Count 3.88 X10*6/uL (4.20-5.50); Red Cell Distribution Width 14.2 % (11.0-16.0); White Blood Count 6.9 X10*3/uL (4.8-10.8)
--- NOTE | 2023-12-18 12:05 | PC.NURSE ---
Pt present to ED via EMS from [facility]. Per EMS, staff at SNF reports pt has been verbally and physically aggressive. Refusing to take her meds, including eliquis that she needs for her DVT. Pt calm and cooperative with EMS. pt is alert, confused but pleasant. Breathing even and unlabored. Noted to have bilat lower leg swelling, worse on the right. Denies pain, SOB, CP or any complaints. Report she wont take her meds because it is against her protestant and it makes her vomit.
[2023-12-18 12:12] LABS: Alanine Aminotransferase 10 U/L (0-31); Albumin Level 3.7 g/dL (3.5-5.0); Alkaline Phosphatase 74 U/L (39-117); Anion Gap 11 (12-20); Aspartate Amino Transferase 16 U/L (5-31); Bilirubin Total 0.3 mg/dL (0.0-1.0); Blood Urea Nitrogen 18 mg/dL (9-16); Calcium 9.3 mg/dL (8.4-10.2); Carbon Dioxide 27 mmol/L (22-29); Chloride 105 mmol/L (96-108); Creatinine Clr Calc Pharmacy 41.5; Estimated Glomerular Filt Rate 49; Glucose Random 97 mg/dL (60-115); Magnesium 2.2 mg/dL (1.6-2.6); Sodium 139 mmol/L (135-145); Total Protein 7.1 g/dL (6.5-8.0)
[2023-12-18 12:55] LABS: Appearance Urine Clear; Color Urine Yellow; Glucose Urine UA Negative (Negative); Leukocyte Esterase Urine Negative (Negative); Nitrite Urine Negative (Negative); Urine Blood Negative (Negative); Urine Ketones Negative (Negative); Urine Protein Negative (Neg-Trace)
[2023-12-18 12:57] LABS: Influenza A PCR NEGATIVE (Negative); Influenza B PCR NEGATIVE (Negative); Resp Syncy Virus RNA Qual PCR NEGATIVE (Negative); SARS COV2 PCR INHOUSE NEGATIVE (Negative)
[2023-12-18 14:22] VITALS: BP 114/58; PULSE 78; RESP 20; TEMP 37.1; O2SAT 99
--- NOTE | 2023-12-18 14:40 | MHC.CM.PN ---
Addendum entered by Fabiola De La Cruz 12/18/23 15:39: Call placed to [facility] - spoke with memory care unit coordinator who gave pushback on letting pt return. No notice of eviction has been given to pt and unsure if a formal care plan addressing increasing behaviors has been made. Pt does not have a waiver and is private pay at the facility. Director indicated that if staff is unable to manage her behaviors, they would send her [place] [facility] [place]. Reminded director of normal labs, urine and documented positive behaviors and suggested pt be sent to the closest facility for eval (less than a mile from the [facility]) if needed, rather than back to [place]. Ravin HUERTA arranged for earliest transport back to [facility]. Message left for next of contact in EMR Original Note: Received consult for assistance w/return to [facility] : call placed to [facility] where pt resides on the memory unit. Informed RN that pt has been pleasant, cooperative and without any adverse behaviors. In addition, her labs and urinalysis was WNL. Psych consult not indicated as provider feels pt has dementia at baseline and is not posing a behavior risk. RN states she will need to speak with the facility about pt being able to return as her behaviors are very concerning and staffing is not able to manage Genie all the time Will await callback from [facility] Director.
[2023-12-18 16:00] VITALS: BP 113/65; PULSE 76; RESP 14; TEMP 36.8; O2SAT 98
[2023-12-18 16:59] VITALS: BP 113/65; PULSE 76; RESP 14; TEMP 36.8; O2SAT 98
== END 2023-12-18 17:07 | disposition other institution (70) ==
PROVIDERS: Physician Assistant Medical; Emergency Provider Emergency Medicine Emergency Medical Services
DX: F03.911 Unspecified dementia, unspecified severity, with agitation (principal); Z91.199 Patient's noncompliance with other medical treatment and regimen due to unspecified reason; Z03.818 Encounter for observation for suspected exposure to other biological agents ruled out; Z86.718 Personal history of other venous thrombosis and embolism; Z79.01 Long term (current) use of anticoagulants; Z79.899 Other long term (current) drug therapy
CPT/HCPCS: 0241U; 80053; 81003; 83735; 85025; 99284; 99285

== ENCOUNTER 2024-06-18 10:52 | Emergency (ER) | payer OTHER, SELFPAY ==
--- NOTE | 2024-06-18 10:56 | ECG_ITS ---
Test Reason : AMS Blood Pressure : */* mmHG Vent. Rate : 71 BPM Atrial Rate : 71 BPM P-R Int : 156 ms QRS Dur : 78 ms QT Int : 402 ms P-R-T Axes : 31 -7 30 degrees QTcB Int : 436 ms Normal sinus rhythm Normal ECG When compared with ECG of 14-Sep-2023 15:14, T wave inversion no longer evident in Anterior leads Referred By: Cinthya Patten Electronically Signed By: CHRISTIANO REBOLLEDO MD
[2024-06-18 11:17] VITALS: BP 100/53; BP 140/78; PULSE 74; PULSE 76; RESP 15; TEMP 37.1; O2SAT 94; O2SAT 98; BMI 26.0
--- NOTE | 2024-06-18 11:35 | ED_ITS ---
HPI - General Adult General Chief complaint: Altered Mental Status Stated complaint: AGGR TO STAFF/OTHERS @MEMORY UNIT @[facility] PER EMS Time Seen by Provider: 06/18/24 11:35 Source: patient and EMS Mode of arrival: EMS Limitations: altered mental status (dementia ) History of Present Illness ED Provider: ZARA Patten HPI narrative: This is a 78-year-old female history of dementia, neurocognitive disorder, blood clots on Eliquis presenting from a locked dementia unit with increased confusion, aggression towards other residents. They wanted patient evaluated for psych. Patient is very confused she is not oriented to person, place time or situation. She says she is fine and she does not understand why she is here. She tells me I am here because they are sticking me with needles . When I asked her if anything hurts she says No . Related Data Home Medications ?Medication ?Instructions ?Recorded ?Confirmed haloperidol lactate 1 mg/mL oral 1 mg PO BID 06/18/24 06/18/24 solution Previous Rx's ?Medication ?Instructions ?Recorded amlodipine 2.5 mg tablet 2.5 mg PO DAILY 30 days #30 tabs 09/25/23 apixaban 5 mg tablet (Eliquis) 5 mg PO BID 30 days #60 tabs 09/25/23 donepezil 5 mg tablet 5 mg PO BEDTIME 30 days #30 tabs 09/25/23 hydrocortisone 1 % topical ointment 1 appl topical DAILY 30 days #5 09/25/23 grams risperidone 1 mg/mL oral solution 1 mg PO TID 30 days #90 mL 09/25/23 (Risperdal) trazodone 50 mg tablet 50 mg PO BEDTIME MRX1 PRN Insomnia 09/25/23 30 days #60 tabs Allergies Allergy/AdvReac Type Severity Reaction Status Date / Time Unable to Assess Allergy Unverified 06/18/24 11:20 Review of Systems 2 Review of Systems: Yes all other systems are reviewed and are negative PMFSH Past Medical History Attestation statement: The following information was validated with the patient. Source: old records reviewed and nursing notes reviewed Social History Social History Household Members: Other Housing: Assisted Living Facility Housing Other:: Elderly housing Do you presently have visiting nurse or other home services: No Unable to assess alcohol history related to: Unknown Patient Tobacco Use Status: Never used Tobacco e-Cigarette/Vaping Use: Never Used Second Hand Smoke Exposure: No Use of substances other than those prescribed or required for medical reasons: No Advance Directives: Yes Advance Directives on File: Yes Advance Directives Date on File: 12/31/22 service: No Sexual orientation: Straight/Heterosexual Physical Exam ED Vital Signs: Vital Signs - 24 hr 06/18/24 11:17 06/18/24 15:25 Temperature 98.7 F Pulse Rate 74 73 Respiratory Rate 15 Blood Pressure 100/53 L 134/59 L Pulse Oximetry 94 Oxygen Delivery Method Room Air BMI result Body Mass Index 26.0 vss Appearance: Alert.? Oriented X0.? No acute distress.? Head: Normocephalic, atraumatic, no step-offs or deformities Eyes: Pupils equal, round and reactive to light.? Neck: Normal inspection.? Neck supple.? CVS: Normal heart rate and rhythm.? Pulses normal.? Respiratory: No respiratory distress.? Breath sounds normal.? Abdomen: Soft and nontender.? Skin: Skin warm and dry.? Normal skin color.? Normal skin turgor.? Extremities: No lower extremity edema.? No calf ttp. 5/5 strength to bilateral upper and lower extremities Neuro: Oriented X 0.? No motor deficit.? No sensory deficit. CN 2-12 intact Course Reevaluation(s) Reevaluation #1: CBC unremarkable. Chemistry with no acute findings eating intervention. Troponin negative, EKG nonischemic. Ethanol negative. Time: 13:40 Reevaluation #2: I spoke to the director at [facility] who tells me that they are not able to take patient back if her behavior continues she has been aggressive and combative towards other residents. They are trying to find her placement in a long-term behavioral hospital/facility. However they are waiting to hear from her proxy as well as her trademark attorney. He tells me they are waiting on 1 document which should be signed by Thursday. I will put in a psych consult for capacity. UA clean At this time patient will be placed into observation to allow more time to be evaluated by Psychiatry. Time: 17:07 Medical Decision Making Medical Decision Making MDM Narrative: 78-year-old female presents with aggressive behavior from the [facility]. Patient is very confused and has no idea why she is here. She offers no complaints. Physical exam patient not oriented to person, place, time or situation. History and physical exam concerning for dementia will rule out UTI although less likely no urinary complaints. Will rule out metabolic derangements. No trauma unlikely intracranial hemorrhage, stroke, posterior stroke. Plan labs, imaging, urine. The [facility] is requesting for patient to have psychiatric clearance. Differential Diagnosis Differential Diagnoses: The differential diagnosis associated with the presentation includes (History and physical exam concerning for dementia will rule out UTI although less likely no urinary complaints. Will rule out metabolic derangements. No trauma unlikely intracranial hemorrhage, stroke, posterior stroke.) Admission/Observation Consideration of admission/observation: Escalation of care including admission/observation considered Lab Data MDM Lab Attestation statement: I reviewed the patient's lab results. 06/18/24 12:03 06/18/24 12:03 Labs: Lab Results 06/18/24 06/18/24 Range/Units 12:03 16:41 WBC 7.5 (4.8-10.8) X10*3/uL RBC 3.82 L (4.20-5.50) X10*6/uL Hgb 12.0 (12.0-16.0) g/dl Hct 36.0 L (37.0-47.0) % MCV 94.2 (80.0-98.0) fL MCH 31.4 (27.0-33.0) pg MCHC 33.3 (31.0-35.0) g/dl RDW 14.0 (11.0-16.0) % Plt Count 284 (160-400) X10*3/uL MPV 10.0 (9.4-12.3) fL Immature Gran % (Auto) 0.3 (0.0-0.4) % Neut % (Auto) 71.0 (45-73) % Lymph % (Auto) 15.8 L (20-40) % Boyle % (Auto) 8.5 (2-11) % Eos % (Auto) 3.6 (0-4) % Baso % (Auto) 0.8 (0-2) % Lymph # (Auto) 1.2 (1.2-4.9) X10*3/uL Boyle # (Auto) 0.6 (0.1-1.2) X10*3/uL Eos # (Auto) 0.3 (0.0-0.4) X10*3/uL Baso # (Auto) 0.1 (0.0-0.2) X10*3/uL Abs Immat Gran (auto) 0.02 (0.00-0.03) X10*3/uL Absolute Neuts (auto) 5.4 (2.0-8.3) x10*3/uL Absolute Nucleated RBC 0.000 (0.0-0.012) X10*3/uL Nucleated RBC % (auto) 0.0 (0.0-0.2) /100WBC Sodium 140 (135-145) mmol/L Potassium 4.6 (3.3-5.1) mmol/L Chloride 109 H (96-108) mmol/L Carbon Dioxide 27 (22-29) mmol/L Anion Gap 9 L (12-20) BUN 16 (9-16) mg/dL Creatinine 1.08 (0.5-1.4) mg/dL Estim Creat Clear Calc 45.3 Estimated GFR 49 Random Glucose 95 (60-115) mg/dL Calcium 9.0 (8.4-10.2) mg/dL Magnesium 2.1 (1.6-2.6) mg/dL Total Bilirubin 0.4 (0.0-1.0) mg/dL AST 22 (5-31) U/L ALT 12 (0-31) U/L Alkaline Phosphatase 70 (39-117) U/L Troponin I High Sens 3.5 (<3.5-17.0) ng/L Total Protein 7.0 (6.5-8.0) g/dL Albumin 3.5 (3.5-5.0) g/dL Urine Color Yellow Urine Appearance Clear Urine pH 8.0 (5.0-9.0) Ur Specific [place] 1.010 (1.005-1.025) Urine Protein Negative (Neg-Trace) mg/dL Urine Glucose (UA) Negative (Negative) mg/dL Urine Ketones Negative (Negative) mg/dL Urine Blood Negative (Negative) Urine Nitrite Negative (Negative) Ur Leukocyte Esterase Negative (Negative) Urine Opiates Screen Not Detected (Not Detect) Ur Buprenorphine Scrn Not Detected (Not Detect) ng/mL Ur Oxycodone Screen Not Detected (Not Detect) ng/mL Urine Methadone Screen Not Detected (Not Detect) ng/mL Urine Fentanyl Screen Not Detected (Not Detect) Ur Barbiturates Screen Not Detected (Not Detect) Ur Phencyclidine Scrn Not Detected (Not Detect) Ur Amphetamines Screen Not Detected (Not Detect) U Benzodiazepines Scrn Not Detected (Not Detect) Urine Cocaine Screen Not Detected (Not Detect) U Marijuana (THC) Screen Not Detected (Not Detect) Ethyl Alcohol < 10 mg/dL Independent Historian Clinical information obtained from an independent historian. History obtained from or confirmed by: EMS External Record Review External record reviewed: Inpatient record, Office record, Outpatient record, Prior outpatient labs, Prior outpatient radiology, Primary care record and Outside ED record Chronic Conditions Patient?s care impacted by: Other (dementia hx of clots on eliquis ) Social Determinants Patient?s care significantly limited by Social Determinants of Health including: Inadequate housing, Low income, Alcoholism and drug addiction in family, Problems related to primary support group, Unemployment, Problems related to employment and Other Social Determinant of Health Critical Care Time Critical Care Time Critical Care Time: No Discharge Plan Discharge Clinical Impression: Dementia, Aggression Patient Disposition: Still a Patient Prescriptions: No Action donepezil 5 mg Tablet 5 mg PO BEDTIME 30 Days Qty: 30 0RF Eliquis 5 mg Tablet 5 mg PO BID 30 Days Qty: 60 0RF trazodone 50 mg Tablet 50 mg PO BEDTIME MRX1 PRN (Reason: Insomnia) 30 Days Qty: 60 0RF hydrocortisone 1 % Ointment 1 appl topical DAILY 30 Days Qty: 5 0RF Protocol: Apply to: Apply to: arms and legs amlodipine 2.5 mg Tablet 2.5 mg PO DAILY 30 Days Qty: 30 0RF Protocol: Hold for SBP< HOLD for SBP < : 90 risperidone [Risperdal] 1 mg/mL Solution 1 mg PO TID 30 Days Qty: 90 0RF haloperidol lactate 1 mg/mL Solution 1 mg PO BID Print Language: Hong Konger
--- OUTSIDE RECORDS SUMMARY | 2024-06-18 11:41 | XMS_ITS | Clinical Summary ---
Author Organization [facility] ity Address [address] [place] [address] Care Team Providers Care Terrazzo Mechanic Helper Name Role Phone Mikie Gutierrez MD Primary Care Provider [phone] Social History Tobacco Use Types Packs/Day Years Used Date Smoking Tobacco: Never Assessed Comments Unknown Sex and Gender Information Value Date Recorded Sex Assigned at Not on file Legal Sex Female 9:03 PM EST Gender Identity Not on file Sexual Orientation Not on file Plan of Treatment Health Maintenance Due Date Last Done Comments DTaP,Tdap,and Td Vaccines (1 - Tdap) 10/04/1966 Pneumococcal Vaccine: 50+ Ye ars (1 of 1 - PCV) 10/04/1997 Zoster Vaccines (1 of 2) 10/04/1997 RSV Immunization Patients 60 + Years Old (1 - 1-dose 75+ series) 10/04/2022 Depression Screening 05/08/2023 Falls Risk Assessment 05/08/2023 Hepatitis C Screening 05/08/2023 Osteoporosis Screening (Bone Density Screening) 05/08/2023 Social Influencers of Health Screening 05/08/2023 COVID-19 Vaccine ( - 2023-2 5 season) 2023 Influenza Vaccine (#1) 2023 HIB Vaccines Aged Out No longer eligi ble based on patient's age to complete this topic HPV Vaccines Aged Out No longer eligi ble based on patient's age to complete this topic Hepatitis A Vaccines Aged Out No long er eligible based on patient's age to complete this topic Hepatitis B Vaccines Aged Out No long er eligible based on patient's age to complete this topic IPV Vaccines Aged Out No longer eligi ble based on patient's age to complete this topic MMR Vaccines Aged Out No longer eligi ble based on patient's age to complete this topic Meningococcal ACWY Vaccine Aged Out N o longer eligible based on patient's age to complete this topic Meningococcal B Vacine Aged Out No lo nger eligible based on patient's age to complete this topic RSV Immunization Patients Un chaim 20 months Aged Out No longer eligible b ased on patient's age to complete this topic Varicella Vaccines Aged Out No longer eligible based on patient's age to complete this topic Care Teams Terrazzo Mechanic Helper Relationship Specialty Start Date End Date Mikie Gutierrez MD [address] [place] [address] PCP - General 03/18/12
[2024-06-18 12:09] LABS: MANUAL DIFF FLAG NO
[2024-06-18 12:12] LABS: Basophils Absolute Auto 0.1 X10*3/uL (0.0-0.2); Basophils Percent Auto 0.8 % (0-2); Eosinophils Absolute Auto 0.3 X10*3/uL (0.0-0.4); Eosinophils Percent Auto 3.6 % (0-4); Imm Gran Abs Auto 0.02 X10*3/uL (0.00-0.03); Imm Gran Pct Auto 0.3 % (0.0-0.4); Lymphocytes Absolute Auto 1.2 X10*3/uL (1.2-4.9); Lymphocytes Percent Auto 15.8 % (20-40); Mean Corpuscular HGB Conc 33.3 g/dl (31.0-35.0); Mean Corpuscular Hemoglobin 31.4 pg (27.0-33.0); Mean Corpuscular Volume 94.2 fL (80.0-98.0); Monocytes Absolute Auto 0.6 X10*3/uL (0.1-1.2); Monocytes Percent Auto 8.5 % (2-11); Neutrophils Absolute Auto 5.4 x10*3/uL (2.0-8.3); Platelet Count 284 X10*3/uL (160-400); Red Blood Count 3.82 X10*6/uL (4.20-5.50); White Blood Count 7.5 X10*3/uL (4.8-10.8)
[2024-06-18 12:33] LABS: Alanine Aminotransferase 12 U/L (0-31); Albumin Level 3.5 g/dL (3.5-5.0); Alkaline Phosphatase 70 U/L (39-117); Anion Gap 9 (12-20); Aspartate Amino Transferase 22 U/L (5-31); Bilirubin Total 0.4 mg/dL (0.0-1.0); Blood Urea Nitrogen 16 mg/dL (9-16); Carbon Dioxide 27 mmol/L (22-29); Chloride 109 mmol/L (96-108); Creatinine Clr Calc Pharmacy 45.3; Estimated Glomerular Filt Rate 49; Glucose Random 95 mg/dL (60-115); Magnesium 2.1 mg/dL (1.6-2.6); Potassium 4.6 mmol/L (3.3-5.1); Sodium 140 mmol/L (135-145)
[2024-06-18 12:38] LABS: Troponin-I High Sensitivity 3.5 ng/L (<3.5-17.0)
[2024-06-18 12:56] LABS: Ethanol < 10 mg/dL
[2024-06-18 15:25] VITALS: BP 134/59; PULSE 73
--- NOTE | 2024-06-18 15:32 | PC.NURSE ---
Only med [facility] nurse unable to take the call at this time,givenphone number will call back when able.
--- NOTE | 2024-06-18 16:07 | PC.NURSE ---
Patient sitting quietly in recliner at this time, refusing to lie on the stretcher. 1:1 sitter at bedside. Return phone call from Elena at the [facility] - per Elena patient is not on any other medication at this time. Elena also informed this RN that patient will no be accepted back at the [facility], patient currently has a bed at [facility] on the psychiatric LTC unit. Gave executive advisor's number - Vargas Burger [phone] to call w/ any questions. Provider to be made aware.
--- NOTE | 2024-06-18 16:38 | MHC.EDTECH ---
Called director Vargas Burger @[phone]. no answer
[2024-06-18 16:56] LABS: Appearance Urine Clear; Color Urine Yellow; Glucose Urine UA Negative (Negative); Leukocyte Esterase Urine Negative (Negative); Nitrite Urine Negative (Negative); Urine Blood Negative (Negative); Urine Ketones Negative (Negative); Urine Protein Negative (Neg-Trace)
[2024-06-18 17:05] LABS: Amphetamine Screen Urine Not Detected (Not Detect); Barbiturates, Urine Not Detected (Not Detect); Benzodiazepines Screen Urine Not Detected (Not Detect); Buprenorphine Scr Not Detected (Not Detect); Cannabinoid Screen Urine Not Detected (Not Detect); Cocaine Screen Urine Not Detected (Not Detect); Fentanyl, urine Not Detected (Not Detect); Methadone Screen, Urine Not Detected (Not Detect); Opiate Screen Urine Not Detected (Not Detect); Oxycodone Screen Urine Not Detected (Not Detect); Phencyclidine Screen Urine Not Detected (Not Detect)
[2024-06-18 19:02] VITALS: BP 140/71; PULSE 64; RESP 18; TEMP 36.1; O2SAT 97
--- NOTE | 2024-06-18 19:02 | PC.NURSE ---
Report taken from Amarilis RN assumed care of pt at this time. Pt sitting up in recliner at bedside, skin pwd respirations even unlabored. Cooperative with RN for VS check. VSS. Pt observer at bedside for safety. Pt awaiting care team consult and psych eval for capacity. Will continue to monitor.
--- NOTE | 2024-06-18 19:16 | PC.NURSE ---
Pt ambulatory to bathroom with pt observer, steady gait. Returned to bed without incident, remains calm and cooperative in behavioral control at this time. Safety maintained.
--- NOTE | 2024-06-18 21:45 | PC.NURSE ---
Pt resting in bed eyes closed, skin pwd respirations even unlabored. Remains calm, in behavioral control. Pt observer remains at bedside for safety, safety maintained.
--- NOTE | 2024-06-18 23:07 | PC.NURSE ---
Pt incontinent of urine while sleeping. Calm and cooperative with care while changing hospital attire and bed change. Back to bed without incident, pt observer remains at bedside for safety, safety maintained.
--- NOTE | 2024-06-19 01:54 | PC.NURSE ---
Addendum entered by Nicki Butler 06/19/24 01:56: Pt observer remains at bedside, safety maintained. Original Note: Pt resting in bed eyes closed, skin pwd respirations even unlabored.
[2024-06-19 06:41] VITALS: BP 138/63; PULSE 65; RESP 16; TEMP 36.5; O2SAT 98
--- NOTE | 2024-06-19 06:54 | PC.NURSE ---
Pt awoken for VS check, calm cooperative with care. Incontinent of urine, cleaned up and complete bed change. Pt back to bed without incident. Continues to await CARE team and psych eval, pt observer at bedside for safety, safety maintained.
--- NOTE | 2024-06-19 06:56 | PC.NURSE ---
Report given to Winifred KIRK pt exits my care at this time.
--- NOTE | 2024-06-19 07:39 | PHA.MEDREC ---
Pharmacy Consult ? Medication Reconciliation Pharmacy has completed the medication reconciliation. Per nursing notes, the [facility] were contacted and confirmed pt is only taking haldol
[2024-06-19 14:37] VITALS: BP 109/60; PULSE 79; RESP 20; TEMP 36.3; O2SAT 97
--- NOTE | 2024-06-19 19:11 | PC.NURSE ---
assumed care of patient at this time. Report received from Winifred KIRK.
[2024-06-20 01:31] VITALS: BP 116/56; PULSE 73; RESP 14; TEMP 36.6; O2SAT 93
--- NOTE | 2024-06-20 05:47 | PC.NURSE ---
pt remained calm, cooperative on stretcher throughout entirety of shift, uneventful night. pt resting comfortably, in no apparent respiratory distress. pt within view of nurses station, sitter at bedside. plan for patient to be evaluated by psych prior to d/c planning. call ortega within reach.
[2024-06-20 13:13] VITALS: BP 121/76; PULSE 84; RESP 16; TEMP 36.6; O2SAT 97
--- NOTE | 2024-06-20 14:43 | MHC.CM.ED ---
Received case management consult from Scarlett WRIGHT. Patient came to the ER due to aggressiveness with staff and residents at [facility]. Patient has a history of dementia. Patient was cleared by Care Team. The [facility] has been working with [facility] to transfer patient for LTC. T/W spoke with Nisha at [facility]. They have screened patient and accepted patient. However patient's current [facility] Medicare Advantage plan needs to be changed to Medicare traditional. Dontrell is patient's POA and handle her funds. On 06/02, Marilee submitted the form to Medicare via regular mail. Form has not been accepted by [facility]. This form was resent via certified mail on 06/16. T/w spoke with Vargas at [facility] via telephone at [phone]. Vargas is aware [facility] is unable to accept patient until insurance is changed. Vargas also aware patient will not be able to stay in ER until this is completed. Vargas agreeable to patient transferring back to their facility tomorrow, 06/21 at 10am. Spoke with Hazel via telephone at [phone]. Hazel agreeable to patient being d/c'd back to [facility]. Ravin HUERTA booked. Med nec with chart. Patient, Barbie KIRK and Scarlett WRIGHT aware. Continue to monitor for d/c needs.
[2024-06-20] MEDS: Haloperidol Lactate Oral Conc 10 MG/5 ML ORAL.CONC PO (21:24)
[2024-06-20 23:29] VITALS: BP 143/82; PULSE 72; RESP 16; TEMP 36.6; O2SAT 97
[2024-06-21 06:23] VITALS: BP 132/84; PULSE 82; RESP 16; TEMP 36.8; O2SAT 95
[2024-06-21] MEDS: Haloperidol Lactate Oral Conc 10 MG/5 ML ORAL.CONC PO (09:56)
--- NOTE | 2024-06-21 09:57 | PC.NURSE ---
report given to BRADLEY Alicia as well as REAGAN Mcmillan at [facility] in [place] at this time. pt leaving via [facility] transport.
[2024-06-21 09:58] VITALS: BP 132/84; PULSE 82; RESP 16; TEMP 36.8; O2SAT 95
== END 2024-06-21 09:59 | disposition other institution (70) ==
PROVIDERS: Physician Assistant; Emergency Provider Emergency Medicine; PCP Internal Medicine
DX: F03.911 Unspecified dementia, unspecified severity, with agitation (principal); R45.6 Violent behavior; Z86.718 Personal history of other venous thrombosis and embolism; Z79.01 Long term (current) use of anticoagulants; Z79.899 Other long term (current) drug therapy
CPT/HCPCS: 36415; 80053; 80307; 81003; 83735; 84484; 85025; 93005; 99285; S9485

== ENCOUNTER → 2024-06-18 10:56 | Outpatient (BNV) | payer OTHER, SELFPAY | PROVIDERS: Emergency Provider Emergency Medicine; Visit Provider Internal Medicine Cardiovascular Disease | DX: R41.82 Altered mental status, unspecified (principal) | CPT/HCPCS: 93010 ==

== ENCOUNTER 2024-07-03 11:09 | Emergency (ER) | payer MEDICARE, SELFPAY ==
[2024-07-03 11:14] VITALS: BP 131/75; PULSE 82; O2SAT 98
[2024-07-03 11:19] VITALS: BP 109/47; PULSE 71; RESP 18; TEMP 36.6; O2SAT 97
[2024-07-03 11:31] VITALS: BMI 28.7
--- NOTE | 2024-07-03 11:37 | ED_ITS ---
HPI - Psych General Chief Complaint: Psychiatric Symptoms Stated Complaint: DEMENTIA Time Seen by Provider: 07/03/24 11:26 Source: patient Mode of arrival: EMS Limitations: other (Dementia) History of Present Illness ED Provider: Dr. Marlon Britton HPI Narrative: 78-year-old female with a history dementia, neurocognitive disorder, on Eliquis who was sent to the emergency department from her dementia unit for evaluation of aggressive behavior. The patient lacks insight as to why she was here. She states that I was home, I got in trouble, I had to drive the car and the car was not working . According to EMS the patient was verbally and physically aggressive to staff at the [facility] dementia unit therefore they sent her to the emergency department for evaluation. The patient was seen in the emergency department 06/18/2024 ( 2 weeks prior) for similar aggressive behavior. Patient was kept in physician observation overnight and was seen in the morning by the psychiatric nurse practitioner who states the patient did not have capacity and was calm and her symptoms are most likely related returned dementia and she was discharged back to the [facility]. Patient was had a psychiatric admission in December of 2022 or her dementiaand September of 2023 for noncompliance with her medications. Patient's nurse did contact the [facility] to get more detail. Patient has become more aggressive and the [facility] dementia unit is not able to manage her especially since she was refusing medications. Apparently, the patient has been accepted at the [facility] in [place] which [place] a [place] [facility] facility where they may be able to better manage this patient. [facility] states that the patient is accepted for transferred tomorrow and is pending final approval. The [facility] staff member states that they can not manage her and can not accept her back this evening. Related Data Home Medications ?Medication ?Instructions ?Recorded ?Confirmed haloperidol lactate 2 mg/mL oral 1 mg PO BID 06/19/24 06/19/24 concentrate Allergies Allergy/AdvReac Type Severity Reaction Status Date / Time No Known Allergies Allergy Verified 07/03/24 11:38 Review of Systems 2 Review of Systems: Yes Other ( unreliable informant secondary to dementia) [facility] Past Medical History [facility] Narrative: social history: Patient was living independently at the [facility] dementia unit. Social History Social History Household Members: Other Housing: Assisted Living Facility Housing Other:: Elderly housing Do you presently have visiting nurse or other home services: No Unable to assess alcohol history related to: Unknown Patient Tobacco Use Status: Never used Tobacco Smoked in Last 30 Days: No e-Cigarette/Vaping Use: Never Used Second Hand Smoke Exposure: No Use of substances other than those prescribed or required for medical reasons: Unknown Advance Directives: Yes Advance Directives on File: Yes Advance Directives Date on File: 12/31/22 Do you have a plan to hurt others: No Plan service: No Sexual orientation: Straight/Heterosexual Physical Exam 2 Vital Signs: Vital Signs: Last Vital Signs Temp 97.9 F 07/03/24 17:26 Pulse 63 07/03/24 20:40 Resp 16 07/03/24 20:40 BP 116/78 07/03/24 18:33 Pulse Ox 92 07/03/24 20:40 O2 Del Method Room Air 07/03/24 20:40 BMI result Body Mass Index 28.7 Vital signs were normal Exam: General: Awake, alert in no distress, patient was oriented to person only, she lacks insight as to why she was here, she confabulates answers to what happened to her and why she was here today Head: Normocephalic, atraumatic EENT: PERRL, Lids normal, sclera normal, conjunctiva normal, nose normal , ears normal, throat without erythema or exudates Neck: Supple, no adenopathy Lung: breath sounds symmetric, no wheezing, rales or rhonchi Chest: symmetric movement, nontender Heart: regular rate and rhythm, normal S1, S2 no murmurs or rubs Abdomen: soft, non-tender, nondistended, normal bowel sounds Back: no vertebral tenderness, no CVAT Extremities: no deformities, moves all extremities symmetrically Neuro: Awake, alert, oriented to person only, normal speech, cranial nerves intact, moves all extremities symmetrically Medications Administered Discontinued Medications Generic Name Dose Route Start Last Admin Trade Name Jordanq PRN Reason Stop Dose Admin Diphenhydramine HCl 25 mg 07/03/24 17:01 07/03/24 17:22 Diphenhydramine Hcl 50 Mg/Ml Vial IM 07/03/24 17:02 25 mg ONCE ONE Administration Haloperidol Lactate 5 mg 07/03/24 17:01 07/03/24 17:20 Haloperidol Lactate 5 Mg/Ml Vial IM 07/03/24 17:02 5 mg STAT STA Administration Lorazepam 1 mg 07/03/24 17:01 07/03/24 17:20 Lorazepam 2 Mg/Ml Vial IM 07/03/24 17:02 1 mg ONCE ONE Administration Medical Decision Making Medical Decision Making MDM Narrative: 78-year-old female with a history dementia, neurocognitive disorder, on Eliquis who was sent to the emergency department from her dementia unit for evaluation of repeat and recurrent aggressive behavior at her dementia unit. She was reported to be physically aggressive and violent with the staff. the [facility] has been working on trying to get the patient into a higher level of care and apparently she has been accepted at the [facility] in [place] however this transfer most likely occurred tomorrow. Vital signs were normal. Physical examination was consistent with her dementia otherwise unremarkable. Differential diagnosis: Includes but is not limited to Dementia, depression, electrolyte abnormalities, anemia, urinary tract infection. Course: 16:14 Start physician observation my interpretation patient's laboratory evaluation is as follows: CBC was normal. CMP was normal. PT/INR were normal. Urinalysis was negative. Ethanol was below detectable limits, Drug urine screen was negative. Patient's presentation is consistent with her underlying dementia. At this point, the [facility] states that they can not take her back this but can not manage her aggressive behavior since she was refusing oral medications and they can not give crushed medications or IM medications. therefore, the patient will be kept in the emergency department until we can get a case management evaluation in the morning to help facilitate transferring this patient to higher level of care for her dementia and aggressive behavior. 17:04 Physician observation continued The patient became verbally aggressive towards the male one-to-one observer. The patient refused to stay in her room. I attempted to redirect the patient but she was not redirectable. Patient refused to take oral medications therefore I ordered Haldol 5 mg IM, Ativan 1 mg IM and Benadryl 25 mg IM has a chemical restraint to try to control her behavior. 21:22 Physician observation continued The patient did have a good effect with the above IM medications. Patient will remain in the emergency department until disposition can be determined by case management or until patient's symptoms improve over time. At the end of my shift, the patient's care was turned over to my colleague, Dr. Cheyanne Camargo. Admission/Observation Consideration of admission/observation: Escalation of care including admission/observation considered ( Yes) Lab Data MDM Lab Attestation statement: I reviewed the patient's lab results. 07/03/24 12:01 07/03/24 12:01 Labs: Lab Results 07/03/24 07/03/24 Range/Units 12:01 12:31 WBC 7.6 (4.8-10.8) X10*3/uL RBC 3.89 L (4.20-5.50) X10*6/uL Hgb 11.9 L (12.0-16.0) g/dl Hct 37.4 (37.0-47.0) % MCV 96.1 (80.0-98.0) fL MCH 30.6 (27.0-33.0) pg MCHC 31.8 (31.0-35.0) g/dl RDW 14.2 (11.0-16.0) % Plt Count 283 (160-400) X10*3/uL MPV 10.9 (9.4-12.3) fL Immature Gran % (Auto) 0.4 (0.0-0.4) % Neut % (Auto) 71.5 (45-73) % Lymph % (Auto) 13.8 L (20-40) % Stearns % (Auto) 9.4 (2-11) % Eos % (Auto) 4.1 H (0-4) % Baso % (Auto) 0.8 (0-2) % Lymph # (Auto) 1.1 L (1.2-4.9) X10*3/uL Stearns # (Auto) 0.7 (0.1-1.2) X10*3/uL Eos # (Auto) 0.3 (0.0-0.4) X10*3/uL Baso # (Auto) 0.1 (0.0-0.2) X10*3/uL Abs Immat Gran (auto) 0.03 (0.00-0.03) X10*3/uL Absolute Neuts (auto) 5.4 (2.0-8.3) x10*3/uL Absolute Nucleated RBC 0.000 (0.0-0.012) X10*3/uL Nucleated RBC % (auto) 0.0 (0.0-0.2) /100WBC PT 11.5 (10.9-12.4) SEC INR 1.0 (0.9-1.1) APTT 30.6 (26.0-36.8) SEC Sodium 140 (135-145) mmol/L Potassium 4.4 (3.3-5.1) mmol/L Chloride 109 H (96-108) mmol/L Carbon Dioxide 25 (22-29) mmol/L Anion Gap 10 L (12-20) BUN 15 (9-16) mg/dL Creatinine 0.91 (0.5-1.4) mg/dL Estim Creat Clear Calc 48.6 Estimated GFR > 60 Random Glucose 87 (60-115) mg/dL Calcium 8.8 (8.4-10.2) mg/dL Magnesium 2.2 (1.6-2.6) mg/dL Total Bilirubin 0.5 (0.0-1.0) mg/dL AST 27 (5-31) U/L ALT 11 (0-31) U/L Alkaline Phosphatase 75 (39-117) U/L Total Protein 7.2 (6.5-8.0) g/dL Albumin 3.6 (3.5-5.0) g/dL Lipase 16 (8-78) U/L Urine Color Yellow Urine Appearance Clear Urine pH 6.5 (5.0-9.0) Ur Specific [place] 1.015 (1.005-1.025) Urine Protein Negative (Neg-Trace) mg/dL Urine Glucose (UA) Negative (Negative) mg/dL Urine Ketones Negative (Negative) mg/dL Urine Blood Negative (Negative) Urine Nitrite Negative (Negative) Ur Leukocyte Esterase Negative (Negative) Urine Opiates Screen Not Detected (Not Detect) Ur Buprenorphine Scrn Not Detected (Not Detect) ng/mL Ur Oxycodone Screen Not Detected (Not Detect) ng/mL Urine Methadone Screen Not Detected (Not Detect) ng/mL Urine Fentanyl Screen Not Detected (Not Detect) Ur Barbiturates Screen Not Detected (Not Detect) Ur Phencyclidine Scrn Not Detected (Not Detect) Ur Amphetamines Screen Not Detected (Not Detect) U Benzodiazepines Scrn Not Detected (Not Detect) Urine Cocaine Screen Not Detected (Not Detect) U Marijuana (THC) Screen Not Detected (Not Detect) Ethyl Alcohol < 10 mg/dL External Record Review External record reviewed: Inpatient record Discharge Plan Discharge Clinical Impression: Dementia, Aggressive behavior Patient Disposition: Still a Patient Prescriptions: No Action haloperidol lactate 2 mg/mL concentrate 1 mg PO BID Interventions: [place]-Suicide Risk Severity Scale Last Done: 07/03/24 11:31 Print Language: Frisian
--- NOTE | 2024-07-03 12:00 | PC.NURSE ---
patient changed over into hosptial attire and attempted to sit on commode to urine. patient stated she doesn't know how to push out urine. patient unable to void on own at this time. brief on pt on arrival and assumed incontience at baseline. made aware. straight cath orders placed for urine sample collection.
[2024-07-03 12:20] LABS: MANUAL DIFF FLAG NO
[2024-07-03 12:21] LABS: Basophils Absolute Auto 0.1 X10*3/uL (0.0-0.2); Basophils Percent Auto 0.8 % (0-2); Eosinophils Absolute Auto 0.3 X10*3/uL (0.0-0.4); Eosinophils Percent Auto 4.1 % (0-4); Hematocrit 37.4 % (37.0-47.0); Hemoglobin 11.9 g/dl (12.0-16.0); Imm Gran Abs Auto 0.03 X10*3/uL (0.00-0.03); Imm Gran Pct Auto 0.4 % (0.0-0.4); Lymphocytes Absolute Auto 1.1 X10*3/uL (1.2-4.9); Lymphocytes Percent Auto 13.8 % (20-40); Mean Corpuscular HGB Conc 31.8 g/dl (31.0-35.0); Mean Corpuscular Hemoglobin 30.6 pg (27.0-33.0); Mean Corpuscular Volume 96.1 fL (80.0-98.0); Mean Platelet Volume 10.9 fL (9.4-12.3); Monocytes Absolute Auto 0.7 X10*3/uL (0.1-1.2); Monocytes Percent Auto 9.4 % (2-11); Neutrophils Absolute Auto 5.4 x10*3/uL (2.0-8.3); Neutrophils Percent Auto 71.5 % (45-73); Platelet Count 283 X10*3/uL (160-400); Red Blood Count 3.89 X10*6/uL (4.20-5.50); Red Cell Distribution Width 14.2 % (11.0-16.0); White Blood Count 7.6 X10*3/uL (4.8-10.8)
[2024-07-03 12:29] LABS: Prothrombin Time 11.5 SEC (10.9-12.4)
[2024-07-03 12:31] LABS: Partial Thromboplastin Time 30.6 SEC (26.0-36.8)
[2024-07-03 12:41] LABS: Appearance Urine Clear; Color Urine Yellow; Glucose Urine UA Negative (Negative); Leukocyte Esterase Urine Negative (Negative); Nitrite Urine Negative (Negative); PH 6.5 (5.0-9.0); Specific Gravity - Urine 1.015 (1.005-1.025); Urine Blood Negative (Negative); Urine Ketones Negative (Negative); Urine Protein Negative (Neg-Trace)
[2024-07-03 12:53] LABS: Amphetamine Screen Urine Not Detected (Not Detect); Barbiturates, Urine Not Detected (Not Detect); Benzodiazepines Screen Urine Not Detected (Not Detect); Buprenorphine Scr Not Detected (Not Detect); Cannabinoid Screen Urine Not Detected (Not Detect); Cocaine Screen Urine Not Detected (Not Detect); Fentanyl, urine Not Detected (Not Detect); Methadone Screen, Urine Not Detected (Not Detect); Opiate Screen Urine Not Detected (Not Detect); Oxycodone Screen Urine Not Detected (Not Detect); Phencyclidine Screen Urine Not Detected (Not Detect)
[2024-07-03 13:02] LABS: Alanine Aminotransferase 11 U/L (0-31); Albumin Level 3.6 g/dL (3.5-5.0); Alkaline Phosphatase 75 U/L (39-117); Anion Gap 10 (12-20); Aspartate Amino Transferase 27 U/L (5-31); Bilirubin Total 0.5 mg/dL (0.0-1.0); Blood Urea Nitrogen 15 mg/dL (9-16); Calcium 8.8 mg/dL (8.4-10.2); Carbon Dioxide 25 mmol/L (22-29); Chloride 109 mmol/L (96-108); Creatinine Clr Calc Pharmacy 48.6; Estimated Glomerular Filt Rate > 60; Ethanol < 10 mg/dL; Glucose Random 87 mg/dL (60-115); Lipase 16 U/L (8-78); Magnesium 2.2 mg/dL (1.6-2.6); Potassium 4.4 mmol/L (3.3-5.1); Sodium 140 mmol/L (135-145); Total Protein 7.2 g/dL (6.5-8.0)
--- NOTE | 2024-07-03 15:17 | PC.NURSE ---
This RN spoke with [facility] to discuss return of patient. RN Elena states that patient has been very aggressive to other residents at facility and families when visiting. Patient is hard to deescalate d/t non compliance with taking PRN oral medications. Patient is unable to be medicated appropriately at [facility] d/t facility protocols. Patient has a bed waiting for her at [facility] and the only thing delaying transfer is a signature from economist research assistant whom controls responsibility of pts finances. Per [facility] the paperwork is due to be signed tomorrow and then she will be moved. pt's HCP chelo was also spoken with and agrees this has been the ongoing issue and is in constant communication with [facility] and [facility] to get this moving forward. She feels having yair stay in hospital is safer for her and would like her to stay and be further evaluated and speak with case management tomorrow so that yair can just go straight from ER to [facility] and not back to [facility]. MD aware of situation.
--- NOTE | 2024-07-03 15:35 | PC.NURSE ---
patient starting to impulsively leave bed, high fall risk, but steady on feet at this time, walking in hallway stating she needs to get to the store. Patient redirectable back to bed and calm and cooperative.
--- NOTE | 2024-07-03 15:50 | PC.NURSE ---
patient increasing in agitation with staff and walking briskly away from room trying to state she needs to get back to her car. patient needing more reassurance and redirection and not staying in room for more then 3 minutes without supervision. patient high fall risk and behavior concern. commercial makeup artist made aware, sitter obtained.
--- NOTE | 2024-07-03 16:15 | PC.NURSE ---
patient increasing becoming more agitated with sitter and not able to be redirected. Pt is able to be redirected back to chair by this RN but not willing to participate in any theraptuic activites. patient does not want to watch TV, stated she was not hungry or thirsty and did not have to use the bathroom. pt states I hate coloring or puzzles of any kind . made aware.
--- NOTE | 2024-07-03 16:40 | PC.NURSE ---
patient continues to restlessness and verbally threatening to sitter. MD made aware.
--- NOTE | 2024-07-03 17:01 | PC.NURSE ---
Medication restraint discussion with MD. orders pending. Patient verbally threatening to staff and 1:1 sitter and increasing in agitation. all theraputic techniques exhausted at this time.
[2024-07-03] MEDS: Haloperidol Lactate 5 MG/ML VIAL IM (17:20)
[2024-07-03] MEDS: LORazepam 2 MG/ML VIAL 1 MG IM (17:20)
[2024-07-03] MEDS: diphenhydrAMINE HCL 50 MG/ML VIAL 25 MG IM (17:22)
[2024-07-03 17:26] VITALS: BP 134/62; PULSE 83; RESP 18; TEMP 36.6; O2SAT 96
[2024-07-03 18:33] VITALS: BP 116/78; PULSE 68; RESP 16; O2SAT 93
--- NOTE | 2024-07-03 18:42 | PC.NURSE ---
Patient sleeping on stretcher comfortably at this time. Even unlabored respirations. appears in NAD.
--- NOTE | 2024-07-03 19:04 | PC.NURSE ---
this rn assumed care of pt. pt resting in stretcher, no acute distress noted. pt unable to have sitter at this time. camera placed for pt safety as pt is a fall and elopement risk.
[2024-07-03 20:40] VITALS: PULSE 63; RESP 16; O2SAT 92
--- NOTE | 2024-07-03 21:41 | PC.NURSE ---
at bedside, pt appears sleeping, respirations even and unlabored. per provider, okay to hold off on blood pressure reading at this time and to allow pt to sleep.
[2024-07-04 03:35] VITALS: PULSE 68; RESP 17
[2024-07-04 06:13] VITALS: BP 116/68; PULSE 71; RESP 17; TEMP 36.5; O2SAT 96
--- NOTE | 2024-07-04 06:13 | PC.NURSE ---
pt is calm at this time, offers no complaints. pt is alert to self only. camera remains in place for safety.
--- NOTE | 2024-07-04 06:52 | PC.NURSE ---
pt assisted in incontinence care at this time, pt placed in new gown at this time.
--- NOTE | 2024-07-04 08:56 | PHA.MEDREC ---
Pharmacy Consult ? Medication Reconciliation Pharmacy has completed the medication reconciliation. Spoke with RN, Kenroy, at [facility] to confirm medications. Pt is only on liquid Haldal, pt refuses and will not any tablets or pills. Her FLOOR SWEEPER DC any other medications as pt refuses, she was prescribed Eliquis and Amlodipine on 03/13/24, which pt is no longer on.
--- NOTE | 2024-07-04 10:08 | PC.NURSE ---
Calm and cooperative, sitting up in bed eating breakfast. Denies pain or discomfort. Pleasantly confused
--- NOTE | 2024-07-04 10:55 | MHC.CM.PN ---
CM received consult. Patient from [facility] w/ behaviors 07/03. Per chart patient has not had any PRN's since yesterday. Per RN note, patient calm and cooperative at this time. Spoke w/ alternate HCP/cousin Hazel (primary HCP U[facility] in 2023). Per Hazel, patient has been clinically accepted to [facility] and patient's POA is working w/ facility. Expect to have clearance to admit within the next week. [facility] spoke w/ Nola Mcmillan, who reports they are able to accept patient back until admitted to [facility]. BLS transport scheduled for 2pm. RN, PA, JAZMYNE and HCP aware.
--- NOTE | 2024-07-04 12:55 | PC.NURSE ---
Attempted to give report to the [facility] in [place]. Hose Finisher lamar attempting to find nursing staff however has been unsuccessful. Transferred to nursing voicemail. message left with contact info to call [facility] back when they are ready for report
[2024-07-04 15:04] VITALS: BP 116/68; PULSE 71; RESP 17; TEMP 36.5; O2SAT 96
== END 2024-07-04 15:05 | disposition skilled nursing facility (03) ==
PROVIDERS: Emergency Provider Emergency Medicine Emergency Medical Services
DX: F03.911 Unspecified dementia, unspecified severity, with agitation (principal); R41.9 Unspecified symptoms and signs involving cognitive functions and awareness; Z79.01 Long term (current) use of anticoagulants; Z79.899 Other long term (current) drug therapy
CPT/HCPCS: 36415; 51701; 80053; 80307; 81003; 83690; 83735; 85025; 85610; 85730; 96372; 99285; J1200; J1630; J2060